=== PATIENT | female | born 1955 | race Caucasian/White ===

== ENCOUNTER 2019-03-09 08:28 | Outpatient (REF) | payer MEDICARE, SELFPAY ==
[2019-03-09 14:21] LABS: Cholesterol 261 mg/dL (50-200); HDL Cholesterol 56 mg/dL (40-60); LDL CHOLESTEROL 173 mg/dL (<100); Triglyceride 114 mg/dL (30-150)
== END 2019-03-09 08:48 ==
LOC: NCHCN 08:28
PROVIDERS: PCP Family Medicine; Visit Provider Family Medicine
DX: E78.5 Hyperlipidemia, unspecified (principal)
CPT/HCPCS: 80061; 83721

== ENCOUNTER 2020-07-20 14:07 | Outpatient (REF) | payer MEDICARE, SELFPAY ==
[2020-07-23 19:04] LABS: SARS-CoV-2 RNA Undetected (Undetected)
== END 2020-07-20 14:27 ==
LOC: NCHCN 14:07
PROVIDERS: PCP Family Medicine; Visit Provider Family Medicine
DX: Z20.828 Contact with and (suspected) exposure to other viral communicable diseases (principal)
CPT/HCPCS: U0003

== ENCOUNTER 2021-06-02 09:21 | Outpatient (CLI) | payer MEDICARE, SELFPAY ==
--- NOTE | 2021-06-02 09:00 | DI.RAD_ITS ---
Exam(s) XR HIP PELVIS ADULT BL EXAM: XR HIP PELVIS ADULT BL CLINICAL HISTORY: hip pain. TECHNIQUE: 2D digital imaging was performed. COMPARISON: No exams were available for comparison FINDINGS: BONES: No acute fracture is present. No bony destructive lesion is seen. JOINTS: No dislocation present. Mild to moderate inferomedial hip joint space narrowing. Acetabular spurring seen greatest inferiorly and medially. Adjacent subchondral cyst formation. SOFT TISSUE: Normal. IMPRESSION: Moderate degenerative changes of both hips. DATA REPOSITORY: RADIATION DOSE DELIVERED:
== END 2021-06-02 09:22 | disposition home or self-care (01) ==
LOC: DIORS 09:21
PROVIDERS: PCP Family Medicine; Referring Provider Family Medicine; Visit Provider Student in an Organized Health Care Education/Training Program
DX: M25.551 Pain in right hip (principal); M16.12 Unilateral primary osteoarthritis, left hip; M16.11 Unilateral primary osteoarthritis, right hip; M25.552 Pain in left hip
CPT/HCPCS: 73521; 99203

== ENCOUNTER 2021-06-29 01:41 | Outpatient (CLI) | payer MEDICARE, SELFPAY ==
--- NOTE | 2021-06-29 08:30 | DI.RAD_ITS ---
Exam(s) RF JOINT INJECTION FLUORO GUID EXAM: RF JOINT INJECTION FLUORO GUID CLINICAL HISTORY: R HIP INJ UNDER FLUORO,PRIMARY OA RT HIP, M16.12 TECHNIQUE: Fluoroscopy provided. Radiologist not present. CONTRAST MATERIAL: None COMPARISON: No exams were available for comparison FINDINGS: Fluoroscopy was provided for Dr. Desouza during right hip therapeutic injection. Submitted image(s) reveal needle placement via lateral approach at the junction of the femoral head a nd neck. Intra-articular contrast injected. Please refer to the procedure report for complete details. Cumulative Dose: dorene Mondragon=4.42 mGy IMPRESSION: RADIATION DOSE DELIVERED:
--- NOTE | 2021-06-29 08:30 | DI.RAD_ITS ---
Exam(s) RF JOINT INJECTION FLUORO GUID EXAM: RF JOINT INJECTION FLUORO GUID CLINICAL HISTORY: L HIP INJ UNDER FLUORO,PRIMARY OA LT HIP, M16.12 TECHNIQUE: Fluoroscopy provided. Radiologist not present. CONTRAST MATERIAL: None COMPARISON: No exams were available for comparison FINDINGS: Fluoroscopy was provided for Dr. Desouza during left hip therapeutic injection. Submitted image(s) reveal needle placement at the lateral aspect of the femoral head-neck junction an d injection of intra-articular contrast. Please refer to the procedure report for complete details. Cumulative Dose: dorene Mondragon=13.8 mGy IMPRESSION: RADIATION DOSE DELIVERED:
[2021-06-29] MEDS: Bupivacaine 0.5% Pres-Free 10 ML VIAL IJ (14:13)
[2021-06-29] MEDS: Omnipaque 300 MG/ML 10 ML BTL IJ (14:14)
[2021-06-29] MEDS: methylPREDNISolone ACETATE 80 MG/ML VIAL IM ×2 (14:14→14:15)
--- NOTE | 2021-06-30 07:40 | W.PROCNOTE ---
Date of service: 06/30/21 Time of Service: 07:40 Procedure Note Date of procedure: 06/30/21 Procedure: Bilateral Hip Injection with Fluoroscopic Guidance Surgeon/Proceduralist/Physician: Justin Desouza Procedure Diagnosis: Bilateral Hip Osteoarthritis, Hip Pain Procedure Indications: Brinda has had persistent pain of hip and groin of both sides. Noninvasive measures have been tried. To serve as both diagnostic and therapeutic, an injection under fluoroscopy was recommended. I had discussed the risks of the procedure and the patient elected to proceed. Procedure Description: Brinda was greeted in the flouroscopy room. The correct side was identified and the consent was reviewed with the patient and signed. The patient was then placed in the supine position on the fluoroscopy table. The RIGHT hip was then prepped with Chloraprep. The anterolateral injection starting point was identiifed by bony landmarks and fluoroscopy. The skin and soft tissue in the tract of the injection was anesthetized with 1% Lidocaine. A spinal needle was then inserted deep into the hip joint at the level of the lateral femoral neck under fluoroscopic guidance. A small amount of Omnipaque solution was injected to confirm intraarticular placement. Once confirmed, the hip was injected with 5cc of 0.5% Bupivicaine and 80mg of Depo-Medrol. A bandaid was placed on the injection site. Attention was then turned to the left hip. The LEFT hip was then prepped with Chloraprep. The anterolateral injection starting point was identiifed by bony landmarks and fluoroscopy. The skin and soft tissue in the tract of the injection was anesthetized with 1% Lidocaine. A spinal needle was then inserted deep into the hip joint at the level of the lateral femoral neck under fluoroscopic guidance. A small amount of Omnipaque solution was injected to confirm intraarticular placement. Once confirmed, the hip was injected with 5cc of 0.5% Bupivicaine and 80mg of Depo-Medrol. A bandaid was placed on the injection site. The patient tolerated the procedure well and noted improvement in pre-injection pain.
== END 2021-06-29 02:01 ==
PROVIDERS: PCP Family Medicine; Visit Provider Student in an Organized Health Care Education/Training Program
DX: M16.12 Unilateral primary osteoarthritis, left hip (principal); M16.11 Unilateral primary osteoarthritis, right hip; M25.551 Pain in right hip; M25.552 Pain in left hip; R10.31 Right lower quadrant pain; R10.32 Left lower quadrant pain
CPT/HCPCS: 20610; 77002; J1040

== ENCOUNTER 2021-08-04 04:05 | Outpatient (CLI) | payer MEDICARE, SELFPAY ==
--- NOTE | 2021-08-04 | DI.DEXA_ITS ---
Exam(s) XR DEXA BONE DENSITY W/WO RANDA EXAM: XR DEXA BONE DENSITY W/WO RANDA CLINICAL HISTORY: VIT D DEFICIENCY E55.9, MENOPAUSE Z78.0 TECHNIQUE: COMPARISON: No previous for comparison. FINDINGS: Lateral Spine Image: Unremarkable. No compression deformities identified. Left hip: Total T-Score: -1.5. Total Z-Score: -0.1 T- and Z-scores: Findings consistent with osteopenia. Lumbar Spine: Total T-Score: -1.7 Total Z-Score: 0.3 T- and Z-scores: Findings consistent with osteopenia. IMPRESSION: Osteopenia in the lumbar spine and left hip.
== END 2021-08-04 04:25 ==
PROVIDERS: PCP Family Medicine; Visit Provider Family Medicine
DX: Z78.0 Asymptomatic menopausal state (principal); E55.9 Vitamin D deficiency, unspecified; M85.89 Other specified disorders of bone density and structure, multiple sites
CPT/HCPCS: 77080

== ENCOUNTER 2021-09-04 10:51 | Outpatient (CLI) | payer MEDICARE, SELFPAY ==
--- NOTE | 2021-09-04 10:15 | DI.RAD_ITS ---
Exam(s) XR PELVIS AP EXAM: XR PELVIS AP CLINICAL HISTORY: OA BILATERAL HIPS TECHNIQUE: COMPARISON: CR XR HIP PELVIS ADULT BL from 06/02/2021 FINDINGS: Single AP view of the hips was obtained. The cartilaginous joint spaces of both hips may be mildly n arrowed. There are prominent marginal osteophytes seen involving the acetabula E and to a lesser deg ree the femoral heads bilaterally. Bilateral subchondral cyst formation appears to be present in the bones of the hips. IMPRESSION: moderate DJD both hips RADIATION DOSE DELIVERED: Total DLP
== END 2021-09-04 10:52 | disposition home or self-care (01) ==
LOC: DIORS 10:51
PROVIDERS: PCP Family Medicine; Referring Provider Family Medicine; Visit Provider Student in an Organized Health Care Education/Training Program
DX: M16.11 Unilateral primary osteoarthritis, right hip (principal); M16.12 Unilateral primary osteoarthritis, left hip
CPT/HCPCS: 99214; 72170

== ENCOUNTER 2021-09-15 14:57 | Outpatient (REF) | payer MEDICARE, SELFPAY ==
[2021-09-15 21:27] LABS: Abs Immature Grans 0.04 10^3/uL (0.0-0.06); Absolute Basophil Count 0.12 10^3/uL (0.0-0.2); Absolute Eosinophil Count 0.17 10^3/uL (0.0-0.7); Absolute Neutrophil Count 8.45 10^3/uL (1.2-6.7); Eosinophils % 1.4; HCT 45.7 % (36.0-46.0); HGB 14.8 g/dL (11.2-15.7); Immature Grans % 0.3; Lymphocytes % 17.2; MCH 29.1 pg (27.0-33.0); MCHC 32.4 % (32.0-36.0); MPV 11.7 fL (8.0-11.0); Monocytes % 10.7; Neutrophils % 69.4; Nucleated RBC 0 %; Platelet Count 303 10^3/uL (130-400); RBC 5.08 10^6/uL (3.93-5.22); RDW 12.2 % (11.7-14.6); RDW-SD 40.9 fL; WBC 12.18 10^3/uL (4.4-10.8)
[2021-09-15 21:31] LABS: Absolute Lymphocyte Count 2.09 10^3/uL (1.2-3.4)
[2021-09-15 21:37] LABS: ALT 34 U/L (14-59); AST 18 U/L (15-37); Albumin 3.9 g/dL (3.4-5.0); Alkaline Phosphatase 130 U/L (46-116); BUN 9 mg/dL (7-18); Bilirubin, Total 0.4 mg/dL (0.2-1.0); CREATININE 0.7 mg/dL (0.55-1.02); Calcium 9.1 mg/dL (8.5-10.1); Chloride 101 mmol/L (98-107); Glucose 91 mg/dL (74-106); Potassium 3.9 mmol/L (3.5-5.1); Sodium 139 mmol/L (136-145); Total Protein 7.3 g/dL (6.4-8.2)
== END 2021-09-15 14:58 | disposition home or self-care (01) ==
LOC: NCHCN 14:57
PROVIDERS: PCP Family Medicine; Visit Provider Nurse Practitioner Family
DX: M25.559 Pain in unspecified hip (principal)
CPT/HCPCS: 80053; 85025

== ENCOUNTER 2021-10-02 03:46 | Outpatient (CLI) | payer MEDICARE, SELFPAY ==
[2021-10-02 10:12] LABS: HCT 44.7 % (36.0-46.0); HGB 14.4 g/dL (11.2-15.7); MCH 28.4 pg (27.0-33.0); MCHC 32.2 % (32.0-36.0); MCV 88.2 fL (80-95); MPV 10.6 fL (8.0-11.0); Platelet Count 342 10^3/uL (130-400); RBC 5.07 10^6/uL (3.93-5.22); RDW 12.2 % (11.7-14.6); RDW-SD 39.2 fL; WBC 9.75 10^3/uL (4.4-10.8)
[2021-10-02 10:46] LABS: Anion Gap 6.9 mmol/L (3-11); BUN 10 mg/dL (7-18); CO2 33.1 mmol/L (21.0-32.0); CREATININE 0.6 mg/dL (0.55-1.02); Calcium 9.2 mg/dL (8.5-10.1); Chloride 100 mmol/L (98-107); Glucose 74 mg/dL (74-106); Potassium 4.1 mmol/L (3.5-5.1); Sodium 140 mmol/L (136-145)
[2021-10-02 11:41] LABS: Source Nasal/Nares
[2021-10-02 15:51] LABS: COVID-19 PCR Negative (Negative)
== END 2021-10-02 03:47 | disposition home or self-care (01) ==
LOC: LBO 03:46
PROVIDERS: PCP Family Medicine; Visit Provider Student in an Organized Health Care Education/Training Program
DX: Z20.822 Contact with and (suspected) exposure to COVID-19; Z01.818 Encounter for other preprocedural examination; M16.0 Bilateral primary osteoarthritis of hip
CPT/HCPCS: 36415; 80048; 85027; 86850; 86900; 86901; 87635

== ENCOUNTER 2021-10-04 06:51 | Observation (INO) | payer MEDICARE, SELFPAY ==
[2021-10-04] VITALS (9 sets, daily range): BP systolic 111–154; BP diastolic 57–87; PULSE 54–69; RESP 11–20; TEMP 36.2–36.6; O2SAT 64–98; BMI 28.3
--- NOTE | 2021-10-04 06:54 | W.PM.DSUDISC ---
Discharge Plan Disposition Patient Disposition: HOME Condition: Stable Discharge Details Reason For Visit: bilateral THAs Admit Provider: Justin Desouza Attending Provider: Justin Desouza Primary Care Provider: Leonora López Home Meds and New Rx's Prescriptions: No Action montelukast [Singulair] 10 mg tablet 10 mg PO QHS RF: 0 amlodipine 5 mg tablet 5 mg PO DAILY RF: 0 omeprazole 20 mg capsule,delayed release(DR/EC) 20 mg PO DAILY RF: 0 alprazolam [Xanax] 0.5 mg tablet 0.5 mg PO DAILY PRNRF: 0 amitriptyline 25 mg tablet 25 mg PO DAILY RF: 0 venlafaxine [Effexor XR] 37.5 mg capsule,extended release 24hr 75 mg PO DAILY RF: 0 propranolol 10 mg tablet 10 mg PO DAILY RF: 0 Discharge Instructions Additional Instructions: Total Hip Discharge Instructions Activity: The most important activity is to walk. You should try to take short walks a few times a day. You have no restrictions on movement or positioning, but do not try to force what you do. You will find some stiffness and weakness with hip flexion (lifting your knee). Do not try to strengthen this too early, continue to practice walking and stairs and this will come. - Outpatient physical therapy can be helpful to help return you to a normal gait and improve your flexibility and strength. This can start around 2 weeks. For some patients, it?s not necessary. Usually this is determined at the time of discharge or at the first post-operative visit. - You should wear the EMILIA hose on both legs for 2 weeks. Dressing: Keep the surgical dressing in place for at least one week. After the first week it may be removed and replace with light gauze and tape or nothing. It may get wet after 3 days but avoid soaking the dressing. If it gets wet, just lightly pat dry. It is important to always keep some gauze between skin folds, especially when you are sitting. Spend some time with the wound exposed when you are lying flat as the incision does wrinkle onto itself. Medications: - You should take Tylenol and an anti-inflammatory Celebrex as your primary pain control medications. If the Celebrex is too expensive or not covered, please call the office for another alternative (Advil/Ibuprofen or Naproxen/Aleve). - You have been prescribed a stronger pain medication Oxycodone for breakthrough pain, take as needed as prescribed. - You have also been prescribed a stomach acid reduction agent Pantoprozole to help reduce stomach acid and reflux. - You will be taking Aspirin 81mg twice a day for DVT prevention unless instructed otherwise. - If you have constipation you should take Colace or Miralax (both [id number]). It takes most people 3-4 days to have a bowel movement. Follow-up: 2 weeks If you have any acute concerns or questions, please do not hesitate to contact the office at [phone]. You may contact Dr. Desouza with any questions after hours through the hospital at [phone] or on his cell phone at [phone]. Referrals: Justin Desouza MD [ [facility] STAFF PHYSICIAN] - Activity:: Activity as Tolerated Equipment/Supplies:: Walker Diet:: As Tolerated DS: Diagnosis Discharge Diagnosis (1) Primary osteoarthritis of right hip: Status: Acute (2) Primary osteoarthritis of left hip: Status: Acute
[2021-10-04] MEDS: Celecoxib 200 MG CAP 400 MG PO (08:51)
[2021-10-04] MEDS: Acetaminophen 500 MG TAB 1000 MG PO ×3 (08:51→20:09)
[2021-10-04] MEDS: Lactated Ringers 1,000 ML 80 ML IV ×2 (09:00→16:39)
--- NOTE | 2021-10-04 09:05 | ANES.PREOP_ITS ---
General Info Date of Service Date Performed: 10/04/21 Height: 5 ft 2.5 in Weight: 71.4 kg Body Mass Index (BMI): 28.3 Surgical Procedure: Operation Date: 10/04/21 10:35 Proposed Procedures Side Surgeon p Bilateral Hip Total Hip Anterior Bilateral Justin Desouza MD Meds Allergies and Home Medications Allergies Allergy/AdvReac Type Severity Reaction Status Date / Time lisinopril Allergy Severe Verified 10/04/21 08:21 promethazine [From Phenergan] Allergy Severe ANAPHYLAXIS Verified 10/04/21 08:21 sulfite Allergy Intermediate Other (See Unverified 10/04/21 08:21 Comment) Barbiturates Allergy Verified 10/04/21 08:21 losartan Allergy Verified 10/04/21 08:21 erythromycin base AdvReac Intermediate GI UPSET Verified 10/04/21 08:21 MSG Allergy Severe Hives Uncoded 10/04/21 08:21 Home Medication Medication Instructions Recorded alprazolam 0.5 mg tablet 0.5 mg PO DAILY PRN 06/02/21 amitriptyline 25 mg tablet 25 mg PO DAILY 06/02/21 amlodipine 5 mg tablet 5 mg PO DAILY 06/02/21 montelukast 10 mg tablet 10 mg PO QHS 06/02/21 omeprazole 20 mg capsule,delayed 20 mg PO DAILY 06/02/21 release venlafaxine 37.5 mg 75 mg PO DAILY cap 09/04/21 capsule,extended release 24 hr propranolol 10 mg PO DAILY 10/03/21 Current Visit Medications: Current Medications Generic Name Dose Route Start Last Admin Trade Name Freq PRN Reason Stop Dose Admin Acetaminophen 1,000 mg 10/04/21 06:00 10/04/21 08:51 Acetaminophen 500 Mg Tab PO 10/04/21 16:00 1,000 mg PREOP KEVIN Administration Acetaminophen 1,000 mg 10/04/21 09:00 Acetaminophen 500 Mg Tab PO TID KEVIN Aspirin 81 mg 10/04/21 09:00 Aspirin E.C. 81 Mg Tabec PO BID KEVIN Celecoxib 400 mg 10/04/21 06:00 10/04/21 08:51 Celecoxib 200 Mg Cap PO 10/04/21 16:00 400 mg PREOP KEVIN Administration Celecoxib 200 mg 10/04/21 09:00 Celecoxib 200 Mg Cap PO BID COUNT INCLUDES THE [facility] Docusate Sodium 100 mg 10/04/21 06:53 Docusate Sodium 100 Mg Cap PO BID PRN PRN Constipation Hydromorphone HCl 0.5 mg 10/04/21 06:53 Hydromorphone 2 Mg/Ml Vial IVP Q2H PRN PRN Tranexamic Acid 1,000 mg/ 60 mls @ 360 mls/hr 10/04/21 06:00 Sodium Chloride IV PREOP KEVIN Tranexamic Acid 1,000 mg/ 60 mls @ 360 mls/hr 10/04/21 06:00 Sodium Chloride IV DIRECTED COUNT INCLUDES THE [facility] Ringer's Solution 1,000 mls @ 80 mls/hr 10/04/21 06:00 IV 10/24/21 23:59 INFUSION KEVIN Cefazolin Sodium 2,000 mg/ 100 mls @ 200 mls/hr 10/04/21 06:00 Sodium Chloride IVPB 10/04/21 16:00 PREOP KEVIN Cefazolin Sodium/Dextrose 1 gm in 50 mls @ 100 mls/hr 10/04/21 18:00 Ancef Duplex IVPB 10/05/21 10:29 Q8H COUNT INCLUDES THE [facility] IV Miscellaneous Supplies 1 each 10/04/21 06:00 Iv Access IV 10/24/21 23:59 DIRECTED KEVIN Ondansetron HCl 4 mg 10/04/21 06:53 Ondansetron 4 Mg/2 Ml Vial IVP Q6H PRN PRN Nausea Pantoprazole Sodium 40 mg 10/04/21 08:00 Pantoprazole 40 Mg Tabcr PO DAILY@0730 COUNT INCLUDES THE [facility] Sodium Chloride 0 ml 10/04/21 06:00 Normal Saline Flush 10 Ml Syr IV 10/24/21 23:59 PRN PRN Sodium Chloride 0 ml 10/04/21 06:00 Normal Saline 10 Ml Vial IJ 10/24/21 23:59 DIRECTED PRN Sterile Water 0 ml 10/04/21 06:00 Water,Injection,Sterile 10 Ml Vial IJ 10/24/21 23:59 DIRECTED PRN PFSH Active Problems Active Problems: Problem Status Onset Code Primary osteoarthritis of right hip M16.11 Primary osteoarthritis of left hip M16.12 Arthralgia M25.50 Medical History Medical History (Updated 10/03/21 @ 08:05 by Reddy Joseph) Actinic keratosis Arthritis Cataract, left eye Depression with anxiety Hyperlipidemia Hypertension IBS (irritable bowel syndrome) Mitral valve prolapse Per pt. states this was found when she was and hasn't been able to be detected recently Myalgia Neck pain Panic disorder PTSD (post-traumatic stress disorder) From Hysterectomy I was awake during it, I had a spinal but was awake. 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 so I'm very nervous Seasonal allergies Surgical History Surgical History (Updated 10/04/21 @ 08:20 by Courtney Harvey) [place] [facility] [place] History of right cataract surgery Previous section 1975, 1979 Tobacco Smoking/Tobacco Use Status: Never Alcohol Alcohol Intake: never Substance Use Substance use: Rarely Substance use type: marijuana Vital Signs and Lab Results Vital Signs Most Recent Vital Signs in EMR: Most Recent Vital Signs Temp Pulse Resp BP Pulse Ox 36.5 C 65 20 153/83 H 98 10/04/21 08:24 10/04/21 08:24 10/04/21 08:24 10/04/21 08:24 10/04/21 08:24 Lab Results Blood Type / Crossmatch: Patient ABO/Rh O Positive 10/02/21 09:59 10/02/21 Antibody Screen NEGATIVE 10/02/21 09:59 10/02/21 Complete Blood Count: White Blood Count 9.75 10^3/uL (4.4-10.8) 10/02/21 09:59 10/02/21 Red Blood Count 5.07 10^6/uL (3.93-5.22) 10/02/21 09:59 10/02/21 Hemoglobin 14.4 g/dL (11.2-15.7) 10/02/21 09:59 10/02/21 Hematocrit 44.7 % (36.0-46.0) 10/02/21 09:59 10/02/21 Platelet Count 342 10^3/uL (130-400) 10/02/21 09:59 10/02/21 Complete Metabolic Panel: Sodium Level 140 mmol/L (136-145) 10/02/21 09:59 10/02/21 Potassium Level 4.1 mmol/L (3.5-5.1) 10/02/21 09:59 10/02/21 Chloride Level 100 mmol/L (98-107) 10/02/21 09:59 10/02/21 Carbon Dioxide Level 33.1 mmol/L (21.0-32.0) H 10/02/21 09:59 10/02/21 Blood Urea Nitrogen 10 mg/dL (7-18) 10/02/21 09:59 10/02/21 Creatinine 0.6 mg/dL (0.55-1.02) 10/02/21 09:59 10/02/21 Estimated GFR/1.73 m2 >= 60.00 (mL/min/1.73m2) 10/02/21 09:59 10/02/21 Calcium Level 9.2 mg/dL (8.5-10.1) 10/02/21 09:59 10/02/21 Albumin 3.9 g/dL (3.4-5.0) 09/15/21 12:35 09/15/21 Glucose Level 74 mg/dL (74-106) 10/02/21 09:59 10/02/21 Liver Function Panel: Alanine Aminotransferase (ALT/SGPT) 34 U/L (14-59) 09/15/21 12:35 09/15/21 Aspartate Amino Transf (AST/SGOT) 18 U/L (15-37) 09/15/21 12:35 09/15/21 Coagulation Panel: No Data to Display Cardiac Panel: No Data to Display Arterial Blood Gas: No Data to Display Venous Blood Gas: No Data to Display Pancreas Panel: No Data to Display Thyroid Panel: No Data to Display Infectious Disease: Coronavirus (COVID-19)(PCR) Negative (Negative) 10/02/21 11:11 10/02/21 Coronavirus 2019 Source Nasal/Nares 10/02/21 11:11 10/02/21 Blood Cultures: No Data to Display Toxicology Panel: No Data to Display Imaging and Studies Imaging and Studies Stress Test Summary: Stress results: The rate-pressure product for the peak heart rate and blood pressure was 59076pf Hg/min. Stress ECG: TESTING ENDED At 9 MINS DUE TO PT FATIGUE. MAX HR 143, 91% OF TARGET. BLOOD PRESSURE RESPONSE: HYPOTENSIVE BLOOD PRESSURE RESPONSE METS:10.16 ECTOPY:NO ECTOPY NOTED. ANGINA: PT DENIED CHEST PAIN OR PRESSURE ISCHEMIA: NO ISCHEMIC CHANGES NOTED. FUNCTIONAL CAPACITY: ABOVE AVERAGE FUNCTIONAL CAPACITY. Myocardial perfusion: Imaging information: gated. No myocardial perfusion defects noted. Ventricular Function (Wall Motion): The calculated left ventricular ejection fraction after stress: 64%. 12/24/16 Anesthesia Assessment and Plan Anesthesia History Personal History: No History of Anesthesia Complications Family History: No Family History of Anesthesia Complications Exercise Tolerance Exercise Tolerance: Metabolic Equivalents>4 Pertinent Negatives Pertinent Negatives: No Symptoms of GERD (Well controlled with meds), No Major Cardiovascular Symptoms or Complaints, No Major Pulmonary Symptoms or Complaints and No History of CVA/TIA Cardiac & Pulmonary Exam Cardiac Exam: Normal S1/S2 Heart Sounds Pulmonary Exam: Clear Bilateral Breath Sounds Implantable Cardiac Device Does patient have a Pacemaker or an ICD?: No Airway Exam Known Difficult Airway: No Mallampati Class: 2 Mouth Opening: Narrow (< 3cm) Thyromental Distance: Less than 3 cm Neck Range of Motion: Limited ROM (Pain with any movent of head to the left, plan to position to comfort prior to deep sedation in OR) and Known Cervical Instability or radiculopathy Neck Circumference: Normal Teeth Condition: Normal Dentition ASA Classification ASA Score: ASA 2 Emergency Case?: No NPO Status NPO Status: NPO Clears >2 hours, Solids >8 hours Anesthesia Plan Resuscitation Status: Full Code Anesthesia Technique: Spinal Anesthesia Airway Planned: Natural Airway Monitors Used: Standard Monitors Preoperative Comments:: Severe anxiety. Plan preop sedation.
[2021-10-04] MEDS: ceFAZolin 2,000 MG in Normal Saline 100 ML 200 MG IVPB (10:29)
--- NOTE | 2021-10-04 11:33 | DI.RAD_ITS ---
Exam(s) XR HIP RT IN OR EXAM: XR HIP RT IN OR CLINICAL HISTORY: (1) Primary osteoarthritis of left hip:. TECHNIQUE: 2D digital imaging was performed. COMPARISON: No exams were available for comparison FINDINGS: Intraoperative fluoroscopy was provided during right hip arthroplasty Total fluoroscopy time 34 seconds Total clipped of dose 4.09mGy IMPRESSION: DATA REPOSITORY: RADIATION DOSE DELIVERED:
[2021-10-04] MEDS: Bupivacaine 0.25% Pres-Free 30 ML VIAL (12:45)
[2021-10-04] MEDS: Ketorolac 30 MG/ML VIAL (12:45)
--- NOTE | 2021-10-04 12:49 | DI.RAD_ITS ---
Exam(s) XR HIP LT IN OR EXAM: XR HIP LT IN OR CLINICAL HISTORY: (1) Primary osteoarthritis of left hip:. TECHNIQUE: 2D digital imaging was performed. COMPARISON: No exams were available for comparison FINDINGS: Intraoperative fluoroscopy was provided during left hip arthroplasty. Total fluoroscopy time 36.7 seconds Total cumulative dose 4.74mGy IMPRESSION: DATA REPOSITORY: RADIATION DOSE DELIVERED:
--- NOTE | 2021-10-04 13:30 | W.PM.OP ---
Date of service: 10/04/21 Time of Service: 13:10 Operative Note Operative Note DATE OF PROCEDURE: 10/04/21 PRE-OP DIAGNOSIS: Bilateral Hip Osteoarthritis POST-OP DIAGNOSIS: same PROCEDURE: Bilateral Anterior Total Hip Arthroplasty SURGEON: Justin Desouza AUDIO VISUAL FACILITIES ENGINEER: Andreina Vicente ANESTHESIA TYPE: Spinal Refer to Anesthesia Record ESTIMATED BLOOD LOSS: 200 PATHOLOGY: none sent TOURNIQUET TIME: 0 COMPLICATIONS: None Patient was transported to: PACU Patient's condition: stable Implants: RIGHT: 1. Depuy [place] Acetabular Component, 48mm 2. Depuy Acetabular Liner, [id number] 3. Depuy Corail Standard Collared 125 degrees Femoral Stem, Size 11 4. Depuy Altrx Ceramic Femoral Head, Size 32+1mm LEFT: 1. Depuy [place] Acetabular Component, 48mm 2. Depuy Acetabular Liner, [id number] 3. Depuy Corail Standard Collared 125 degree Femoral Stem, Size 11 4. Depuy Altrx Ceramic Femoral Head, Size 32+5mm Indications: I have seen Brinda in clinic for symptoms of hip arthritis, confirmed with radiographic findings. She has exhausted nonoperative methods and was having significant limitations in daily function and desired better function and less pain. I discussed the technical details of a hip replacement. I explained the risks of the procedure to include, but not limited to, bleeding, infection, pain, stiffness, fracture, damage to nerves and vessels, damage to muscles and tendons, loosening, instability, leg length inequality, need for repeat procedure, blood clot and cardiopulmonary demise. Despite these risks, Brinda elected to proceed. Findings: There was significant signs of arthritis throughout both hips. The right hip was the worst and had large neck osteophytes. Procedure Description: Brinda was greeted in the preoperative holding area where the correct side was identified and marked. The consent was reviewed with the patient and signed. The history and physical was updated. All questions were answered. She was taken back to the operating room. A spinal anesthestic was then administered. The patient was placed into the supine position on the [facility] operating table. Both feet were wrapped with Webrill cotton wrap along with Coban. The feet were placed in specialized boots for the [facility] table, well seated within the boot and secured. SCDs were applied. The patient was then slid down onto a peroneal post and the boots were secured in a neutral position. RIGHT Side A preoperative AP hip was obtained to serve as a reference for determining leg lengths. Prophylactic antibiotics in the form of Cefazolin were administered. 1g of Tranxemic Acid was given intravenously within 30 minutes of incision. The right leg was then prepped with Chloraprep and draped in a standard fashion. A second prep with Chloraprep was performed prior to placement of a shower-curtain type drape with Iodine impregnated skin protection. A timeout to confirm correct identity, side and site, procedure, allergies, anesthesia, and medical concerns was performed. An obliquely oriented incision was made starting lateral to the ASIS and running distal over the Tensor Fascia Kassidy (TFL) muscle belly toward the fibular head, approximately 10cm. The skin and soft tissue was dissected sharply, through Kartik?s fascia, and to the fascia of the TFL. With the fascia and superior border of the IT band identified, the fascia was incised with a new knife just above any perforators from the IT band. The TFL muscle belly was bluntly dissected away from the fascia and moved laterally. The fat between TFL and rectus was identified to ensure the dissection was not within the TFL. Blunt dissection created space between abductors and the capsule and retractor was placed over the lateral femoral neck. The fibers of the rectus femoris tendon were identified and these were freed from the anterior capsule. A second cobra retractor was placed around the medial femoral neck. The TFL was further retracted laterally to show the deep fascia. Careful dissection through this layer identified three main crossing vessels of the lateral femoral circumflex. These were cauterized in multiple locations and then cut without any noticeable bleeding. The TFL was further released bluntly from the deep fascia to expose anterior hip capsule and fat The Scott orthopaedic retractor was then placed beneath the TFL and against sartorius and medial soft tissues to protect and retract the soft tissues. A T-capsulotomy was then performed starting at the superior lateral acetabulum and moving distally to the intertrochanteric ridge. These capsular flaps were tagged with a No. 1 Ethibond and elevated from within. The capsular flaps were released to the shoulder of the lateral neck and to the lesser trochanter to give excellent visualization of the proximal femur. A neck osteotomy was performed using an oscillating saw based on preoperative templates. This cut started in the shoulder and of the lateral neck and exited medially. The saw was at all times directed medially to avoid injury to the greater trochanter. 6cm of traction was applied to the leg and the osteotomy opened. The femoral head was removed with a corkscrew, making sure to protect the TFL on its exit. This was measured on the back table to determing the starting reamer size. Portions of the rectus obscuring visualization were minimally elevated off the superior acetabulum. An anterior retractor was placed over the anterior wall between capsule and labrum and attached to the Gripper retraction system. A posterior retractor was placed similarly. This provided excellent visualization. The contents of the cotyloid fossa were removed with electrocautery and the labrum was removed with a knife. There was significant chondromalacia of the superior acetabulum. Acetabular reaming began with a 44mm reamer. This first reaming was directed anterior to posterior and medial to get down to the true floor. This was inspected and reamed until the true floor was reached. The anterior retractor was then released and entry and exit was provided by traction on the capsular flaps. I then reamed sequentially up to a 48mm reamer where good fit was obtained. The larger reamers were oriented based on anatomical reference of the anterior and lateral gore to ensure proper abduction and anteversion. Positioning and size was confirmed with the fluoroscopy. A 48mm Depuy [place] acetabular component was selected. The acetabulum was reamed around the periphery with the selected acetabular size to prevent a rim fit. The deep tissues were irrigated. The acetabular component was then impacted in a position of about 40-45 degrees of abduction and 15-20 degrees of anteversion, using the patient?s anatomy as the ultimate landmark. Fluoroscopy was used to confirm this. There was excellent overhead garage door hanger of the acetabular component and the inserting handle was removed. The acetabular liner, Depuy [id number] polyethylene liner, was inserted and lined up with the tines of the acetabular component. There was no soft tissue interposition. The liner was then impacted into position and confirmed to be well-seated. A portion of the osorio-articular cocktail was then injected around the acetabulum into the capsule and periosteum. This cocktail consisted of 50cc of 0.25% Bupivicaine and 20cc of Exparel, expanded to a total of 120cc. Traction was released from the femur. The leg was rotated to 120 degrees. Any remaining medial capsule was released until the lesser trochanter was easily palpable. A Glynn retractor was placed medially. The lateral capsule was further released into the shoulder to allow access to the greater trochanter. A Glynn retractor was placed over the greater trochanter which allowed the trochanter to flip in front of the capsule for excellent exposure. The leg was brought down into maximal extension and 20 degrees of adduction while ensuring there was no impingement on the acetabulum. Any remnant capsule within the trochanter was released. Piriformis and obturator externis were identified and protected. There was excellent access to the proximal femur. The lateral neck remnant was removed with a rongeur. A blunt canal probe was used to identify the canal and trajectory for later broaching. A box osteotome initiated the broach course. A small curved rasp and a curved curette were used to work laterally. Broaching then began with a size 8 Corail broach. This was inserted manually around the trochanter and into the canal before mallet blows. The broach was seated to a few millimeters below the cut level based on the neck cut and the preoperative template. Sequential broaching was continued with the GameWithse pneumatic broaching device until a tight fit was obtained with good rotational control of the femur. A trial standard 125 neck was inserted along with a +1 trial head. The leg was brought out of extension and adduction and then reduced with traction and internal rotation. The leg was stable anteriorly in a position of 30 degrees of extension and 90 degrees of external rotation. Fluoroscopy was used to ensure there was no fracture and the stem was seated well. Leg lengths were checked with an AP pelvis and pelvic reference points. LitRes navigation system was used to confirm appropriate positioning and leg length and offset. No changes were necessary. Once content with the desired offset and leg lengths, the leg was brought back into extension, external rotation and adduction. The periosteum and surrounding tissue was injected with remaining portion of the osorio-articular cocktail. The proximal femur was irrigated as well as the deep tissues. The Depuy [place] standard collared 125 deg stem, size 11, was then manually inserted into the proximal femur making sure to control rotation. It was then malleted into position with light blows, giving breaks to allow bone expansion and decrease risk of fracture. The selected Depuy Altrx Ceramic Head, size 32+1mm, was then placed onto the clean and dry trunnion and secured with impaction onto the tapered fit. The leg was brought back out of extension and adduction and reduced with traction and internal rotation. Stability was confirmed with no shuck at 90 degrees of external rotation and 30 degrees of extension. No impingement through range of motion arc. Final x-ray images were obtained with fluoroscopy to confirm adequate positioning and no intraoperative fracture. The deep tissues were thoroughly irrigated with Irrisept chlorhexadine solution. The capsule was then reapproximated with the previously placed Ethibond sutures. The TFL fascia was finally closed with a No. 2 Stratafix, barbed suture. Deep tissues were then reapproximated with 0 Vicryl and a running 2-0 Vicryl. The skin was closed with a running 4-0 Monocryl in a subcuticular fashion. This was reinforced with skin glue. A Mepilex silver dressing was applied. LEFT Side Keeping the back table sterile, the drapes were removed, light handles changed, and fluoroscopy switched rooms sides. The second dose of TXA 1g was administered intravenously. The left leg was then prepped with Chloraprep and draped in a standard fashion. A second prep with Chloraprep was performed prior to placement of a shower-curtain type drape with Iodine impregnated skin protection. A timeout was once again performed to ensure that there were no issues to proceed. An obliquely oriented incision was made starting lateral to the ASIS and running distal over the Tensor Fascia Kassidy (TFL) muscle belly toward the fibular head, approximately 10cm. The skin and soft tissue was dissected sharply, through Kartik?s fascia, and to the fascia of the TFL. With the fascia and superior border of the IT band identified, the fascia was incised with a new knife just above any perforators from the IT band. The TFL muscle belly was bluntly dissected away from the fascia and moved laterally. The fat between TFL and rectus was identified to ensure the dissection was not within the TFL. Blunt dissection created space between abductors and the capsule and retractor was placed over the lateral femoral neck. The fibers of the rectus femoris tendon were identified and these were freed from the anterior capsule. A second cobra retractor was placed around the medial femoral neck. The TFL was further retracted laterally to show the deep fascia. Careful dissection through this layer identified three main crossing vessels of the lateral femoral circumflex. These were cauterized in multiple locations and then cut without any noticeable bleeding. The TFL was further released bluntly from the deep fascia to expose anterior hip capsule and fat The Scott orthopaedic retractor was then placed beneath the TFL and against sartorius and medial soft tissues to protect and retract the soft tissues. A T-capsulotomy was then performed starting at the superior lateral acetabulum and moving distally to the intertrochanteric ridge. These capsular flaps were tagged with a No. 1 Ethibond and elevated from within. The capsular flaps were released to the shoulder of the lateral neck and to the lesser trochanter to give excellent visualization of the proximal femur. A neck osteotomy was performed using an oscillating saw based on preoperative templates. This cut started in the shoulder and of the lateral neck and exited medially. The saw was at all times directed medially to avoid injury to the greater trochanter. 6cm of traction was applied to the leg and the osteotomy opened. The femoral head was removed with a corkscrew, making sure to protect the TFL on its exit. This was measured on the back table to determing the starting reamer size. Portions of the rectus obscuring visualization were minimally elevated off the superior acetabulum. An anterior retractor was placed over the anterior wall between capsule and labrum and attached to the Gripper retraction system. A posterior retractor was placed similarly. This provided excellent visualization. The contents of the cotyloid fossa were removed with electrocautery and the labrum was removed with a knife. Acetabular reaming began with a 44mm reamer. This first reaming was directed anterior to posterior and medial to get down to the true floor. This was inspected and reamed until the true floor was reached. The anterior retractor was then released and entry and exit was provided by traction on the capsular flaps. I then reamed sequentially up to a 48mm reamer where good fit was obtained. The larger reamers were oriented based on anatomical reference of the anterior and lateral gore to ensure proper abduction and anteversion. Positioning and size was confirmed with the fluoroscopy. A 48mm Depuy [place] acetabular component was selected. The acetabulum was reamed around the periphery with the selected acetabular size to prevent a rim fit. The deep tissues were irrigated. The acetabular component was then impacted in a position of about 40-45 degrees of abduction and 15-20 degrees of anteversion, using the patient?s anatomy as the ultimate landmark. Fluoroscopy was used to confirm this. There was excellent overhead garage door hanger of the acetabular component and the inserting handle was removed. The acetabular liner, Depuy [id number] polyethylene liner, was inserted and lined up with the tines of the acetabular component. There was no soft tissue interposition. The liner was then impacted into position and confirmed to be well-seated. A portion of the osorio-articular cocktail was then injected around the acetabulum into the capsule and periosteum. This cocktail consisted of 50cc of 0.25% Bupivicaine and 20cc of Exparel, expanded to a total of 120cc. Traction was released from the femur. The leg was rotated to 120 degrees. Any remaining medial capsule was released until the lesser trochanter was easily palpable. A Glynn retractor was placed medially. The lateral capsule was further released into the shoulder to allow access to the greater trochanter. A Glynn retractor was placed over the greater trochanter which allowed the trochanter to flip in front of the capsule for excellent exposure. The leg was brought down into maximal extension and 20 degrees of adduction while ensuring there was no impingement on the acetabulum. Any remnant capsule within the trochanter was released. Piriformis and obturator externis were identified and protected. There was excellent access to the proximal femur. The lateral neck remnant was removed with a rongeur. A blunt canal probe was used to identify the canal and trajectory for later broaching. A box osteotome initiated the broach course. A small curved rasp and a curved curette were used to work laterally. Broaching then began with a size 8 Corail broach. This was inserted manually around the trochanter and into the canal before mallet blows. The broach was seated to a few millimeters below the cut level based on the neck cut and the preoperative template. Sequential broaching was continued with the Game[employer]se pneumatic broaching device until a tight fit was obtained with good rotational control of the femur. A trial standard 125 deg neck was inserted along with a +1 trial head. The leg was brought out of extension and adduction and then reduced with traction and internal rotation. The leg was stable anteriorly in a position of 30 degrees of extension and 90 degrees of external rotation. Fluoroscopy was used to ensure there was no fracture and the stem was seated well. Leg lengths were checked with an AP pelvis and pelvic reference points. LitRes navigation system was used to confirm appropriate positioning and leg length and offset. This showed that we had undercorrected the offset compared to what we did on the right side. However, this would be improved with a +5 head on the left and advancing the stem a few mm's. Once content with the desired offset and leg lengths, the leg was brought back into extension, external rotation and adduction. The periosteum and surrounding tissue was injected with remaining portion of the osorio-articular cocktail. The proximal femur was irrigated as well as the deep tissues. The Depuy [place] standard collared 125 deg stem, size 11, was then manually inserted into the proximal femur making sure to control rotation. It was then malleted into position with light blows, giving breaks to allow bone expansion and decrease risk of fracture. The selected Depuy Altrx Ceramic Head, size 32+5mm, was then placed onto the clean and dry trunnion and secured with impaction onto the tapered fit. The leg was brought back out of extension and adduction and reduced with traction and internal rotation. Stability was confirmed with no shuck at 90 degrees of external rotation and 30 degrees of extension. No impingement through range of motion arc. Final x-ray images were obtained with fluoroscopy to confirm adequate positioning and no intraoperative fracture. The deep tissues were thoroughly irrigated with Irrisept chlorhexadine solution. The capsule was then reapproximated with the previously placed Ethibond sutures. The TFL fascia was finally closed with a No. 2 Stratafix, barbed suture. Deep tissues were then reapproximated with 0 Vicryl and a running 2-0 Vicryl. The skin was closed with a running 4-0 Monocryl in a subcuticular fashion. This was reinforced with skin glue. A Mepilex silver dressing was applied. At the end of the case, all counts were correct. Brinda was transferred to the hospital bed without difficulty and suffering no apparent complication. Brinda has a good prognosis. Physical therapy will start today and without restrictions, weight-bearing as tolerated. Aspirin 81mg BID will be used for DVT prophylaxis.
--- NOTE | 2021-10-04 13:59 | IN_ITS ---
Date of service: 10/04/21 Time of Service: 13:59 PT Notes Visit Reasons: bilateral THAs Physical Therapy Inpatient Initial Evaluation Date: 10/04/2021 Referring Doctor: LADARIUS Ricardo PT Orders: PT CONSULT: S/P Ortho Surgery Precautions: Fall. Standard. WBAT on B LE with AD. Patient Profile/Admitting Diagnosis: Patient is a 66-year-old female with primary osteoarthritis of bilateral hips and S/P bilateral total hip arthroplasty on postoperative day 0. PMHX: Medical History (Updated 07/10/21 @ 12:15 by Justin Desouza MD) Actinic keratosis Arthritis Cataract, left eye Depression with anxiety Hyperlipidemia Hypertension IBS (irritable bowel syndrome) Mitral valve prolapse Myalgia Neck pain Panic disorder Seasonal allergies Surgical History (Updated 06/02/21 @ 09:17 by Jasmyne Romero RN) H/O colonoscopy 10/20/08 History of right cataract surgery Previous section 1975, 1979 Social History/Home Situation: Lives with in a private home with no steps to enter. 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 Independent with all aspects of ADLs without an AD. Equipment Owned/DME: None Subjective: Reports 8/10 on the left hip with weight bearing. Adds that there is a stinging sensation in B hips with the L more affected than the R. denies dizziness. Reports mild numbness in B feet. Agreeable to trying out getting out of bed to try to see how she will feel with walking. Objective: General Observation: Supine in bed. Mepilex Ag over surgical incision. TEDS in B legs. IV in R UE. cold pack in B hips. Mental Status: Alert and oriented as to person, place, time, and purpose. Able to pay attention, focus, and respond appropriately. Pain: 7-8/10 in L hip ROM: Right Upper Extremity: Shoulder Flexion WFL. Shoulder abduction WFL. Elbow fl exion WFL. Wrist flexion WFL. Functional opening and closing of hand WFL. Left Upper Extremity: Shoulder Flexion WFL. Shoulder abduction WFL. Elbow flexion WFL. Wrist flexion WFL. Functional opening and closing of hand WFL. Right Lower Extremity: Hip flexion WFL. Hip abduction WFL. Knee flexion WFL. Ankle dorsiflexion WFL. Ankle plantarflexion WFL. Left Lower Extremity: Hip flexion-only able to lift thigh up about 10 degrees from edge of bed due to pain. Hip abduction WFL. Knee flexion WFL. Ankle dorsiflexion WFL. Ankle plantarflexion WFL. Strength: Right Upper Extremity: Shoulder flexors 4/5. Shoulder abductors 4/5. Elbow flexors 4/5. Elbow extensors 4/5. Injection Molding Machine Operator strong. Left Upper Extremity: Shoulder flexors 4/5. Shoulder abductors 4/5. Elbow flexors 4/5. Elbow extensors 4/5. Injection Molding Machine Operator strong. Right Lower Extremity: Hip flexors 4/5. Hip abductors 4/5. Knee flexors 4/5. Knee extensors 4/5. Ankle dorsiflexors 5/5. Ankle plantarflexors 5/5. Left Lower Extremity: Hip flexors 3-/5. Hip abductors 4-/5. Knee flexors 4/5. Knee extensors 4/5. Ankle dorsiflexors 4/5. Ankle plantarflexors 4/5. Bed Mobility/Transfers: Supine to sit with supervision with HOB at 30 degrees Sit to supine with contact guard assist Sit to stand with contact guard assist Stand to sit with stand by assist Bed to reclining chair stand by assist Gait: Instructed patient with level surface ambulation of 250 feet requiring conatct guard assist. Avani decreased. Step height decreased on L. Step length decreased on L. 8/10 pain in L hip. Denies dizziness, chest pain, and headache. Balance: Static Sitting: Normal Dynamic Sitting: Normal Static Standing: Fair Dynamic Standing: Fair Special Tests: Mobility Limitations [facility] Basic Mobility Inpatient Short Form: Raw Score: 22 CMS Score: 21% deficit Informed Consent/Education: Patient was instructed in purpose of PT consult and plan of care. Agreeable to proceed with established PT POC to achieve personal goals. Assessment: Patient requires contact guard assist with all mobility ADLs using the FWW for safety. Pain significantly limits mobility ADL performance. Patient presents with clinical signs and symptoms consistent with current/admitting diagnoses that have resulted to mobility limitations, gait instability, generalized weakness, and overall ADL decline as demonstrated by the following impairment level findings: 1. Decreased strength to B hip major muscle groups 2. Impaired sitting/standing balance 3. Impaired activity tolerance 4. Limitation of joint range of motion in L hip Impairments are contributing to the following functional limitations: 1. Decline in bed mobility skills 2. Decline in transfer skills 3. Difficulty with ambulation without assistive device and physical assistance 4. Increased completion time for mobility ADL performance 5. Increased risk for falls Patient is assessed as a 86129 moderate complexity based on the following: History: 66-year-old female with past medical history as indicated above Examination: Demonstrable impairment in strength, balance, and mobility level with underlying impairments and functional limitations as exhibited above as well as deficit score of 21% utilizing the [facility] Mobility Inpatient Short Form Presentation: Evolving Decision Makin moderate complexity Goals: Goals X1 week 1. Supine-Sit independent 2. Sit-Supine independent 3. Sit-Stand independent 4. Stand-Sit independent with FWW 5. Bed-Chair independent with FWW 6. Chair-Bed independent with FWW 7. Independent gait on level surface with use of FWW for at least 300 feet without report of pain nor dyspnea 8. Independent with home exercise program 9. Good static and dynamic standing balance/tolerance Plan of Care/Treatment Plan: 1-2x/day, 7 days/week x 1 week. Plan of care has been reviewed with the PRISON GUARD SUPERVISOR providing the service under Physical Therapy direction. Initiate Physical Therapy intervention for pain management as needed, strengthening, bed mobility, transfers, gait, stairs, balance training, and use of assistive device. DISCHARGE RECOMMENDATIONS: [] Home with no services [] [] Home with services [specify] [X] Home with outpatient PT. Home when medically cleared by orthopedic surgeon. OP PT services in 2 weeks to facilitate return to independent community ambulation and vocational activities. [] SNF for continued rehabilitation [] [] Verification Clerk Care [] [] SNF versus LTC based on ability to participate and progress [] TREATMENT CODE/TIME: 33845 x 20 minutes, 35978 x 28 minutes beginning at 13:59 PM. Thank you for the opportunity to participate in the care of this patient. Nini Osman PT, DPT, CLT [facility] [place], [place]
[2021-10-04] MEDS: HYDROmorphone 2 MG/ML VIAL 0.5 MG IVP ×2 (14:29→18:47)
--- NOTE | 2021-10-04 15:10 | NUR.NOTE ---
Nursing Note: Pt arrived from PACU, A/O x4, pleasant, denies pain, tolerating PO intake, c/o Numbness and tingling on bilat legs, distal to surgical incisions. VSS, Ambulating in foster with PT.
--- NOTE | 2021-10-04 15:18 | W.ANESPOSTOP ---
Postoperative Evaluation Date, Time and Location Date Performed: 10/04/21 Time Performed: 15:19 Patient Location: Med/Surg Vital Signs Most Recent Imported Vital Signs: Most Recent Vital Signs Temp Pulse Resp BP Pulse Ox 36.2 C L 54 L 16 120/77 94 10/04/21 15:10 10/04/21 15:10 10/04/21 15:10 10/04/21 15:10 10/04/21 15:10 Pain Score Most Recent Pain Score: Most Recent Pain Score Pain Level 1 10/04/21 15:10 Assessment Mental Status: Awake (Alert & Oriented to Patient Baseline) Airway and Respiratory Function: Patent airway with normal (patient baseline) respiratory exam Cardiovascular Function: Hemodynamically Stable Hydration Status: Adequately Hydrated Nausea & Vomiting: No Nausea or Vomiting Pain: Pt. Denies Any Pain Peripheral Nerve Block: Patient did not receive a nerve block
[2021-10-04] MEDS: ceFAZolin 1 GM/50 ML BAG IVPB (18:43)
[2021-10-04] MEDS: Normal Saline Flush 10 ML SYR IV ×2 (18:48→19:36)
[2021-10-04] MEDS: Ondansetron 4 MG/2 ML VIAL IVP (19:35)
[2021-10-04] MEDS: ALPRAZolam 0.5 MG TAB PO (20:08)
[2021-10-04] MEDS: Celecoxib 200 MG CAP PO (20:09)
[2021-10-04] MEDS: Aspirin E.C. 81 MG TABEC PO (20:09)
[2021-10-04] MEDS: Amitriptyline 25 MG TAB PO (21:14)
[2021-10-05 00:20] VITALS: BP 121/75; PULSE 64; RESP 20; TEMP 36.4; O2SAT 96
[2021-10-05] MEDS: ceFAZolin 1 GM/50 ML BAG IVPB ×2 (02:12→09:16)
[2021-10-05 03:23] VITALS: BP 133/78; PULSE 60; RESP 17; TEMP 36.5; O2SAT 96
[2021-10-05] MEDS: Ondansetron 4 MG/2 ML VIAL IVP (03:30)
[2021-10-05] MEDS: Normal Saline Flush 10 ML SYR IV ×2 (03:30→09:18)
[2021-10-05] MEDS: HYDROmorphone 2 MG/ML VIAL 0.5 MG IVP (03:30)
[2021-10-05] MEDS: Lactated Ringers 1,000 ML 80 ML IV (05:48)
[2021-10-05] MEDS: Pantoprazole 40 MG TABCR PO (07:30)
[2021-10-05] MEDS: Acetaminophen 500 MG TAB 1000 MG PO (07:30)
--- NOTE | 2021-10-05 07:34 | W.PM.DS.N ---
Date of service: 10/05/21 Time of Service: 07:28 DS: Diagnosis Discharge Diagnosis (1) Primary osteoarthritis of right hip: Status: Acute (2) Primary osteoarthritis of left hip: Status: Acute Discharge Plan Disposition Patient Disposition: HOME Condition: Stable Discharge Details Reason For Visit: bilateral THAs Admit Date/Time: 10/04/21 06:51 Admit Provider: Justin Desouza Attending Provider: Justin Desouza Primary Care Provider: Leonora López Hospital Course Hospital Course: Patient was admitted to the medical/surgical floor following the procedure. The surgery was tolerated well without any notable medical, surgical, or anesthetic complications. Mobilization began postoperatively. She was voiding spontaneously. Vitals were stable. Physical therapy worked with the patient and was cleared for discharge home. No acute medical issues. Pain was controlled on oral regimen. Home Meds and New Rx's Prescriptions: New celecoxib [Celebrex] 200 mg capsule 200 mg PO BID Qty: 60 RF: 0 aspirin 81 mg tablet,delayed release (DR/EC) 81 mg PO BID Qty: 60 RF: 0 acetaminophen [Tylenol Extra Strength] 500 mg tablet 500 mg PO Q6H PRNQty: 90 RF: 0 oxycodone 5 mg tablet 5 mg PO Q4H PRNQty: 18 RF: 0 Continued montelukast [Singulair] 10 mg tablet 10 mg PO QHS RF: 0 amlodipine 5 mg tablet 5 mg PO DAILY RF: 0 omeprazole 20 mg capsule,delayed release(DR/EC) 20 mg PO DAILY RF: 0 alprazolam [Xanax] 0.5 mg tablet 0.5 mg PO DAILY PRNRF: 0 amitriptyline 25 mg tablet 25 mg PO DAILY RF: 0 venlafaxine [Effexor XR] 37.5 mg capsule,extended release 24hr 75 mg PO DAILY RF: 0 propranolol 10 mg tablet 10 mg PO DAILY RF: 0 Discharge Instructions Additional Instructions: Total Hip Discharge Instructions Activity: The most important activity is to walk. You should try to take short walks a few times a day. You have no restrictions on movement or positioning, but do not try to force what you do. You will find some stiffness and weakness with hip flexion (lifting your knee). Do not try to strengthen this too early, continue to practice walking and stairs and this will come. - Outpatient physical therapy can be helpful to help return you to a normal gait and improve your flexibility and strength. This can start around 2 weeks. For some patients, it?s not necessary. Usually this is determined at the time of discharge or at the first post-operative visit. - You should wear the EMILIA hose on both legs for 2 weeks. Dressing: Keep the surgical dressing in place for at least one week. After the first week it may be removed and replace with light gauze and tape or nothing. It may get wet after 3 days but avoid soaking the dressing. If it gets wet, just lightly pat dry. It is important to always keep some gauze between skin folds, especially when you are sitting. Spend some time with the wound exposed when you are lying flat as the incision does wrinkle onto itself. Medications: - You should take Tylenol and an anti-inflammatory Celebrex as your primary pain control medications. If the Celebrex is too expensive or not covered, please call the office for another alternative (Advil/Ibuprofen or Naproxen/Aleve). - You have been prescribed a stronger pain medication Oxycodone for breakthrough pain, take 1/2 - 1 tablet as needed. - Continue with your home omeprazole to help reduce stomach acid and reflux. - You will be taking Aspirin 81mg twice a day for DVT prevention unless instructed otherwise. - If you have constipation you should take Colace or Miralax (both [id number]). It takes most people 3-4 days to have a bowel movement. Follow-up: 2 weeks If you have any acute concerns or questions, please do not hesitate to contact the office at [phone]. You may contact Dr. Desouza with any questions after hours through the hospital at [phone] or on his cell phone at [phone]. Referrals: Justin Desouza MD [ [facility] STAFF PHYSICIAN] - Activity:: Activity as Tolerated Equipment/Supplies:: Walker Diet:: As Tolerated Discharge Orders Discharge Orders: Discharge Order (Routine); Ordered 10/05/21 Ordered By: Justin Desouza DS: Summary Time Spent with Patient providing and/or coordinating discharge services: Less than 30 minutes Status at Discharge Functional status at discharge: uses cane/walker Overall status at discharge: patient is progressing back to baseline Mental Status: mental status grossly normal Speech and Movement: speech and movement normal Mood: congruent mood Affect: normal affect Exam Psych Mental Status: mental status grossly normal Speech and Movement: speech and movement normal Mood: congruent mood Affect: normal affect DS: Data Vitals/I&O Vitals and I&O: Vital Signs Temperature 36.3 C L 10/04/21 13:18 Pulse 68 10/04/21 13:18 Pulse Rhythm Regular 10/04/21 08:24 Respiratory Rate 13 10/04/21 13:18 Respiratory Depth Normal 10/04/21 08:24 Blood Pressure 111/58 L 10/04/21 13:18 Pulse Oximetry 64 L 10/04/21 13:18 Respiratory End-tidal CO2 38 10/04/21 13:18 Oxygen Delivery Method Room Air 10/04/21 13:18 Oxygen Flow Rate 0 10/04/21 13:18 Pain Level 0 10/04/21 13:18 Comment 10/04/21 08:24 Intake & Output 10/03/21 10/04/21 10/04/21 23:59 11:59 23:59 Intake Total 220 / 1170 950 / 1170 Output Total 200 / 200 Balance 220 / 970 750 / 970 Weight 71.4 kg Intake: IV 220 / 920 700 / 920 Oral 250 / 250 Output: Estimated Blood Loss 200 / 200 Other: Emesis Description None [facility] Medical History Actinic keratosis Arthritis Cataract, left eye Depression with anxiety Hyperlipidemia Hypertension IBS (irritable bowel syndrome) Mitral valve prolapse Per pt. states this was found when she was and hasn't been able to be detected recently Myalgia Neck pain Panic disorder PTSD (post-traumatic stress disorder) From Hysterectomy I was awake during it, I had a spinal but was awake. 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
[2021-10-05 08:10] VITALS: BP 109/63; PULSE 67; RESP 16; TEMP 36.7; O2SAT 93
[2021-10-05] MEDS: amLODIPine 5 MG TAB PO (09:15)
[2021-10-05] MEDS: Venlafaxine 37.5 MG CAPCR 75 MG PO (09:15)
[2021-10-05] MEDS: Aspirin E.C. 81 MG TABEC PO (09:15)
[2021-10-05] MEDS: Propranolol 10 MG TAB PO (09:15)
[2021-10-05] MEDS: Celecoxib 200 MG CAP PO (09:16)
[2021-10-05] MEDS: Omeprazole 20 MG CAPCR PO (09:16)
[2021-10-05] MEDS: Montelukast 10 MG TAB PO (09:18)
--- NOTE | 2021-10-05 10:56 | PTTR_ITS ---
Date of service: 10/05/21 Time of Service: 07:27 PT Notes Visit Reasons: Bilateral THAs Inpatient Physical Therapy Treatment Note [facility] Date: 10/05/2021 PRECAUTIONS: Fall, WBAT B SUBJECTIVE: Brinda states that she would like to get up and walk. She reports feeling stiff this morning, and has been trying to truck dock material mover her legs while in bed. She states that she will be discharged to home later today. OBJECTIVE: PAIN: Patient c/o B hip pain R>L BED MOBILITY/TRANSFERS Rolling L/R: [] Supine-sit: I with HOB flat Sit-supine: [] Sit-stand: I Stand-sit: I Bed-Chair: S Chair-bed: S GAIT Assistive Device: FWW Weight bearing: WBAT B Assist: S Distance: 200' Deviation: Pain in R>L VITALS: [] THEREX: Patient was instructed in a supine LE strengthening and stabilization program, as per flow sheet. STAIRS: ASSESSMENT: Patient tolerated session well, although with minimal c/o B hip pain, R>L. She was able to demonstrates independence with bed mobility and transfers at this time. PLAN: Patient to discharge to home later today, per provider. Recommend follow up with OP PT versus HH PT upon discharge. TREATMENT CODE/TIME: 26 minutes; 05487, 32099 (07:28)
== END 2021-10-05 11:41 | disposition home or self-care (01) ==
LOC: PDS 09:45 → MS 13:57 → PDS 10-05 03:11
PROVIDERS: Admitting Provider Student in an Organized Health Care Education/Training Program; PCP Family Medicine; Visit Provider Student in an Organized Health Care Education/Training Program
PROC: (CPT 27130; principal; 2021-10-04 10:15)
DX: M16.0 Bilateral primary osteoarthritis of hip (principal); I10 Essential (primary) hypertension; E78.5 Hyperlipidemia, unspecified; K58.9 Irritable bowel syndrome, unspecified; F43.10 Post-traumatic stress disorder, unspecified; F41.0 Panic disorder [episodic paroxysmal anxiety]; F32.A Depression, unspecified; M79.10 Myalgia, unspecified site; M54.2 Cervicalgia
CPT/HCPCS: 27130; 20985; 97110; 97162; 97530; 73501; G0378; J0171; J0690; J1885; J2250; J2370; J2405

== ENCOUNTER → 2021-10-04 07:37 | Outpatient (BNVA) | payer MEDICARE, SELFPAY ==
--- NOTE | 2021-10-05 17:50 | PT.INDS ---
Date of service: 10/05/21 PT Notes Visit Reasons: SURGERY Physical Therapy Inpatient Discharge Summary Date: 10/05/2021 Dates of service: 10/04/2021 through 10/05/2020 This is a clinical summary of care provided for the duration of dates listed above. No charge was made in the completion of this documentation. Referring Doctor: LADARIUS Ricardo PT Orders: PT CONSULT: S/P Ortho Surgery Precautions: Fall. Standard. WBAT on B LE with AD. Patient Profile/Admitting Diagnosis: Patient is a 66-year-old female with primary osteoarthritis of bilateral hips and S/P bilateral total hip arthroplasty on postoperative day 0. PMHX: Medical History (Updated 07/10/21 @ 12:15 by Justin Desouza MD) Actinic keratosis Arthritis Cataract, left eye Depression with anxiety Hyperlipidemia Hypertension IBS (irritable bowel syndrome) Mitral valve prolapse Myalgia Neck pain Panic disorder Seasonal allergies Surgical History (Updated 06/02/21 @ 09:17 by Jasmyne Romero RN) H/O colonoscopy 10/20/08 History of right cataract surgery Previous section 1975, 1979 Social History/Home Situation: Lives with in a private home with no steps to enter. 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 Independent with all aspects of ADLs without an AD. Equipment Owned/DME: None Subjective: NT. See most recent TEA PLANTATION WORKER notes. Objective: General Observation: NT. See most recent TEA PLANTATION WORKER notes. Mental Status: NT. See most recent TEA PLANTATION WORKER notes. Pain: NT. See most recent TEA PLANTATION WORKER notes. ROM: Right Upper Extremity: Shoulder Flexion WFL. Shoulder abduction WFL. Elbow flexion WFL. Wrist flexion WFL. Functional opening and closing of hand WFL. Left Upper Extremity: Shoulder Flexion WFL. Shoulder abduction WFL. Elbow flexion WFL. Wrist flexion WFL. Functional opening and closing of hand WFL. Right Lower Extremity: Hip flexion WFL. Hip abduction WFL. Knee flexion WFL. Ankle dorsiflexion WFL. Ankle plantarflexion WFL. Left Lower Extremity: Hip flexion-only able to lift thigh up about 10 degrees from edge of bed due to pain. Hip abduction WFL. Knee flexion WFL. Ankle dorsiflexion WFL. Ankle plantarflexion WFL. Strength: Right Upper Extremity: Shoulder flexors 4/5. Shoulder abductors 4/5. Elbow flexors 4/5. Elbow extensors 4/5. Power Technician strong. Left Upper Extremity: Shoulder flexors 4/5. Shoulder abductors 4/5. Elbow flexors 4/5. Elbow extensors 4/5. Power Technician strong. Right Lower Extremity: Hip flexors 4/5. Hip abductors 4/5. Knee flexors 4/5. Knee extensors 4/5. Ankle dorsiflexors 5/5. Ankle plantarflexors 5/5. Left Lower Extremity: Hip flexors 3-/5. Hip abductors 4-/5. Knee flexors 4/5. Knee extensors 4/5. Ankle dorsiflexors 4/5. Ankle plantarflexors 4/5. Bed Mobility/Transfers: Supine to sit with independent Sit to supine with independent Sit to stand with independence Stand to sit with independent Bed to reclining chair independent Gait: Instructed patient with level surface ambulation of 200 feet requiring supervision. Avani decreased. Step height decreased on L. Step length decreased on L. 8/10 pain in L hip. Denies dizziness, chest pain, and headache. Balance: Static Sitting: Normal Dynamic Sitting: Normal Static Standing: Fair Dynamic Standing: Fair Assessment: Patient requires contact guard assist with all mobility ADLs using the FWW for safety. Pain significantly limits mobility ADL performance. Patient presents with clinical signs and symptoms consistent with current/admitting diagnoses that have resulted to mobility limitations, gait instability, generalized weakness, and overall ADL decline as demonstrated by the following impairment level findings: 1. Decreased strength to B hip major muscle groups 2. Impaired sitting/standing balance 3. Impaired activity tolerance 4. Limitation of joint range of motion in L hip Impairments are contributing to the following functional limitations: 1. Decline in bed mobility skills 2. Decline in transfer skills 3. Difficulty with ambulation without assistive device and physical assistance 4. Increased completion time for mobility ADL performance 5. Increased risk for falls Goals: Goals X1 week 1. Supine-Sit independent MET 2. Sit-Supine independent MET 3. Sit-Stand independent MET 4. Stand-Sit independent with FWW MET 5. Bed-Chair independent with FWW NOT MET 6. Chair-Bed independent with FWW NOT MET 7. Independent gait on level surface with use of FWW for at least 300 feet without report of pain nor dyspnea NOT MET 8. Independent with home exercise program NOT MET 9. Good static and dynamic standing balance/tolerance NOT MET DISCHARGE RECOMMENDATIONS: [] Home with no services [] [] Home with services [specify] [X] Home with outpatient PT. Home when medically cleared by orthopedic surgeon. OP PT services in 2 weeks to facilitate return to independent community ambulation and vocational activities. [] SNF for continued rehabilitation [] [] Craft Demonstrator Care [] [] SNF versus LTC based on ability to participate and progress [] TREATMENT CODE/TIME: NT. See most recent TEA PLANTATION WORKER notes. Thank you for the opportunity to participate in the care of this patient. Nini Osman PT, DPT, CLT [facility] [place], [place]
== END ==
PROVIDERS: PCP Family Medicine; Referring Provider Family Medicine; Visit Provider Student in an Organized Health Care Education/Training Program
DX: R69 Illness, unspecified (principal)

== ENCOUNTER 2021-10-16 14:20 | Outpatient (CLI) | payer MEDICARE, SELFPAY ==
--- NOTE | 2021-10-16 13:30 | DI.RAD_ITS ---
Exam(s) XR HIP PELVIS ADULT BL EXAM: XR HIP PELVIS ADULT BL INDICATION: 1st postop BILAT ARYA. COMPARISON: CR XR PELVIS AP from 09/04/2021 XR HIP LT IN OR from 10/04/2021 XR HIP RT IN OR from 10/04/2021 XR HIP LT IN OR from 10/04/2021 XR HIP RT IN OR from 10/04/2021 TECHNIQUE: 2D digital imaging was performed. FINDINGS: There has been no change in the bilateral total hip prostheses. No abnormal bony lucencies are seen. DATA REPOSITORY: RADIATION DOSE DELIVERED:
== END 2021-10-16 14:21 | disposition home or self-care (01) ==
LOC: DIORS 14:20
PROVIDERS: PCP Family Medicine; Referring Provider Family Medicine; Visit Provider Student in an Organized Health Care Education/Training Program
DX: Z96.643 Presence of artificial hip joint, bilateral (principal); Z47.1 Aftercare following joint replacement surgery
CPT/HCPCS: 73521

== ENCOUNTER → 2021-11-13 13:30 | Outpatient (BNVA) | payer MEDICARE, SELFPAY | PROVIDERS: PCP Family Medicine; Referring Provider Family Medicine; Visit Provider Student in an Organized Health Care Education/Training Program | DX: Z47.1 Aftercare following joint replacement surgery (principal); Z96.643 Presence of artificial hip joint, bilateral ==

== ENCOUNTER 2021-12-25 15:18 | Outpatient (CLI) | payer MEDICARE, SELFPAY ==
--- NOTE | 2021-12-25 15:17 | DI.RAD_ITS ---
Exam(s) XR CERVICAL SP RIOS TRAUMA 2-3V EXAM: XR CERVICAL SP RIOS TRAUMA 2-3V CLINICAL HISTORY: eval neck pain/crepitus. TECHNIQUE: 2D digital imaging was performed. COMPARISON: No exams were available for comparison FINDINGS: The exam is mildly limited by overlying clothing. There are degenerative changes at the articulation of the anterior arch of C1 with the dens. C2-3 and C3-4 disc spaces are well maintained. There are prominent facet joint degenerative changes at these levels. There are endplate osteophytes and mild to moderate disc space narrowing from C 4 5 through C6-7. There is some straightening of the normal cervical lordosis. Facet degenerative changes are also noted through at these levels. there are p rominent facet degenerative changes at C7-T1. There is no prevertebral soft tissue swelling. IMPRESSION: Multi degenerative disc changes and facet degenerative changes. DATA REPOSITORY: RADIATION DOSE DELIVERED:
== END 2021-12-25 15:19 | disposition home or self-care (01) ==
LOC: DIORS 15:19
PROVIDERS: PCP Family Medicine; Referring Provider Family Medicine; Visit Provider Student in an Organized Health Care Education/Training Program
DX: Z47.1 Aftercare following joint replacement surgery (principal); Z96.643 Presence of artificial hip joint, bilateral; M47.812 Spondylosis without myelopathy or radiculopathy, cervical region
CPT/HCPCS: 99213; 72040

== ENCOUNTER 2021-12-28 01:25 | Outpatient (CLI) | payer MEDICARE, SELFPAY ==
--- NOTE | 2021-12-28 06:45 | DI.MRI_ITS ---
Exam(s) MR CERVICAL SPINE WO EXAM: MR CERVICAL SPINE WO CLINICAL HISTORY: cervical spondylosis,pain,[id number]. TECHNIQUE: Multiplanar multisequence MRI was performed. COMPARISON: No exams were available for comparison FINDINGS: MR examination of the cervical spine was performed without contrast administration. Images obtained through the posterior fossa are unremarkable. The spinal cord shows normal diameter and normal signal throughout. No significant bony signal abnormality seen. There is a moderate cervical kyphosis most prominent at C4-5. there are multi level facet hypertrophic changes and endplate hypertrophic changes, most marke d at C4-5, C5-6, and C6-7. No significant findings at the C2-3 or C3-4 levels, no evidence of central canal spinal stenosis, dis c herniation, or neural foraminal stenosis. At C4-5, there is prominence of the disc osteophyte complex with localized marked osteophyte formatio n left paracentral which appears to impinge the anterior cord surface and cause mild cord deformity a nteriorly at this level. There may be slight left-sided neural foraminal narrowing at this level as well, also due to endplate and facet hypertrophic changes. No focal disc herniation seen. Unremarka ble appearance of right neural foramen. At C5-6, there is prominence of the disc osteophyte complex without focal disc herniation, central ca nal spinal stenosis, or neural foraminal stenosis. At C6-7, there is mild prominence of the disc osteophyte complex. No evidence of disc herniation, ce ntral canal spinal stenosis, or neural foraminal stenosis. IMPRESSION: Prominent left paracentral endplate osteophytes at C4-5 cause mild impingement on and deformity of th e anterior cord surface. No intra cord signal abnormality seen. Mild left-sided neural foraminal narrowing also noted at this level. DATA REPOSITORY:
== END 2021-12-28 01:45 ==
PROVIDERS: PCP Family Medicine; Visit Provider Student in an Organized Health Care Education/Training Program
DX: M54.2 Cervicalgia (principal); M47.812 Spondylosis without myelopathy or radiculopathy, cervical region; M25.78 Osteophyte, vertebrae
CPT/HCPCS: 72141

== ENCOUNTER → 2022-01-22 10:53 | Outpatient (BNVA) | payer MEDICARE, SELFPAY | PROVIDERS: PCP Family Medicine; Visit Provider Student in an Organized Health Care Education/Training Program | DX: M54.12 Radiculopathy, cervical region (principal); M47.812 Spondylosis without myelopathy or radiculopathy, cervical region; Z96.643 Presence of artificial hip joint, bilateral; M54.2 Cervicalgia | CPT/HCPCS: 99213 ==

== ENCOUNTER 2022-03-09 00:01 | Outpatient (CLI) | payer MEDICARE, SELFPAY ==
--- NOTE | 2022-03-09 | DI.MRI_ITS ---
Exam(s) MR LUMBAR SPINE WO EXAM: MR LUMBAR SPINE WO CLINICAL HISTORY: SPONDYLOLISTHESIS AT L5-S1 LEVEL, M43.17, NEW ONSET BACK AND RT LEG PAIN. TECHNIQUE: Multiplanar multisequence MRI of the Lumbar spine was performed. COMPARISON: No exams were available for comparison FINDINGS: Bones: The last intervertebral disc space is designated the L5/S1 level for the numbering purpose of this examination. The vertebral body heights are well maintained. There is grade 1 pseudo spondylol isthesis of L4 on L5. Mild degenerative endplate signal changes are present. Cord: The conus tip ends at the L1 level. It is of normal size and signal intensity. T12-L1: No disc herniations or bulges are present. No central spinal canal or neural foraminal stenos is. L1-2: No disc herniations or bulges are present. No central spinal canal or neural foraminal stenosis . L2-3: No disc herniations or bulges are present. No central spinal canal or neural foraminal stenosis . L3-4: No disc herniations or bulges are present. No central spinal canal or neural foraminal stenosis . L4-5: There is diffuse disc bulge. There are hypertrophic changes of the facets. The findings cause moderately severe central spinal canal stenosis. There is mild bilateral neural foraminal stenosis. L5-S1: No disc herniations or bulges are present. No central spinal canal or neural foraminal stenosi s.Facet arthropathy is present. Soft tissues: The visualized SI joints and sacrum are well maintained. The paraspinal soft tissues ar e unremarkable. Visualized abdominal organs: Unremarkable. IMPRESSION: At L4-5, there is a grade 1 pseudo spondylolisthesis with degenerative facet arthropathy and a diffus e disc bulge. These all contribute to cause moderately severe central spinal canal stenosis and mild bilateral neural foraminal stenosis. DATA REPOSITORY:
== END 2022-03-09 00:21 ==
PROVIDERS: PCP Family Medicine; Visit Provider Internal Medicine
DX: M43.16 Spondylolisthesis, lumbar region; M51.16 Intervertebral disc disorders with radiculopathy, lumbar region
CPT/HCPCS: 72148

== ENCOUNTER 2022-07-30 19:29 | Emergency (ER) | payer MEDICARE, SELFPAY ==
[2022-07-30 19:38] VITALS: BP 166/67; PULSE 111; RESP 18; TEMP 36.3; O2SAT 97
[2022-07-30 20:39] LABS: Abs Immature Grans 0.08 10^3/uL (0.0-0.06); Absolute Lymphocyte Count 1.52 10^3/uL (1.2-3.4); Absolute Monocyte Count 2.39 10^3/uL (0.1-0.8); Basophils % 0.3; Eosinophils % 0.3; HCT 42.5 % (36.0-46.0); HGB 14.6 g/dL (11.2-15.7); Immature Grans % 0.4; Lymphocytes % 7.7; MCH 29.4 pg (27.0-33.0); MCHC 34.4 % (32.0-36.0); MCV 86 fL (80-95); MPV 10.7 fL (8.0-11.0); Monocytes % 12.1; Neutrophils % 79.2; Platelet Count 300 10^3/uL (130-400); RBC 4.96 10^6/uL (3.93-5.22); RDW 11.5 % (11.7-14.6); RDW-SD 36.1 fL; WBC 19.79 10^3/uL (4.4-10.8)
[2022-07-30 20:43] LABS: Absolute Basophil Count 0.06 10^3/uL (0.0-0.2); Absolute Eosinophil Count 0.06 10^3/uL (0.0-0.7); Absolute Neutrophil Count 15.67 10^3/uL (1.2-6.7)
[2022-07-30 20:44] LABS: Diff Comment Agrees w/ Instrument; RBC Morphology Normal
[2022-07-30] MEDS: Normal Saline 1,000 ML 1000 ML IV (20:48)
[2022-07-30] MEDS: LORazepam 20 MG/10 ML VIAL IVP (20:48)
[2022-07-30] MEDS: Ondansetron 4 MG/2 ML VIAL IVP (20:50)
[2022-07-30] MEDS: Pantoprazole 40 MG VIAL IVP (20:51)
[2022-07-30 20:53] LABS: ALT 25 U/L (14-59); AST 13 U/L (15-37); Albumin 3.6 g/dL (3.4-5.0); Alkaline Phosphatase 101 U/L (46-116); BUN 9 mg/dL (7-18); Bilirubin, Total 0.8 mg/dL (0.2-1.0); CREATININE 0.7 mg/dL (0.55-1.02); Calcium 9.3 mg/dL (8.5-10.1); Chloride 93 mmol/L (98-107); Estimated GFR 93.56 (mL/min/1.73m2); Glucose 129 mg/dL (74-106); Lipase 46 U/L (73-393); Potassium 3.5 mmol/L (3.5-5.1); Sodium 131 mmol/L (136-145); Total Protein 7.7 g/dL (6.4-8.2)
--- NOTE | 2022-07-30 21:15 | RT.EKG_ITS ---
APPROVED REPORT Exam: Resting ECG Reason for Exam: chest pain Patient Location: E HR:67 bpm ECG Measurements Heart Rate 67 AXIS MA 163 P 68 QRSd 102 QRS 63 QT 467 T -26 QTc 492 Conclusion Sinus rhythm...normal P axis, V-rate 60- 99 Physician: Sinus rhythm, rate 67, no significant ST elevation or depression, inverted T waves in V1, what appears to be a U wave in V4, V5, V6. No evidence of STEMI.
[2022-07-30 21:39] LABS: Troponin I < 50 ng/L (<or=60)
[2022-07-30 21:52] LABS: Bilirubin Negative (Negative); Blood Small (Negative); Clarity Clear (Clear); Glucose Negative (Negative); Ketones Trace mg/dL (Negative); Leukocyte Esterase Negative (Negative); Nitrite Negative (Negative); Urobilinogen 0.2 EU/dL (Up TO 0.2)
[2022-07-30 22:00] LABS: Bacteria Rare HPF (Negative); C & S Indicated? No; Casts Negative LPF (Negative); Crystals Negative HPF (Negative); Epithelial Cells Rare HPF (Negative); Mucus Negative (Negative); WBC 0-2 HPF (0-5)
[2022-07-30] MEDS: POTASSIUM CHLORIDE 10 MEQ/100 ML BAG 100 MEQ IVPB (22:07)
--- NOTE | 2022-07-30 23:10 | ED.GENADUL_ITS ---
Discharge Plan Disposition Patient Disposition: HOME Condition: Good Discharge Details Clinical Impression: Abdominal pain, Acute hypokalemia, Acute electrocardiogram changes Primary Care Provider: Leonora López ED Provider: Harsh Cannon Home Meds and New Rx's Prescriptions: New sucralfate [Carafate] 1 gram tablet 1 g PO BID Qty: 60 0RF Continued amlodipine 5 mg tablet 5 mg PO DAILY omeprazole 20 mg capsule,delayed release(DR/EC) 20 mg PO DAILY alprazolam [Xanax] 0.5 mg tablet 0.5 mg PO DAILY PRN amitriptyline 25 mg tablet 25 mg PO DAILY venlafaxine [Effexor XR] 37.5 mg capsule,extended release 24hr 75 mg PO DAILY propranolol 10 mg tablet 10 mg PO DAILY Label Comments: TAKE ONE TABLET BY MOUTH TWICE A DAY Discharge Instructions Instructions: Hypokalemia (ED), Abdominal Pain (ED) Additional Instructions: At this time as we discussed together you do have an elevated white count, but per our discussion this seems to be more related to your stress responses. There is no clear evidence of infection clinically otherwise. Additionally your EKG shows some mild changes which appears suggestive of a low potassium level. We have supplemented your potassium here. As we discussed, please follow-up closely with your primary care provider within a week to have your labs and EKG rechecked. A prescription for Carafate has been sent to your pharmacy to help with your stomach acid. Please take this as directed. Please also take your omeprazole daily as directed. If you notice any worsening of your symptoms, or any new symptoms such as vomiting, diarrhea, fever, chills, shortness of breath, chest pain, numbness, weakness, or fainting , please return immediately to the emergency department for reevaluation. Please follow up with your primary care provider as soon as possible for reassessment and reevaluation. As always, it was a pleasure participating in your medical care today. Referrals: Leonora López [Primary Care Provider] - Medical Decision Making This is a 67-year-old female with a past medical history of irritable bowel syndrome, anxiety, hypertension, hysterectomy, appendectomy, who presents today for abdominal pain and bloating. Patient states that 10 days ago she had some pot roast, and after that developed mild diarrhea and bloating and flatus. That lasted 3 days, and then resolved, after which she then had some stuffed peppers a few days ago which again brought on all of her symptoms. Since then she has had a significant amount of heartburn, gas, and bloating. Patient states that whenever she has this she also gets extremely anxious and this worse ns her nurse. She denies any chest pain or shortness of breath. She has taken some antacids but these have not helped well. She denies any vomiting, hemoptysis, hematemesis or bloody diarrhea. She denies any other complaints at this time. Physical exam demonstrates well-appearing female. No abdominal pain or tenderness or bloating on exam. No chest wall tenderness, no chest pain. Symptoms appear consistent with mild irritable bowel syndrome, and probably also mild gastric irritation and GERD/gastric ulcer. Symptoms seem inconsistent with ACS, but because of her risk factors we will evaluate for cardiac etiology. No indication for CT imaging at this time as she has no reproducible abdominal pain whatsoever and no vomiting. We will evaluate for concerning etiologies, give GI cocktail, monitor closely and reassess. Additionally the patient is very concerned that an anxiety component is a large aspect of her symptoms currently. We will give her some anxiolytic to help as well. 11:26 Laboratory work-up is returned, patient does have an elevated white count at 19, no bandemia. Moderate left shift. Electrolytes stable, renal function good. Troponin normal, EKG demonstrates some but appears to be U waves in the lateral leads, but no evidence of STEMI, ischemia or ACS. Lipase normal. Urinalysis is negative for infection, lungs are clear, no clinical evidence of pneumonia. Patient is afebrile, no tachycardia whatsoever. On reassessment the patient states I feel completely better and would like to go home. She continues to demonstrate a benign appearing abdomen. She otherwise feels very well. Potassium is 3.5, and this may be a component for the changes on her EKG. No prior EKGs are noted for comparison. Chest we did give him milliequivalents of IV potassium for the patient here. Clinically she does not show evidence of an infection as to the cause of her white count. No evidence of a viral illness, no clinical evidence of cholecystitis, or diverticulitis. Patient states that she has a significant WBC mounted response whenever she has a a lot of stress, and she states that this is the most stress he has ever been right now due to social factors and other things going on in life. While this may be the case, I do feel that she still requires follow-up for reassessment. Although there is no evidence of infection now, I do feel that she would benefit from repeat blood work within the week with her PCP for reassessment for changes in her WBC count. With the resolution of her symptoms otherwise, I do feel that GERD and gastric irritation is likely cause of her achiness. Symptoms inconsistent with ACS. Will recommend that she takes her home omeprazole regularly, will give Carafate for home use, recommend close follow-up with PCP for reassessment. Discussed red flags which to return. I have extensively reviewed the treatment plan and discharge instructions with the patient and their family. I have addressed all patient concerns at this time. The patient and family was made aware of what symptoms to monitor for that would warrant a return to the emergency department. Discussed the plan with the patient and family, they demonstrate verbal understanding and agreement with our assessment and plan at this time. The documentation in this chart was dictated using [employer] dictation software. Please excuse any dictation errors. EKG 21: 28 Sinus rhythm, rate 67, no significant ST elevation or depression, inverted T waves in V1, what appears to be a U wave in V4, V5, V6. No evidence of STEMI. HPI General Date/Time Provider Initiated Documentation: 07/30/22 19:42 . HPI Narrative: This is a 67-year-old female with a past medical history of irritable bowel syndrome, anxiety, hypertension, hysterectomy, appendectomy, who presents today for abdominal pain and bloating. Patient states that 10 days ago she had some pot roast, and after that developed mild diarrhea and bloating and flatus. That lasted 3 days, and then resolved, after which she then had some stuffed peppers a few days ago which again brought on all of her symptoms. Since then she has had a significant amount of heartburn, gas, and bloating. Patient states that whenever she has this she also gets extremely anxious and this worsens her nurse. She denies any chest pain or shortness of breath. She has taken some antacids but these have not helped well. She denies any vomiting, hemoptysis, hematemesis or bloody diarrhea. She denies any other complaints at this time. Related Data Home Medications Medication Instructions Recorded Confirmed alprazolam 0.5 mg tablet (Xanax) 0.5 mg PO DAILY PRN 06/02/21 07/30/22 amitriptyline 25 mg tablet 25 mg PO DAILY 06/02/21 07/30/22 amlodipine 5 mg tablet 5 mg PO DAILY 06/02/21 07/30/22 omeprazole 20 mg capsule,delayed 20 mg PO DAILY 06/02/21 07/30/22 release venlafaxine 37.5 mg 75 mg PO DAILY 09/04/21 07/30/22 capsule,extended release 24 hr (Effexor XR) propranolol 10 mg tablet 10 mg PO DAILY 10/03/21 07/30/22 sucralfate 1 gram tablet (Carafate) 1 g PO BID #60 tabs 07/30/22 Previous Rx's Medication Instructions Recorded sucralfate 1 gram tablet (Carafate) 1 g PO BID #60 tabs 07/30/22 Allergies Allergy/AdvReac Type Severity Reaction Status Date / Time lisinopril Allergy Severe Verified 07/30/22 20:10 promethazine [From Phenergan] Allergy Severe ANAPHYLAXIS Verified 07/30/22 20:10 sulfite Allergy Intermediate Other (See Unverified 07/30/22 20:10 Comment) Barbiturates Allergy Verified 07/30/22 20:10 losartan Allergy Verified 07/30/22 20:10 erythromycin base AdvReac Intermediate GI UPSET Verified 07/30/22 20:10 MSG Allergy Severe Hives Uncoded 07/30/22 20:10 General Stated Complaint: Abd Prob JEROME: 3 Review of Systems All systems reviewed & are unremarkable except as noted in HPI and below PFSH All Active Problems Abdominal pain (Acute) Acute hypokalemia (Acute) Acute electrocardiogram changes (Acute) Cervical radiculopathy (Acute) Cervical spondylosis (Acute) 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 states this was found when she was and hasn't been able to be detected recently Myalgia Neck pain Panic disorder PTSD (post-traumatic stress disorder) From Hysterectomy I was awake during it, I had a spinal but was awake. 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 so I'm very nervous Seasonal allergies Surgical [place] [facility] [place] History of right cataract surgery Previous section 1975, 1979 Social History Smoking/Tobacco Use Status: Never Smoking risk assessment performed?: Yes Alcohol Intake: never Substance use type: does not use Do you feel safe at home: Yes Do you feel safe in your relationship?: Yes Exam Narrative Exam Narrative: 1.Const: Well-nourished, Well-developed, appearing stated age 2.Eyes: PERRL, no conjunctival injection, and symmetrical lids. 3.ENT: Atraumatic external nose and ears. Moist MM. Neck: Symmetric, trachea midline, No thyromegaly. 4.CVS: +S1/S2, No murmurs or gallops. Peripheral pulses 2+ and equal in all extremities. Brisk capillary refill in all extremities. 5.RESP: Unlabored respiratory effort. Clear to auscultation bilaterally. No wheezes rales or rhonchi 6.GI: Soft, Nontender/Nondistended, No hepatosplenomegaly. No guarding or rebound. No pain or McBurney's point, negative Saldaña sign 7.MSK: Normocephalic/Atraumatic, Extremities w/o deformity or ttp No cyanosis or clubbing, Normal movement of all extremities 8.Skin: Warm, Dry. No rashes or lesions. 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 Sensation grossly intact, no focal neurologic deficits. 10.Psych: (AAO) x3. Appropriate mood and affect Course Vital Signs Vital signs: Vital Signs Temperature 36.3 C L 07/30/22 19:38 Pulse 111 H 07/30/22 19:38 Respiratory Rate 18 09/05/22 19:38 Blood Pressure 166/67 H 07/30/22 19:38 Pulse Oximetry 97 07/30/22 19:38 Temperature 36.3 C L 07/30/22 19:38 Temperature Source Skin 07/30/22 19:38 Pulse 111 H 07/30/22 19:38 Respiratory Rate 18 07/30/22 19:38 Respiratory Effort 07/30/22 19:47 Blood Pressure 166/67 H 07/30/22 19:38 Blood Pressure Position Supine 07/30/22 19:38 Pulse Oximetry 97 07/30/22 19:38 Oxygen Delivery Method Room Air 07/30/22 19:38 Oxygen Flow Rate 0 07/30/22 19:38 Pain Level 7 07/30/22 19:38 Comment 07/30/22 19:38 Lab/Test Results Lab/Test Results: Laboratory Tests Range/Units 07/30/22 07/30/22 07/30/22 20:35 20:35 20:35 WBC (4.4-10.8) 10^3/uL 19.79 H RBC (3.93-5.22) 10^6/uL 4.96 Hgb (11.2-15.7) g/dL 14.6 Hct (36.0-46.0) % 42.5 MCV (80-95) fL 86 MCH (27.0-33.0) pg 29.4 MCHC (32.0-36.0) % 34.4 RDW (11.7-14.6) % 11.5 L Plt Count (130-400) 10^3/uL 300 MPV (8.0-11.0) fL 10.7 Immature Gran % 0.4 Neutrophils % 79.2 Lymphocytes % 7.7 Monocytes % 12.1 Eosinophils % 0.3 Basophils % 0.3 Nucleated RBC % (0.0-0.3) % 0.0 Absolute Neutrophils (1.2-6.7) 10^3/uL 15.67 H Absolute Lymphocytes (1.2-3.4) 10^3/uL 1.52 Absolute Monocytes (0.1-0.8) 10^3/uL 2.39 H Absolute Eosinophils (0.0-0.7) 10^3/uL 0.06 Absolute Basophils (0.0-0.2) 10^3/uL 0.06 RBC Morphology Normal Sodium (136-145) mmol/L 131 L Potassium (3.5-5.1) mmol/L 3.5 Chloride (98-107) mmol/L 93 L Carbon Dioxide (21.0-32.0) mmol/L 34.0 H Anion Gap (3-11) mmol/L 4.0 BUN (7-18) mg/dL 9 Creatinine (0.55-1.02) mg/dL 0.7 Est GFR (CKD-EPI 2020) (mL/min/1.73m2) 93.56 Glucose (74-106) mg/dL 129 H Calcium (8.5-10.1) mg/dL 9.3 Total Bilirubin (0.2-1.0) mg/dL 0.8 AST (15-37) U/L 13 L ALT (14-59) U/L 25 Alkaline Phosphatase (46-116) U/L 101 Troponin I (<or=60) ng/L < 50 Total Protein (6.4-8.2) g/dL 7.7 Albumin (3.4-5.0) g/dL 3.6 Lipase (73-393) U/L 46 Urine Color (Yellow) Urine Clarity (Clear) Urine pH (5-8) Ur Specific [place] (1.005-1.025) Urine Protein (Negative) mg/dL Urine Ketones (Negative) mg/dL Urine Blood (Negative) Urine Nitrite (Negative) Urine Bilirubin (Negative) Urine Urobilinogen (Up TO 0.2) EU/dL Ur Leukocyte Esterase (Negative) Urine RBC (0-2) HPF Urine WBC (0-5) HPF Ur Epithelial Cells (Negative) HPF Urine Crystals (Negative) HPF Urine Bacteria (Negative) HPF Urine Casts (Negative) LPF Urine Mucus (Negative) Ur Culture Indicated? Urine Glucose (Negative) mg/dL Range/Units 07/30/22 21:41 WBC (4.4-10.8) 10^3/uL RBC (3.93-5.22) 10^6/uL Hgb (11.2-15.7) g/dL Hct (36.0-46.0) % MCV (80-95) fL MCH (27.0-33.0) pg MCHC (32.0-36.0) % RDW (11.7-14.6) % Plt Count (130-400) 10^3/uL MPV (8.0-11.0) fL Immature Gran % Neutrophils % Lymphocytes % Monocytes % Eosinophils % Basophils % Nucleated RBC % (0.0-0.3) % Absolute Neutrophils (1.2-6.7) 10^3/uL Absolute Lymphocytes (1.2-3.4) 10^3/uL Absolute Monocytes (0.1-0.8) 10^3/uL Absolute Eosinophils (0.0-0.7) 10^3/uL Absolute Basophils (0.0-0.2) 10^3/uL RBC Morphology Sodium (136-145) mmol/L Potassium (3.5-5.1) mmol/L Chloride (98-107) mmol/L Carbon Dioxide (21.0-32.0) mmol/L Anion Gap (3-11) mmol/L BUN (7-18) mg/dL Creatinine (0.55-1.02) mg/dL Est GFR (CKD-EPI 2020) (mL/min/1.73m2) Glucose (74-106) mg/dL Calcium (8.5-10.1) mg/dL Total Bilirubin (0.2-1.0) mg/dL AST (15-37) U/L ALT (14-59) U/L Alkaline Phosphatase (46-116) U/L Troponin I (<or=60) ng/L Total Protein (6.4-8.2) g/dL Albumin (3.4-5.0) g/dL Lipase (73-393) U/L Urine Color (Yellow) Yellow Urine Clarity (Clear) Clear Urine pH (5-8) 7.0 Ur Specific [place] (1.005-1.025) 1.010 Urine Protein (Negative) mg/dL Negative Urine Ketones (Negative) mg/dL Trace H Urine Blood (Negative) Small H Urine Nitrite (Negative) Negative Urine Bilirubin (Negative) Negative Urine Urobilinogen (Up TO 0.2) EU/dL 0.2 Ur Leukocyte Esterase (Negative) Negative Urine RBC (0-2) HPF 3-5 H Urine WBC (0-5) HPF 0-2 Ur Epithelial Cells (Negative) HPF Rare Urine Crystals (Negative) HPF Negative Urine Bacteria (Negative) HPF Rare Urine Casts (Negative) LPF Negative Urine Mucus (Negative) Negative Ur Culture Indicated? No Urine Glucose (Negative) mg/dL Negative
[2022-07-30 23:23] VITALS: BP 140/70; PULSE 81; RESP 18; O2SAT 94
== END 2022-07-30 23:28 | disposition home or self-care (01) ==
PROVIDERS: Emergency Provider Student in an Organized Health Care Education/Training Program; PCP Family Medicine
DX: R10.9 Unspecified abdominal pain (principal); E87.6 Hypokalemia; R94.31 Abnormal electrocardiogram [ECG] [EKG]; D72.829 Elevated white blood cell count, unspecified; I10 Essential (primary) hypertension
CPT/HCPCS: 80053; 83690; 93005; 96361; 96365; 96375; 99284; 81003; 81015; 84484; 85025; 93010; J2405; J3480; J3490

== ENCOUNTER 2022-08-07 21:42 | Outpatient (REF) | payer MEDICARE, SELFPAY ==
[2022-08-07 18:24] LABS: Anion Gap 4.3 mmol/L (3-11); BUN 12 mg/dL (7-18); CO2 33.7 mmol/L (21.0-32.0); CREATININE 0.7 mg/dL (0.55-1.02); Calcium 9.4 mg/dL (8.5-10.1); Chloride 99 mmol/L (98-107); Estimated GFR 93.56 (mL/min/1.73m2); Glucose 99 mg/dL (74-106); Potassium 4.2 mmol/L (3.5-5.1); Sodium 137 mmol/L (136-145)
== END 2022-08-07 21:43 | disposition home or self-care (01) ==
LOC: NCHCN 21:42
PROVIDERS: PCP Family Medicine; Visit Provider Nurse Practitioner Family
DX: I10 Essential (primary) hypertension (principal)
CPT/HCPCS: 80048

== ENCOUNTER 2022-10-19 10:35 | Emergency (ER) | payer MEDICARE, SELFPAY ==
[2022-10-19 11:05] VITALS: BP 150/76; PULSE 52; RESP 16; TEMP 36.6; O2SAT 98
--- NOTE | 2022-10-19 11:26 | ED.GENADUL_ITS ---
Discharge Plan Disposition Patient Disposition: Home Discharge Details Clinical Impression: Otitis media Primary Care Provider: Dorothea Shannon ED Provider: Jerry Sears Home Meds and New Rx's Prescriptions: New amoxicillin 500 mg tablet 500 mg PO QID Qty: 30 0RF No Action amlodipine 5 mg tablet 5 mg PO DAILY omeprazole 20 mg capsule,delayed release(DR/EC) 20 mg PO DAILY alprazolam [Xanax] 0.5 mg tablet 0.5 mg PO DAILY PRN venlafaxine [Effexor XR] 37.5 mg capsule,extended release 24hr 75 mg PO DAILY propranolol 10 mg tablet 10 mg PO DAILY Label Comments: TAKE ONE TABLET BY MOUTH TWICE A DAY Discharge Instructions Instructions: Ear Infection (ED) Additional Instructions: Please take the antibiotics as prescribed. You may take Tylenol and or Motrin for the pain and inflammation. Keep yourself well-hydrated. Medical Decision Making Patient with left otitis media and left lymphadenopathy Will be placed on amoxicillin. Sign Out No HPI General Date/Time Provider Initiated Documentation: 10/19/22 11:26 . HPI Narrative: 67-year-old presents to the emergency department with a 3-day history of left ear pain. She states that she tried to go to one of the urgent care but the waiting time for over 3 hours therefore she decided come to the emergency department. Does not feel that no chills. No nausea no vomiting. This been associated with mouth sore throat. No cough no shortness of breath. Related Data Home Medications Medication Instructions Recorded Confirmed alprazolam 0.5 mg tablet (Xanax) 0.5 mg PO DAILY PRN 06/02/21 10/19/22 amlodipine 5 mg tablet 5 mg PO DAILY 06/02/21 07/30/22 omeprazole 20 mg capsule,delayed 20 mg PO DAILY 06/02/21 10/19/22 release venlafaxine 37.5 mg 75 mg PO DAILY 09/04/21 10/19/22 capsule,extended release 24 hr (Effexor XR) propranolol 10 mg tablet 10 mg PO DAILY 10/03/21 10/19/22 amoxicillin 500 mg tablet 500 mg PO QID #30 tabs 10/19/22 Previous Rx's Medication Instructions Recorded amoxicillin 500 mg tablet 500 mg PO QID #30 tabs 10/19/22 Allergies Allergy/AdvReac Type Severity Reaction Status Date / Time lisinopril Allergy Severe Verified 10/19/22 11:15 promethazine [From Phenergan] Allergy Severe ANAPHYLAXIS Verified 10/19/22 11:15 sulfite Allergy Intermediate Other (See Unverified 10/19/22 11:15 Comment) Barbiturates Allergy Verified 10/19/22 11:15 losartan Allergy Verified 10/19/22 11:15 erythromycin base AdvReac Intermediate GI UPSET Verified 10/19/22 11:15 sucralfate [From Carafate] AdvReac Mild Diarrhea Unverified 10/19/22 11:17 MSG Allergy Severe Hives Uncoded 10/19/22 11:15 General Stated Complaint: EarProblem JEROME: 4 Review of Systems Narrative: Constitutional is been negative for fever chills, negative for malaise, negative for fatigue. 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 states this was found when she was and hasn't been able to be detected recently Myalgia Neck pain Panic disorder PTSD (post-traumatic stress disorder) From Hysterectomy I was awake during it, I had a spinal but was awake. 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 so I'm very nervous Seasonal allergies Surgical History H/O colonoscopy 10[place]20/08, [facility] [place] History of right cataract surgery Previous section 1975, 1979 Social History Smoking/Tobacco Use Status: Never Smoking risk assessment performed?: Yes Alcohol Intake: never Substance use type: does not use Do you feel safe at home: Yes Do you feel safe in your relationship?: Yes Exam Narrative Exam Narrative: General: A,A Ox3, Calm, no apparent distress, well developed, pleasant and cooperative Head Size/Shape: normocephalic, atraumatic Eyes Pupils: PERRLA Extraocular Mobility: intact and symmetrical Conjunctiva: non-injected, anicteric, no discharge Ears, Nose, Throat -left TM fluid behind the TM Nares: patent bilaterally Oral Cavity: moist Neck: no masses, no crepitus Lymph Nodes: left cervical lymphadenopathy Respiratory Respiratory Effort: no dyspnea Auscultation: clear to auscultation bilaterally, normal breath sounds, no wheezing, no rales/crackles Cardiovascular Heart Auscultation: regular rate and rhythm, normal S1, normal S2, no murmurs, no rubs, no gallops Abdomen Inspection and Palpation: soft, non-tender, non-distended, no hepatosplenomegaly Musculoskeletal System Joints, Bones, and Muscles: no deformities Extremities: warm and well-perfused, no cyanosis, capillary refill <2 seconds Skin Skin Inspection: no rash, no lesions, no bruising Neurological Motor: normal tone, normal strength, moving all extremities equally Reflexes: no clonus Psychiatric: good insight, good judgement, normal mood and affect Course Vital Signs Vital signs: Vital Signs Temperature 36.6 C 10/19/22 11:05 Pulse 52 L 10/19/22 11:05 Respiratory Rate 16 10/19/22 11:05 Blood Pressure 150/76 H 10/19/22 11:05 Pulse Oximetry 98 10/19/22 11:05 Temperature 36.6 C 10/19/22 11:05 Temperature Source Skin 10/19/22 11:05 Pulse 52 L 10/19/22 11:05 Respiratory Rate 16 10/19/22 11:05 Respiratory Effort 10/19/22 11:17 Blood Pressure 150/76 H 10/19/22 11:05 Blood Pressure Position Sitting 10/19/22 11:05 Pulse Oximetry 98 10/19/22 11:05 Oxygen Delivery Method Room Air 10/19/22 11:05 Oxygen Flow Rate 0 10/19/22 11:05 Pain Level 7 10/19/22 11:18 Comment HR usually low 60's 10/19/22 11:05
--- NOTE | 2022-10-20 10:27 | NUR.NOTE ---
Nursing Note: Discharge instructions mailed to patient.
--- NOTE | 2022-10-25 10:02 | NUR.NOTE ---
Nursing Note: 09 patient called stating that her ear still hurt and that her glands were still swollen, still not feeling well. To take a trip tomorow, needs a letter for the airline. Medication runs out Saturday. What should she do? Call PCP to get appt, return to ED. Spoke with DR. Guillory and called patient back. Told her that she should be re-evaluated either by PCP, [facility] or return to ED. At that time she should ask about getting a letter for the airline.
== END 2022-10-19 11:48 | disposition home or self-care (01) ==
PROVIDERS: Emergency Provider Emergency Medicine; PCP Nurse Practitioner Family
DX: H66.92 Otitis media, unspecified, left ear (principal)
CPT/HCPCS: 99283

== ENCOUNTER 2022-10-25 11:40 | Emergency (ER) | payer MEDICARE, SELFPAY ==
[2022-10-25 11:44] VITALS: BP 190/70; PULSE 52; RESP 18; TEMP 36.4; O2SAT 98
--- NOTE | 2022-10-25 12:19 | W.ED.GENAD ---
Discharge Plan Disposition Patient Disposition: Home Condition: Stable Discharge Details Clinical Impression: Otalgia of left ear Primary Care Provider: Dorothea Shannon ED Provider: Mio Noel Home Meds and New Rx's Prescriptions: Continued amlodipine 5 mg tablet 5 mg PO DAILY omeprazole 20 mg capsule,delayed release(DR/EC) 20 mg PO DAILY alprazolam [Xanax] 0.5 mg tablet 0.5 mg PO DAILY PRN venlafaxine [Effexor XR] 37.5 mg capsule,extended release 24hr 75 mg PO DAILY amoxicillin 500 mg tablet 500 mg PO QID Qty: 30 0RF propranolol 10 mg tablet 10 mg PO DAILY Label Comments: TAKE ONE TABLET BY MOUTH TWICE A DAY Discharge Instructions Instructions: Earache (ED) Additional Instructions: At this time no worrisome findings were noted on exam. If you have any significant new or worsening symptoms feel free to return the emergency department or follow-up with local urgent care for reassessment. Please finish your antibiotic as prescribed and you may use [id number] pain medication as needed for discomfort. You may perform other pain relieving measures such as warm compresses and chewing gum to see if this helps your symptoms. If not improving in the next 1 to 2 weeks please follow-up with your primary care provider for reassessment. It was noted that your blood pressure was elevated on today's check-in. While I do not feel this has anything to do with your ear pain please continue to monitor your blood pressure and take your medications as prescribed. Referrals: Dorothea Shannon [Primary Care Provider] - 1 week (If not improving) Discharge Data Discharge Date/Time-TO BE ENTERED AT DEPARTURE: 10/25/22 12:32 Medical Decision Making Patient presenting to the emergency department for chief complaint of left ear pain recheck. She states she is getting ready to go on a flight and was concerned due to not full resolution of symptoms. She does state slight improvement of some of the pain and discomfort but still having some lymph node tenderness and ear pain. Patient denies any fever, dizziness, vertigo, or loss of hearing. Physical exam is unremarkable and left TM shows pearly church TM with no loss of landmarks, no bulging, no erythema, TM is intact with no canal findings either. Exam is otherwise unremarkable. Discussed with patient to continue use of antibiotics and potential for slight discomfort if she has serous otitis media that is subtle causing her pain. Informed her that antibiotics would not fully clear this up but that she would need to wait and follow-up with primary care provider in 1 to 2 weeks if still not improving. Encourage patient to use [id number] meds for discomfort and monitor symptoms. Patient was concerned about flying and offered patient letter due to her not feeling well but after further discussion she states that she feels reassured that she will be able to safely take the trip. After discussion of diagnosis and plan of care patient has no further needs, questions, or concerns and states clear understanding to return to the emergency department for any worsening symptoms. This documentation was generated using [employer] system, please disregard any oddities of phrase or misspellings. Sign Out No HPI General Mode of arrival: ambulatory. Date/Time Provider Initiated Documentation: 10/25/22 11:47. Limitations to Documentation: no limitations. Information obtained by: patient and RN notes reviewed. History of Present Illness 67 year old F presents to the emergency department with the chief complaint of Ear pain, described as moderate, Quality is described as aching, Patient started experiencing this week(s) (1) and it has been constant. No relieving factors improve symptom(s), No exacerbating factors reported . Patient notes no other symptoms.. Patient did receive the following treatments prior to arrival, other (Antibiotics) Related Data Home Medications Medication Instructions Recorded Confirmed alprazolam 0.5 mg tablet (Xanax) 0.5 mg PO DAILY PRN 06/02/21 10/25/22 amlodipine 5 mg tablet 5 mg PO DAILY 06/02/21 10/25/22 omeprazole 20 mg capsule,delayed 20 mg PO DAILY 06/02/21 10/25/22 release venlafaxine 37.5 mg 75 mg PO DAILY 09/04/21 10/25/22 capsule,extended release 24 hr (Effexor XR) propranolol 10 mg tablet 10 mg PO DAILY 10/03/21 10/25/22 amoxicillin 500 mg tablet 500 mg PO QID #30 tabs 10/19/22 10/25/22 Previous Rx's Medication Instructions Recorded amoxicillin 500 mg tablet 500 mg PO QID #30 tabs 10/19/22 Allergies Allergy/AdvReac Type Severity Reaction Status Date / Time lisinopril Allergy Severe Verified 10/25/22 11:47 promethazine [From Phenergan] Allergy Severe ANAPHYLAXIS Verified 10/25/22 11:47 sulfite Allergy Intermediate Other (See Unverified 10/25/22 11:47 Comment) Barbiturates Allergy Verified 10/25/22 11:47 losartan Allergy Verified 10/25/22 11:47 erythromycin base AdvReac Intermediate GI UPSET Verified 10/25/22 11:47 sucralfate [From Carafate] AdvReac Mild Diarrhea Unverified 10/25/22 11:47 MSG Allergy Severe Hives Uncoded 10/25/22 11:47 General Stated Complaint: Recheck JEROME: 4 Review of Systems Constitutional Constitutional: Denies chills, Denies fever(s) and Denies headache(s) ENT Ears, Nose, Mouth, and Throat: Denies vertigo, Denies dizziness, Denies ear discharge, Reports otalgia, Denies facial pain, Denies headache(s), Denies nasal congestion, Denies nasal discharge and Denies sore throat Cardiovascular Cardiovascular: Denies chest pain Respiratory Respiratory: Denies cough Gastrointestinal Gastrointestinal: Denies nausea and Denies vomiting Integumentary/Breasts Skin/Breast: Denies rash Neurologic Neurologic: Denies vertigo, Denies dizziness and Denies headache(s) PFSH All Active Problems (Updated 10/25/22 @ 12:22 by Mio Noel NP) Otitis media (Acute) Otalgia of left ear (Acute) Cervical radiculopathy (Acute) Cervical spondylosis (Acute) 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 states this was found when she was and hasn't been able to be detected recently Myalgia Neck pain Panic disorder PTSD (post-traumatic stress disorder) From Hysterectomy I was awake during it, I had a spinal but was awake. 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 so I'm very nervous Seasonal allergies Surgical History H/O colonoscopy 10/20/08, [facility] 2018 History of right cataract surgery Previous section 1975, 1979 Social History Smoking/Tobacco Use Status: Never Smoking risk assessment performed?: Yes Alcohol Intake: never Substance use type: does not use Do you feel safe at home: Yes Do you feel safe in your relationship?: Yes Exam Const General: cooperative, comfortable and no acute distress Orientation: alert and awake [facility] Head: normal to inspection, normocephalic and atraumatic Ears: hearing grossly normal bilaterally, TM's normal bilaterally, mastoids normal and no periauricular adenopathy General nose exam: external nose normal Face and sinus: no erythema Mouth: oral mucosae normal, no drooling, no muffled voice and no trismus Throat: posterior oropharynx normal Neck Neck: normal visual inspection, full ROM, no lymphadenopathy, no meningeal signs, trachea midline and supple Resp Effort & Inspection: normal respiratory effort and able to speak in complete sentences Auscultation: clear to auscultation bilaterally Cardio Rate: regular rate Rhythm: regular rhythm Heart Sounds: S1 normal and S2 normal Skin General skin exam: no rashes or lesions noted and dry skin (warm) Neuro General: patient alert, patient awake, patient oriented x3, gait normal and moves all extremities Cognition: normal cognition Speech: speech normal Course Vital Signs Vital signs: Vital Signs Temperature 36.4 C L 10/25/22 11:44 Pulse 52 L 10/25/22 11:44 Respiratory Rate 18 10/25/22 11:44 Blood Pressure 190/70 H 10/25/22 11:44 Pulse Oximetry 98 10/25/22 11:44 Temperature 36.4 C L 10/25/22 11:44 Temperature Source Temporal Artery Scan 10/25/22 11:44 Pulse 52 L 10/25/22 11:44 Respiratory Rate 18 10/25/22 11:44 Respiratory Effort Non-Labored 10/25/22 11:48 Blood Pressure 190/70 H 10/25/22 11:44 Blood Pressure Position Sitting 10/25/22 11:44 Pulse Oximetry 98 10/25/22 11:44 Oxygen Delivery Method Room Air 10/25/22 11:44 Oxygen Flow Rate 0 10/25/22 11:44
== END 2022-10-25 12:32 | disposition home or self-care (01) ==
PROVIDERS: Emergency Provider Nurse Practitioner Family; PCP Nurse Practitioner Family
DX: H92.02 Otalgia, left ear (principal); I10 Essential (primary) hypertension
CPT/HCPCS: 99282

== ENCOUNTER 2022-12-17 09:11 | Outpatient (REF) | payer MEDICARE, SELFPAY ==
[2022-12-17 16:28] LABS: Anion Gap 6.4 mmol/L (3-11); BUN 11 mg/dL (7-18); CO2 29.6 mmol/L (21.0-32.0); CREATININE 0.6 mg/dL (0.55-1.02); Calcium 9.3 mg/dL (8.5-10.1); Calculated LDL 172 mg/dL (<100); Chloride 99 mmol/L (98-107); Cholesterol 259 mg/dL (<200); Glucose 93 mg/dL (74-106); HDL Cholesterol 59 mg/dL (40-60); Magnesium 1.8 mg/dL (1.8-2.4); Potassium 4.2 mmol/L (3.5-5.1); Sodium 135 mmol/L (136-145); Triglyceride 140 mg/dL (<150); Vitamin B12 265 pg/mL (193-986)
[2022-12-17 17:15] LABS: Vitamin D 25 Total 39.4 ng/mL (30-100)
== END 2022-12-17 09:12 | disposition home or self-care (01) ==
LOC: NCHCN 09:11
PROVIDERS: PCP Nurse Practitioner Family; Visit Provider Nurse Practitioner Family
DX: E78.5 Hyperlipidemia, unspecified (principal); E55.9 Vitamin D deficiency, unspecified; I10 Essential (primary) hypertension; F41.8 Other specified anxiety disorders; K58.1 Irritable bowel syndrome with constipation; M85.88 Other specified disorders of bone density and structure, other site
CPT/HCPCS: 80048; 80061; 82306; 82607; 83735

== ENCOUNTER → 2023-12-25 00:22 | Outpatient (CLI) | payer MEDICARE, SELFPAY ==
--- NOTE | 2023-12-25 | DI.US_ITS ---
Exam(s) US RENAL EXAM: US RENAL CLINICAL HISTORY: ASYMPTOMATIC MICROSCOPIC HEMATURIA R31.21. TECHNIQUE: Worley scale, color and spectral Doppler were used. COMPARISON: No exams were available for comparison FINDINGS: Renal size in cm: Right: 10.6. Left: 10.1. Echogenicity: Normal. Hydronephrosis: No. Cyst or mass: No. Nephrolithiasis: No. Other findings: None. Bladder:Normal. Ureteral jets: Right: Visualized and unremarkable. Left: Visualized and unremarkable. Prevoid vol:61 cc Postvoid vol:9 cc Renal color flow: Symmetric and within normal limits. IMPRESSION: Unremarkable examination. DATA REPOSITORY:
== END ==
PROVIDERS: PCP Nurse Practitioner Family; Visit Provider Nurse Practitioner Family
DX: R31.21 Asymptomatic microscopic hematuria (principal)
CPT/HCPCS: 76770

== ENCOUNTER 2024-02-12 12:39 | Outpatient (REF) | payer MEDICARE, SELFPAY ==
[2024-02-12 14:28] LABS: HCT 46.1 % (36.0-46.0); HGB 15.3 g/dL (11.2-15.7); MCHC 33.2 % (32.0-36.0); MCV 87 fL (80-95); MPV 11.3 fL (8.0-11.0); Platelet Count 311 10^3/uL (130-400); RBC 5.28 10^6/uL (3.93-5.22); RDW 12.2 % (11.7-14.6); RDW-SD 39.3 fL; WBC 7.37 10^3/uL (4.4-10.8)
[2024-02-12 15:48] LABS: ALT 23 U/L (14-59); AST 16 U/L (15-37); Albumin 3.8 g/dL (3.4-5.0); Alkaline Phosphatase 133 U/L (46-116); Anion Gap 8.3 mmol/L (3-11); BUN 11 mg/dL (7-18); Bilirubin, Total 0.3 mg/dL (0.2-1.0); CO2 30.7 mmol/L (21.0-32.0); CREATININE 0.8 mg/dL (0.55-1.02); Calcium 9.1 mg/dL (8.5-10.1); Chloride 100 mmol/L (98-107); Estimated GFR 79.22 (mL/min/1.73m2); Glucose 95 mg/dL (74-106); NT-proBNP 91 pg/mL (<300); Potassium 4.2 mmol/L (3.5-5.1); Sodium 139 mmol/L (136-145); TSH (W/Ref FT4) 2.92 uIU/mL (0.36-3.74); Total Protein 7.3 g/dL (6.4-8.2)
[2024-02-12 15:51] LABS: Vitamin D 25 Total 42.9 ng/mL (30-100)
[2024-02-12 16:10] LABS: Calculated LDL 185 mg/dL (<100); Cholesterol 280 mg/dL (<200); HDL Cholesterol 76 mg/dL (40-60); Triglyceride 97 mg/dL (<150)
== END 2024-02-12 12:40 | disposition home or self-care (01) ==
LOC: NCHCN 12:39
PROVIDERS: PCP Nurse Practitioner Family; Visit Provider Nurse Practitioner Family
DX: E78.5 Hyperlipidemia, unspecified (principal); R06.00 Dyspnea, unspecified; E55.9 Vitamin D deficiency, unspecified
CPT/HCPCS: 80053; 80061; 82306; 85027; 83880; 84443

== ENCOUNTER → 2024-03-19 00:39 | Outpatient (CLI) | payer MEDICARE, SELFPAY ==
--- NOTE | 2024-03-19 | ETT_ITS ---
APPROVED REPORT Exam: Exercise Treadmill Patient Location: Out-Patient Room/Bed: Stress Nurse: Nancy Garcia RN Ordering Provider:SHIRA DUKE, Contact Number: [phone] BMI: 25.42 Baseline Rhythm: Sinus Bradycardia Comment: Occasional PAC's Indications: Dyspnea , Medical History Medical History: PTSD, anxiety, HLD, HTN, OA, non nuclear dyspnea, non-rheumatic mitral valve prolaps e Cardiac Medications: Amlodipine, propranolol, venlafaxine, alprazolam, amitriptyline, omeprazole, jc tolin PRN Allergies: Erythromycin, diclofenac, phenergan, lisinopril, losartan, barbiturates Cardiac Risk Factors: Family hx, HTN, HLD, asthma seasonal Previous Cardiac Procedures: None Pretest Chest Pain Characteristics: None Exercise History: Sedentary Physical Disabilities: None Lung Sounds: Clear to auscultation Heart Sounds: Regular Stress Test Details Test: Exercise stress testing was performed using a Aftab protocol. Rest Stress HR Resting HR Supine: 57 bpm Max Heart Rate (APMHR): 150 bpm Resting HR Standin bpm Target HR (85% APMHR): 128 bpm Max HR Achieved: 130 bpm % of APMHR: 87 Recovery HR: 74 bpm HR response to stress: Normal HR response to stress BP Resting BP Supine: 164/70 mmHg Resting BP Standin/78 mmHg Max BP: 184/68 mmHg Recovery BP: 160/72 mmHg BP response to stress: Normal blood pressure response to stress. ECG Resting ECG: Sinus Bradycardia Ectopy: Occasional PAC's Stress ECG: Sinus Tachycardia ST Change: No significant ST segment changes noted Arrhythmia: Occasional PAC's, occasional PVC's Recovery ECG: Sinus Bradycardia Recovery ST Change: No significant ST segment changes noted Recovery Arrhythmia: None Clinical Reason for Termination: Target HR Achieved, Fatigue Stress Symptoms: General Fatigue Exercise duration: 06 min50 sec Highest Stage Reached: Stage 3: 3.4 mph at 14% grade. Exercise capacity: 8.32 METs Angina Score: None Matos Treadmill Score: 6.5 Rate Pressure Product: [id number] Stress ECG Conclusion 1. Resting electrocardiogram was within normal limits 2. Patient exercised on the Aftab protocol and completed a workload of 8.32 METS, stopping due to fat igue 3. Normal heart rate and blood pressure response to exercise. The patient achieved 87% of predicted heart rate for age 4. There was no electrocardiographic evidence of myocardial ischemia 5. There were occasional atrial and ventricular ectopic beats noted Matos Treadmill Score is 6.5 which is Low risk. Stress Test Summary STAGE Time (mins) Speed (mph) Grade (%) HR BP SpO2 SYMPTOMS METS Supine 57 164/70 Standing 75 134/78 97 1 3 1.7 10 94 136/68 4.5 2 6 2.5 12 118 7 3 9 3.4 14 128 10 1 min recovery 126 132/68 3 min recovery 88 184/68 6 min recovery 87 174/80 9 min recovery 74 160/72
== END ==
PROVIDERS: PCP Nurse Practitioner Family; Visit Provider Nurse Practitioner Family
DX: R06.00 Dyspnea, unspecified (principal)
CPT/HCPCS: 93016; 93018; 93017

== ENCOUNTER 2024-10-26 15:39 | Outpatient (REF) | payer MEDICARE, SELFPAY ==
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
--- OUTSIDE RECORDS SUMMARY | 2024-10-26 15:41 | XMS_ITS | Encounter Summary ---
Author Organization [facility] Address [address] [place] [address] Care Team Providers Care President And Cmo Name Role Phone Leonora López MD Primary Care Provider [phone] Encounter Details Date Type Department Care Team ([facility] st Contact Info) Description 01/29/2020 Prep for Procedure [facility] OPHTHALMOLOGY [address], [place] [id number] Christiano Hubbard MD [address] [facility], [facility] [address] [place] [address] Social History Tobacco Use Types Packs/Day Years Used Date Smoking Tobacco: Never Smokeless Tobacco: Never Alcohol Use Standard Drinks/Week Comments Yes 0 (1 standard drink = 0.6 oz pur e alcohol) rare Comments No Sex and Gender Information Value Date Recorded Sex Assigned at Not on file Legal Sex Female 18:28 EST Gender Identity Female 12/15/2019 16:32 EST Sexual Orientation Not on file documented as of this encounter Plan of Treatment Not on file documented as of this encounter Visit Diagnoses Not on filedocumented in this encounter Orders Nursing Count Last Ordered Date First Orde red Date NURSING COMMUNICATION 1 01/29/2020 documented in this encounter Care Teams President And Cmo Relationship Specialty Start Date End Date Leonora López MD [address] [place] [address] PCP - General 09/17/19 documented as of this encounter
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
--- OUTSIDE RECORDS SUMMARY | 2024-10-26 15:41 | XMS_ITS | Encounter Summary ---
Author Organization Health system Address [address] [place] [address] Care Team Providers Care Roof Cement And Paint Maker Helper Name Role Phone Leonora López MD Primary Care Provider [phone] Reason for Visit * Reason Onset Date Comments Medication Management 01/14/2020 Encounter Details Date Type Department Care Team ([facility] st Contact Info) Description 01/14/2020 Refill [facility] Ophthalmology - [address] [id number] Christiano Hubbard MD [address] [place] [address], [address] [place] [address] Medication Management Social History Tobacco Use Types Packs/Day Years [...] on file documented as of this encounter Ordered Prescriptions Prescription Sig Dispense Quantity Refills Last Filled Start Date End Date ketOROLAC tromethamine (ACULAR LS) 0.4 % drops Place 1 Drop into the left eye 4 times daily for 34 days. Use for 3 days before surgery and for one month after surgery. 1 Drop 3 01/29/2020 0 prednisoLONE (PRED FORTE) 1 % ophthalmic suspension Place 1 Drop into the left eye 4 times daily for 31 days. Use for one month after surgery 1 Bottle 3 02/01/2020 0 moxifloxacin (VIGAMOX) 0.5 % ophthalmic solution Place 1 Drop into the left eye 4 times daily for 13 days. Use for 3 days before surgery and 10 days after surgery. 1 Bottle 3 01/29/2020 0 documented in this encounter Miscellaneous Notes * Telephone Encounter - Edmond Bowden, POPEYE - 01/14/[address] Deshpande is okay with 0.4% same directions. Called and spoke to Todd. Gave her a verbal for right eye end date on 01/21/2020. She will need drops ordered for the left eye surgery on 02/01/2020. Edmond Bowden RN 01/14/2020 15:41 * Telephone Encounter - Stefania Junior - 01/14/2020 1457 EST Todd is calling from [facility] stating that the ketorolac is currently on back order but the 0.4% is not and they have it in stock they would like to know if Dr. Deshpande would be okay with this documented in this encounter Plan of Treatment Not on file documented as of this encounter Visit Diagnoses Not on filedocumented in this encounter Discontinued Medications Medication Sig Discontinue Reason Start Date End Da te prednisoLONE (PRED FORTE) 1 % ophthalmic suspension Place 1 Drop into the left eye 4 times daily. 02/01/2020 01/14/2020 ketOROLAC (ACULAR) 0.5 % ophthalmic solution Place 1 Drop into the left eye 4 times daily. 01/29/2020 01/14/2020 documented as of this encounter Care Teams Roof Cement And Paint Maker Helper Relationship Specialty Start Date End Date Leonora López MD [address] [place] [address] PCP - General 09/17/19 documented as of this encounter
--- OUTSIDE RECORDS SUMMARY | 2024-10-26 15:41 | XMS_ITS | Encounter Summary ---
Author Organization [facility] Address [address] [place] [address] Care Team Providers Care Candy Cooker Helper Name Role Phone Leonora López MD Primary Care Provider [phone] Reason for Visit * Auth/Cert Specialty Diagnoses / [facility] Contact Diagnoses Combined forms of age-related cataract of left eye Combined forms of age-related cataract of left eye [H25.812] Procedures [place] XCAPSL CTRC RMVL INSJ IO LENS PROSTH W/O ECP Cataract Extraction w/Intraocular Lens Implant, Left Eye Referral ID Status Reason Start Date Expiration Date Visits Re quested Visits Authorized [id number] 1 1 Encounter Details Date Type Department Care Team (Late st Contact Info) Description 02/01/2020 10:25 EDT - 02/01/2020 11:10 EDT Surgery [facility] Operating Room [address] [place] [address] Christiano Hubbard MD [address] [facility], [address] [place] [address] Cataract Extraction w/Intraocular Lens Implant, Left Eye [26522 (CPT??)] Surgery Details Date/Time Status Location OR Service Patient Class Case Class Case Type Trauma Case? 02/01/2020 1025 Posted [facility] OR FOR [facility] Outpatient Surgery H - Elective Panel 1 Procedure LRB Anes Op Region Wound Class Comments Cataract Extraction w/Intraocular Lens Implant, Left Eye Left Monitored Anesthesia Care Class I/ Clean Surgeon Surgeon Role Service Panel Christiano Hubbard MD Primary Ophthalm ology 1 documented in this encounter Social History Tobacco [...] on file documented as of this encounter Last Filed Vital Signs Vital Sign Reading Time Taken Comments Blood Pressure 149/83 02/01/2020913 EDT Pulse - - Temperature 36.9 ??C (98.4 ??F) 02/01/2020913 EDT Respiratory Rate 16 02/01/2020913 EDT Oxygen Saturation 100% 02/01/2020913 EDT Inhaled Oxygen Concentration - - Weight - - Height - - Body Mass Index - - documented in this encounter Discharge Instructions * Discharge Instructions* Christiano Hubbard MD - 02/01/2020 11:18 EDT Post Cataract Surgery Discharge Instructions Christiano Hubbard MD Activity: ?? Keep your eye shield in place over your eye the day of surgery, except to place eye drops. Afterthe 1st day, you only need to wear the shield at night for one week following surgery. It is ok to sleep on the operated side. ?? For 2 weeks do not bend over so that your head is below the level of your heart. Do not lift more than 20 lbs for two weeks and 30 lbs for the following two weeks. ?? Avoid strenuous activity for two weeks. ?? Bathing and showering is ok, but avoid getting soap or shampoo in your eye. Eye Drops / Medications: ?? Use Tylenol or ibuprofen for mild discomfort, according to the package instructions. ?? Please use eye drops in the OPERATED eye as instructed ?? If your eye feels scratchy or irritated after surgery, you may use preservative free artificial tears as often as you need. Keep them cold in the refrigerator. ?? You may resume all medications you were taking prior to surgery, including blood thinners, and any eye drops you were using in the UN OPERATED eye. If you were using drops in the OPERATED eye prior to surgery, please discuss restarting these with your surgeon. General Instructions: ?? Please call our office if you experience fever, increased eye redness or pain, or nausea and vomiting. * A bandage contact lens was placed in your eye at the end of the surgical procedure. It is a lens which is soaked in antibiotics, which reduces the risk of infection. The lens normally dissolves after 12 hours. If it falls out of the eye after the surgery, this is normal and you should not try to place it back in the eye. Please continue to use your eyedrops as instructed. Christiano Hubbard MD documented in this encounter Medications at Time of Discharge albuterol (VENTOLIN HFA) 90 mcg/actuation inhaler Inhale 2 Puffs as directed every 6 hours as needed for Wheezing. ALPRAZolam (XANAX XR) 0.5 mg XR tablet Take by mouth daily as needed. AMITRIPTYLINE HCL (AMITRIPTYLINE ORAL) Take 25 mg by mouth. amLODIPine (NORVASC) 5 mg tablet Take 5 mg by mouth daily. ergocalciferol, vitamin D2, (VITAMIN D ORAL) Take 500 mg by mouth. montelukast (SINGULAIR) 10 mg tablet Take 10 mg by mouth daily. Multivitamins with Minerals tablet tablet Take 1 Tab by mouth daily. omeprazole (PRILOSEC) 20 mg capsule Take 20 mg by mouth daily. venlafaxine HCl (EFFEXOR XR ORAL) Take 74 mg by mouth. vitamin B complex/folic acid (B COMPLEX 100 ORAL) Take by mouth. ketOROLAC tromethamine (ACULAR LS) 0.4 % drops Place 1 Drop into the left eye 4 times daily for 34 days. Use for 3 days before surgery and for one month after surgery. 1 Drop 3 01/29/2020 0 moxifloxacin (VIGAMOX) 0.5 % ophthalmic solution Place 1 Drop into the left eye 4 times daily for 13 days. Use for 3 days before surgery and 10 days after surgery. 1 Bottle 3 01/29/2020 0 moxifloxacin (VIGAMOX) 0.5 % ophthalmic solution Place 1 Drop into the left eye 4 times daily. 01/29/2020 0 prednisoLONE (PRED FORTE) 1 % ophthalmic suspension Place 1 Drop into the left eye 4 times daily for 31 days. Use for one month after surgery 1 Bottle 3 02/01/2020 0 documented as of this encounter Discharge Disposition Disposition Code Departure Means Destination Home or Self Care Wheelchair Home documented in this encounter H&P Notes * Christiano Hubbard MD - 02/01/2020 1037 EDT The preoperative history and physical which was performed within 30 days of this procedure has been reviewed and the clinically appropriate elements of the physical examination have been repeated. There are no changes to the documented history and physical or if so such changes are documented below Christiano Hubbard MD 02/01/2020 10:37 documented in this encounter OR Notes * OR Surgeon - Christiano Hubbard MD - 02/01/2020 1118 EDT Operative Note Date of Surgery: 02/01/2020 Surgeon: Christiano Hubbard MD Assistants: SONIYA Moctezuma Pre-Op Diagnosis: Mixed, age-related cataract left eye Post-Op Diagnosis: Same Procedure(s): Cataract extraction by phacoemulsification with PC IOL left eye Findings: The patient was taken to the operating room and placed in a supine position. The patient's left eye was prepped and draped in sterile fashion and an operating microscope was maneuvered intoposition for a temporal approach cataract surgery of the left eye. A paracentesis site was created i nferotemporally and unpreserved lidocaine 1% was administered into the anterior chamber, followed by Viscoat and Healon. A 2.75 mm keratome was used to create a corneal incision superotemporally. A needle cystotome was used to initiate a continuous circular capsulorrhexis, which was completed usingcapsulorrhexis forceps. Balanced salt solution on a J cannula was used for hydrodissection, with anangled cannula also used for this purpose, with good mobility of the lens nucleus noted. A phaco tip was used to carve a groove in the anterior aspect of the lens nucleus, which was then cracked intotwo hemispheres. A groove was constructed in the anterior aspect of one of these nucleus hemispheres, which was then cracked into two quadrants, each of which was removed with phacoemulsification. A Austyn MicroFinger was used to chop the remaining nucleus hemisphere into smaller pieces, which were removed with phacoemulsification. Irrigation aspiration was used to remove cortex. Healon was administered into the capsular bag and the anterior chamber, and a Tecnis +21.0 diopter aspheric intraocular lens was injected into the capsular bag using a Eventtus injector. Viscoelastic was removed using irrigation aspiration. Stromal hydration was performed at the corneal incisions, which were found to be watertight upon testing with Weck-cecilia sponges. A 12-hour collagen shield, which had been soaked in Vigamox, was applied to the cornea. Drops of timolol 0.5% and Vigamox were applied, in addition to a plastic shield, and the patient was transported in stable condition to the recovery room. Unless otherwise noted, there were no complications, no blood loss, no cultures obtained, no specimens removed, and no drains retained. Anesthesia Type: topical with MAC Estimated Blood Loss: None Fluids: None Urine Output: None Specimens/Cultures: None Drains/Packs: None Complications: None Disposition and Condition: Sent to home in good condition. documented in this encounter Plan of Treatment Not on file documented as of this encounter Procedures Procedure Name Priority Date/Time Associated Diagnosis Comments IMPLANT RECORD - SCANNED 02/15/2020 11:24 EDT EXTRACTION, CATARACT, EXTRACAPSULAR, WITH IOL INSERTION 02/01/2020 10:46 EDT Combined forms of age-related cataract of left eye documented in this encounter Results * IMPLANT RECORD - SCANNED (02/15/2020 11:24 EDT) 02/15/2020 11:2 4 EDT us Scan 2 Relief Docking Master PROCEDURE/MINOR SURGICAL OR DERABLES Final Result documented in this encounter Visit Diagnoses Diagnosis Combined forms of age-related cataract of left eye- Primary Other and combined forms of senile cataract Combined forms of age-related cataract of left eye Other and combined forms of senile cataract documented in this encounter Admitting Diagnoses Diagnosis Combined forms of age-related cataract of left eye Other and combined forms of senile cataract documented in this encounter Administered Medications Inactive Administered Medications - up to 3 most recent administrations Medication Order MAR Action Action Date Dose Rate Site acetaminophen (TYLENOL) tablet 650 mg 650 mg, oral, EVERY 4 HOURS PRN, Starting on Sat02/01/20 at 1109, Until Sat02/01/20 at 1147, Pain, Routine, Recovery (only) Given 02/01/2020 11:25 EDT 650 mg balanced salt solution inrrigation solution (BSS PLUS) 500 mL, EPINEPHrine HCl (PF) (ADRENALIN) 0.5 mL irrigation As needed, Starting on Sat02/01/20 at 1043, Until Sat02/01/20 at 1042, Routine, Intraprocedure Given 02/01/2020 10:43 EDT 50 mL balanced salts (BSS) ophthalmic solution As needed, Starting on Sat02/01/20 at 1043, Until Sat02/01/20 at 1042, Routine, Intraprocedure Given 02/01/2020 10:43 EDT 15 mL cyclopentolate (CYCLOGYL) 2 % ophthalmic solution 1 Drop 1 Drop, left eye, PREOP LINKED EYE MEDS-SEE ADMIN INSTRUCTIONS, 3 doses, First dose on Sat02/01/20 at 0930, Last dose on Sat02/01/20 at 0940, Routine, Preprocedure Given 02/01/2020 9:07 EDT 1 Drop Given 02/01/2020 9:06 EDT 1 Drop Given 02/01/2020 9:05 EDT 1 Drop ketOROLAC tromethamine (ACULAR LS) 0.4 % ophthalmic solution 1 Drop 1 Drop, left eye, PREOP LINKED EYE MEDS-SEE ADMIN INSTRUCTIONS, 3 doses, First dose on Sat02/01/20 at 0930, Last dose on Sat02/01/20 at 0940, Routine, Preprocedure Given 02/01/2020 9:04 EDT 1 Drop Given 02/01/2020 9:03 EDT 1 Drop Given 02/01/2020 9:01 EDT 1 Drop lactated ringers (LR) infusion 30 mL/hr, intravenous, CONTINUOUS, Starting on Sat02/01/20 at 0930, Until Sat02/01/20 at 1351, Routine, Preprocedure New Bag 02/01/2020 9:24 EDT 30 mL/hr 30 mL/hr lactated ringers (LR) infusion at 75 mL/hr, intravenous, CONTINUOUS, Starting on Sat02/01/20 at 1130, Until Sat02/01/20 at 1351, Routine, Recovery (only) lidocaine (PF) 10 mg/mL (1 %) injection As needed, Starting on Sat02/01/20 at 1045, Until Sat02/01/20 at 1042, Routine, Intraprocedure Given 02/01/2020 10:45 EDT 0.5 mL lidocaine (PF) 3.5 % ophthalmic gel left eye, PRE-OP MULTIPLE, Starting on Sat02/01/20 at 0915, Until Sat02/01/20 at 1118, Pain, Preprocedure Given 02/01/2020 10:40 EDT Given 02/01/2020 10:15 EDT moxifloxacin (VIGAMOX) 0.5 % ophthalmic solution 1 Drop 1 Drop, left eye, PREOP LINKED EYE MEDS-SEE ADMIN INSTRUCTIONS, 3 doses, First dose on Sat02/01/20 at 0930, Last dose on Sat02/01/20 at 0940, Routine, Preprocedure Given 02/01/2020 9:01 EDT 1 Drop Given 02/01/2020 9:00 EDT 1 Drop Given 02/01/2020 8:59 EDT 1 Drop phenylephrine (MYDFRIN) 2.5 % ophthalmic solution 1 Drop 1 Drop, left eye, PREOP LINKED EYE MEDS-SEE ADMIN INSTRUCTIONS, 3 doses, First dose on Sat02/01/20 at 0930, Last dose on Sat02/01/20 at 0940, Routine, Preprocedure Given 02/01/2020 9:14 EDT 1 Drop Given 02/01/2020 9:13 EDT 1 Drop Given 02/01/2020 9:12 EDT 1 Drop proparacaine (ALCAINE) 0.5 % ophthalmic solution 1 Drop 1 Drop, left eye, PREOP LINKED EYE MEDS-SEE ADMIN INSTRUCTIONS, 1 dose, First dose on Sat02/01/20 at 0930, Routine, Preprocedure Given 02/01/2020 8:58 EDT 1 Drop tropicamide (MYDRIACYL) 1 % ophthalmic solution 1 Drop 1 Drop, left eye, PREOP LINKED EYE MEDS-SEE ADMIN INSTRUCTIONS, 3 doses, First dose on Sat02/01/20 at 0930, Last dose on Sat02/01/20 at 0940, Routine, Preprocedure Given 02/01/2020 9:11 EDT 1 Drop Given 02/01/2020 9:09 EDT 1 Drop Given 02/01/2020 9:08 EDT 1 Drop documented in this encounter Active and Recently Administered Medications Due to Daylight Saving Time, this section may contain times in both EST and EDT. Scheduled Medication Order 01/30/2020 01/31/2020 02/01/2020 cyclopentolate (CYCLOGYL) 2 % ophthalmic solution 1 Drop (COMPLETED) 1 Drop, left eye, PREOP LINKED EYE MEDS-SEE ADMIN INSTRUCTIONS, 3 doses, First dose on Sat02/01/20 at 0930, Last dose on Sat02/01/20 at 0940, Routine, Preprocedure 0905 (Given - Provid er: Shanika Nunez RN)0906 (Given - Provider: Shanika Nunez RN)0907 (Given - Provider: Shanika Nunez RN) ketOROLAC tromethamine (ACULAR LS) 0.4 % ophthalmic solution 1 Drop (COMPLETED) 1 Drop, left eye, PREOP LINKED EYE MEDS-SEE ADMIN INSTRUCTIONS, 3 doses, First dose on Sat02/01/20 at 0930, Last dose on Sat02/01/20 at 0940, Routine, Preprocedure 0901 (Given - Provid er: Shanika Nunez RN)0903 (Given - Provider: Shanika Nunez RN)0904 (Given - Provider: Shanika Nunez RN) moxifloxacin (VIGAMOX) 0.5 % ophthalmic solution 1 Drop (COMPLETED) 1 Drop, left eye, PREOP LINKED EYE MEDS-SEE ADMIN INSTRUCTIONS, 3 doses, First dose on Sat02/01/20 at 0930, Last dose on Sat02/01/20 at 0940, Routine, Preprocedure 0859 (Given - Provid er: Shanika Nunez RN)0900 (Given - Provider: Shanika Nunez RN)0901 (Given - Provider: Shanika Nunez RN) phenylephrine (MYDFRIN) 2.5 % ophthalmic solution 1 Drop (COMPLETED) 1 Drop, left eye, PREOP LINKED EYE MEDS-SEE ADMIN INSTRUCTIONS, 3 doses, First dose on Sat02/01/20 at 0930, Last dose on Sat02/01/20 at 0940, Routine, Preprocedure 0912 (Given - Provid er: Shanika Nunez RN)0913 (Given - Provider: Shanika Nunez RN)0914 (Given - Provider: Shanika Nunez RN) proparacaine (ALCAINE) 0.5 % ophthalmic solution 1 Drop (COMPLETED) 1 Drop, left eye, PREOP LINKED EYE MEDS-SEE ADMIN INSTRUCTIONS, 1 dose, First dose on Sat02/01/20 at 0930, Routine, Preprocedure 0858 (Given - Provid er: Shanika Nunez RN) tropicamide (MYDRIACYL) 1 % ophthalmic solution 1 Drop (COMPLETED) 1 Drop, left eye, PREOP LINKED EYE MEDS-SEE ADMIN INSTRUCTIONS, 3 doses, First dose on Sat02/01/20 at 0930, Last dose on Sat02/01/20 at 0940, Routine, Preprocedure 0908 (Given - Provid er: Shanika Nunez RN)0909 (Given - Provider: Shanika Nunez RN)0911 (Given - Provider: Shanika Nunez RN) Continuous Medication Order 01/30/2020 01/31/2020 02/01/2020 lactated ringers (LR) infusion 30 mL/hr, intravenous, CONTINUOUS, Starting on Sat02/01/20 at 0930, Until Sat02/01/20 at 1351, Routine, Preprocedure 0924 (New Bag - Prov ider: Ava Bear RN) lactated ringers (LR) infusion at 75 mL/hr, intravenous, CONTINUOUS, Starting on Sat02/01/20 at 1130, Until Sat02/01/20 at 1351, Routine, Recovery (only) 1130 (Canceled Entry - Provider: Batch Job User Admin - Comment: Automatically canceled at discontinue of medication order) PRN Medication Order 01/30/2020 01/31/2020 02/01/2020 acetaminophen (TYLENOL) tablet 650 mg (CANCELED) 650 mg, oral, EVERY 4 HOURS PRN, Starting on Sat02/01/20 at 1109, Until Sat02/01/20 at 1147, Pain, Routine, Recovery (only) 1125 (Given - Provid er: Fidencio Carver RN) balanced salt solution inrrigation solution (BSS PLUS) 500 mL, EPINEPHrine HCl (PF) (ADRENALIN) 0.5 mL irrigation (CANCELED) As needed, Starting on Sat02/01/20 at 1043, Until Sat02/01/20 at 1042, Routine, Intraprocedure 1043 (Given - Provid er: Christiano Hubbard MD - Comment: [id number], [id number]) balanced salts (BSS) ophthalmic solution (CANCELED) As needed, Starting on Sat02/01/20 at 1043, Until Sat02/01/20 at 1042, Routine, Intraprocedure 1043 (Given - Provid er: Christiano Hubbard MD) lidocaine (PF) 10 mg/mL (1 %) injection (CANCELED) As needed, Starting on Sat02/01/20 at 1045, Until Sat02/01/20 at 1042, Routine, Intraprocedure 1045 (Given - Provid er: Christiano Hubbard MD - Comment: [id number]) lidocaine (PF) 3.5 % ophthalmic gel (CANCELED) left eye, PRE-OP MULTIPLE, Starting on Sat02/01/20 at 0915, Until Sat02/01/20 at 1118, Pain, Preprocedure 1015 (Given - Provid er: Karolina Romero RN)1040 (Given - Provider: Karolina Romero RN) documented in this encounter Orders Medications Ordered That Fei ht Not Have Been Administered Count Last Ordered Date First Ordered Date atropine 0.1 mg/mL syringe 0.5 mg 1 020 cyclopentolate (CYCLOGYL) 2 % ophthalmic solution 1 Drop 1 02/01/2020 ketOROLAC tromethamine (ACUL AR LS) 0.4 % ophthalmic solution 1 Drop 1 02/01/2020 lactated ringers (LR) infusion 2 02/01/2020 lidocaine (PF) 10 mg/mL (1 % ) injection 2 mg 2 02/01/2020 lidocaine (PF) 3.5 % ophthalmic gel 1 01/31 moxifloxacin (VIGAMOX) 0.5 % ophthalmic solution 1 Drop 1 02/01/2020 naloxone (NARCAN) injection 0.2 mg 1 2019 phenylephrine (MYDFRIN) 2.5 % ophthalmic solution 1 Drop 1 02/01/2020 proparacaine (ALCAINE) 0.5 % ophthalmic solution 1 Drop 1 02/01/2020 tropicamide (MYDRIACYL) 1 % ophthalmic solution 1 Drop 1 02/01/2020 Nursing Count Last Ordered Date First Orde red Date INSERT PERIPHERAL IV 1 02/01/2020 Transfer Count Last Ordered Date First Orde red Date NON-TEACHING SERVICE 2 02/01/2020 Discharge Count Last Ordered Date First Orde red Date DISCHARGE PATIENT 1 02/01/2020 documented in this encounter Care Teams Candy Cooker Helper Relationship Specialty Start Date End Date Leonora López MD [address] [place] [id number] PCP - General 09/17/19 documented as of this encounter
--- OUTSIDE RECORDS SUMMARY | 2024-10-26 15:41 | XMS_ITS | Encounter Summary ---
Author Organization [facility] Address [address] [place] [address] Care Team Providers Care Cognos Bi Developer Name Role Phone Leonora López MD Primary Care Provider [phone] Reason for Visit * Reason Comments Post-OP Follow Up Encounter Details Date Type Department Care Team ([facility] st Contact Info) Description 02/02/2020 8:45 EDT Post-op Visit [facility] - [address] [id number] Christiano Hubbard MD [address] [facility], [address] [place] [address] Amblyopia of left eye (Primary Dx); Pseudophakia of both eyes Social History Tobacco Use Types Packs/Day Years [...] on file documented as of this encounter Progress Notes * Christiano Hubbard MD - 02/02/2020 0817 EDT Department of Ophthalmology / Cataract/Cornea Office Visit Note Referring physician: Christiano Fernandez* [facility] Institutional Research Coordinator: Family Physician (PCP): Leonora López Other Physician: History of Present Illness: This HPI section must be documented by the physician (or scribe upon the dictation of the physician). It should not be documented independently by the manufacturing production technician/scribe in the absence of the physician. Chief Complaint Patient presents with ??? Post-OP Follow Up HPI: S/P CE/PCIOL left eye 02/01/20, right eye 12/21/19. Comfortable night. Moxifloxacin -/4 Ketorolac -/4 Prednisolone acetate 1% -/4 Pain: 0 / 10 Both Eyes Flashes: No Floaters: No Controls: Diabetes :No Hypertension:Yes Tobacco:No EXAMINATION: Base Eye Exam Visual Acuity (Snellen - Linear) Right Left Dist sc 20/30 -2 20/60 Dist ph sc 20/30 +2 20/50 -1 Tonometry (Applanation, 9:20) Right Left Pressure 12 12 Neuro/Psych Oriented x3: Yes Mood/Affect: Normal Slit Lamp and Fundus Exam Slit Lamp Exam Right Left Lids/Lashes Normal Normal Conjunctiva/Sclera White and quiet White and quiet Cornea Clear pinpoint Epithelial defect, colby negative Anterior Chamber Deep and quiet 1+ Cell Iris Round and reactive Round and reactive Lens Posterior chamber intraocular lens Posterior chamber intraocular lens OPHTHALMOLOGY TESTING: [To insert test results, first enter the results in Doc Flowsheet and then use dot phrase .OPHTESTEXAM to choose the results module(s) to pull into this note] IMPRESSION / PLAN: Encounter Diagnoses Name Primary? Amblyopia of left eye Yes ??? Pseudophakia of both eyes 1 day s/p CE/IOL left eye, doing well. The procedure was done with topica anesthesia, with placement of a monofocal aspheric IOL in the capsular bag. Plan:F/u drop schedule per protocol Pred Forte QID for one month after surgery Vigamox QID for 10 days after surgery Acular/Ketorolac QID for one month after surgery F/u in 1 week with IOP check left eye Scribe Attestation: I am scribing for Christiano Hubbard MD while he is personally performing the service. Debbi Chaney COA (Scribe) Time spent: documented in this encounter Plan of Treatment Not on file documented as of this encounter Visit Diagnoses Diagnosis Amblyopia of left eye- Primary Amblyopia, unspecified Pseudophakia of both eyes Lens replaced by other means documented in this encounter Eye Exam Visual Acuity (Snellen - Linear) Right eye Left eye Dist sc 20/30 -2 20/60 Dist ph sc 20/30 +2 20/50 -1 Tonometry (Applanation, 9:20) Right eye Left eye Pressure 12 12 Neuro/Psych Oriented x3: Yes Mood/Affect: Normal Slit Lamp Exam Right eye Left eye Lids/Lashes Normal Normal Conjunctiva/Sclera White and quiet White and michael et Cornea Clear pinpoint Epithel ial defect, colby negative Anterior Chamber Deep and quiet 1+ Cell Iris Round and reactive Round and hi ctive Lens Posterior chamber in traocular lens Posterior chamber intraocular lens Care Teams Cognos Bi Developer Relationship Specialty Start Date End Date Leonora López MD [address] [place] [address] PCP - General 09/17/19 documented as of this encounter
--- OUTSIDE RECORDS SUMMARY | 2024-10-26 15:41 | XMS_ITS | Encounter Summary ---
Author Organization [facility] Address [address] [place] [address] Care Team Providers Care Cement Kiln Operator Name Role Phone Leonora López MD Primary Care Provider [phone] Reason for Visit * Reason Comments Eye Problem Encounter Details Date Type Department Care Team ([facility] Contact Info) Description 01/07/2020 8:00 EST Office Visit [facility] Ophthalmology - [address] [address] Christiano Hubbard MD [address] [facility], [address] 5 [place] [address] Social History Tobacco Use Types [...] Refills Last Filled Start Date End Date prednisoLONE (PRED FORTE) 1 % ophthalmic suspension Place 1 Drop into the right eye 4 times daily for 31 days. 1 Bottle 3 12/21/2019 01/21/2020 documented in this encounter Progress Notes * Christiano Hubbard MD - 01/07/2020 0800 EST Department of Ophthalmology / Cataract/Cornea Office Visit Note Referring physician: Christiano Fernandez* Local Eye Website Project Manager: Family Physician (PCP): Leonora López Other Physician: History of Present Illness: This HPI section must be documented by the physician (or scribe upon the dictation of the physician). It should not be documented independently by the emergency vehicle technician/scribe in the absence of the physician. Chief Complaint Patient presents with ??? Eye Problem HPI F/u s/p CE/IOL right eye 12/21/19. She was seen for her one-day postop appointment but missed her one-week postop check due to bad weather (she drives about two hours to get here). 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 She has no eye pain, no flashes of light or floaters, and is using Pred forte and ketorolac qid in her right eye Pain: 0 / 10 Both Eyes Flashes: No Floaters: No Controls: Diabetes :No Hypertension:Yes Tobacco:No EXAMINATION: Base Eye Exam Visual Acuity (Snellen - Linear) Right Left Dist sc 20/60 Dist ph sc 20/30 Tonometry (Tonopen, 8:08) Right Left Pressure 20 Neuro/Psych Oriented x3: Yes Mood/Affect: Normal Slit Lamp and Fundus Exam Slit Lamp Exam Right Left Lids/Lashes Normal Normal Conjunctiva/Sclera White and quiet White and quiet Cornea Eugene-negative, no epithelial defect, + stromal edema temporally, 1+ Punctate epithelial erosions Clear Anterior Chamber Trace Cell Deep and quiet Iris Round and reactive Round and reactive Lens Posterior chamber intraocular lens Cortical cataract, Nuclear sclerosis OPHTHALMOLOGY TESTING: [To insert test results, first enter the results in Doc Flowsheet and then use dot phrase .OPHTESTEXAM to choose the results module(s) to pull into this note] IMPRESSION / PLAN: Encounter Diagnoses Name Primary? Mixed type age-related cataract, left eye Yes ??? Amblyopia of left eye ??? Pseudophakia of right eye - doing well 2.5 weeks post cataract surgery for her right eye. Visual acuity without correction has improved, and may be limited by corneal edema and corneal astigmatism. - visually significant cataract is present in her left eye. New prescription eyeglasses would not improve visual acuity or quality of vision to an acceptable level, while cataract surgery would be likely to achieve this. Plan: Continue eyedrops per the cataract surgery protocol Offer CE/IOL left eye Discussed cataract surgery with risks and benefits including: infection, bleeding, retinal tears ordetachment, glaucoma, need for more surgery, increased IOP and film over lens. Informed consent wasobtained, and she wishes to proceed. Anticipate placement of a monofocal IOL with a plano refractive target. Scribe Attestation: I am scribing for Christiano Hubbard MD while he is personally performing the service. Debbi Chaney, SONIYA (Scribe) Time spent: documented in this encounter Plan of Treatment Not on file documented as of this encounter Visit Diagnoses Diagnosis Mixed type age-related cataract, left eye- Primary Amblyopia of left eye Amblyopia, unspecified Pseudophakia of right eye Lens replaced by other means documented in this encounter Discontinued Medications Medication Sig Discontinue Reason Start Date End Da te prednisoLONE (PRED FORTE) 1 % ophthalmic suspension Place 1 Drop into the right eye every 2 hours while awake. Order modification 12/22/2019 01/07/2020 documented as of this encounter Historical Medications * This list may reflect changes made after this encounter. prednisoLONE (PRED FORTE) 1 % ophthalmic suspension Place 1 Drop into the left eye 4 times daily. 02/01/2020 01/14/2020 ketOROLAC (ACULAR) 0.5 % ophthalmic solution Place 1 Drop into the left eye 4 times daily. 01/29/2020 01/14/2020 moxifloxacin (VIGAMOX) 0.5 % ophthalmic solution Place 1 Drop into the left eye 4 times daily. 01/29/2020 02/11/2020 added in this encounter Eye Exam Visual Acuity (Snellen - Linear) Right eye Left eye Dist sc 20/60 Dist ph sc 20/30 Tonometry (Tonopen, 8:08) Right eye Left eye Pressure 20 Neuro/Psych Oriented x3: Yes Mood/Affect: Normal Slit Lamp Exam Right eye Left eye Lids/Lashes Normal Normal Conjunctiva/Sclera White and quiet White and michael et Cornea Eugene-negative, no epithelial defect, + stromal edema temporally, 1+ Punctate epithelial erosions Clear Anterior Chamber Trace Cell Deep and quiet Iris Round and reactive Round and hi ctive Lens Posterior chamber intraocular le ns Cortical cataract, Nuclear sclerosis Care Teams Cement Kiln Operator Relationship Specialty Start Date End Date Leonora López MD [address] [place] [address] PCP - General 09/17/19 documented as of this encounter
--- OUTSIDE RECORDS SUMMARY | 2024-10-26 15:41 | XMS_ITS | Encounter Summary ---
Author Organization [facility] Address [address] [place] [address] Care Team Providers Care City Collector Name Role Phone Leonora López MD Primary Care Provider [phone] Reason for Visit * Auth/Cert Specialty Diagnoses / Procedures [facility] To Contact Diagnoses Combined forms of age-related cataract of left eye Combined forms of age-related cataract of left eye [H25.812] Procedures CA XCAPSL CTRC RMVL INSJ IO LENS PROSTH W/O ECP Cataract Extraction w/Intraocular Lens Implant, Left Eye Referral ID Status Reason Start Date Expiration Date Visits Re quested Visits Authorized [id number] 1 1 Encounter Details Date Type Department Care Team (Late st Contact Info) Description 02/01/2020 8:21 EDT - 02/01/2020 11:40 EDT Hospital Encounter [facility] Operating Room [address] [place] [address] Christiano Hubbard MD [address] [place] [address], [address] 5 [place] [address] Discharge Disposition: Home or Self Care Social History Tobacco Use Types Packs/Day Years [...] Blood Pressure 140/75 02/01/2020 1131 EDT Pulse - - Temperature 37 ??C (98.6 ??F) 02/01/2020 1131 [...] injected into the capsular bag using a [place] injector. Viscoelastic was removed using irrigation aspiration. [...] 02/15/2020 11:2 4 EDT us Scan 2 Brim Molder PROCEDURE/MINOR SURGICAL OR DERABLES Final Result documented [...] (only) Given 02/01/2020 11:25 EDT 650 mg cyclopentolate (CYCLOGYL) 2 % ophthalmic solution 1 [...] at 1351, Routine, Recovery (only) lidocaine (PF) 3.5 % ophthalmic gel left [...] ADMIN INSTRUCTIONS, 3 doses, First dose on 02/01/20 at 0930, Last dose on 02/01/20 at 0940, Routine, Preprocedure Given 02/01/2020 9:14 EDT 1 Drop Given 02/01/2020 9:13 EDT 1 Drop Given 02/01/2020 9:12 EDT 1 Drop proparacaine (ALCAINE) 0.5 % ophthalmic solution 1 Drop 1 Drop, left eye, PREOP LINKED EYE MEDS-SEE ADMIN INSTRUCTIONS, 1 dose, First dose on 02/01/20 at 0930, Routine, Preprocedure Given 02/01/2020 8:58 EDT 1 Drop tropicamide (MYDRIACYL) 1 % ophthalmic solution 1 Drop 1 Drop, left eye, PREOP LINKED EYE MEDS-SEE ADMIN INSTRUCTIONS, 3 doses, First dose on Sat02/01/20 at 0930, Last dose on 02/01/20 at 0940, Routine, Preprocedure Given 02/01/2020 9:11 [...] dose on Sat02/01/20 at 0940, Routine, Preprocedure 904 (Given - Provid er: Shanika Nunez RN)905 (Given - Provider: Shanika Nunez RN)906 (Given - Provider: Shanika Nunez RN) ketOROLAC [...] 0859 (Given - Provid er: Shanika Nunez RN)09 (Given - Provider: Shanika Nunez RN)09 (Given - Provider: Shanika Nunez RN) phenylephrine [...] Provid er: Christiano Hubbard MD - Comment: [id number]) balanced salts (BSS) ophthalmic solution (CANCELED) As needed, Starting on Sat02/01/20 at 1043, Until Sat02/01/20 at 1042, Routine, Intraprocedure 1043 (Given - Provid er: Christiano Hubbrad MD) lidocaine (PF) 10 mg/mL (1 %) injection (CANCELED) As needed, Starting on Sat02/01/20 at 1045, Until Sat02/01/20 at 1042, Routine, Intraprocedure 1045 (Given - Provid er: Christiano Hubbard MD - Comment: [id number]) lidocaine (PF) 3.5 % ophthalmic gel (CANCELED) [...] 0.1 mg/mL syringe 0.5 mg 1 020 balanced salt solution inrri gation solution (BSS PLUS) 500 mL, EPINEPHrine HCl (PF) (ADRENALIN) 0.5 mL irrigation 1 02/01/2020 balanced salts (BSS) ophthalmic solution 1 02/01/2020 cyclopentolate (CYCLOGYL) 2 % ophthalmic solution 1 Drop 1 02/01/2020 ketOROLAC tromethamine (ACUL AR LS) 0.4 % ophthalmic solution 1 Drop 1 02/01/2020 lactated ringers (LR) infusion 2 02/01/2020 lidocaine (PF) 10 mg/mL (1 %) injection 1 0 02/01/2020 lidocaine (PF) 10 mg/mL (1 % [...] 02/01/2020 documented in this encounter Care Teams City Collector Relationship Specialty Start Date End Date Leonora López MD [address] [place] [address] PCP - General 09/17/19 documented as of this encounter
--- OUTSIDE RECORDS SUMMARY | 2024-10-26 15:41 | XMS_ITS | Encounter Summary ---
Author Organization [facility] Address [address] [place] [address] Care Team Providers Care Tunnel Mucker Name Role Phone Leonora López MD Primary Care Provider [phone] Encounter Details Date Type Department Care Team ([facility] st Contact Info) Description 01/01/2020 Prep for Procedure [facility] OPHTHALMOLOGY [address] [place], [place] [phone] Christiaon Hubbard MD [address] [facility], [facility] [address] [place] [address] Social History Tobacco Use Types [...] Diagnoses Not on filedocumented in this encounter Care Teams Tunnel Mucker Relationship Specialty Start Date End Date Leonora López MD [address] [place] [address] PCP - General 09/17/19 documented as of this encounter
--- OUTSIDE RECORDS SUMMARY | 2024-10-26 15:41 | XMS_ITS | Encounter Summary ---
Author Organization [facility] Address [address] [place] [address] Care Team Providers Care Brazer Controlled Atmospheric Furnace Name Role Phone Leonora López MD Primary Care Provider [phone] Reason for Visit * Reason Onset Date Comments Appointment Related 02/10/2020 Encounter Details Date Type Department Care Team ([facility] Contact Info) Description 02/10/2020 Telephone [facility] Ophthalmology - [address] [phone] Christiano Hubbard MD [address] [place] [address], [address] [place] [address] Appointment Related Social History Tobacco Use Types Packs/Day Years [...] on file documented as of this encounter Miscellaneous Notes * Telephone Encounter - Black Pedroza - 02/11/2020 1144 EDT LMOM - To keep apt, able to move to an earlier time slot. So 830, 845 or 900. * Telephone Encounter - Ortega Armstrong COA - 02/11/[address] Hernandez, he would like patient to keep appt * Telephone Encounter - Jean Cardona - 02/10/2020 1613 EDT Patient is looking to cancell one week post op appointment due to P[place]co virus fears. Please adviseif patient should be seen documented in this encounter Plan of Treatment Not on file documented as of this encounter Visit Diagnoses Not on filedocumented in this encounter Care Teams Brazer Controlled Atmospheric Furnace Relationship Specialty Start Date End Date Leonora López MD [address] [place] [address] PCP - General 09/17/19 documented as of this encounter
--- OUTSIDE RECORDS SUMMARY | 2024-10-26 15:41 | XMS_ITS | Encounter Summary ---
Author Organization [facility] Address [address] [place] [address] Care Team Providers Care Signal Technician Name Role Phone Leonora López MD Primary Care Provider [phone] Reason for Visit * Reason Comments Post-OP Follow Up Encounter Details Date Type Department Care Team ([facility] st Contact Info) Description 12/22/2019 9:15 EST Post-op Visit [facility] Ophthalmology - [address] [phone] Christiano Hubbard MD [address] [facility], [address] [place] [address] Mixed type age-related cataract, left eye (Primary Dx); Pseudophakia of right eye Social History Tobacco Use Types Packs/Day Years [...] right eye every 2 hours while awake. 1 Bottle 3 12/22/2019 01/07/2020 documented in this encounter Progress Notes * Christiano Hubbard MD - 12/22/2019 0915 EST Department of Ophthalmology / Cataract/Cornea Office Visit Note Referring physician: Christiano Fernandez* Local Eye Screwhead Polisher: Family Physician (PCP): Leonora López Other Physician: History of Present Illness: This HPI section must be documented by the physician (or scribe upon the dictation of the physician). It should not be documented independently by the product development technician/scribe in the absence of the physician. Chief Complaint Patient presents with ??? Post-OP Follow Up HPI; 1 day s/p CE/IOL right eye. Both eyes are itching this morning, some fogginess to vision of right eye Pain: 0 / 10 Both Eyes Flashes: No Floaters: No Controls: Diabetes :No Hypertension:Yes Tobacco:No EXAMINATION: Base Eye Exam Visual Acuity (Snellen - Linear) Right Left Dist sc 20/150 +1 Dist ph sc 20/100 Tonometry (Applanation, 9:31) Right Left Pressure 16 Neuro/Psych Oriented x3: Yes Mood/Affect: Normal Slit Lamp and Fundus Exam Slit Lamp Exam Right Left Lids/Lashes Normal lidlesion TANJA with no madarosis Conjunctiva/Sclera White and quiet White and quiet Cornea colby negative, no epi defect, moderate stromal edema Clear Anterior Chamber 1+ Cell Deep and quiet Iris Round and reactive Round and reactive Lens Posterior chamber intraocular lens Cortical cataract, Nuclear sclerosis Refraction Wearing Rx Sphere Cylinder [place] Add Right -1.50 +1.50 180 +2.50 Left -2.00 +2.00 180 +2.50 OPHTHALMOLOGY TESTING: [To insert test results, first enter the results in Doc Flowsheet and then use dot phrase .OPHTESTEXAM to choose the results module(s) to pull into this note] IMPRESSION / PLAN: Encounter Diagnoses Name Primary? Mixed type age-related cataract, left eye Yes ??? Pseudophakia of right eye 1 day s/p CE/IOL right eye. VA is likely limited by corneal edema Plan: Discussed and recommended to increase Pred forte to q2 hours while awake, continue Vigamox and Acular qid right eye, add Preservative-free AT's few times daily F/u in 1 week with IOP check - she requests that her next postop appointment be next . Scribe Attestation: I am scribing for Christiano Hubbard MD while he is personally performing the service. Debbi Chaney, SONIYA (Scribe) Time spent: documented in this encounter Plan of Treatment Not on file documented as of this encounter Visit Diagnoses Diagnosis Mixed type age-related cataract, left eye- Primary Pseudophakia of right eye Lens replaced by other means documented in this encounter Discontinued Medications Medication Sig Discontinue Reason Start Date End Da te prednisoLONE (PRED FORTE) 1 % ophthalmic suspension Place 1 Drop into the right eye 4 times daily for 31 days. Use for one month after surgery. Order modification 12/21/2019 12/22/2019 documented as of this encounter Eye Exam Visual Acuity (Snellen - Linear) Right eye Left eye Dist sc 20/150 +1 Dist ph sc 20/100 Tonometry (Applanation, 9:31) Right eye Left eye Pressure 16 Neuro/Psych Oriented x3: Yes Mood/Affect: Normal Slit Lamp Exam Right eye Left eye Lids/Lashes Normal lidlesion TANJA wi th no madarosis Conjunctiva/Sclera White and quiet White and michael et Cornea colby negative, no epi defect, moderate stromal edema Clear Anterior Chamber 1+ Cell Deep and quiet Iris Round and reactive Round and hi ctive Lens Posterior chamber intraocular le ns Cortical cataract, Nuclear sclerosis Wearing Rx Sphere Cylinder [place] Add Right eye -1.50 +1.50 180 +2.50 Left eye -2.00 +2.00 180 +2.50 Care Teams Signal Technician Relationship Specialty Start Date End Date Leonora López MD [address] [place] [address] PCP - General 09/17/19 documented as of this encounter
--- OUTSIDE RECORDS SUMMARY | 2024-10-26 15:41 | XMS_ITS | Referral Summary ---
Author Organization [facility] Address [address] [place] [address] Care Team Providers Care Groundman Name Role Phone Leonora López MD Primary Care Provider [phone] Allergies Active Allergy Reactions Criticality Noted Date [...] (12/14/2019): Added automatically from request for surgery [id number] Combined forms of age-relate d cataract of left eye 12/14/2019 02/02/2020 Overview (12/14/2019): Added automatically from request for surgery [id number] Social History Tobacco Use Types Packs/Day Years [...] 16:32 EST Sexual Orientation Not on file Last Filed Vital Signs Vital Sign Reading [...] 26.52 01/25/2020 1116 EST Plan of Treatment Not on file Medical Devices Implanted Type Area Coal Washer Device Identifier Shelf Expiration Date Model / Serial / Lot Lens Intraocular Monfocl Ant Bicnvx Opt Foldable +20.0d Tecnis [id number] - [id number] - [id number] Implanted:Qty: 1 on 12/21/2019 by Christiano Hubbard MD at [facility] [place] Lens Right: Eye ShuttleCloud. [id number] 03/16/2023 [id number] / [id number] / Lens Intraocular Monfocl Ant Bicnvx Opt Foldable +21.0d Teciliana [id number] - [id number] - [id number] Implanted:Qty: 1 on 02/01/2020 by Christiano Hubbard MD at [facility] Lens Left: Eye Visto [id number] 08/17/2023 [id number] / [id number] / Insurance MEDICARE ACO [place] Advance Directives For more information, please contact: [phone] Documents on File Type Date Recorded Patient Nursing Teacher Expl anation Advance Directive 12/21/2019 11:36 * [...] the discussion? Not Discusse d Care Teams Groundman Relationship Specialty Start Date End Date eLonora López MD [address] [place] [address] PCP - General 09/17/19
--- OUTSIDE RECORDS SUMMARY | 2024-10-26 15:41 | XMS_ITS | Encounter Summary ---
Author Organization [facility] Address [address] [place] [address] Care Team Providers Care Manager Of Planning Name Role Phone Leonora López MD Primary Care Provider [phone] Reason for Visit * Reason Onset Date Comments Post-op Problem 01/20/2020 Encounter Details Date Type Department Care Team ([facility] st Contact Info) Description 01/20/2020 Telephone [facility] Ophthalmology - [address] [phone] Christiano Hubbard MD [address] [facility], [address] [place] [address] Post-op Problem Social History Tobacco Use Types Packs/Day Years [...] encounter Miscellaneous Notes * Telephone Encounter - Cara Sánchez RN - 01/20/[address] Deshpande who said that he recommends patient using preservative free viscous drops such as refresh celluvisc every one hour while awake and then an ointment at [facility]. If patient is having pain that the drops and ointment are not relieving the pain then he suggests she see someone there, otherwise he can see her next Saturday. Patient is going to try these things and will see someone there is she needs too and will call back to schedule an appt on Saturday if she still wants to see Dr. Charlee mead gets home. * Telephone Encounter - Amauri Moody - 01/20/2020 1052 EST Patient states she is in [place] hiking, very windy there. Has allergies RT eye is very irritated. Feels like boulder in there Using a lot of Saline drops , Using prednisolone until tomorrow per RX. Woke up this morning RT eye swollen and crusty. VA diminished RT eye and left is better, normally that is not the better eye. Left eye itchy due toallergies. Taking allergy medicine OTC + Asthma RX too. Could be available to be seen in clinic Sat, if necessary. documented in this encounter Plan of Treatment Not on file documented as of this encounter Visit Diagnoses Not on filedocumented in this encounter Care Teams Manager Of Planning Relationship Specialty Start Date End Date Leonora López MD [address] [place] [address] PCP - General 09/17/19 documented as of this encounter
--- OUTSIDE RECORDS SUMMARY | 2024-10-26 15:41 | XMS_ITS | Encounter Summary ---
Author Organization Health system Address [address] [place] [address] Care Team Providers Care Chef Broiler Or Fry Name Role Phone Leonora López MD Primary Care Provider [phone] Encounter Details Date Type Department Care Team ([facility] st Contact Info) Description 12/31/2019 Telephone [facility] Ophthalmology - [address] [phone] Christiano Hubbard MD [address] [place] [address], [address] [place] [address] Social History Tobacco Use Types [...] encounter Miscellaneous Notes * Telephone Encounter - Fiath Mittal - 12/31/2019 0737 EST PAS Message:Pt. Called to cancel nedra. Reason: weather. Please call her to reschedule, she has questions about Saturday nedra. [phone] documented in this encounter Plan of Treatment Not on file documented as of this encounter Visit Diagnoses Not on filedocumented in this encounter Care Teams Chef Broiler Or Fry Relationship Specialty Start Date End Date Leonora López MD [address] [place] [address] PCP - General 09/17/19 documented as of this encounter
--- OUTSIDE RECORDS SUMMARY | 2024-10-26 15:41 | XMS_ITS | Encounter Summary ---
Author Organization [facility] Address [address] [place] [address] Care Team Providers Care Sawmill Worker Name Role Phone Leonora López MD Primary Care Provider [phone] Reason for Visit * Reason Onset Date Comments Other 12/23/2019 Encounter Details Date Type Department Care Team ([facility] st Contact Info) Description 12/23/2019 Telephone [facility] Ophthalmology - [address] [phone] Christiano Hubbard MD [address] [place] [address], [address] [place] [address] Other Social History Tobacco Use Types Packs/Day Years [...] * Telephone Encounter - Black Pedroza - 12/23/2019 1432 EST Printed the AVS and popped it in the mial * Telephone Encounter - Lien Tyson - 12/23/2019 1409 EST At the time of check out yesterday, patient was handed the incorrect AVS. She has requested that hers be mailed to her. Her mailing address was confirmed. documented in this encounter Plan of Treatment Not on file documented as of this encounter Visit Diagnoses Not on filedocumented in this encounter Care Teams Sawmill Worker Relationship Specialty Start Date End Date Leonora López MD [address] [place] [address] PCP - General 09/17/19 documented as of this encounter
--- OUTSIDE RECORDS SUMMARY | 2024-10-26 15:42 | XMS_ITS | Encounter Summary ---
Author Organization [facility] [place] [address] Care Team Providers Care Inspector Electromechanical Name Role Phone Dorothea Shannon PRODUCT TESTER FIBERGLASS Primary Care Provider [phone] Encounter Details Date Type Department Care Team (Late Contact Info) Description 04/16/2022 Telephone [facility] [place] [address] Charlene Gan RN Social History Tobacco Use Types Packs/Day Years Used Date Smoking Tobacco: Never Smokeless Tobacco: Never Alcohol Use Standard Drinks/Week Comments No 0 (1 standard drink = 0.6 oz pur e alcohol) Sex and Gender Information Value Date Recorded Sex Assigned at Not on file Gender Identity Not on file Sexual Orientation Not on file documented as of this encounter Miscellaneous Notes * Telephone Encounter - Charlene Gan RN - 04/16/2022 10:36 AM EDT In coming message from Brinda wanting us to know that she wants noted in her chart that she can only sleep in one position or she will be in severe pain. I called her back and left the message that I will put a note in the chart about her pain in bed at night. documented in this encounter Plan of Treatment Upcoming Encounters Date Type Department Care Team ([facility] Contact Info) Description 12/02/2024 11:00 AM EST Office Visit Dermatology at [facility] [address] [place] [address] Abi Steen MD [facility] [address] [place] [address] documented as of this encounter Visit Diagnoses Not on filedocumented in this encounter Care Teams Inspector Electromechanical Relationship Specialty Start Date End Date Dorothea Shannon APRN [address] [place] [address] PCP - General Family Medicine 03/12/22 documented as of this encounter
--- OUTSIDE RECORDS SUMMARY | 2024-10-26 15:42 | XMS_ITS | Encounter Summary ---
Author Organization [facility] [place] [address] Care Team Providers Care Energy Analyst Name Role Phone Dorothea Shannon ALFIE Primary Care Provider [phone] Reason for Visit * Reason Onset Date Comments Medication Refill 05/07/2022 Encounter Details Date Type Department Care Team (Late st Contact Info) Description 05/07/2022 Refill [facility] [place] [address] Russel Solis PA [facility] [place] [address] Radiculopathy of cervical region; Cervical spondylosis; Radiculopathy of lumbar region Social History Tobacco Use Types Packs/Day Years Used Date Smoking Tobacco: Never Smokeless Tobacco: Never Alcohol Use Standard Drinks/Week Comments No 0 (1 standard drink = 0.6 oz pur e alcohol) Sex and Gender Information Value Date Recorded Sex Assigned at Not on file Gender Identity Not on file Sexual Orientation Not on file documented as of this encounter Plan of Treatment Upcoming Encounters Date Type Department Care Team (Late st Contact Info) Description 12/02/2024 11:00 AM EST Office Visit Dermatology at [facility] [address] [place] [address] Abi Steen MD [facility] [address] [place] [address] documented as of this encounter Visit Diagnoses Diagnosis Radiculopathy of cervical region Brachial neuritis or radiculitis nos Cervical spondylosis Cervical spondylosis without myelopathy Radiculopathy of lumbar region Thoracic or lumbosacral neuritis or radiculitis, unspecified documented in this encounter Care Teams Energy Analyst Relationship Specialty Start Date End Date Dorothea Shannon, RELOCATION COMMISSIONER [address] [place] [address] PCP - General Family Medicine 03/12/22 documented as of this encounter
--- OUTSIDE RECORDS SUMMARY | 2024-10-26 15:42 | XMS_ITS | Encounter Summary ---
Author Organization [facility] Address [facility] [place] [address] Care Team Providers Care Staying Machine Operator Name Role Phone Dorothea Shannon APRN Primary Care Provider [phone] Encounter Details Date Type Department Care Team (Latest Contact Info) Description 04/15/2023 Travel Social History Tobacco Use Types Packs/Day Years [...] 11:00 AM EST Office Visit Dermatology at [facility] [address] [place] [address] Abi Steen MD [facility] [address] [place] [address] documented as of this encounter Visit Diagnoses Not on filedocumented in this encounter Care Teams Staying Machine Operator Relationship Specialty Start Date End Date Dorothea Shannon APRN [address] [place] [address] PCP - General Family Medicine 03/12/22 documented as of this encounter
--- OUTSIDE RECORDS SUMMARY | 2024-10-26 15:42 | XMS_ITS | Encounter Summary ---
Author Organization [facility] [place] [address] Care Team Providers Care Industrial Relations Specialist Name Role Phone Dorothea Shannon APRN Primary Care Provider [phone] Reason for Referral * Consultation (Routine) - Closed Specialty Diagnoses / Procedures Referred By Geoffrey dill Referred To Contact Dermatology Diagnoses Skin lesion SKIN LESION Dorothea Shannon APRN [address] [place] [address] [facility] Dermatology [address] [place] [address] Referral ID Status Reason Start Date Expiration Date V isits Requested Visits Authorized [id number] Closed Consult, Test & Treat PCP Updated and/or Approved 07/28/2024 07/28/2025 1 1 Encounter Details Date Type Department Care Team ([facility] Contact Info) Description 08/16/2024 Transcribe Orders eDH Incoming Referrals [phone] Dorothea Shannon APRN [address] [place] [address] Skin lesion Social History Tobacco Use Types Packs/Day Years [...] 11:00 AM EST Office [facility] [address] [place] [address] Abi Steen MD [facility] [address] [place] [address] Scheduled Referrals Name Type Priority Associated Diagnoses Order Schedule Referral to Dermatology Outpatient Referral Routine Skin lesion Ordered: 08/16/2024 documented as of this encounter Visit Diagnoses Diagnosis Skin lesion Unspecified disorder of skin and subcutaneous tissue documented in this encounter Care Teams Industrial Relations Specialist Relationship Specialty Start Date End Date Dorothea Shannon APRN [address] [place] [address] PCP - General Family Medicine 03/12/22 documented as of this encounter
--- OUTSIDE RECORDS SUMMARY | 2024-10-26 15:42 | XMS_ITS | Encounter Summary ---
Author Organization [facility] [place] [address] Care Team Providers Care Campus Security Officer Name Role Phone Dorothea Shannon APRN Primary Care Provider [phone] Encounter Details Date Type Department Care Team (Latest Contact Info) Description 04/10/2022 10:38 AM EDT - 04/10/2022 11:39 AM EDT Hospital Encounter Pain Management [address] [address] [place] [address] Nuha Ryan MD [facility] [place] [address] Cervical spondylosis Discharge Disposition: Home Social History Tobacco Use Types Packs/Day Years [...] Sign Reading Time Taken Comments Blood Pressure 159/80 04/10/2022 11:30 AM EDT Pulse - - Temperature - - Respiratory Rate 18 04/10/2022 10:40 AM EDT Oxygen Saturation 100% 04/10/2022 11:30 AM EDT Inhaled Oxygen Concentration - - Weight 63 kg (139 lb) 04/10/2022 10:40 AM EDT Height 160 cm (5' 3) 04/10/2022 10:40 AM EDT Body Mass Index 24.62 04/10/2022 10:40 AM EDT documented in this encounter Discharge Instructions * Discharge Instructions* Carina Dumont - 04/10/2022 11:11 AM EDT Pain Management Center Discharge Instructions: You were seen today by Surgeon(s): Nuha Ryan MD The following was performed: Procedure(s) (LRB): INJECTION, FACET JOINT,W/FLUORO, CERVICAL, SECOND (WRVU 1.16) (Left) INJECTION, FACET JOINT,W/FLUORO, CERVICAL, SINGLE (WRVU 1.82) (Left) It is normal that the injection site will be sore for up to 48 hours. [x] You may also experience mild stiffness in the joint near the injection site. You may resume your normal activities: tomorrow. You may shower today. DO NOT tub bathe, use whirlpools, hot tubs or pool therapy for 2 days. RemoveBand-Aid(s) later today/tomorrow. Do not drive until tomorrow. Use caution walking/climbing stairs as you may be unsteady on your feet. You may use your usual medications, including pain medications, as directed, unless otherwise instructed. You may use an ice pack as needed for the first 24 hours, on for 20 minutes then off for 20 minutes. Do not apply heat today. Attempt to empty your bladder 4-6 hours after your procedure. [ ] If you have diabetes, monitor your blood sugars frequently. If your blood sugar increases and is of concern, contact your Primary Care Provider. You received the following medications: Medications Given During Procedure Date/Time Order Dose Route Action 04/10/2022 1132 lidocaine (pf) (Xylocaine) (20 mg/mL) 2% injection 1.5 mg Other Given During regular business hours, please phone the Pain Management Center at with any questions or if the following or other troubling symptoms develop: 1) Prolonged dizziness or weakness (more than 1 day). 2) Localized swelling, redness or drainage at the injection site(s). 3) Temperature of 101 degrees that lasts for more than 4 hours. After 5 PM or on weekends, call and ask for Pain Clinic provider on-call. If you are unable to reach the Pain Management Center and have a complication, please call your Primary Care Provider or proceed to your local emergency department. Carina Dumont Special instructions Pain Management Center Post -Procedure Pain Log Patient: Brinda Alfred [id number] It is important for you to keep track of your pain after your procedure that took place today. Thisinformation will help your Provider to determine how to help reduce your pain. Today you had a procedure for pain in your neck. Your pain level before the procedure in this area was 7/10. Your pain level immediately after your procedure was 1 /10. Time Pain Score # Comments % pain relief 1 hour 12:45 hrs 2 hours 1:45 hrs 3 hours 2:45 hrs 4 hours 3:45 hrs Please call the nurse in the Pain Management Center a day or two after your procedure and report the information above. She will assess your response to the procedure, and will recommend appropriate follow-up. documented in this encounter Medications at Time of Discharge Medication Sig Dispensed Refills Start Date End Date propranoloL (Inderal) 10 mg Tablet Take 10 mg by mouth 2 times daily. ALPRAZolam (XANAX) 0.5 mg Tablet nightly as needed. 0 03/29/2017 amitriptyline (ELAVIL) 25 mg Tablet take 1 to 2 tablets by mouth at bedtime 0 01/18/2017 amLODIPine (NORVASC) 5 mg Tablet take 1/2 tablet by mouth once daily 0 03/20/2017 omeprazole (PRILOSEC) 20 mg Capsule, Delayed Release(E.C.) take 1 capsule by mouth once daily 0 01/15/2017 venlafaxine (EFFEXOR-XR) 37.5 mg Capsule, Sust. Release 24 hr daily. 0 03/25/2017 gabapentin (Neurontin) 100 mg CapsuleIndications:Rad iculopathy of cervical region,Cervical spondylosis,Radiculopa thy of lumbar region Take 2 capsules by mouth 3 times daily. 180 capsule 1 03/01/2022 05/08/2022 documented as of this encounter H&P Notes * Nuha Ryan MD - 04/10/2022 11:09 AM EDT Patient Name: Brinda Alfred Patient Age: 67 y.o. Birthdate: 1955 Admit date: 04/10/2022 Attending Physician: Nuha Ryan MD PREPROCEDURE HISTORY AND PHYSICAL Date of Visit: April 10, 2022 Chief Complaint: Left sided neck pain HPI: Subjective Brinda Alfred is a 67 y.o. female who presents today for confirmatory CMBB, previous diagnostic CMBB provided 95% of pain relief. The history is obtained from the patient, and I have reviewed medical records provided by the referring physician and located in the electronic medical record to fill in gaps in the patient's recollection of events, treatments and outcomes. LOCATION: Left sided neck pain PAIN LEVEL AT REST 06/03 PAST MEDICAL HISTORY: No past medical history on file. PAST SURGICAL HISTORY: Past Surgical History: Procedure Laterality Date ??? PRO COLONOSCOPY, BIOPSY N/A 07/15/2017 COLONOSCOPY FLEXIBLE, WITH BX (WRVU 3.66) performed by Fidencio Drew MD at [facility] ENDOSCOPY ??? PRO INJ, DIAG/THERAPEUTIC AGENT, PARAVERTEBRAL FACET JT, CERVICAL/THORACIC, SINGLE Left 03/16/2022 INJECTION, FACET JOINT,W/FLUORO, CERVICAL, SINGLE (WRVU 1.82) performed by Nuha Ryan MD at [facility] PAIN MGMT MSO ??? PRO INJECTION PV FACET JOINT CERV/THORACIC SECOND LEVEL Left 03/16/2022 INJECTION, FACET JOINT,W/FLUORO, CERVICAL, SECOND (WRVU 1.16) performed by Nuha Ryan MD at [facility] PAIN MGMT MSO ALLERGIES: Phenergan dm [promethazine-dm], Celebrex [celecoxib], Mold, Sulfa (sulfonamide antibiotics), and Unable to find [unclassified drug] MEDICATIONS: No current facility-administered medications on file prior to encounter. Current Outpatient Medications on File Prior to Encounter Medication Sig Dispense Refill ??? gabapentin (Neurontin) 100 mg Capsule Take 2 capsules by mouth 3 times daily. 180 capsule 1 ??? propranoloL (Inderal) 10 mg Tablet Take 10 mg by mouth 2 times daily. ??? ALPRAZolam (XANAX) 0.5 mg Tablet nightly as needed. 0 ??? amitriptyline (ELAVIL) 25 mg Tablet take 1 to 2 tablets by mouth at bedtime 0 ??? amLODIPine (NORVASC) 5 mg Tablet take 1/2 tablet by mouth once daily 0 ??? omeprazole (PRILOSEC) 20 mg Capsule, Delayed Release(E.C.) take 1 capsule by mouth once daily 0 ??? venlafaxine (EFFEXOR-XR) 37.5 mg Capsule, Sust. Release 24 hr daily. 0 ??? [DISCONTINUED] montelukast (Singulair) 10 mg Tablet Take 10 mg by mouth nightly. ??? [DISCONTINUED] atorvastatin (LIPITOR) 10 mg Tablet 0 ??? [DISCONTINUED] dicyclomine (BENTYL) 10 mg Capsule Take 1 capsule by mouth 3 times daily. (Patient not taking: No sig reported) 90 capsule 3 FAMILY HISTORY: Family History Problem Relation Age of Onset ??? Heart Failure Mother ??? Back Pain Father ??? Esophageal Cancer Father ??? Multiple Sclerosis Daughter ??? Breast Cancer Neg Hx SOCIAL HISTORY: Social History Socioeconomic History ??? Marital status: Spouse name: Not on file ??? Number of children: Not on file ??? Years of education: Not on file ??? Highest education level: Not on file Occupational History ??? Not on file Tobacco Use ??? Smoking status: Never Smoker ??? Smokeless tobacco: Never Used Vaping Use ??? Vaping Use: Never used Substance and Sexual Activity ??? Alcohol use: No ??? Drug use: No ??? Sexual activity: Not on file Other Topics Concern ??? Not on file Social History Narrative ??? Not on file Social Determinants of Health Financial Resource Strain: Not on file Food Insecurity: Not on file Transportation Needs: Not on file Physical Activity: Not on file Housing Stability: Not on file ROS: Denies fever, chills, SOB, abdominal pain, leg weakness/numbnes, arm weakness/numbness, bowel or bladder incontinence, balance issues PHYSICAL EXAM: BP 128/82 Resp 18 Ht 160 cm (5' 3) Wt 63 kg (139 lb) SpO2 98% BMI 24.62 kg/m?? Physical Exam Vitals reviewed. HENT: Mouth/Throat: Mouth: Mucous membranes are moist. Pulmonary: Effort: Pulmonary effort is normal. Musculoskeletal: General: Tenderness present. Skin: General: Skin is warm and dry. Findings: No erythema. Neurological: Mental Status: She is alert. LABS/DX RESULTS: Last 3 wbc, hgb, hct plt No results for input(s): WBC, HGB, HCT, PLATELET in the last 7068 hours. Last 3 Lytes No results for input(s): NA, K, CL, CO2, BUN, CREATININE in the last 7068 hours. Last 3 LFTs No results for input(s): AST, ALT, ALKPHOS, BILITOT, BILIDIR in the last 7068 hours. Last 3 Coags No results for input(s): PT, INR, PTT in the last 168 hours. Last 3 HgbA1C No results for input(s): HA1C in the last 7068 hours. ASSESSMENT: Assessment 1. Cervical spondylosis PLAN: - proceed with confirmatory left C3, C4, C5 MBB Nuha Ryan MD Ciaio Lumite Injector of Anesthesiology [facility] [address] [address] / [facility] documented in this encounter Miscellaneous Notes * Op Note - Nuha Ryan MD - 04/10/2022 11:21 AM EDT Pain Management Operative Note Patient Name: Brinda Alfred : [id number] MR#: [id number] Case Date: 04/10/2022 Surgeon: Surgeon(s) and Role: * Nuha Ryan MD - Primary Present on Admission: ??? Cervical spondylosis Postoperative diagnosis: same as above Procedure(s) (LRB): INJECTION, FACET JOINT,W/FLUORO, CERVICAL, SECOND (WRVU 1.16) (Left) INJECTION, FACET JOINT,W/FLUORO, CERVICAL, SINGLE (WRVU 1.82) (Left) PROCEDURE NOTE CERVICAL MEDIAL BRANCH BLOCKS Date of Service: 03/20/2022 Patient: Brinda Alfred Provider: Nuha Ryan MD Brinda Alfred has been referred to the Pain Management Center for cervical medial branch blocks. Ms. Alfred was interviewed and the medical record were reviewed. There were no medical, pharmacologic, radiographic or other structural contraindications to attempting fluoroscopically guided localanesthetic cervical medial branch blocks. Risks and potential side effects were discussed. We also discussed the potential benefit(s) of the procedure with Ms. Alfred, and her voiced concerns were addressed. After she was completely informed about the procedure, the printed consent form was signed. A standard time-out procedure was performed. Ms. Alfred was placed in the prone position. Automated blood pressure cuff and pulse oximeter were applied. The skin entry points for approaching the anatomic target points of the segmental medial branches of Left C3, C4 and C5 were identified with fluoroscopy and marked. The skin at the target site area was thoroughly prepared with Chlorhexadine. The skin was then drapped. Next, a 25 gauge 3.5 spinal needle was placed under fluoroscopic guidance down on to the target point (the articular pillar) for each respective segmental medial branch. Position was confirmed in A/P and leteral views. Aspiration revealed no blood or clear fluid. Next, 0.25 ml of preservative-free 1% Lidocaine was injected at each level. Ms. Alfred's vital signs were stable throughout the procedure and were as recorded in the docflowsheet by the nursing staff. Provacative testing using the Modified Beltran's facet loading test Left side Directly before the block VAS (0-10) = 7 5 minutes after the block VAS (0-10) = 1 Percentage relief obtained with this diagnostic block 80% Any improved physical functioning directly after the blocks? To be determined Follow up plans and appointments were discussed with Ms. Alfred. Ms. Alfred was instructed to keep careful note of how the usual pain was modified by these injections. Specifically, the patient was asked to keep a pain diary for the next 24 hours using a numeric pain scale of 0-10 and report these results at the follow-up visit. Post procedure instruction was given as documented in the nursing documentation and having met discharge criteria, she was discharged from the Pain Management Center. Based on the medial branches blocked today, if they patient has adequate relief and we are able to proceed to radiofrequency ablation, the treatment should result in the denervation of the Left C3-4 and C4-5. We would expect to denervate a total of 2 facets during the radiofrequency ablation. COMMENTS: She will call back with her 0-4 hour post-procedure pain scores. I personally performed the entire procedure. Nuha Ryan MD ABPN-subspecialty board certification in Pain Medicine Attending Physician - Pain Management CC: Dorothea Shannon APRN [address] [place] [address] documented in this encounter Plan of Treatment Upcoming Encounters Date Type Department Care Team (Late st Contact Info) Description 12/02/2024 11:00 AM EST Office Visit Dermatology at [facility] [address] [place] [address] Abi Steen MD [facility] [address] [place] [address] documented as of this encounter Procedures Procedure Name Priority Date/Time Associated Diagnosis Comments Inj, Diag/Therapeutic Agent, Paravertebral Facet Jt, Cervical/Thoracic, Single (94712) 04/10/2022 11:14 AM EDT Cervical spondylosis Injection Pv Facet Joint Cerv/Thoracic Second Level (28591) 04/10/2022 11:14 AM EDT Cervical spondylosis INJECTION, FACET JOINT,W/FLUORO, CERVICAL,2ND LVL Routine 04/10/2022 10:43 AM EDT Cervical spondylosis INJECTION,FACET JOINT,W/FLUORO,CERVICAL,S BLADIMIR Routine 04/10/2022 10:43 AM EDT Cervical spondylosis documented in this encounter Visit Diagnoses Diagnosis Cervical spondylosis Cervical spondylosis without myelopathy documented in this encounter Active and Recently Administered Medications Times are shown in EDT. PRN Medication Order 04/08/2022 04/09/2022 04/10/2022 lidocaine (pf) (Xylocaine) (20 mg/mL) 2% injection (CANCELED) ONCE PRN, Starting on Sat04/10/22 at 1132, Until Sat04/10/22 at 1339, Intra-Operative (Intra-Procedure), Routine 1132 (Given - Provid er: Nuha Ryan MD) documented in this encounter Care Teams Campus Security Officer Relationship Specialty Start Date End Date Dorothea Shannon APRN [address] [place] [address] PCP - General Family Medicine 03/12/22 documented as of this encounter
--- OUTSIDE RECORDS SUMMARY | 2024-10-26 15:42 | XMS_ITS | Encounter Summary ---
Author Organization [facility] [place] [address] Care Team Providers Care Team Lead Name Role Phone Dorothea Shannon APRN Primary Care Provider [phone] Encounter Details Date Type Department Care Team (Latest Contact Info) Description 04/15/2023 7:52 AM EDT - 04/15/2023 11:59 PM EDT Hospital Encounter Mammography/[place] [id number] Dorothea Shannon APRN [address] [place], [place] [address] Screening mammogram for breast cancer Discharge Disposition: Home Social History Tobacco Use Types Packs/Day Years Used Date Smoking Tobacco: Never Smokeless Tobacco: Never Alcohol Use Standard Drinks/Week Comments No 0 (1 standard drink = 0.6 oz pur e alcohol) Sex and Gender Information Value Date Recorded Sex Assigned at Not on file Gender Identity Not on file Sexual Orientation Not on file documented as of this encounter Medications at Time of Discharge Medication Sig Dispensed Refills Start Date End Date diclofenac (Voltaren) 1 % Gel Apply 2 g topically 4 times daily as needed. 100 g 06/20/2022 multivitamin with minerals (One-A-Day) Tablet Take 1 tablet by mouth Daily. ibuprofen (Advil) 600 mg Tablet Take 600 mg by mouth as needed for Pain. acetaminophen (TYLENOL ARTHRITIS PAIN ORAL) Take by mouth as needed. propranoloL (Inderal) 10 mg Tablet Take 10 [...] Sust. Release 24 hr daily. 0 03/25/2017 documented as of this encounter Plan of Treatment Upcoming Encounters Date Type Department Care Team (Late st Contact Info) Description 12/02/2024 11:00 AM EST Office Visit Dermatology at [facility] [address] [place] [address] Abi Steen MD [facility] [address] [place] [address] documented as of this encounter Procedures Procedure Name Priority Date/Time Associated Diagnosis Comments MAMMO SCREENING CAD AND RONAL BILATERAL Routine 04/15/2023 8:30 AM EDT Screening mammogram for breast cancer documented in this encounter Results * Mammo Screening Cad and Ronal Bilateral (04/15/2023 8:30 AM EDT) Anatomical Region Laterality Modality Breast Bilateral Mammography Narrative 04/15/2023 10:18 AM EDT BILATERAL MAMMOGRAPHY REASON FOR EXAM: Screening TECHNIQUE: CC and MLO views were obtained of each breast using standard 2-D mammography as well as 3-D tomosynthesis. Computer aided detection was used. This is compared with prior images. FINDINGS: ??The breasts are heterogeneously dense, which may obscure small masses. There are no suspicious microcalcifications, masses, or areas of distortion. The pattern is stable. CONCLUSION: No mammographic evidence of malignancy. RECOMMENDATION: Regular screening mammograms starting between age 40 and 50 reduces the risk of from breast cancer. All screening tests have both risks and benefits. These risks and benefits should be assessed for each individual patient through discussion with their provider to determine their preferred breast cancer screening schedule. Women should report any breast changes to a health care provider right away. Some women, because of their family history, a genetic tendency, or other factors, should be screened with annual breast MRI as well as with mammograms. (The number of women who fall into this category is very small). Patients and health care providers should discuss each patient? s history to decide if earlier screening and/or breast MRI are appropriate. Screening should continue as long as a woman is in good health and is expected to live 10 years or longer. Screening mammography may not detect 10-15% of breast cancers. A result letter has been sent to this patient by the [facility]. BIRADS CATEGORY 1: NEGATIVE Electronically signed by: Josemanuel Garcia III, MD Dorothea Shannon APRN IMG MAMMO ORDERAB LES documented in this encounter Visit Diagnoses Diagnosis Screening mammogram for breast cancer documented in this encounter Care Teams Team Lead Relationship Specialty Start Date End Date Dorothea Shannon APRN [address] [place] [address] PCP - General Family Medicine 03/12/22 documented as of this encounter
--- OUTSIDE RECORDS SUMMARY | 2024-10-26 15:42 | XMS_ITS | Encounter Summary ---
Author Organization [facility] [place] [address] Care Team Providers Care Director Of Sales Name Role Phone Dorothea Shannon APRN Primary Care Provider [phone] [phone] Encounter Details Date Type Department Care Team (Late Contact Info) Description 04/13/2022 Orders Only [place] [address] Nuha Ryan MD [facility] [place] [address] Cervical spondylosis Social History Tobacco Use Types Packs/Day Years [...] Encounters Date Type Department Care Team (Late Contact Info) Description 12/02/2024 11:00 AM EST Office Visit Dermatology at [facility] [address] [place] [address] Abi Steen MD [facility] [address] [place] [address] documented as of this encounter Visit Diagnoses Diagnosis Cervical spondylosis Cervical spondylosis without myelopathy documented in this encounter Care Teams Director Of Sales Relationship Specialty Start Date End Date Dorothea Shannon APRN [address] [place], [place] [id number] PCP - General Family Medicine 03/12/22 documented as of this encounter
--- OUTSIDE RECORDS SUMMARY | 2024-10-26 15:42 | XMS_ITS | Encounter Summary ---
Author Organization [facility] [place] [address] Care Team Providers Care Post Office Markup Clerk Name Role Phone ShivaDorothea cruz ALFIE Primary Care Provider [phone] Encounter Details Date Type Department Care Team (Late Contact Info) Description 04/12/2022 Telephone [facility] [place] [address] Charlene Gan RN Social History Tobacco Use [...] Telephone Encounter - Charlene Gan RN - 04/12/2022 1:16 PM EDT Post-procedure phone call to patient to report their response to the cervical medial branch block procedure performed on 04/10/22 in the [facility] by Nuha Ryan MD. This is patient's: second left C3, C4, C5 medial branch block . 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 I gave Brinda my . documented in this encounter Plan of Treatment Upcoming Encounters Date Type Department Care Team (Late Contact Info) Description 12/02/2024 11:00 AM EST Office Visit Dermatology at [facility] [address] [place] [address] Abi Steen MD [facility] DR [address] [place] [address] documented as of this encounter Visit Diagnoses Not on filedocumented in this encounter Care Teams Post Office Markup Clerk Relationship Specialty Start Date End Date Dorothea Shannon APRN [address] [place] [address] PCP - General Family Medicine 03/12/22 documented as of this encounter
--- OUTSIDE RECORDS SUMMARY | 2024-10-26 15:42 | XMS_ITS | Encounter Summary ---
Author Organization [facility] [place] [address] Care Team Providers Care Awning Spreader Name Role Phone Stephanie Shannonyn Karyna JUDGE Primary Care Provider [phone] Encounter Details Date Type Department Care Team (Latest Contact Info) Description 12/14/2022 9:15 AM EST TH Visit (TeleHealth) [place] [address] Jv Quintero MD [facility] [place] [address] Myofascial pain; Occipital neuralgia of left side; Chronic pain syndrome; Cervical spondylosis Social History Tobacco Use Types [...] as of this encounter Progress Notes * Jv Quintero MD - 12/14/2022 9:15 AM EST [facility] follow-up visit note DOS: 12/14/22 : 1955 CC: Neck pain Interval history: Patient was last seen in the clinic on 11/02/2022. Since her last visit, patient reports: - Patient is currently undergoing physical therapy which provides temporary pain relief after the sessions. Physical therapist has trialed dry needling which flared up her neck pain. She still has more sessions scheduled. - Patient states that her overall neck pain problems are unchanged since last visit and continue nitin bothersome and impacts her quality of life.. - No other acute events or new medical problems since last visit HPI: Brinda Alfred is accompanied by her today. She report insidious onset of neck pain with intermittent radiation down left upper extremity about 5-6 years ago. She completed a course of PT withNic Webb in [facility] which resolved most of her left upper extremity symptoms. Her major symptom currently involves dull throb at the base of her skull that radiates to affect left temporal region, and also extend to affect her trapezius and shoulder blade area. She also got some back images done and wants to discuss this. Pain Description: Duration - constant with intermittent flare up Location -left more than right neck pain spreading to shoulder blade area- predominant neck pain Quality - ache pain, toothache Weakness - denies Numbness/Tingling - left arm tingling Pain score: Moderate to severe Alleviating factors: gabapentin improves her tingling down the left arm Aggravating factors: turning her neck, driving, painting Prior Treatments/Medications (Per prior notes and patient): Medications : Topicals - NSAIDs - celebrex caused severe nausea and diarrhea Acetaminophen - Antidepressants - Antieptileptics - Muscle Relaxants - tried it a couple of years ago, does not recall the name Opioids - Steroids - PT: completed PT about 6 years ago which resolved her initial symptoms of left arm pain, but left occipital headache recurs and has not improved with repeat PT Modalities: Surgery: bilateral hip replacement Injections: hip injections. Patient underwent left C3, C4 and C5 medial branch radiofrequency ablation procedures on 05/09/2022 which have provided her 80% pain relief. Chiropractic: denies Acupuncture: denies ROS: Constitutional: No unintentional weight loss or gain, fevers, chills. Occasional night sweats- negative [id number] care team. HENT: No recent hearing changes. No difficulty swallowing. Eyes: No recent vision changes. Respiratory: No cough or shortness of breath. Cardiovascular: No chest pain or syncope. GI: No diarrhea, nausea, vomiting, or constipation. : No dysuria, hesitancy, or urgency. No incontinence. Musculoskeletal: No muscle weakness. Neck pain Skin: No rashes or lesions. Neurologic: No numbness/tingling. No difficulty with balance. Psychiatric: Mood ok. No SI/HI. Heme/Lymph/Imm: No easy bleeding or brusing. PMH/PSH: Patient Active Problem List Diagnosis Code ??? Cervical spondylosis M47.812 No past medical history on file. Past Surgical History: Procedure Laterality Date ??? PRO COLONOSCOPY, BIOPSY N/A 07/15/2017 COLONOSCOPY FLEXIBLE, WITH BX (WRVU 3.66) performed by Fidencio Drew MD at [facility] ENDOSCOPY ??? PRO DSTR PARAVERTEBRAL FCT JNT NRVES CERVICAL OR THORACIC ADDL Left 05/09/2022 DESTRUCT BY LYTIC AGENT, FACET NERVE(S), W/IMAGING; CX OR THX, EA ADD (WRVU 1.32) performed by Nuha Ryan MD at [facility] PAIN MGMT MSO ??? PRO DSTR PARAVERTEBRAL FCT JNT NRVES CERVICAL OR THORACIC SINGLE Left 05/09/2022 DESTRUCT BY LYTIC AGNT, FACET JT NERVE(S), W/IMAGING; CX OR THX, SNGL (WRVU 3.84) performed by Nuha Ryan MD at [facility] PAIN MGMT MSO ??? PRO INJ, DIAG/THERAPEUTIC AGENT, PARAVERTEBRAL FACET JT, CERVICAL/THORACIC, SINGLE Left 03/16/2022 INJECTION, FACET JOINT,W/FLUORO, CERVICAL, SINGLE (WRVU 1.82) performed by Nuha Ryan MD at [facility] PAIN MGMT MSO ??? PRO INJ, DIAG/THERAPEUTIC AGENT, PARAVERTEBRAL FACET JT, CERVICAL/THORACIC, SINGLE Left 04/10/2022 INJECTION, FACET JOINT,W/FLUORO, CERVICAL, SINGLE (WRVU 1.82) performed by Nuha Ryan MD at [facility] PAIN MGMT MSO ??? PRO INJECTION PV FACET JOINT CERV/THORACIC SECOND LEVEL Left 03/16/2022 INJECTION, FACET JOINT,W/FLUORO, CERVICAL, SECOND (WRVU 1.16) performed by Nuha Ryan MD at [facility] PAIN MGMT MSO ??? PRO INJECTION PV FACET JOINT CERV/THORACIC SECOND LEVEL Left 04/10/2022 INJECTION, FACET JOINT,W/FLUORO, CERVICAL, SECOND (WRVU 1.16) performed by Nuha Ryan MD at [facility] PAIN MGMT MSO FAMILY HISTORY: Family History Problem Relation Age of Onset ??? Heart Failure Mother ??? Back Pain Father ??? Esophageal Cancer Father ??? Multiple Sclerosis Daughter ??? 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 diclofenac (Voltaren) 1 % Gel, Apply 2 g topically 4 times daily as needed., Disp: 100 g, Rfl: 0 ??? multivitamin with minerals (One-A-Day) Tablet, Take 1 tablet by mouth Daily., Disp: , Rfl: ??? ibuprofen (Advil) 600 mg Tablet, Take 600 mg by mouth as needed for Pain., Disp: , Rfl: ??? acetaminophen (TYLENOL ARTHRITIS PAIN ORAL), Take by mouth as needed., Disp: , Rfl: ??? gabapentin (Neurontin) 100 mg Capsule, Take 2 capsules by mouth 3 times daily. (Patient not taking: Reported on 06/20/2022), Disp: 180 capsule, Rfl: 2 ??? propranoloL (Inderal) 10 mg Tablet, Take 10 mg by mouth 2 times daily., Disp: , Rfl: ??? ALPRAZolam (XANAX) 0.5 mg Tablet, nightly as needed., Disp: , Rfl: 0 ??? amitriptyline (ELAVIL) 25 mg Tablet, take 1 to 2 tablets by mouth at bedtime, Disp: , Rfl: 0 ??? amLODIPine (NORVASC) 5 mg Tablet, take 1/2 tablet by mouth once daily, Disp: , Rfl: 0 ??? omeprazole (PRILOSEC) 20 mg Capsule, Delayed Release(E.C.), take 1 capsule by mouth once daily,Disp: , Rfl: 0 ??? venlafaxine (EFFEXOR-XR) 37.5 mg Capsule, Sust. Release 24 hr, daily., Disp: , Rfl: 0 ALLERGIES: Allergies Allergen Reactions ??? Phenergan Dm [Promethazine-Dm] Anaphylaxis ??? Celebrex [Celecoxib] Diarrhea and Nausea Only Caused depression also ??? Mold ??? Sulfa (Sulfonamide Antibiotics) ??? Unable To Find [Unclassified Drug] Flowering tree MSG PHYSICAL EXAM: Physical examination was suboptimal due to use of telehealth General: Patient is seated comfortably in NAD, well-groomed. HEENT: Head atraumatic, EOMI. Respiratory: Breathing comfortably on RA. Skin: No appreciable rashes or skin breakdown Psych: Appropriate affect, A&Ox3 , answers questions appropriately Musculoskeletal: Left cervical facet loading test positive Right cervical facet loading test negative Patient reports taut tender muscle bands in the left cervical paraspinal and trapezius area Neurologic: Patient denies any numbness or weakness TESTS/IMAGING: MRI of cervical spine without contrast on 12/28/2021 which showed prominent left paracentral endplateosteophytes at C4-C5 causing mild impingement and deformity of anterior cord surface. No cord signal change XR LUMBAR SPINE AP FLEXION AND EXTENSION ONLY 02/26/22 ?? CLINICAL HISTORY: lumbar spondylolisthesis at L4-5, r/o dynamic instabliity ? TECHNIQUE: Lumbar spine AP and lateral during flexion or extension ?? COMPARISON: February 12, 2022 ?? FINDINGS: There are five rcd-gsk-ihwznip lumbar-type vertebrae. ?? There is severe disc interspace narrowing at L4-L5. Approximately 8 mm of anterolisthesis of L4 on L5 is present and does not change significantly during flexion and extension. Also noted is facet arthropathy at L5-S1. ?? IMPRESSION Degenerative disc disease at L4-L5 with grade 1 anterolisthesis. No dynamic instability ASSESSMENT: #1 chronic left more than right neck and shoulder blade area predominantly axial pain, likely related to a combination of left cervical facet arthropathy and myofascial pain syndrome. Left-sided neckpain improved by 80% with left C3, C4 and C5 medial branch radiofrequency ablation procedures for the first 3 months followed by increased pain. Based on today's examination and presentation, cervical radiculopathy is less likely. Patient's current pain problem primarily seem to be related to left cervical myofascial pain syndrome with secondary left occipital neuralgia. Patient was educated about signs and symptoms of cervical myelopathy including new numbness, weakness, bladder bowel incontinence . Patient was instructed to call us or go to the emergency room if they experiences any of the symptoms. Patient verbalized understanding. #2 chronic pain syndrome Plan: Diagnosis reviewed, treatment option addressed, and risk/benefits discussed. Self-care instructionsgiven. I am recommending a multidisciplinary treatment plan to help this patient better manage her pain. 1. Physical Therapy: Continue ongoing external physical therapy. 2. Clinical Health Psychologist to address issues of relaxation, behavioral change, coping style, and other factors important to improvement: None at this point 3. Self Care Recommendations: Encouraged patient to be compliant to exercises taught by physical therapy. 4. Diagnostic Studies: None at this point 5. Medication Management: No new medications 6. Further procedures recommended: Patient will be scheduled for left occipital nerve block and trigger point injections under ultrasound guidance -Can consider repeat left C3, 4, 5 cervical medial branch radiofrequency ablation procedures versusSPR peripheral nerve stimulation therapy in future. 7. Referrals: None at this point 8. Release of information: Previous records reviewed. 9. Follow up: 4 weeks after the injections. Jv Quintero MD [employer] H[employer] [facility] [address] [facility] CONSENT FOR TELEHEALTH Telemedicine (Video) Appointment Although not required in [place], [place] has a telemedicine consent requirement. We are working on an automated process to obtain this I obtained the patient's consent to receiving health care services at [facility] through telemedicine. We discussed the opportunities and limitations of delivering health care services through telemedicine. I told the patient that the telemedicine service is being delivered over a secure connection, except in the event of emergency conditions when such requirements may be waived. Patient agreed to the participation of other individuals assisting with their care by telemedicine, if indicated. Patient informed that telemedicine informed consent form is available for patient's review in [facility]'s patient portal, [facility]. Opportunities include: improved access to medical care; limiting spread of COVID virus; increased patient convenience Limitations include: technical difficulties; need for a subsequent in-person visit due to transmission quality problems or need for physical examination not possible over video CC: Dorothea Shannon APRN [address] [place] [address] documented in this encounter Plan of Treatment Upcoming Encounters Date Type Department Care Team (Late st Contact Info) Description 12/02/2024 11:00 AM EST Office Visit Dermatology at [place] [address] [place] [address] Abi Steen MD [facility] [address] [place] [address] documented as of this encounter Visit Diagnoses Diagnosis Myofascial pain Mylagia and myositis, unspecified Occipital neuralgia of left side Chronic pain syndrome Cervical spondylosis Cervical spondylosis without myelopathy documented in this encounter Care Teams Awning Spreader Relationship Specialty Start Date End Date Dorothea Shannon APRN [address] [place] [address] PCP - General Family Medicine 03/12/22 documented as of this encounter
--- OUTSIDE RECORDS SUMMARY | 2024-10-26 15:42 | XMS_ITS | Encounter Summary ---
Author Organization [facility] [place] [address] Care Team Providers Care Sweetbread Trimmer Name Role Phone ShivaDorothea ALFIE Primary Care Provider [phone] Encounter Details Date Type Department Care Team ([facility] st Contact Info) Description 06/28/2022 Telephone [place] [address] Lisa Hawkins, RN Social History Tobacco Use Types Packs/Day [...] encounter Miscellaneous Notes * Telephone Encounter - Lisa Hawkins, RN - 06/28/2022 2:18 PM EDTSummary: PA for Diclofenac 1% Gel--APPROVED PA for Diclofenac 1% Gel sent to pharmacy through [employer]. Date: 06/28/2022 LEAH ZHUDOROTHY [address] [place] [id number] Member Name: LEAH DANIELS Member ID Number: [id number] Thank you for trusting your Medicare prescription drug coverage to [employer] As our member, we want to help you get the most value from your prescription drug coverage and help you understand how your coverage works. As a member of [employer]), we are pleased to inform you that, upon review of the information provided by you or your doctor, we have approved the requested coverage for the following prescription drug(s): DICLOFENAC SODIUM Gel Type of coverage approved: Prior Authorization This approval authorizes your coverage from 11/25/2021 - 06/28/2023, unless we notify you otherwise, and as long as the following conditions apply: you remain enrolled in our Medicare Part D prescription drug plan, your physician or other prescriber continues to prescribe the medication for you, and the medication continues to be safe for treating your condition. Depending upon the strength and/or formulation of the drug prescribed by your physician, different quantity limits or safety edits may apply. Pleaseconsult your Medicare Part D plan???s formulary for the specific quantity limit. If you have not already filled your prescription for this approved drug, you may do so at a participating network pharmacy. Thank you for allowing us to serve you. This letter is informational only. No further action is required by you at this time. If you have questions or need help, please talk to your doctor or pharmacist, or contact Customer Care at , 24 hours a day, 7 days a week. TTY users may call [phone]. Thank you, [employer]) The formulary and/or pharmacy network may change at any time. You will receive notice when necessary. documented in this encounter Plan of Treatment Upcoming Encounters Date Type Department Care Team (Late st Contact Info) Description 12/02/2024 11:00 AM EST Office Visit Dermatology at [facility] [address] [place] [address] Abi Steen MD [facility] [address] [place] [address] documented as of this encounter Visit Diagnoses Not on filedocumented in this encounter Care Teams Sweetbread Trimmer Relationship Specialty Start Date End Date Dorothea Shannon APRN [address] [place] [address] PCP - General Family Medicine 03/12/22 documented as of this encounter
--- OUTSIDE RECORDS SUMMARY | 2024-10-26 15:42 | XMS_ITS | Encounter Summary ---
Author Organization Formerly [place] [address] Care Team Providers Care Door Hanger Name Role Phone Dorothea Shannon ALFIE Primary Care Provider [phone] Encounter Details Date Type Department Care Team (Late Contact Info) Description 05/14/2022 Telephone [facility] [place] [id number] Charlene Gan RN Social History Tobacco Use [...] Telephone Encounter - Charlene Gan RN - 05/14/2022 9:48 AM EDT Out going call to brinda to find out how her Migraine H/A symptoms are after reading the message Paris sent. Brinda said the H/A symptoms have all gone away now. I told her I was happy to her that sheis feeling better. documented in this encounter Plan of Treatment Upcoming Encounters Date Type Department Care Team (Late Contact Info) Description 12/02/2024 11:00 AM EST Office Visit Dermatology at [facility] [address] [place] [address] Abi Steen MD [facility] [place] [address] [place] [address] documented as of this encounter Visit Diagnoses Not on filedocumented in this encounter Care Teams Door Hanger Relationship Specialty Start Date End Date Dorothea Shannon APRN [address] [place] [address] PCP - General Family Medicine 03/12/22 documented as of this encounter
--- OUTSIDE RECORDS SUMMARY | 2024-10-26 15:42 | XMS_ITS | Encounter Summary ---
Author Organization [facility] Address [facility] [place] [address] Care Team Providers Care Repairer [employer] Name Role Phone Dorothea Shannon APRN Primary Care Provider [phone] Encounter Details Date Type Department Care Team (Latest Contact Info) Description 11/02/2022 Travel Social History Tobacco Use Types Packs/Day [...] 11:00 AM EST Office Visit Dermatology at [facility] [address] [place] [address] Abi Steen MD [facility] [address] [address] documented as of this encounter Visit Diagnoses Not on filedocumented in this encounter Care Teams Repairer [employer]ding Systems [employer] Equipment Relationship Specialty Start Date End Date Dorothea Shannon APRN [address] [place] [address] PCP - General Family Medicine 03/12/22 documented as of this encounter
--- OUTSIDE RECORDS SUMMARY | 2024-10-26 15:42 | XMS_ITS | Encounter Summary ---
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 [H25.811] Procedures WA XCAPSL CTRC RMVL INSJ IO LENS PROSTH W/O ECP Cataract Extraction w/Intraocular Lens Implant, Right Eye Referral ID Status Reason Start Date Expiration Date Visits Re quested Visits Authorized [id number] 1 1 Encounter Details Date Type Department Care Team ([facility] st Contact Info) Description 12/21/2019 11:31 EST - 12/21/2019 17:02 EST Hospital Encounter [facility] [place] [address] [place] [id number] Christiano Hubbard MD [address] [place] [address], [address] [place] [address] Discharge Disposition: Home or Self [...] Sign Reading Time Taken Comments Blood Pressure 148/69 12/21/2019 1645 EST Pulse - - Temperature 36.8 ??C (98.2 ??F) 12/21/2019 1440 EST Respiratory Rate 15 12/21/2019 1645 EST Oxygen Saturation 95% 12/21/2019 1645 EST Inhaled Oxygen Concentration - - Weight 69.6 kg (153 lb 7 oz) 12/21/2019 1440 EST Height - - Body Mass Index 27.18 12/16/2019 1349 EST documented in this encounter Discharge Instructions * Discharge Instructions* Christiano Hubbard MD - 12/21/2019 16:38 EST Post Cataract Surgery Discharge Instructions Christiano Hubbard [...] COMPLEX 100 ORAL) Take by mouth. ketOROLAC (ACULAR) 0.5 % ophthalmic solution Place 1 Drop into the right eye 4 times daily for 34 days. Use for 3 days before surgery and one month after 1 Bottle 3 12/18/2019 01/21/2020 moxifloxacin (VIGAMOX) 0.5 % ophthalmic solution Place 1 Drop into the right eye 4 times daily for 13 days. Use for 3 days before surgery and 10 days after 1 Bottle 3 12/18/2019 12/31/2019 prednisoLONE (PRED FORTE) 1 % ophthalmic suspension Place 1 Drop into the right eye 4 times daily for 31 days. 1 Bottle 3 12/21/2019 01/21/2020 prednisoLONE (PRED FORTE) 1 % ophthalmic suspension Place 1 Drop into the right eye 4 times daily for 31 days. Use for one month after surgery. 1 Bottle 3 12/21/2019 12/22/2019 documented as of this encounter Discharge Disposition Disposition Code Departure Means Destination Comment s Home or Self Care Wheelchair Home with documented in this encounter H&P Notes * Christiano Hubbard MD - 12/21/2019 1544 EST The preoperative history and physical which was performed within 30 days of this procedure has been reviewed and the clinically appropriate elements of the physical examination have been repeated. There are no changes to the documented history and physical or if so such changes are documented below Christiano Hubbard MD 12/21/2019 15:44 documented in this encounter OR Notes * OR Surgeon - Christiano Hubbard MD - 12/21/2019 1637 EST Operative Note Date of Surgery: 12/21/2019 Surgeon: Christiano Hubbard MD Assistants: SONIYA Moctezuma Pre-Op Diagnosis: Mixed, age-related Cataract Right Eye Post-Op Diagnosis: Same Procedure(s): Phaco CE with PC IOL Right Eye Findings: The patient was taken to the operating room and placed in a supine position. The patient's right eye was prepped and draped in sterile fashion and an operating microscope was maneuvered into position for a temporal approach cataract surgery of the right eye. A paracentesis site was created superotemporally and unpreserved lidocaine 1% was administered into the anterior chamber, followedby Viscoat and Healon. A 2.75 mm keratome was used to create a corneal incision inferotemporally. Aneedle cystotome was used to initiate a continuous circular capsulorrhexis, which was completed using capsulorrhexis forceps. Balanced salt solution on a J cannula was used for hydrodissection, with an angled cannula also used for this purpose, with good mobility of the lens nucleus noted. A phaco tip was used to carve a groove in the anterior aspect of the lens nucleus, which was then cracked into two hemispheres. A groove was constructed in the anterior aspect of one of these nucleus hemispher es, which was then cracked into two quadrants, each of which was removed with phacoemulsification. A [employer] MicroFinger was used to chop the remaining nucleus hemisphere into smaller pieces, whichwere removed with phacoemulsification. Irrigation aspiration was used to remove cortex. Healon was administered into the capsular bag and the anterior chamber, and a Tecnis +20.0 diopter aspheric intraocular lens was injected into the capsular bag using a Houstonia injector. Viscoelastic was removed using irrigation aspiration. [...] Drains/Packs: None Complications: None Disposition and Condition: Was sent to Home in Good condition. documented in this encounter Plan of Treatment Not on file documented as of this encounter Procedures Procedure Name Priority Date/Time Associated Diagnosis Comments IMPLANT RECORD - SCANNED 12/28/2019 15:21 EST EXTRACTION, CATARACT, EXTRACAPSULAR, WITH IOL INSERTION 12/21/2019 15:57 EST Combined forms of age-related cataract of right eye documented in this encounter Results * IMPLANT RECORD - SCANNED (12/28/2019 15:21 EST) 12/28/2019 15:2 1 EST us Scan 2 Regional Program Manager PROCEDURE/MINOR SURGICAL OR DERABLES Final Result documented in this encounter Visit Diagnoses Diagnosis Combined forms of age-related cataract of right eye- Primary Other and combined forms of senile cataract documented in this encounter Admitting Diagnoses Diagnosis Combined forms of age-related cataract of right eye Other and combined forms of senile cataract documented in this encounter Administered Medications Inactive Administered Medications - up to 3 most recent administrations Medication Order MAR Action Action Date Dose Rate Site acetaminophen (TYLENOL) tablet 650 mg 650 mg, oral, EVERY 4 HOURS PRN, Starting on Sat12/21/19 at 1632, Until Sat12/21/19 at 1907, Pain, Routine, On Unit chondroitin-sodium hyaluronate (VISCOAT) 4-3 % (40-30 mg/mL) ophthalmic solution 1 dose, Starting on Sat12/21/19 at 1341, Until Sat12/21/19 at 1907 cyclopentolate (CYCLOGYL) 2 % ophthalmic solution 1 Drop 1 Drop, right eye, PREOP LINKED EYE MEDS-SEE ADMIN INSTRUCTIONS, 3 doses, First dose on Sat12/21/19 at 1500, Last dose on Sat12/21/19 at 1510, Routine, Preprocedure Given 12/21/2019 14:52 EST 1 Drop Given 12/21/2019 14:51 EST 1 Drop Given 12/21/2019 14:50 EST 1 Drop ketOROLAC tromethamine (ACULAR LS) 0.4 % ophthalmic solution 1 Drop 1 Drop, right eye, PREOP LINKED EYE MEDS-SEE ADMIN INSTRUCTIONS, 3 doses, First dose on Sat12/21/19 at 1500, Last dose on Sat12/21/19 at 1510, Routine, Preprocedure Given 12/21/2019 14:50 EST 1 Drop Given 12/21/2019 14:49 EST 1 Drop Given 12/21/2019 14:48 EST 1 Drop lactated ringers (LR) infusion 30 mL/hr, intravenous, CONTINUOUS, Starting on Sat12/21/19 at 1500, Until Sat12/21/19 at 1907, Routine, Preprocedure New Bag 12/21/2019 15:24 EST 30 mL/hr 30 mL/hr lactated ringers (LR) infusion at 75 mL/hr, intravenous, CONTINUOUS, Starting on Sat12/21/19 at 1700, Until Sat12/21/19 at 1907, Routine, Recovery (only) lidocaine (PF) 3.5 % ophthalmic gel right eye, PRE-OP MULTIPLE, Starting on Sat12/21/19 at 1444, Until Sat12/21/19 at 1637, Pain, Preprocedure Given 12/21/2019 15:54 EST 1 Strip Given 12/21/2019 15:26 EST 1 Strip moxifloxacin (VIGAMOX) 0.5 % ophthalmic solution 1 Drop 1 Drop, right eye, PREOP LINKED EYE MEDS-SEE ADMIN INSTRUCTIONS, 3 doses, First dose on Sat12/21/19 at 1500, Last dose on Sat12/21/19 at 1510, Routine, Preprocedure Given 12/21/2019 14:48 EST 1 Drop Given 12/21/2019 14:47 EST 1 Drop Given 12/21/2019 14:46 EST 1 Drop phenylephrine (MYDFRIN) 2.5 % ophthalmic solution 1 Drop 1 Drop, right eye, PREOP LINKED EYE MEDS-SEE ADMIN INSTRUCTIONS, 3 doses, First dose on Sat12/21/19 at 1500, Last dose on Sat12/21/19 at 1510, Routine, Preprocedure Given 12/21/2019 14:56 EST 1 Drop Given 12/21/2019 14:55 EST 1 Drop Given 12/21/2019 14:54 EST 1 Drop povidone-iodine 5 % ophthalmic solution As needed, Starting on Sat12/21/19 at 1620, Until Sat12/21/19 at 1907, Routine, Intraprocedure Given 12/21/2019 16:20 EST 20 Drops Right Eye proparacaine (ALCAINE) 0.5 % ophthalmic solution 1 Drop 1 Drop, right eye, PREOP LINKED EYE MEDS-SEE ADMIN INSTRUCTIONS, 1 dose, First dose on Sat12/21/19 at 1500, Routine, Preprocedure Given 12/21/2019 14:45 EST 1 Drop sodium hyaluronate (HEALON) 10 mg/mL ophthalmic injection 1 dose, Starting on Sat12/21/19 at 1341, Until Sat12/21/19 at 1907 tropicamide (MYDRIACYL) 1 % ophthalmic solution 1 Drop 1 Drop, right eye, PREOP LINKED EYE MEDS-SEE ADMIN INSTRUCTIONS, 3 doses, First dose on Sat12/21/19 at 1500, Last dose on Sat12/21/19 at 1510, Routine, Preprocedure Given 12/21/2019 14:54 EST 1 Drop Given 12/21/2019 14:53 EST 1 Drop Given 12/21/2019 14:52 EST 1 Drop documented in this encounter Discontinued Medications Medication Sig Discontinue Reason Start Date End Da te oxycodone-acetaminophen (PERCOCET) 5-325 mg per tablet Take 1 Tab by mouth every 4 hours as needed for Pain. 05/17/2010 12/21/2019 documented as of this encounter Historical Medications * This list may reflect changes made after this encounter. omeprazole (PRILOSEC) 20 mg capsule Take 20 mg by mouth daily. added in this encounter Active and Recently Administered Medications Times are shown in EST. Scheduled Medication Order 12/19/2019 12/20/2019 12/21/2019 cyclopentolate (CYCLOGYL) 2 % ophthalmic solution 1 Drop (COMPLETED) 1 Drop, right eye, PREOP LINKED EYE MEDS-SEE ADMIN INSTRUCTIONS, 3 doses, First dose on Sat12/21/19 at 1500, Last dose on Sat12/21/19 at 1510, Routine, Preprocedure 1450 (Given - Provid er: Karolina Romero RN)1451 (Given - Provider: Karolina Romero RN)1452 (Given - Provider: Karolina Romero RN) ketOROLAC tromethamine (ACULAR LS) 0.4 % ophthalmic solution 1 Drop (COMPLETED) 1 Drop, right eye, PREOP LINKED EYE MEDS-SEE ADMIN INSTRUCTIONS, 3 doses, First dose on Sat12/21/19 at 1500, Last dose on Sat12/21/19 at 1510, Routine, Preprocedure 1448 (Given - Provid er: Karolina Romero RN)1449 (Given - Provider: Karolina Romero RN)1450 (Given - Provider: Karolina Romero RN) moxifloxacin (VIGAMOX) 0.5 % ophthalmic solution 1 Drop (COMPLETED) 1 Drop, right eye, PREOP LINKED EYE MEDS-SEE ADMIN INSTRUCTIONS, 3 doses, First dose on Sat12/21/19 at 1500, Last dose on Sat12/21/19 at 1510, Routine, Preprocedure 1446 (Given - Provid er: Karolina Romero RN)1447 (Given - Provider: Karolina Romero RN)1448 (Given - Provider: Karolina Romero RN) phenylephrine (MYDFRIN) 2.5 % ophthalmic solution 1 Drop (COMPLETED) 1 Drop, right eye, PREOP LINKED EYE MEDS-SEE ADMIN INSTRUCTIONS, 3 doses, First dose on Sat12/21/19 at 1500, Last dose on Sat12/21/19 at 1510, Routine, Preprocedure 1454 (Given - Provid er: Karolina Romero RN)1455 (Given - Provider: Karolina Romero RN)1456 (Given - Provider: Karolina Romero RN) proparacaine (ALCAINE) 0.5 % ophthalmic solution 1 Drop (COMPLETED) 1 Drop, right eye, PREOP LINKED EYE MEDS-SEE ADMIN INSTRUCTIONS, 1 dose, First dose on Sat12/21/19 at 1500, Routine, Preprocedure 1445 (Given - Provid er: Karolina Romero RN) tropicamide (MYDRIACYL) 1 % ophthalmic solution 1 Drop (COMPLETED) 1 Drop, right eye, PREOP LINKED EYE MEDS-SEE ADMIN INSTRUCTIONS, 3 doses, First dose on Sat12/21/19 at 1500, Last dose on Sat12/21/19 at 1510, Routine, Preprocedure 1452 (Given - Provid er: Karolina Romero RN)1453 (Given - Provider: Karolina Romero RN)1454 (Given - Provider: Karolina Romero RN) Continuous Medication Order 12/19/2019 12/20/2019 12/21/2019 lactated ringers (LR) infusion 30 mL/hr, intravenous, CONTINUOUS, Starting on Sat12/21/19 at 1500, Until Sat12/21/19 at 1907, Routine, Preprocedure 1524 (New Bag - Prov ider: Karolina Romero RN)1640 (Anesthesia Volume Adjustment - Provider: Rose Bear APRN) lactated ringers (LR) infusion at 75 mL/hr, intravenous, CONTINUOUS, Starting on Sat12/21/19 at 1700, Until Sat12/21/19 at 1907, Routine, Recovery (only) 1700 (Canceled Entry - Provider: Batch Job User Admin - Comment: Automatically canceled at discontinue of medication order) PRN Medication Order 12/19/2019 12/20/2019 12/21/2019 acetaminophen (TYLENOL) tablet 650 mg 650 mg, oral, EVERY 4 HOURS PRN, Starting on Sat12/21/19 at 1632, Until Sat12/21/19 at 1907, Pain, Routine, On Unit balanced salt solution inrrigation solution (BSS PLUS) 500 mL, EPINEPHrine HCl (PF) (ADRENALIN) 0.5 mL irrigation (CANCELED) As needed, Starting on Sat12/21/19 at 1623, Until Sat12/21/19 at 1635, Routine, Intraprocedure 1623 (Given - Provid er: Christiano Hubbard MD - Comment: BSS Part 1 [id number] BSS Part 2 [id number] epinephrine 10493) chondroitin-sodium hyaluronate (VISCOAT) ophthalmic solution (CANCELED) As needed, Starting on Sat12/21/19 at 1622, Until Sat12/21/19 at 1635, Routine, Intraprocedure 1622 (Given - Provid er: Christiano Hubbard MD) lidocaine (PF) 10 mg/mL (1 %) injection (CANCELED) As needed, Starting on Sat12/21/19 at 1620, Until Sat12/21/19 at 1635, Routine, Intraprocedure 1620 (Given - Provid er: Christiano Hubbard MD - Comment: [id number]) lidocaine (PF) 3.5 % ophthalmic gel (CANCELED) right eye, PRE-OP MULTIPLE, Starting on Sat12/21/19 at 1444, Until Sat12/21/19 at 1637, Pain, Preprocedure 1526 (Given - Provid er: Karolina Romero RN)1554 (Given - Provider: Ava Martínez RN) povidone-iodine 5 % ophthalmic solution As needed, Starting on Sat12/21/19 at 1620, Until Sat12/21/19 at 1907, Routine, Intraprocedure 1620 (Given - Provid er: SONIYA Moctezuma) sodium hyaluronate (HEALON) ophthalmic injection (CANCELED) As needed, Starting on Sat12/21/19 at 1619, Until Sat12/21/19 at 1635, Routine, Intraprocedure 1619 (Given - Provid er: Christiano Hubbard MD - Comment: [id number]) No Frequency Medication Order 12/19/2019 12/20/2019 12/21/2019 chondroitin-sodium hyaluronate (VISCOAT) 4-3 % (40-30 mg/mL) ophthalmic solution 1 dose, Starting on Sat12/21/19 at 1341, Until Sat12/21/19 at 1907 sodium hyaluronate (HEALON) 10 mg/mL ophthalmic injection 1 dose, Starting on Sat12/21/19 at 1341, Until Sat12/21/19 at 1907 documented in this encounter Orders Medications Ordered That Fei ht Not Have Been Administered Count Last Ordered Date First Ordered Date acetaminophen (TYLENOL) tablet 1,000 mg 1 0 12/21/2019 acetaminophen (TYLENOL) tablet 650 mg 1 atropine 0.1 mg/mL syringe 0.5 mg 1 020 balanced salt solution inrri gation solution (BSS PLUS) 500 mL, EPINEPHrine HCl (PF) (ADRENALIN) 0.5 mL irrigation 1 12/21/2019 chondroitin-sodium hyalurona te (VISCOAT) 4-3 % (40-30 mg/mL) ophthalmic solution 1 12/21/2019 chondroitin-sodium hyalurona te (VISCOAT) ophthalmic solution 1 12/21/2019 diphenhydrAMINE (BENADRYL) i njection 12.5 mg 1 12/21/2019 fentaNYL citrate (PF) injection 25-50 mcg 1 12/21/2019 lactated ringers (LR) infusion 1 12/21/2019 lidocaine (PF) 10 mg/mL (1 %) injection 1 0 12/21/2019 lidocaine (PF) 10 mg/mL (1 % ) injection 2 mg 1 12/21/2019 naloxone (NARCAN) injection 0.2 mg 1 2019 ondansetron (PF) (ZOFRAN) injection 4 mg 1 12/21/2019 povidone-iodine 5 % ophthalmic solution 1 0 12/21/2019 sodium hyaluronate (HEALON) 10 mg/mL ophthalmic injection 1 12/21/2019 sodium hyaluronate (HEALON) ophthalmic injection 1 12/21/2019 Transfer Count Last Ordered Date First Orde red Date NON-TEACHING SERVICE 1 12/21/2019 Discharge Count Last Ordered Date First Orde red Date DISCHARGE PATIENT 1 12/21/2019 documented in this encounter Care Teams Digital Art Director Relationship Specialty Start Date End Date Leonora López MD [address] [place] [phone] PCP - General 09/17/19 documented as of this encounter
--- OUTSIDE RECORDS SUMMARY | 2024-10-26 15:42 | XMS_ITS | Encounter Summary ---
Author Organization [facility] [place] [address] Care Team Providers Care Marketing Database Consultant Name Role Phone Shiva Dorothea Troncoso ALFIE Primary Care Provider [phone] Reason for Visit * Reason Onset Date Comments Medication Refill 05/08/2022 Encounter Details Date Type Department Care Team (Late st Contact Info) Description 05/08/2022 Refill [facility] [place] [id number] Alejandrina Rojas RN Radiculopathy of cervical region; Cervical spondylosis; Radiculopathy [...] encounter Miscellaneous Notes * Telephone Encounter - Alejandrina Rojas RN - 05/08/2022 8:39 AM EDT Call placed to pt in response to incoming RX request for Gabapentin from [facility] in [facility]. Chart reviewed prior to call ing pt. Noted pt was referred to the PC for consideration of a CARIN. Radicular sxs were noted to have improved in Dr Ryan's office note- so plans were made for Cervical MBB; consideration of RF for axial pain. CMBB performed 04/10/22 with a good response. Plans for RF scheduled 05/09/[address] Ryan. Called pt to confirm she is still taking the Gabapentin 200 mg three times daily (using the 100 mg capsules). Inquired if she is taking it for radicular arm pain- explaining that I had noted in the chart her radicular pain was gone. Pt reports she continues to have radicular arm pain; Also reports she is still taking gabapentin 200 mg three times daily for her arm pain; that the med is effective and tolerated well- no side effects. Pt reports having a 2 day supply left. Informed pt that I would pend Gabapentin script to Russel DURAND to sign. That I would monitor that it was signed to allow pickling solution maker by tomorrow. Pt indicated that her Pharmacy will notify her when the script is prepared. Suggested to pt that she assure that Dr Ryan is aware of her radicular arm pain as there was reference to an alternate procedure were her arm pain to return. Pt indicated she would have this discussion. documented in this encounter Plan of Treatment Upcoming Encounters Date Type Department Care Team (Late st Contact Info) Description 12/02/2024 11:00 AM EST Office Visit Dermatology at [address] [place] [address] Abi Steen MD [facility] [address] [place] [address] documented as of this encounter Visit Diagnoses Diagnosis Radiculopathy of cervical region Brachial neuritis or radiculitis nos Cervical spondylosis Cervical spondylosis without myelopathy Radiculopathy of lumbar region Thoracic or lumbosacral neuritis or radiculitis, unspecified documented in this encounter Care Teams Marketing Database Consultant Relationship Specialty Start Date End Date Dorothea Shannon APRN [address] [place] [address] PCP - General Family Medicine 03/12/22 documented as of this encounter
--- OUTSIDE RECORDS SUMMARY | 2024-10-26 15:42 | XMS_ITS | Encounter Summary ---
Author Organization [facility] Address [address] [place] [address] Care Team Providers Care Delinquency Prevention Social Worker Name Role Phone Leonora López MD Primary Care Provider [phone] Reason for Visit * Reason Comments Cataract * Consult, Test and Treat (Routine) - Closed Specialty Diagnoses / Procedures Referred By Geoffrey dill Referred To Contact Ophthalmology Diagnoses Combined forms of age-related cataract, bilateral Regular astigmatism, bilateral Presbyopia Libra Wang S, OD Phone: tel: [address] [address] Phone: tel: fax: Referral ID Status Reason Start Date Expiration Date Visits Re quested Visits Authorized [id number] Closed 1 1 Encounter Details Date Type Department Care Team (Late st Contact Info) Description 12/09/2019 10:00 EST Office Visit [facility] Ophthalmology [address] [id number] Christiano Hubbard MD [address] [place] [address], [address] [place] [address] Social History Tobacco Use Types Packs/Day Years Used Date Smoking Tobacco: Never Alcohol Use Standard Drinks/Week Comments No 0 (1 standard drink = 0.6 oz pur e alcohol) Comments Unknown Sex and Gender Information Value Date Recorded Sex Assigned at Not on file Legal Sex Female 18:28 EST Gender Identity Female 12/15/2019 16:32 EST Sexual Orientation Not on file documented as of this encounter Ordered Prescriptions Prescription Sig Dispense Quantity Refills Last Filled Start Date End Date ketOROLAC (ACULAR) 0.5 % ophthalmic solution Place 1 Drop into the right eye 4 times daily. Use for 3 days before surgery and one month after 1 Bottle 3 12/13/2019 0 prednisoLONE (PRED FORTE) 1 % ophthalmic suspension Place 1 Drop into the right eye 4 times daily. Use for one month after surgery. 1 Bottle 3 12/13/2019 0 moxifloxacin (VIGAMOX) 0.5 % ophthalmic solution Place 1 Drop into the right eye 4 times daily. Use for 3 days before surgery and 10 days after 1 Bottle 3 12/13/2019 0 documented in this encounter Progress Notes * Christiano Hubbard MD - 12/09/2019 1000 EST Department of Ophthalmology / Cataract/Cornea Office Visit Note Referring physician: Libra Gardner Local Eye Owner Operator: Family Physician (PCP): Leonora López Other Physician: History of Present Illness: This HPI section must be documented by the physician (or scribe upon the dictation of the physician). It should not be documented independently by the windmill technician/scribe in the absence of the physician. Chief Complaint Patient presents with ??? Cataract Comments Here at the request of her city dispatcher, Dr. Libra Gardner, for cataract evaluation of both eyes. Pt c/o blurry vision, worse over the past year. She has stopped driving at night due to glare from oncoming headlights and inability to read road signs. This inability to drive at night is causing her significant problems with work and leisure activities. 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 She is also having difficulty reading font on her Genie. No new floaters or flashes. She uses Systane as needed for itchy, dry eyes. She has no history of eye surgery, disease or trauma. One month ago she fell onto her right side and had a bruise around her right eye. Her newest prescription eyeglasses broke, and when she went to see saw Dr. Gardner most recently she says she was told that new prescription eyeglasses would not improve her visual acuity to an acceptable level. She has a family history of cataracts, and has no other family history of eye disease. Pain: 0 / 10 Both Eyes Flashes: No Floaters: No Controls: Diabetes :No Hypertension:Yes Tobacco:No EXAMINATION: Base Eye Exam Visual Acuity (Snellen - Linear) Right Left Dist cc 20/40 20/60 +2 Dist ph cc NI 20/40 -1 Correction: Glasses Tonometry (Applanation, 10:31) Right Left Pressure 13 14 A/C moderate both eyes Pupils Dark Light Shape React APD Right 3.5 2.5 Round Brisk None Left 3.5 2.5 Round Brisk None Visual [place] (Counting fingers) Right Left Full Full Extraocular Movement Right Left Full, Ortho Full, Ortho Neuro/Psych Oriented x3: Yes Mood/Affect: Normal Dilation Both eyes: Phenylephrine 2.5%, Tropicamide 1% @ 10:32 Slit Lamp and Fundus Exam Slit Lamp Exam Right Left Lids/Lashes Normal lesion centrally 1.3 mm V by 1.1 H with no madarosis Conjunctiva/Sclera White and quiet White and quiet Cornea No guttata No guttata Anterior Chamber Deep and quiet Deep and quiet Iris 8.0 mm pupil post dilation 8.0 mm pupil post dilation Lens 2+ Cortical cataract, 4+ Nuclear sclerosis, no pseudoexfoliation 1+ Cortical cataract, 3+ Nuclear sclerosis, no pseudoexfoliation Vitreous Posterior vitreous detachment Posterior vitreous detachment Fundus Exam Right Left C/D Ratio 0.5 central 0.4 Macula Normal Normal Vessels Normal Normal Periphery Normal Normal Refraction Wearing Rx Sphere Cylinder [place] Add Right -1.50 +1.50 180 +2.50 Left -2.00 +2.00 180 +2.50 Manifest Refraction Sphere Cylinder [place] Dist VA Right -1.50 +1.50 180 20/40 Left -2.00 +2.00 180 20/[address] Gardner OD about three months ago OPHTHALMOLOGY TESTING: IMPRESSION / PLAN: Encounter Diagnoses Name Primary? Mixed type age-related cataract, both eyes Yes ??? Amblyopia of left eye ??? Posterior vitreous detachment, both eyes - visually significant cataract is present in her right eye to a greater extent than her left eye. New prescription eyeglasses would not improve visual acuity or quality of vision to an acceptable level, while cataract surgery would be likely to achieve this. She does have significant corneal astigmatism affecting her left eye. ?? Plan: Offer cataract surgery with placement of a posterior chamber intraocular lens (CE/IOL) right eye. Anticipate placement of a Tecnis monofocal aspheric intraocular lens with topical anesthesia. We discussed intraocular lens options including toric and pseudopresbyopic intraocular lenses, and the patient wishes to have a monofocal intraocular lens placed with a plano refractive target. She is aware that she will need to continue wearing prescription eyeglasses to see optimally, due to corneal astigmatism. An IOLMaster scan was obtained today, which is necessary for determination of the power of the intraocular lens to be placed at the time of cataract surgery. ?? Discussed cataract surgery with risks and benefits including: infection, bleeding, retinal detachment, glaucoma, need for more surgery, increased IOP, and film over the intraocular lens. The patient wishes to proceed with cataract surgery for the right eye, likely followed by the same procedure forher left eye. We will plan for the patient to use topical moxifloxacin (Vigamox) and ketorolac (Acular) before and after surgery, and prednisolone acetate 1% ophthalmic gtt after surgery. ?? I do not recommend that any anticoagulants be held perioperatively, as the risk of bleeding complications with cataract surgery done with topical anesthesia is very low, with or without anticoagulants. We will send today's note to Dr. Gardner, and I appreciate the opportunity to take part in the patient's care. Scribe Attestation: I am scribing for Christiano Hubbard MD while he is personally performing the service. HOWIE Dolan (Scribe) Time spent: documented in this encounter Plan of Treatment Not on file documented as of this encounter Procedures Procedure Name Priority Date/Time Associated Diagnosis Comments IOL MASTER/LENS STAR ONLY Routine 12/13/2019 20:07 EST Mixed type age-related cataract, both eyes documented in this encounter Results * IOL MASTER/LENS STAR ONLY (12/13/2019 20:07 EST) Narrative POINT OF CARE [facility] - 12/13/2019 20:07 EST See documentation us Christiano Hubbard MD OPHTH ULTRASOUND Final Result POINT OF CARE [facility] documented in this encounter Visit Diagnoses Diagnosis Mixed type age-related cataract, both eyes- Primary Amblyopia of left eye Amblyopia, unspecified Posterior vitreous detachment, both eyes Vitreous degeneration documented in this encounter Historical Medications * This list may reflect changes made after this encounter. vitamin B complex/folic acid (B COMPLEX 100 ORAL) Take by mouth. ergocalciferol, vitamin D2, (VITAMIN D ORAL) Take 500 mg by mouth. amLODIPine (NORVASC) 5 mg tablet Take 5 mg by mouth daily. albuterol (VENTOLIN HFA) 90 mcg/actuation inhaler Inhale 2 Puffs as directed every 6 hours as needed for Wheezing. montelukast (SINGULAIR) 10 mg tablet Take 10 mg by mouth daily. Multivitamins with Minerals tablet tablet Take 1 Tab by mouth daily. venlafaxine HCl (EFFEXOR XR ORAL) Take 74 mg by mouth. added in this encounter Orders Case Request Count Last Ordered Date First Orde red Date CASE REQUEST OPERATING ROOM 2 12/13/2019 documented in this encounter Eye Exam Visual Acuity (Snellen - Linear) Right eye Left eye Dist cc 20/40 20/60 +2 Dist ph cc NI 20/40 -1 Correction: Glasses Tonometry (Applanation, 10:31) Right eye Left eye Pressure 13 14 A/C moderate both eyes Pupils Dark Light Shape React APD Right eye 3.5 2.5 Round Brisk None Left eye 3.5 2.5 Round Brisk None Visual [place] (Counting fingers) Right eye Left eye Full Full Extraocular Movement Right eye Left eye Full, Ortho Full, Ortho Neuro/Psych Oriented x3: Yes Mood/Affect: Normal Dilation Both eyes: Phenylephrine 2.5 %, Tropicamide 1% @ 10:32 Slit Lamp Exam Right eye Left eye Lids/Lashes Normal lesion centrally 1.3 mm V by 1.1 H with no madarosis Conjunctiva/Sclera White and quiet White and michael et Cornea No guttata No guttata Anterior Chamber Deep and quiet Deep and quiet Iris 8.0 mm pupil post dilation 8.0 m m pupil post dilation Lens 2+ Cortical cataract , 4+ Nuclear sclerosis, no pseudoexfoliation 1+ Cortical cataract, 3+ Nuclear sclerosis, no pseudoexfoliation Vitreous Posterior vitreous detachment Po sterior vitreous detachment Fundus Exam Right eye Left eye C/D Ratio 0.5 central 0.4 Macula Normal Normal Vessels Normal Normal Periphery Normal Normal Wearing Rx Sphere Cylinder [place] Add Right eye -1.50 +1.50 180 +2.50 Left eye -2.00 +2.00 180 +2.50 Manifest Refraction Sphere Cylinder [place] Dist VA Right eye -1.50 +1.50 180 20/40 Left eye -2.00 +2.00 180 20/[address] Gardner OD about three months ago Care Teams Delinquency Prevention Social Worker Relationship Specialty Start Date End Date Leonora López MD [address] [place] [address] PCP - General 09/17/19 documented as of this encounter
--- OUTSIDE RECORDS SUMMARY | 2024-10-26 15:42 | XMS_ITS | Clinical Summary ---
Author Organization [facility] Address [facility] [place] [address] Care Team Providers Care Unitizer Name Role Phone Dorothea Shannon APRN Primary Care Provider [phone] Allergies Active Allergy Reactions Criticality Noted Date Comments Celecoxib Diarrhea,Nausea Only 02/12/2022 Caused depression also Mold 04/15/2017 Promethazine-Dm Anaphylaxis High 04/15/2017 Sulfa (Sulfonamide Antibiotics) 04/15/2017 Unclassified Drug 04/15/2017 Flowering tree MS Medications Medication Sig Dispensed Refills Start Date End Date Status ALPRAZolam (XANAX) 0.5 mg Tablet nightly as needed. 0 03/29/2017 Act petra amitriptyline (ELAVIL) 25 mg Tablet take 1 to 2 tablets by mouth at bedtime 0 01/18/2017 Active amLODIPine (NORVASC) 5 mg Tablet take 1/2 tablet by mouth once daily 0 03/20/2017 Active omeprazole (PRILOSEC) 20 mg Capsule, Delayed Release(E.C.) take 1 capsule by mouth once daily 0 01/15/2017 Active venlafaxine (EFFEXOR-XR) 37.5 mg Capsule, Sust. Release 24 hr daily. 0 03/25/2017 Active propranoloL (Inderal) 10 mg Tablet Take 10 mg by mouth 2 times daily. Active multivitamin with minerals (One-A-Day) Tablet Take 1 tablet by mouth Daily. Active ibuprofen (Advil) 600 mg Tablet Take 600 mg by mouth as needed for Pain. Active acetaminophen (TYLENOL ARTHRITIS PAIN ORAL) Take by mouth as needed. Active diclofenac (Voltaren) 1 % Gel Apply 2 g topically 4 times daily as needed. 100 g 06/20/2022 Active Active Problems Problem Noted Date Diagnosed Date Myofascial pain 01/01/2023 Occipital neuralgia of left side 01/01/2023 Cervical spondylosis 03/16/2022 Encounters Date Type Department Care Team Description 09/04/2024 3:20 PM EDT Office Visit Dermatology at [facility] [address] [place] [address] Abi Steen MD [place] (actinic keratosis); Inflamed seborrheic keratosis; Verrucous keratosis 09/04/2024 Travel 08/16/2024 Transcribe Orders eDH Incoming Referrals [phone] Dorothea Shannon, ALFIE Skin lesion from Last 3 Months Immunizations Name Administration Dates Next Due Covid-19 Monovalent (Moderna Spikevax) 12yrs+ ([id number]) 04/12/2022,09/19/2021,02/21/2021, 021 Family History Medical History Relation Comments Multiple Sclerosis Daughter Back Pain Father Esophageal Cancer Father Heart Failure Mother Breast Cancer Neg Hx Relation Status Comments Daughter Alive Father Mother Social History Tobacco Use Types Packs/Day Years Used Date Smoking Tobacco: Never Smokeless Tobacco: Never Alcohol Use Standard Drinks/Week Comments No 0 (1 standard drink = 0.6 oz pur e alcohol) Sex and Gender Information Value Date Recorded Sex Assigned at Not on file Gender Identity Not on file Sexual Orientation Not on file Last Filed Vital Signs Vital Sign Reading Time Taken Comments Blood Pressure 141/72 11/02/2022 12:35 PM EST Pulse 61 11/02/2022 12:35 PM EST Temperature 6 ??C (42.8 ??F) 03/16/2022 3:00 PM EDT Respiratory Rate 15 05/09/2022 11:10 AM EDT Oxygen Saturation 100% 11/02/2022 12:35 PM EST Inhaled Oxygen Concentration - - Weight 63 kg (139 lb) 06/20/2022 10:21 AM EDT Height 157.5 cm (5' 2) 06/20/2022 10:21 AM EDT Body Mass Index 25.42 06/20/2022 10:21 AM EDT Plan of Treatment Upcoming Encounters Date Type Department Care Team (Late st Contact Info) Description 12/02/2024 11:00 AM EST Office Visit Dermatology at [address] [place] [address] Abi Steen MD [facility] [address] [place] [address] Health Maintenance Due Date Last Done Comments CT Colonography 1955 FIT DNA 1955 FIT 1955 Sigmoidoscopy 1955 Hepatitis C Screening 1971 Tetanus/Diphtheria/Pertussis Vaccines (1 - Tdap) 1972 Breast Cancer Share Decision Needed 1993 Zoster vaccine (1 of 2) 2003 Advance Directive 2008 Bone Density Scan 2018 Pneumoccocal Vaccine: 65+ (1 of 1 - PCV) 2018 Covid-19 Vaccine (5 - 2023-2 5 season) 2024 04/12/2022, 09/19/2021, 02/21/2021, Additional history exists Influenza (Flu) vaccine (1 o f 1 - Influenza standard series) 07/26/2024 Breast Cancer screening 04/15/2025 04/15/20 23, 03/16/2022, 07/09/2017, Additional history exists Colonoscopy 07/15/2027 07/15/2017, 07/15/2017 Colorectal Cancer Screening 07/15/2027 Sigmoidoscopy (10 year) with FIT yearly 07/15/2027 07/15/2017, 07/15/2017 Procedures Procedure Name Priority Date/Time Associated Diagnosis Comments MAMMO SCREENING CAD AND RONAL BILATERAL Routine 04/15/2023 8:30 AM EDT Screening mammogram for breast cancer COLONOSCOPY Routine 07/15/2017 10:13 AM EDT from Last 3 Months or Most Recently Relevant to Health Maintenance Results * Mammo Screening Cad and Ronal [...] Josemanuel Garcia III, MD Dorothea Shannon APRN [facility] MAMMO ORDERAB LES * COLONOSCOPY (07/15/2017 10:13 AM EDT) COLONOSCOPY [facility] Endoscopy Procedure Date: 07/15/2017 10:13 AM ? Patient Name: Brinda Alfred ? Date of : 1955 ? Age: 62 ? Order #: [id number] ? Instrument Name: [id number] ? Procedure: ? Colonoscopy Indications: ? Chronic diarrhea, Hematochezia; ? stable weight; not anemic; no family ? history of CRC. Providers: ? Fidencio Drew MD, Ivonne Marquez, ? Afshan Mcconnell, Liner Installer Referring : ?Leonora López MD Requesting Provider: Roseanne Cho; ENGINEERING TECH Medicines: ? Monitored Anesthesia Care Complications: ? No immediate complications. Procedure: ? The procedure, indications, benefits, ? risks and alternatives were explained ? to the patient. Specifically ? discussed were potential ? complications including, but not ? limited to, bleeding, perforation, ? infection, missing a cancer, and ? adverse medication reactions. The ? patient was placed in the left ? lateral decubitus position, and a ? digital rectal exam was performed. ? The Colonoscope was inserted in the ? anus and under direct visualization, ? advanced to the terminal ileum. ? Careful inspection was made as the ? colonoscope was withdrawn. The ? colonoscopy was performed without ? difficulty. The patient tolerated the ? procedure well. The quality of the ? bowel preparation was evaluated using ? the BBPS ([place] Bowel Preparation ? Scale) with scores of: Right Colon = ? 2, Transverse Colon = 2 and Left ? Colon = 2. The total BBPS score ? equals 6. The quality of the bowel ? preparation was good. ? Findings: ? The terminal ileum appeared normal. ? The cecum appeared normal. ? The ascending colon appeared normal. Biopsies for ? histology were taken with a cold forceps from the ? ascending colon, transverse colon, descending colon ? and sigmoid colon for evaluation of microscopic ? colitis. ? The transverse colon appeared normal. ? The descending colon appeared normal. ? The sigmoid colon appeared normal. ? Non-bleeding external hemorrhoids were found during ? perianal exam. The hemorrhoids were mild. ? Moderate Sedation: ? sedation provided by anesthesia team Impression: ?- The examined portion of the ileum ? was normal. ? - The cecum is normal. ? - The ascending colon is normal. ? Biopsied. ? - The transverse colon is normal. ? - The descending colon is normal. ? - The sigmoid colon is normal. ? - Non-bleeding external hemorrhoids. Recommendation: ?- Await pathology results. ? - Repeat colonoscopy at appointment ? to be scheduled for surveillance ? based on pathology results. ? - Return to primary care physician as ? previously scheduled. ? Procedure Code(s): ?? --- Professional --- ? 22542, Colonoscopy, flexible; with ? biopsy, single or multiple CPT copyright 2016 [employer]. All rights reserved. The codes documented in this report are preliminary and upon railroad signal and switch operator review may be revised to meet current compliance requirements. Attending Participation: ? I personally performed the entire procedure. ? Fidencio Drew MD 07/15/2017 10:46:11 AM This report has been signed electronically. Number of Addenda: 0 Note Initiated On: 07/15/2017 10:13 AM PROVATION 07/15/2017 10:1 3 AM EDT Leonora López MD GENERAL SURGICAL ORD ERABLES PROVATION from Last 3 Months or Most Recently Relevant to Health Maintenance Care Teams Unitizer Relationship Specialty Start Date End Date Dorothea Shannon APRN [address] [place], [place] [id number] PCP - General Family Medicine 03/12/22
--- OUTSIDE RECORDS SUMMARY | 2024-10-26 15:42 | XMS_ITS | Encounter Summary ---
Author Organization [facility] Address [facility] [place] [address] Care Team Providers Care Bread Room Hand Name Role Phone ShivaDorothea ALFIE Primary Care Provider [phone] Encounter Details Date Type Department Care Team (Late st Contact Info) Description 05/09/2022 10:45 AM EDT - 05/09/2022 11:45 AM EDT Surgery Pain Management [facility] [address] [place] [phone] Nuha Ryan MD [facility] [place] [address] DESTRUCT BY LYTIC AGENT, FACET NERVE(S), W/IMAGING; CX OR THX, EA ADD (WRVU 1.32) Social History Tobacco Use Types Packs/Day Years [...] Sign Reading Time Taken Comments Blood Pressure 148/75 05/09/2022 11:30 AM EDT Pulse 53 05/09/2022 10:35 AM EDT Temperature - - Respiratory Rate 05/09/2022 11:10 AM EDT Oxygen Saturation 97% 05/09/2022 11:30 AM EDT Inhaled Oxygen Concentration - - Weight 63 kg (139 lb) 05/09/2022 10:35 AM EDT Height 160 cm (5' 3) 05/09/2022 10:35 AM EDT Body Mass Index 24.62 05/09/2022 10:35 AM EDT documented in this encounter Discharge Instructions * Discharge Instructions* Liam Cash - 05/09/2022 10:54 AM EDT Pain Management Center Discharge Instructions: You were seen today by Surgeon(s): Nuha Ryan MD The following was performed: Procedure(s) (LRB): DESTRUCT BY LYTIC AGENT, FACET NERVE(S), W/IMAGING; CX OR THX, EA ADD (WRVU 1.32) (Left) DESTRUCT BY LYTIC AGNT, FACET JT NERVE(S), W/IMAGING; CX OR THX, SNGL (WRVU 3.84) (Left) It is normal that the injection [...] 20 minutes. Do not apply heat today. {X} You received medication through an intravenous line to lessen the anxiety/pain of your procedure. DO NOT operate heavy or dangerous equipment/tools, or sign important papers today. Attempt to empty your bladder 4-6 hours after your procedure. [ ] If you have diabetes, monitor your blood sugars frequently. If your blood sugar increases and is of concern, contact your Primary Care Provider. You received the following medications: Medications Given During Procedure Date/Time Order Dose Route Action 05/09/2022 1138 BUpivacaine (pf) (Marcaine) (2.5 mg/mL) 0.25% injection 2 mL Other Given 05/09/2022 1138 dexAMETHasone (PF) (Decadron) (10 mg/mL) injection 10 mg Intra- articular Given 05/09/2022 1104 fentaNYL (PF) (50 mcg/mL) injection 25 mcg Intravenous Given 05/09/2022 1137 lidocaine (pf) (Xylocaine) (10 mg/mL) 1% injection 10 mL Subcutaneous Given 05/09/2022 1136 lidocaine (pf) (Xylocaine) (20 mg/mL) 2% injection 60 mg Other Given During regular business hours, [...] or proceed to your local emergency department. Liam Cash Special instructions documented in this encounter Medications at Time of Discharge Medication Sig Dispensed Refills Start Date End Date multivitamin with minerals (One-A-Day) Tablet Take 1 [...] by mouth 3 times daily. 180 capsule 2 05/08/2022 12/14/2022 documented as of this encounter H&P Notes * Nuha Ryan MD - 05/09/2022 10:42 AM EDT Patient Name: Brinda Alfred Patient Age: 67 y.o. Birthdate: 1955 Admit date: 05/09/2022 Attending Physician: Nuha Ryan MD PREPROCEDURE HISTORY AND PHYSICAL Date of Visit: May 09, 2022 Chief Complaint: Left sided neck pain and headache HPI: Subjective Brinda Alfred is a 67 y.o. female who presents today for cervical RFA. The history is obtained from the patient, and I have reviewed medical records provided by the referring physician and located in the electronic medical record to fill in gaps in the patient's recollection of events, treatments and outcomes. LOCATION: Left sided neck pain PAIN LEVEL AT REST 5/10 PAST MEDICAL HISTORY: No past medical history on file. PAST SURGICAL HISTORY: Past Surgical History: Procedure Laterality Date ??? PRO COLONOSCOPY, BIOPSY N/A 07/15/2017 COLONOSCOPY FLEXIBLE, WITH BX (WRVU 3.66) performed by Fidencio Drew MD at [facility] ENDOSCOPY ??? PRO INJ, DIAG/THERAPEUTIC AGENT, PARAVERTEBRAL FACET JT, CERVICAL/THORACIC, SINGLE Left 03/16/2022 INJECTION, FACET JOINT,W/FLUORO, CERVICAL, SINGLE (WRVU 1.82) performed by Nuha Ryan MD at [facility] PAIN MGMT MSO ??? PRO INJ, DIAG/THERAPEUTIC AGENT, PARAVERTEBRAL FACET JT, CERVICAL/THORACIC, SINGLE Left 04/10/2022 INJECTION, FACET JOINT,W/FLUORO, CERVICAL, SINGLE (WRVU 1.82) performed by Nuha Ryan MD at [facility] PAIN MGMT MSO ??? PRO INJECTION PV FACET JOINT CERV/THORACIC SECOND LEVEL Left 03/16/2022 INJECTION, FACET JOINT,W/FLUORO, CERVICAL, SECOND (WRVU 1.16) performed by Nuha Ryan MD at [facility] PAIN MGMT MSO ??? PRO INJECTION PV FACET JOINT CERV/THORACIC SECOND LEVEL Left 04/10/2022 INJECTION, FACET JOINT,W/FLUORO, CERVICAL, SECOND (WRVU 1.16) performed by Nuha Ryan MD at [facility] PAIN MGMT MSO ALLERGIES: Phenergan dm [promethazine-dm], Celebrex [celecoxib], Mold, Sulfa (sulfonamide antibiotics), and Unable to find [unclassified drug] MEDICATIONS: No current facility-administered medications on file prior to encounter. Current Outpatient Medications on File Prior to Encounter Medication Sig Dispense Refill ??? multivitamin with minerals (One-A-Day) Tablet Take 1 tablet by mouth Daily. ??? ibuprofen (Advil) 600 mg Tablet Take 600 mg by mouth as needed for Pain. ??? acetaminophen (TYLENOL ARTHRITIS PAIN ORAL) Take by mouth as needed. ??? propranoloL (Inderal) 10 mg Tablet Take [...] Capsule, Sust. Release 24 hr daily. 0 FAMILY HISTORY: Family History Problem Relation Age [...] bladder incontinence, balance issues PHYSICAL EXAM: BP 136/70 Pulse 53 Ht 160 cm (5' 3) Wt 63 kg (139 lb) SpO2 99% BMI 24.62 kg/m?? Physical Exam Vitals reviewed. HENT: Mouth/Throat: Mouth: Mucous membranes are moist. Pulmonary: Effort: Pulmonary effort is normal. Musculoskeletal: General: Tenderness (cervical facet tenderness ) present. Skin: General: Skin is warm and [...] 1. Cervical spondylosis PLAN: - proceed with left cervical RFA with IV anxiolysis Nuha Ryan MD [employer] [facility] [address] [address] / [facility] documented in this encounter Miscellaneous Notes * Op Note - Nuha Ryan MD - 05/09/2022 11:07 AM EDT Pain Management Operative Note Patient Name: Brinda Alfred : [id number] MR#: [id number] Case Date: 05/09/2022 Surgeon: Surgeon(s) and Role: * Nuha Ryan MD - Primary Present on Admission: ??? Cervical spondylosis Postoperative diagnosis: same as above Procedure(s) (LRB): DESTRUCT BY LYTIC AGENT, FACET NERVE(S), W/IMAGING; CX OR THX, EA ADD (WRVU 1.32) (Left) DESTRUCT BY LYTIC AGNT, FACET JT NERVE(S), W/IMAGING; CX OR THX, SNGL (WRVU 3.84) (Left) PROCEDURE NOTE CERVICAL MEDIAL BRANCH RADIOFREQUENCY Date of Service: 04/16/2022 Patient: Brinda Alfred Provider: Nuha Ryan MD Brinda Alfred has been referred to the Pain Management Center for radiofrequency treatment of chronic neck pain. Ms. Alfred has had long standing neck pain which is facet joint generated and which has been refractory to other therapies. Local anesthetic medial branch blocks resulted in Ms. Alfred reporting a significant reduction of the usual axial component of pain for at least the duration of the local anesthetic effect. COMMENTS: patient responded well to left sided cervical MBB Ms. Alfred was interviewed and the medical record reviewed. There were no medical, pharmacologic,radiographic or other structural contraindications to attempting fluoroscopically guided radiofrequency treatment. Risks and potential side effects as well as potential benefits of the procedure werereviewed with Ms. Alfred, and her voiced concerns were addressed. After we obtained informed consent, the printed consent form was signed. Standard time-out procedure was performed. Ms. Alfred was placed in the prone position on the fluoroscopy table and automated blood pressurecuff and pulse oximeter applied. The skin entry points for approaching the anatomic target points of the segmental medial branches of left C3, C4 and C5 were identified with fluoroscopy and marked. Following thorough Chlorhexadine preparation of the skin and draping and 1% lidocaine infiltration ofthe skin entry points and subcutaneous tissues, a single 10 cm 18 guage curved needle with a 10mm active tip radiofrequency cannula was placed under fluoroscopic guidance along or across the anatomiccourse of each respective segmental medial branch. Each placement was stimulated at 2Hz without anyevidence of distal myotomal stimulation. At each placement a continuous mode radiofrequency treatment was done at 80 degrees C for 90 secs and then rotated 180 degrees and then repeated. This radiofrequency treatment should result in the denervation of the left C3-4 and C4-5. A total of 2 facets were expected to be denervated from today's treatment. Ms. Alfred's vital signs were stable throughout the procedure and were as recorded in the docflowsheet by the nursing staff. If given, dosages of intravenous drugs for anxiolysis and analgesia weredocumented in the Medication Administration Record (MAR). Follow up plans and appointments were discussed with Brinda Alfred. Post procedure instruction was given as documented in the nursing documentation and having met discharge criteria, she was discharged from the Pain Management Center. COMMENTS: patient received 25mcg of IV Fentanyl. I personally performed the entire procedure. Nuha Ryan MD ABPN-subspecialty board certification in Pain Medicine Attending Physician-Pain Management CC: Leonora López MD [address] [place] [id number] documented in this encounter Plan of Treatment Upcoming Encounters Date Type Department Care Team (Late st Contact Info) Description 12/02/2024 11:00 AM EST Office Visit Dermatology at [address] [address] Abi Steen MD [facility] [address] [address] documented as of this encounter Procedures Procedure Name Priority Date/Time Associated Diagnosis Comments Dstr Paravertebral Fct Jnt Nrves Cervical or Thoracic Single 05/09/2022 10:55 AM EDT Cervical spondylosis Dstr Paravertebral Fct Jnt Nrves Cervical or Thoracic Addl 05/09/2022 10:55 AM EDT Cervical spondylosis DESTRUCT BY LYTIC AGENT, FACET NERVE(S), W/IMAGING; CX OR THX, EA ADD Routine 05/09/2022 10:25 AM EDT Cervical spondylosis DESTRUCT BY LYTIC AGNT, FACET JT NERVE(S), W/IMAGING; CX OR THX, SNGL Routine 05/09/2022 10:25 AM EDT Cervical spondylosis documented in this encounter Visit Diagnoses Diagnosis Cervical spondylosis Cervical spondylosis without myelopathy Cervical spondylosis Cervical spondylosis without myelopathy documented in this encounter Administered Medications Inactive Administered Medications - up to 3 most recent administrations Medication Order MAR Action Action Date Dose Rate Site BUpivacaine (pf) (Marcaine) (2.5 mg/mL) 0.25% injection ONCE PRN, Starting on Sat05/09/22 at 1138, Until Sat05/09/22 at 1346, Intra-Operative (Intra-Procedure), Routine Given 05/09/2022 11:38 AM EDT 2 mLs dexAMETHasone (PF) (Decadron) (10 mg/mL) injection ONCE PRN, Starting on Sat05/09/22 at 1138, Until Sat05/09/22 at 1346, Intra-Operative (Intra-Procedure), Routine Given 05/09/2022 11:38 AM EDT 10 mg fentaNYL (PF) (50 mcg/mL) injection ONCE PRN, Starting on Sat05/09/22 at 1104, Until Sat05/09/22 at 1346, Intra-Operative (Intra-Procedure), Routine Given 05/09/2022 11:04 AM EDT 25 mcg lidocaine (pf) (Xylocaine) (10 mg/mL) 1% injection ONCE PRN, Starting on Sat05/09/22 at 1137, Until Sat05/09/22 at 1346, Intra-Operative (Intra-Procedure), Routine Given 05/09/2022 11:37 AM EDT 10 mLs lidocaine (pf) (Xylocaine) (20 mg/mL) 2% injection ONCE PRN, Starting on Sat05/09/22 at 1136, Until Sat05/09/22 at 1346, Intra-Operative (Intra-Procedure), Routine Given 05/09/2022 11:36 AM EDT 60 mg documented in this encounter Active and Recently Administered Medications Times are shown in EDT. PRN Medication Order 05/07/2022 05/08/2022 05/09/2022 BUpivacaine (pf) (Marcaine) (2.5 mg/mL) 0.25% injection (CANCELED) ONCE PRN, Starting on Sat05/09/22 at 1138, Until Sat05/09/22 at 1346, Intra-Operative (Intra-Procedure), Routine 1138 (Given - Provid er: Nuha Ryan MD - Comment: C RFA) dexAMETHasone (PF) (Decadron) (10 mg/mL) injection (CANCELED) ONCE PRN, Starting on Sat05/09/22 at 1138, Until Sat05/09/22 at 1346, Intra-Operative (Intra-Procedure), Routine 1138 (Given - Provid er: Nuha Ryan MD - Comment: C RFA) fentaNYL (PF) (50 mcg/mL) injection (CANCELED) ONCE PRN, Starting on Sat05/09/22 at 1104, Until Sat05/09/22 at 1346, Intra-Operative (Intra-Procedure), Routine 1104 (Given - Provid er: Hien Rodriguez RN) lidocaine (pf) (Xylocaine) (10 mg/mL) 1% injection (CANCELED) ONCE PRN, Starting on Sat05/09/22 at 1137, Until Sat05/09/22 at 1346, Intra-Operative (Intra-Procedure), Routine 1137 (Given - Provid er: Nuha Ryan MD - Comment: C RFA) lidocaine (pf) (Xylocaine) (20 mg/mL) 2% injection (CANCELED) ONCE PRN, Starting on Sat05/09/22 at 1136, Until Sat05/09/22 at 1346, Intra-Operative (Intra-Procedure), Routine 1136 (Given - Provid er: Nuha Ryan MD - Comment: C RFA) documented in this encounter Care Teams Bread Room Hand Relationship Specialty Start Date End Date Dorothea Shannon APRN [address] [place] [address] PCP - General Family Medicine 03/12/22 documented as of this encounter
--- OUTSIDE RECORDS SUMMARY | 2024-10-26 15:42 | XMS_ITS | Encounter Summary ---
Author Organization [facility] [place] [address] Care Team Providers Care Nut Process Helper Name Role Phone Dorothea Shannon SUPERINTENDENT PRESSURE Primary Care Provider [phone] Encounter Details Date Type Department Care Team (Late Contact Info) Description 07/12/2022 Telephone [place] [phone] Lisa Hawkins, RN Social History Tobacco Use [...] Telephone Encounter - Lisa Hawkins, RN - 07/12/2022 3:24 PM EDTSummary: 06/28/22 PA approval for Volteran Gel PA approval for Volteran gel good for 11/25/21 to 06/28/23. documented in this encounter Plan of Treatment Upcoming Encounters Date Type Department Care Team (Late Contact Info) Description 12/02/2024 11:00 AM EST Office Visit Dermatology at [facility] [address] [place] [address] Abi Steen MD [facility] [address] [address] documented as of this encounter Visit Diagnoses Not on filedocumented in this encounter Care Teams Nut Process Helper Relationship Specialty Start Date End Date Dorothea Shannon APRN [address] [place] [address] PCP - General Family Medicine 03/12/22 documented as of this encounter
--- OUTSIDE RECORDS SUMMARY | 2024-10-26 15:42 | XMS_ITS | Encounter Summary ---
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 [H25.811] Procedures CA XCAPSL CTRC RMVL INSJ IO LENS PROSTH W/O ECP Cataract Extraction w/Intraocular Lens Implant, Right Eye Referral ID Status Reason Start Date Expiration Date Visits Re quested Visits Authorized [id number] 1 1 Encounter Details Date Type Department Care Team ([facility] st Contact Info) Description 12/21/2019 13:50 EST - 12/21/2019 14:40 EST Surgery [facility] OR [address], [place] [id number] Christiano Hubbard MD [address] [place] [address], [address] [place] [address] Cataract Extraction w/Intraocular Lens Implant, Right Eye [46051 (CPT??)] Surgery Details Date/Time Status Location OR Service Patient Class Case Cl ass Case Type Trauma Case? 12/21/2019 1350 Posted [facility] OR [facility] H - Elective Panel 1 Procedure LRB Anes Op Region Wound Class Comments Cataract Extraction w/Intraocular Lens Implant, Right Eye Right Monitored Anesthesia Care Eye Class I/ Clean Surgeon Surgeon Role Service [...] Sign Reading Time Taken Comments Blood Pressure 152/95 12/21/2019 1440 EST Pulse - - Temperature 36.8 ??C (98.2 ??F) 12/21/2019 1440 EST Respiratory Rate 16 12/21/2019 1440 EST Oxygen Saturation 96% 12/21/2019 1440 EST Inhaled Oxygen Concentration - - Weight [...] injected into the capsular bag using a Dalton injector. Viscoelastic was removed using irrigation aspiration. [...] 12/28/2019 15:2 1 EST us Scan 2 Launch Check Out PROCEDURE/MINOR SURGICAL OR DERABLES Final Result documented in this encounter Visit Diagnoses Diagnosis Combined forms of age-related cataract of right eye- Primary Other and combined forms of senile cataract Combined forms of age-related cataract of right [...] 0.5 mL irrigation As needed, Starting on Sat12/21/19 at 1623, Until Sat12/21/19 at 1635, Routine, Intraprocedure Given 12/21/2019 16:23 EST 500 mL chondroitin-sodium hyaluronate (VISCOAT) 4-3 % (40-30 mg/mL) ophthalmic solution 1 dose, Starting on Sat12/21/19 at 1341, Until Sat12/21/19 at 1907 chondroitin-sodium hyaluronate (VISCOAT) ophthalmic solution As needed, Starting on Sat12/21/19 at 1622, Until Sat12/21/19 at 1635, Routine, Intraprocedure Given 12/21/2019 16:22 EST 1 mL cyclopentolate (CYCLOGYL) 2 % ophthalmic solution [...] at 1907, Routine, Recovery (only) lidocaine (PF) 10 mg/mL (1 %) injection As needed, Starting on Sat12/21/19 at 1620, Until Sat12/21/19 at 1635, Routine, Intraprocedure Given 12/21/2019 16:20 EST 1 mL Right Eye lidocaine (PF) 3.5 % ophthalmic gel right [...] Until Sat12/21/19 at 1907 sodium hyaluronate (HEALON) ophthalmic injection As needed, Starting on Sat12/21/19 at 1619, Until Sat12/21/19 at 1635, Routine, Intraprocedure Given 12/21/2019 16:19 EST 10 mg tropicamide (MYDRIACYL) 1 % ophthalmic solution 1 [...] Hubbard MD - Comment: BSS Part 1 [id number] BSS Part 2 [id number] epinephrine [id number]) chondroitin-sodium hyaluronate (VISCOAT) ophthalmic solution (CANCELED) As needed, Starting on Sat12/21/19 at 1622, Until Sat12/21/19 at 1635, Routine, Intraprocedure 1622 (Given - Provid er: Christiano Hubbard MD) lidocaine (PF) 10 mg/mL (1 %) injection (CANCELED) As needed, Starting on Sat12/21/19 at 1620, Until Sat12/21/19 at 1635, Routine, Intraprocedure 1620 (Given - Provid er: Christiano Hubbard MD - Comment: [id number]) lidocaine (PF) 3.5 % ophthalmic gel (CANCELED) [...] Provid er: Christiano Hubbard MD - Comment: [id number]) No Frequency Medication Order 12/19/2019 12/20/2019 12/21/2019 [...] 0.1 mg/mL syringe 0.5 mg 1 020 chondroitin-sodium hyalurona te (VISCOAT) 4-3 % (40-30 mg/mL) ophthalmic solution 1 12/21/2019 diphenhydrAMINE (BENADRYL) i njection 12.5 mg 1 12/21/2019 fentaNYL citrate (PF) injection 25-50 mcg 1 12/21/2019 lactated ringers (LR) infusion 1 12/21/2019 lidocaine (PF) 10 mg/mL (1 % ) injection 2 mg 1 12/21/2019 naloxone (NARCAN) injection 0.2 mg 1 2019 ondansetron (PF) (ZOFRAN) injection 4 mg 1 12/21/2019 sodium hyaluronate (HEALON) 10 mg/mL ophthalmic injection 1 12/21/2019 Transfer Count Last Ordered Date First Orde red Date NON-TEACHING SERVICE 1 12/21/2019 Discharge Count Last Ordered Date First Orde red Date DISCHARGE PATIENT 1 12/21/2019 documented in this encounter Care Teams Wage And Hour Investigator Relationship Specialty Start Date End Date Leonora López MD [address] [place] [address] PCP - General 09/17/19 documented as of this encounter
--- OUTSIDE RECORDS SUMMARY | 2024-10-26 15:42 | XMS_ITS | Encounter Summary ---
Author Organization [facility] [place] [address] Care Team Providers Care Manager Beauty Name Role Phone Dorothea Shannon ALFIE Primary Care Provider [phone] Encounter Details Date Type Department Care Team (Late Contact Info) Description 04/10/2022 11:15 AM EDT Ancillary [place] [phone] Nuha Ryan MD [facility] [place] [address] Social History Tobacco Use Types Packs/Day Years [...] Upcoming Encounters Date Type Department Care Team ([facility] Contact Info) Description 12/02/2024 11:00 AM EST Office Visit Dermatology at [facility] [address] [place] [address] Abi Steen MD [facility] [address] [place] [address] documented as of this encounter Procedures Procedure Name Priority Date/Time Associated Diagnosis Comments FILM LIBRARY STORAGE ONLY PAIN CLINIC C ARM Routine 04/10/2022 2:44 PM EDT documented in this encounter Results * Film Library- Storage Only pain Clinic C-Arm (04/10/2022 2:44 PM EDT) Narrative RAD - 04/10/2022 2:44 PM EDT See PACS for result report. Nuha Ryan MD IMG FILM LIBRARY ORD ERABLES [facility] [place] documented in this encounter Visit Diagnoses Not on filedocumented in this encounter Care Teams Manager Beauty Relationship Specialty Start Date End Date Dorothea Shannon, TUBE WORKER [address] [place] [address] PCP - General Family Medicine 03/12/22 documented as of this encounter
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
--- OUTSIDE RECORDS SUMMARY | 2024-10-26 15:42 | XMS_ITS | Encounter Summary ---
Author Organization [facility] [place] [address] Care Team Providers Care Magento Developer Name Role Phone Dorothea Shannon ALFIE Primary Care Provider [phone] Encounter Details Date Type Department Care Team (Late Contact Info) Description 10/01/2022 Telephone [place] [phone] Hien Rodriguez RN Social History Tobacco Use Types Packs/Day [...] encounter Miscellaneous Notes * Telephone Encounter - Hien Rodriguez RN - 10/01/2022 1:33 PM EST Outgoing call to Brinda in response to left on manufacturing support engineer line stating that she is experiencing an increase in her pain symptoms. I was unable to reach Brinda at this time and a VM was left requesting patient to call back and also encouraged her to schedule a follow up visit with Dr. Quintero as she was last seen in office in May of 2022. Provided scheduling number in . documented in this encounter Plan of Treatment Upcoming Encounters Date Type Department Care Team (Late Contact Info) Description 12/02/2024 11:00 AM EST Office Visit Dermatology at [facility] [address] [place] [address] Abi Steen MD [facility] [address] [place] [address] documented as of this encounter Visit Diagnoses Not on filedocumented in this encounter Care Teams Magento Developer Relationship Specialty Start Date End Date Dorothea Shannon APRN [address] [place] [address] PCP - General Family Medicine 03/12/22 documented as of this encounter
--- OUTSIDE RECORDS SUMMARY | 2024-10-26 15:42 | XMS_ITS | Encounter Summary ---
Author Organization [facility] Address [place] [address] Care Team Providers Care Exec. Creative Director Name Role Phone Dorothea Shannon APRN Primary Care Provider [phone] Encounter Details Date Type Department Care Team (Latest Contact Info) Description 03/21/2022 12:48 PM EDT - 03/21/2022 11:59 PM EDT Hospital En[place] [address] Sophie Souza MD [facility] [place] [address] Abnormal finding on breast imaging Discharge Disposition: Home Social History Tobacco Use [...] times daily. 180 capsule 1 03/01/2022 05/08/2022 montelukast (Singulair) 10 mg Tablet Take 10 mg by mouth nightly. 04/10/2022 atorvastatin (LIPITOR) 10 mg Tablet 0 03/01/2017 04/10/2022 dicyclomine (BENTYL) 10 mg Capsule Take 1 capsule by mouth 3 times daily. 90 capsule 3 04/15/2017 04/10/2022 documented as of this encounter Plan of Treatment Upcoming Encounters Date Type Department Care Team (Late st Contact Info) Description 12/02/2024 11:00 AM EST Office Visit Dermatology at [facility] [address] [place] [address] Abi Steen MD [facility] [address] [place] [address] documented as of this encounter Procedures Procedure Name Priority Date/Time Associated Diagnosis Comments MAMMO CALL BACK DIAGNOSTIC RONAL WITHOUT CAD RIGHT Routine 03/21/2022 1:06 PM EDT Abnormal finding on breast imaging documented in this encounter Results * Mammo Call Back Diagnostic Ronal Without Cad Right (03/21/2022 1:06 PM EDT) Anatomical Region Laterality Modality Breast Right Mammography Impressions 03/21/2022 1:18 PM EDT No mammographic evidence of malignancy. Recommendation: Routine annual screening BI-RADS Category 1: Negative * ??Regular screening mammograms starting between age 40 and 50 reduces the risk of from breast cancer. * ??All screening tests have both risks and benefits. These risks and benefits should be assessed for each individual patient through discussion with their provider to determine their preferred breast cancer screening schedule. * ??Women should report any breast changes to a health care provider right away. * ??Some women, because of their family history, a genetic tendency, or other factors, should be screened with annual breast MRI as well as with mammograms. (The number of women who fall into this category is very small). Patients and health care providers should discuss each patients history to decide if earlier screening and/or breast MRI are appropriate. * ??Screening should continue as long as a woman is in good health and is expected to live 10 years or longer. * ??Screening mammography may not detect 10-15% of breast cancers. Rec Thank you for letting us participate in the care of this patient. ??If you are a health care provider and have any questions regarding this report, please contact the number below. ??For patients who have questions please contact the health animal caretaker supervisor that requested your imaging first. ? Electronically signed by: Yanira Jeffries MD, [facility] ([phone]), at 03/21/2022 1:18 PM Narrative 03/21/2022 1:18 PM EDT EXAMINATION: MAMMO CALL BACK DIAGNOSTIC RONAL WITHOUT CAD RIGHT CLINICAL HISTORY: Abnormal finding on breast imaging TECHNIQUE: True lateral, spot compression CC and spot compression MLO views were obtained of the right breast. 2-D direct digital capture, 3-D tomosynthesis and computer aided detection (CAD) were used.. COMPARISON: 03/16/2022 FINDINGS: There are no suspicious masses, suspicious microcalcifications, or areas of architectural distortion. Specifically the questioned asymmetry effaces consistent with normal overlapping fibroglandular elements. Sophie Souza MD IMG MAMMO ORD ERABLES documented in this encounter Visit Diagnoses Diagnosis Abnormal finding on breast imaging Other (abnormal) findings on radiological examination of breast documented in this encounter Care Teams Exec. Creative Director Relationship Specialty Start Date End Date Dorothea Shannon APRN [address] [place] [address] PCP - General Family Medicine 03/12/22 documented as of this encounter
--- OUTSIDE RECORDS SUMMARY | 2024-10-26 15:42 | XMS_ITS | Encounter Summary ---
Author Organization [facility] [place] [address] [place] [address] Care Team Providers Care Erp Consultant Name Role Phone Dorothea Shannon ALFIE Primary Care Provider [phone] Encounter Details Date Type Department Care Team (Late Contact Info) Description 05/09/2022 10:45 AM EDT Ancillary [place] [id number] Nuha Ryan MD [facility] [place] [address] Social History Tobacco Use Types Packs/Day Years [...] AM EST Office Visit Dermatology at [facility] [address] [place] [address] Abi Steen MD [facility] [address] [place] [address] documented as of this encounter Procedures Procedure Name Priority Date/Time Associated Diagnosis Comments FILM LIBRARY STORAGE ONLY PAIN CLINIC C ARM Routine 05/09/2022 2:31 PM EDT documented in this encounter Results * Film Library- Storage Only pain Clinic C-Arm (05/09/2022 2:31 PM EDT) Narrative RAD - 05/09/2022 2:31 PM EDT See PACS for result report. Nuha Ryan MD IMG FILM LIBRARY ORD ERABLES [place], [place] documented in this encounter Visit Diagnoses Not on filedocumented in this encounter Care Teams Erp Consultant Relationship Specialty Start Date End Date Dorothea Shannon, SCRAPE GATHERER [address] [place] [address] PCP - General Family Medicine 03/12/22 documented as of this encounter
--- OUTSIDE RECORDS SUMMARY | 2024-10-26 15:42 | XMS_ITS | Encounter Summary ---
Author Organization [facility] [place] [address] Care Team Providers Care Import Specialist Name Role Phone Stephanie Shannonyn Karyna JUDGE Primary Care Provider [phone] Encounter Details Date Type Department Care Team ([facility] st Contact Info) Description 05/04/2022 Telephone Pain and Spine Center at [facility] [place] [address] Erika Spencer, RN Social History Tobacco Use Types Packs/Day [...] encounter Miscellaneous Notes * Telephone Encounter - Erika Spencer, RN - 05/04/2022 9:22 AM EDT Contact made with patient or energy conservation representative as identified in contacts 1. Patient instructed to arrive at 10:15 on 05/09/22 with their set key driver for their cervical RFA procedure. Please plan to spend about 2 hours at the center. (3 hours for RFA) 2. Has pt started any new medications or supplements in the past two weeks? No 3. Have any of the following occurred within the two weeks before the procedure date? a. Patient is having a Covid vaccine or other vaccine No b. Patient has been exposed to anybody with a contagious illness such as Covid, flu, No c. Patient is taking antibiotics to treat an infection No d. Patient has any skin rashes, breakdown, blisters or open wounds No e. Patient has had any hospitalizations, ED visits, surgery, other procedure, dental procedure No f. Patient has taken oral steroids or had a steroid injection No g. Does patient have any of the following symptoms that are NEW and NOT explained by another healthcondition: fever or chills, cough, shortness of breath or difficulty breathing, fatigue, muscle or body aches, headache, new loss of taste or smell, sore throat, congestion or runny nose, nausea or vo miting, diarrhea. No If yes, the patient has been directed to the [employer] hotline for testing prior to their procedure. (route telephone note to: [facility] covid 19 nurse triage with routing comment stating pt needs covid test prior to procedure and give date of procedure, add name and MRN to tracking tool). h. Has the patient's pain resolved or significantly improved such as a rating of 3/10 or less? No 4. Was patient instructed to stop any medications? Yes if yes: a. Name of medication(s): IBU 05/08/22, MVI 05/02/22 b. Confirm date of last dose: 5. Is patient having a nerve block: No a. If yes instructed to not take any pain medication for 12 hours before your procedure. 6. Patient instructed to take any prescribed medications that they were not told to stop, especially blood pressure medication, because their procedure may be cancelled if their blood pressure is toohigh. 7. Was patient instructed to follow NPO guidelines: Yes if yes, the following instructions were reviewed: a. You may eat up to 6 hours before your procedure b. You may have clear liquids only up to 2 hours before your procedure: water, apple juice, spenser leatha, sprite, popsicles, broth, tea or coffee plain or with sweetener, absolutely no dairy products, no milk including soy, oat, almond. 8. IF RFA: Does patient have a pacemaker? No a. If yes, document that cardiology was called and notified. 9. Additional notes if applicable: Patient expressed understanding and agreement with instructions Yes Patient denies further questions Yes documented in this encounter Plan of Treatment Upcoming Encounters Date Type Department Care Team (Late st Contact Info) Description 12/02/2024 11:00 AM EST Office Visit Dermatology at [address] [place] [address] Abi Steen MD [facility] [address] [place] [address] documented as of this encounter Visit Diagnoses Not on filedocumented in this encounter Care Teams Import Specialist Relationship Specialty Start Date End Date Dorothea Shannon APRN [address] [place] [address] PCP - General Family Medicine 03/12/22 documented as of this encounter
--- OUTSIDE RECORDS SUMMARY | 2024-10-26 15:42 | XMS_ITS | Encounter Summary ---
Author Organization [facility] [place] [address] Care Team Providers Care Resource Paraprofessional Name Role Phone Dorothea Shannon APRN Primary Care Provider [phone] Encounter Details Date Type Department Care Team ([facility] st Contact Info) Description 04/05/2022 Telephone Pain and Spine Center at [facility] [place] [address] Robyn Bae, RN Social History Tobacco Use Types Packs/Day [...] encounter Miscellaneous Notes * Telephone Encounter - Robyn Bae, RN - 04/05/2022 1:15 PM EDT Contact made with patient or field sales representative as identified in contacts 1. Patient instructed to arrive at 1045 on 04/10/22 with their star route mail driver for their CMBB procedure. Please plan to spend about 2 [...] the patient has been directed to the [employer] hotline for testing prior to their procedure. (route telephone note to: [facility] covid 19 nurse triage with routing comment stating pt needs covid test prior to procedure and give date of procedure, add name and MRN to tracking tool). h. Has the patient's pain resolved or significantly improved such as a rating of 3/10 or less? No 4. Was patient instructed to stop any medications? No if yes: a. Name of medication(s): b. Confirm date of last dose: 5. Is patient having a nerve block: Yes a. If yes instructed to not take any pain medication for 12 hours before your procedure. 6. Patient instructed to take any prescribed medications that they were not told to stop, especially blood pressure medication, because their procedure may be cancelled if their blood pressure is toohigh. 7. Was patient instructed to follow NPO guidelines: No if yes, the following instructions were reviewed: [...] Visit Dermatology at [facility] [address] [place] [address] Abi Steen MD [facility] [address] [place] [address] documented as of this encounter Visit Diagnoses Not on filedocumented in this encounter Care Teams Resource Paraprofessional Relationship Specialty Start Date End Date Dorothea Shannon APRN [address] [place] [address] PCP - General Family Medicine 03/12/22 documented as of this encounter
--- OUTSIDE RECORDS SUMMARY | 2024-10-26 15:42 | XMS_ITS | Encounter Summary ---
Author Organization [facility] [place] [address] Care Team Providers Care Stripper Opaquer Name Role Phone Shiva Dorotheashira Troncoso APRN Primary Care Provider [phone] Encounter Details Date Type Department Care Team (Late st Contact Info) Description 04/10/2022 11:15 AM EDT - 04/10/2022 11:45 AM EDT Surgery Pain [place] [phone] Nuha Ryan MD [facility] [place] [address] INJECTION, FACET JOINT,W/FLUORO, CERVICAL, SECOND (WRVU 1.16) Social History Tobacco Use Types Packs/Day Years [...] Post -Procedure Pain Log Patient: Brinda Alfred [id number] It is important for you to keep [...] 3.66) performed by Fidencio Drew MD at [facility] ENDOSCOPY ??? PRO INJ, DIAG/THERAPEUTIC AGENT, PARAVERTEBRAL FACET JT, CERVICAL/THORACIC, SINGLE Left 03/16/2022 INJECTION, FACET JOINT,W/FLUORO, CERVICAL, SINGLE (WRVU 1.82) performed by Nuha Ryan MD at [facility] PAIN MGMT MSO ??? PRO INJECTION PV FACET JOINT CERV/THORACIC SECOND LEVEL Left 03/16/2022 INJECTION, FACET JOINT,W/FLUORO, CERVICAL, SECOND (WRVU 1.16) performed by Nuha Ryan MD at [facility] PAIN MGMT MSO ALLERGIES: Phenergan dm [...] C3, C4, C5 MBB Nuha Ryan MD Management Planner of Anesthesiology [facility] [address] [address] [facility] documented in this encounter Miscellaneous Notes * Op Note - Nuha Ryan MD - 04/10/2022 11:21 AM EDT Pain Management Operative Note Patient Name: Brinda Alfred : [id number] MR#: [id number] Case Date: 04/10/2022 Surgeon: Surgeon(s) and Role: [...] CC: Dorothea Shannon APRN [address] [place] [address] documented in this encounter Plan of Treatment Upcoming Encounters Date Type Department Care Team (Late st Contact Info) Description 12/02/2024 11:00 AM EST Office Visit Dermatology at [facility] [address] [place] [address] Abi Steen MD [facility] [place] [address] documented as of this encounter Procedures Procedure Name Priority Date/Time Associated Diagnosis Comments Inj, Diag/Therapeutic Agent, Paravertebral Facet Jt, Cervical/Thoracic, Single (21866) 04/10/2022 11:14 AM EDT Cervical spondylosis Injection Pv Facet Joint Cerv/Thoracic Second Level (27110) 04/10/2022 11:14 AM EDT Cervical spondylosis INJECTION, [...] MAR Action Action Date Dose Rate Site lidocaine (pf) (Xylocaine) (20 mg/mL) 2% injection ONCE PRN, Starting on Sat04/10/22 at 1132, Until Sat04/10/22 at 1339, Intra-Operative (Intra-Procedure), Routine Given 04/10/2022 11:32 AM EDT 1.5 mg documented in this encounter Active and Recently Administered Medications Times are shown in EDT. PRN Medication Order 04/08/2022 04/09/2022 04/10/2022 lidocaine (pf) (Xylocaine) (20 mg/mL) 2% injection (CANCELED) ONCE PRN, Starting on 04/10/22 at 1132, Until Sat04/10/22 at 1339, Intra-Operative (Intra-Procedure), Routine 1132 (Given - Provid er: Nuha Ryan MD) documented in this encounter Care Teams Stripper Opaquer Relationship Specialty Start Date End Date Dorothea Shannon APRN [address] [place] [address] PCP - General Family Medicine 03/12/22 documented as of this encounter
--- OUTSIDE RECORDS SUMMARY | 2024-10-26 15:42 | XMS_ITS | Encounter Summary ---
Author Organization [facility] Address [facility] [place] [address] Care Team Providers Care Board Machine Set Up Operator Name Role Phone Dorothea Shannon APRN Primary Care Provider [phone] Reason for Visit * Consultation (Routine) - Closed Specialty Diagnoses / Procedures Referred By Geoffrey dill Referred To Contact Dermatology Diagnoses Skin lesion SKIN LESION Dorothea Shannon APRN [address] [place] [address] [facility] Dermatology [address] [place] [address] Referral ID Status Reason Start Date Expiration Date V isits Requested Visits Authorized [id number] Closed Consult, Test & Treat PCP Updated and/or Approved 07/28/2024 07/28/2025 1 1 Encounter Details Date Type Department Care Team ([facility] Contact Info) Description 09/04/2024 3:20 PM EDT Office Visit Dermatology at [facility] [address] [place] [address] Abi Steen MD [facility] [address] [address] [place] (actinic keratosis); Inflamed seborrheic keratosis; Verrucous keratosis Social History Tobacco Use Types Packs/Day Years Used Date Smoking Tobacco: Never Smokeless Tobacco: Never Alcohol Use Standard Drinks/Week Comments No 0 (1 standard drink = 0.6 oz pur e alcohol) Sex and Gender Information Value Date Recorded Sex Assigned at Not on file Gender Identity Not on file Sexual Orientation Not on file documented as of this encounter Progress Notes * Abi Steen MD - 09/04/2024 3:20 PM EDT Images from the original note were not included. DEPARTMENT OF DERMATOLOGY Medical Dermatology Clinic Note Provider: [facility] Patient's preferred name Brinda Preferred contact method for results []Phone [x]myD-H []Letter Detailed phone message OK? Y Are there any other people with whom we may discuss your care? Connor Alfred (spouse) Past Medical History Date, location, treatment Melanoma N Dysplastic nevi N SCC N BCC N AKs ? 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 Patient is referred to the clinic at the request of Dorothea Shannon for lesion on the chest. She notes that it has been present for about a year. She notes that it is itchy. Review of Systems: General: Feeling well. Skin: No other skin concerns. Medications: Reviewed in eD-H Allergies: Reviewed in eD-H Skin Examination: Focused skin examination of the face and chest was normal with the exception of the findings below. Assessment/Plan #. Actinic Keratosis - Ill-defined gritty papule on the right nasal sidewall x1. - Explained premalignant potential of these lesions. - Discussed treatment with cryotherapy. Patient elects to proceed with cryotherapy today. - Instructed patient to return to clinic for re-evaluation if lesion(s) does not resolve as expected with this treatment. Procedure: Destruction of lesion(s) with cryotherapy (LN2). Location(s): As noted above. Number: 1 Discussed procedure and expectations, including risks and benefits. Verbal consent obtained. Treated with LN2. There were no complications; Patient tolerated the procedure well. Post-procedure expectations and wound care reviewed. .Inflamed Seborrheic Keratosis - Inflamed, stuck on, waxy papule on the chest. - Discussed benign nature of lesion(s) and provided reassurance. - Due to irritation present on today's exam and history of symptoms, discussed removal with cryotherapy. - Patient elects to proceed with cryotherapy today. Procedure: Destruction of lesion(s) with cryotherapy (LN2). Location(s): As noted above Number: 1 Discussed procedure and expectations including risks and benefits. Verbal consent obtained. Treatedwith LN2. There were no complications; Patient tolerated the procedure well. Post-procedure expectations and wound care were reviewed. #. Verrucous Keratosis - Verrucous, stuck-on papule on the chest. - Discussed that we can treat with cryotherapy at this time. Patient elects to proceed with cryotherapy today. Procedure: Destruction of lesion(s) with cryotherapy (LN2). Location(s): As noted above Number: 1 Discussed procedure and expectations including risks and benefits. Verbal consent obtained. Treatedwith LN2. There were no complications; Patient tolerated the procedure well. Post-procedure expectations and wound care were reviewed. Figure 1 Photo(s) taken and charted with patient's verbal consent. Other: N/A RTC: Scheduled for full skin exam []Note routed to certified legal secretary specialist []Recall placed in scheduling system []Appointment scheduled at checkout Scribe attestation: Abi Steen MD has performed the documentation for this encounter in the presence of and acting as a scribe for Abi Steen MD. I performed the above scribed service and agree with the accuracy of the documentation in this encounter. Reviewed and signed by: [facility] Dermatology [facility] Patient seen and evaluated with staff broadcast supervisor: Fidencio Mauricio MD Department of Dermatology [facility] * Fidencio Mauricio MD - 09/04/2024 3:20 PM EDT I directly supervised Abi tSeen MD in the care of this Dermatology patient in person. I saw and evaluated this patient with Abi Steen MD. Abi Steen MD presented the history and physical exam details to me, then we saw the patient together, and I confirmed these findings. I agree with details as written. My physical examination confirms Abi Steen MD's findings. The assessment and plan were formulated in discussion with me at the time of visit, and I agree with them as documented. Fidencio Mauricio MD Staff Principal Security Architect Department of Dermatology [facility] documented in this encounter Plan of Treatment Upcoming Encounters Date Type Department Care Team (Late st Contact Info) Description 12/02/2024 11:00 AM EST Office Visit Dermatology at [place] [address] [place] [address] Abi Steen MD [facility] [address] Scheduled Referrals Name Type Priority Associated Diagnoses Order Schedule Referral to Dermatology Outpatient Referral Routine Skin lesion Ordered: 08/16/2024 documented as of this encounter Visit Diagnoses Diagnosis AK (actinic keratosis) Actinic keratosis Inflamed seborrheic keratosis Verrucous keratosis Other specified dermatoses documented in this encounter Care Teams Board Machine Set Up Operator Relationship Specialty Start Date End Date Dorothea Shannon APRN [address] [place] [address] PCP - General Family Medicine 03/12/22 documented as of this encounter
--- OUTSIDE RECORDS SUMMARY | 2024-10-26 15:42 | XMS_ITS | Encounter Summary ---
Author Organization [facility] Address [address] [place] [address] Care Team Providers Care Chief Service Dispatcher Name Role Phone Leonora López MD Primary Care Provider [phone] Reason for Visit * Reason Onset Date Comments Medications Refill 12/14/2019 Encounter Details Date Type Department Care Team ([facility] st Contact Info) Description 12/14/2019 Refill [facility] Ophthalmology - [address] [phone] Christiano Hubbard MD [address] [place] [address], [address] [place] [address] Medications Refill Social History Tobacco Use Types Packs/Day Years [...] month after surgery. 1 Bottle 3 12/21/2019 0 moxifloxacin (VIGAMOX) 0.5 % ophthalmic solution Place 1 Drop into the right eye 4 times daily for 13 days. Use for 3 days before surgery and 10 days after 1 Bottle 3 12/18/2019 0 ketOROLAC (ACULAR) 0.5 % ophthalmic solution Place 1 Drop into the right eye 4 times daily for 34 days. Use for 3 days before surgery and one month after 1 Bottle 3 12/18/2019 0 documented in this encounter Miscellaneous Notes * Telephone Encounter - RupeshJoni daileyl - 12/14/2019 1003 EST CEIOL with SMP. Right - 1.27.20, Left 2.10.20. Patient has printed rx's in the chart however she needs to start taking Rx drops this Saturday and may not receive the scripts in time. Please send to [facility] in [facility]. No DM. documented in this encounter Plan of Treatment Not on file documented as of this encounter Visit Diagnoses Not on filedocumented in this encounter Discontinued Medications Medication Sig Discontinue Reason Start Date End Da te ketOROLAC (ACULAR) 0.5 % ophthalmic solution Place 1 Drop into the right eye 4 times daily. Use for 3 days before surgery and one month after Reorder 12/13/2019 12/14/2019 moxifloxacin (VIGAMOX) 0.5 % ophthalmic solution Place 1 Drop into the right eye 4 times daily. Use for 3 days before surgery and 10 days after Reorder 12/13/2019 12/14/2019 prednisoLONE (PRED FORTE) 1 % ophthalmic suspension Place 1 Drop into the right eye 4 times daily. Use for one month after surgery. Reorder 12/13/2019 12/14/2019 documented as of this encounter Care Teams Chief Service Dispatcher Relationship Specialty Start Date End Date Leonora López MD [address] [place] [address] PCP - General 09/17/19 documented as of this encounter
--- OUTSIDE RECORDS SUMMARY | 2024-10-26 15:42 | XMS_ITS | Encounter Summary ---
Author Organization [facility] Address [facility] [place] [address] Care Team Providers Care Vaccinator Name Role Phone Dorothea Shannon APRN Primary Care Provider [phone] Encounter Details Date Type Department Care Team (Latest Contact Info) Description 09/04/2024 Travel Social History Tobacco Use Types Packs/Day [...] 11:00 AM EST Office Visit Dermatology at [facility] [address] [place] [address] Abi Steen MD [facility] [address] [address] documented as of this encounter Visit Diagnoses Not on filedocumented in this encounter Care Teams Vaccinator Relationship Specialty Start Date End Date Dorothea Shannon APRN [address] [place] [address] PCP - General Family Medicine 03/12/22 documented as of this encounter
--- OUTSIDE RECORDS SUMMARY | 2024-10-26 15:42 | XMS_ITS | Encounter Summary ---
Author Organization [facility] Address [address] [place] [address] Care Team Providers Care Software Client Architect Name Role Phone Unavailable Primary Care Provider Unavailabl e Encounter Details Date Type Department Care Team ([facility] st Contact Info) Description 12/08/2001 Results Only [facility] [address] [place] [address] Easton Cristina FNP [address] [place] [address] Social History Tobacco Use Types Packs/Day Years Used Date Smoking Tobacco: Never Assessed Comments Unknown Sex and Gender Information Value Date Recorded Sex Assigned at Not on file Legal Sex Female 18:28 EST Gender Identity Female 12/15/2019 16:32 EST Sexual Orientation Not on file documented as of this encounter Plan of Treatment Not on file documented as of this encounter Procedures Procedure Name Priority Date/Time Associated Diagnosis Comments CYTOPATHOLOGY Routine 12/08/2001 0:00 EST documented in this encounter Results * CYTOPATHOLOGY (12/08/2001 0:00 EST) Pathology Report: CYTOPATHOLOGY REPORT Reports generated via electronic interface contain original data; however they are lacking the format of the original report. Caution should be taken when reading/interpreti ng unformatted reports. Name: ? BRINDA DANIELS ? Accession #: ? [id number] : ? 1955 (Age: 46) ??F ?Collect Date: ? 12/08/2001 Location: ? [facility] ? Receive Date: ? 12/11/2001 Provider: ?EASTON CRISTINA CHECK OUT CASHIER Copy to: ? Specimen/Source: ?Conventional Pap Test, Vagina Last Menstrual Period: ? Many years ago. Treatment History: ? Hysterectomy: secondary fibroids ? SPECIMEN ADEQUACY ? Satisfactory for Evaluation - transformation zone component present - scant squamous epithelial component GENERAL CATEGORIZATION ? Negative for Intraepithelial Lesion or Malignancy ? Document reviewed and electronically signed by: ? Aviva Tripp, SCT(ASCP) ? Report Date: ??12/11/2001 15:27 End of Report CHELSEY WADE 12/08/2001 12/11/2001 us Easton Cristina CHECK OUT CASHIER PATHOLOGY ORDERABLES Final Resul t CHELSEY WADE [address] [place] [address] documented in this encounter Visit Diagnoses Not on filedocumented in this encounter
--- OUTSIDE RECORDS SUMMARY | 2024-10-26 15:42 | XMS_ITS | Encounter Summary ---
Author Organization [facility] [place] [address] Care Team Providers Care Credit Operations Processor Name Role Phone Dorothea Shannon APRN Primary Care Provider [phone] Encounter Details Date Type Department Care Team (Late Contact Info) Description 03/19/2022 Orders Only [facility] [place] [address] Nuha Ryan MD [facility] [place] [address] Cervical spondylosis (Primary Dx) Social History Tobacco Use Types Packs/Day Years [...] AM EST Office Visit Dermatology at [facility] [address] [place] [address] Abi Steen MD [facility] [address] [place] [address] documented as of this encounter Visit Diagnoses Diagnosis Cervical spondylosis- Primary Cervical spondylosis without myelopathy documented in this encounter Care Teams Credit Operations Processor Relationship Specialty Start Date End Date Dorothea Shannon APRN [address] [place] [address] PCP - General Family Medicine 03/12/22 documented as of this encounter
--- OUTSIDE RECORDS SUMMARY | 2024-10-26 15:42 | XMS_ITS | Encounter Summary ---
Author Organization [facility] [place] [address] Care Team Providers Care Furs Salesperson Name Role Phone Shiva Dorothea Troncoso ALFIE Primary Care Provider [phone] Encounter Details Date Type Department Care Team (Late st Contact Info) Description 04/25/2022 Telephone [facility] [place] [address] Mare Melendrez RN Social History Tobacco Use Types Packs/Day [...] encounter Miscellaneous Notes * Telephone Encounter - Mare Melendrez, RN - 04/25/2022 9:17 AM EDT Incoming call from Brinda wanting to know if she needs to keep her f/u office with Dr. Ryan on 04/30/22 when she has an RFA scheduled for 05/09/22. If I don't have to have it I would really like to cancel it rather than drive all the way there. 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 I want to be available. If I do have to see her, is there any way to change it to a phone call. I let Brinda know I wasn't sure why she was scheduled for an office visit on 04/30/22 to f/u her CMBB, when the CRFA is already booked. I informed her I would send a message to Dr. Ryan to see if the 04/30/[address] and if so can it be done via telephone. I told Brinda I would william her back as soon as I heard from Dr. Ryan. Brinda verbalized understanding and thanks. Shakira, RN documented in this encounter Plan of Treatment Upcoming Encounters Date Type Department Care Team (Late st Contact Info) Description 12/02/2024 11:00 AM EST Office Visit Dermatology at [facility] [address] [place] [address] Abi Steen MD [facility] [address] [place] [address] documented as of this encounter Visit Diagnoses Not on filedocumented in this encounter Care Teams Furs Salesperson Relationship Specialty Start Date End Date Dorothea Shannon, CHIEF OF PEDIATRIC UROLOGY [address] [place] [address] PCP - General Family Medicine 03/12/22 documented as of this encounter
--- OUTSIDE RECORDS SUMMARY | 2024-10-26 15:42 | XMS_ITS | Encounter Summary ---
Author Organization [facility] Address [facility] [place] [address] Care Team Providers Care Banjo Repairer Name Role Phone Dorothea Shannon APRN Primary Care Provider [phone] Reason for Referral * Physical Therapy (Routine) - Closed Specialty Diagnoses / Procedures Referred By Geoffrey dill Referred To Contact Diagnoses Myofascial pain Cervical spondylosis Jv Quintero MD [facility] [place] [address] Unknown None Referral ID Status Reason Start Date Expiration Date V isits Requested Visits Authorized [id number] Closed Evaluate and Treat 06/20/2022 12/17/2022 12 12 Reason for Visit * Reason Comments Follow-up S/P RFA Encounter Details Date Type Department Care Team (Late st Contact Info) Description 06/20/2022 10:30 AM EDT Office Visit [place] [address] Jv Quintero MD [facility] [place] [address] Chronic pain syndrome; Myofascial pain; Cervical spondylosis Social History Tobacco Use Types [...] Sign Reading Time Taken Comments Blood Pressure 152/68 06/20/2022 10:21 AM EDT Pulse 53 06/20/2022 10:21 AM EDT Temperature - - Respiratory Rate - - Oxygen Saturation 100% 06/20/2022 10:21 AM EDT Inhaled Oxygen Concentration - - Weight 63 kg (139 lb) 06/20/2022 10:21 AM EDT Height 157.5 cm (5' 2) 06/20/2022 10:21 AM EDT Body Mass Index 25.42 06/20/2022 10:21 AM EDT documented in this encounter Progress Notes * Jv Quintero MD - 06/20/2022 10:30 AM EDT [facility] consultation note DOS: 06/19/22 : 1955 Brinda Alfred is a 67 y.o. year old female with a PMH including hypertension, anxiety/depression, status post bilateral hip replacement, chronic migraine, irritable bowel syndrome, chronic neck pain,and new onset back pain with RLE pain who returns to clinic to discuss neck injection and discuss her back pain CC: Neck pain Interval history: Patient was last seen in the clinic by Dr. Ryan on 02/26/2022. Since her last visit, patient reports: -She is here to establish care with me today. - Patient states that her neck pain problems started insidiously 10 years ago and worsened gradually. - Patient underwent left C3, C4 and C5 medial branch radiofrequency ablation procedures on 05/09/2022 which have provided her 80% pain relief. - Patient states that her neck pain problems are manageable at this point. - Patient states that she has noticed some right neck and shoulder blade pain problems which are not bothersome since her left-sided pain has improved now. - She last trialed physical therapy in August 2021 which was beneficial. - stopped gabapentin due to side effect of dizziness - No other acute events or new medical problems since last visit HPI: Brinda Alfred is accompanied by her today. She report insidious onset of neck pain with intermittent radiation down left upper extremity about 5-6 years ago. She completed a course of PT withNic Webb in [facility] which resolved most of her left upper [...] Numbness/Tingling - left arm tingling Pain score: 0/10 Alleviating factors: gabapentin improves her tingling down the left arm Aggravating factors: turning her neck, driving, painting Current pain regimen: Tylenol arthritis Ibuprofen Prior Treatments/Medications (Per prior notes and patient): [...] Modalities: Surgery: bilateral hip replacement Injections: hip injections Chiropractic: denies Acupuncture: denies ROS: Constitutional: No unintentional weight loss or gain, fevers, chills, or night sweats. HENT: No recent hearing changes. No difficulty [...] 3.66) performed by Fidencio Drew MD at [facility] ENDOSCOPY ??? PRO DSTR PARAVERTEBRAL FCT JNT NRVES CERVICAL OR THORACIC ADDL Left 05/09/2022 DESTRUCT BY LYTIC AGENT, FACET NERVE(S), W/IMAGING; CX OR THX, EA ADD (WRVU 1.32) performed by Nuha Ryan MD at [facility] PAIN MGMT MSO ??? PRO DSTR PARAVERTEBRAL FCT JNT NRVES CERVICAL OR THORACIC SINGLE Left 05/09/2022 DESTRUCT BY LYTIC AGNT, FACET JT NERVE(S), W/IMAGING; CX OR THX, SNGL (WRVU 3.84) performed by Nuha Ryan MD at [facility] PAIN MGMT MSO ??? PRO INJ, DIAG/THERAPEUTIC AGENT, PARAVERTEBRAL FACET JT, CERVICAL/THORACIC, SINGLE Left 03/16/2022 INJECTION, FACET JOINT,W/FLUORO, CERVICAL, SINGLE (WRVU 1.82) performed by Nuha Ryan MD at [facility] PAIN MGMT MSO ??? PRO INJ, DIAG/THERAPEUTIC AGENT, PARAVERTEBRAL FACET JT, CERVICAL/THORACIC, SINGLE Left 04/10/2022 INJECTION, FACET JOINT,W/FLUORO, CERVICAL, SINGLE (WRVU 1.82) performed by Nuha Ryan MD at [facility] PAIN MGMT MSO ??? PRO INJECTION PV FACET JOINT CERV/THORACIC SECOND LEVEL Left 03/16/2022 INJECTION, FACET JOINT,W/FLUORO, CERVICAL, SECOND (WRVU 1.16) performed by Nuha Ryan MD at [facility] PAIN MGMT MSO ??? PRO INJECTION PV FACET JOINT CERV/THORACIC SECOND LEVEL Left 04/10/2022 INJECTION, FACET JOINT,W/FLUORO, CERVICAL, SECOND (WRVU 1.16) performed by Nuha Ryan MD at [facility] PAIN MGMT MSO FAMILY HISTORY: Family History [...] lives with MEDICATIONS: Current Outpatient Medications: ??? multivitamin with minerals (One-A-Day) Tablet, Take 1 tablet by mouth Daily., Disp: , Rfl: ??? ibuprofen (Advil) 600 mg Tablet, Take 600 mg by mouth as needed for Pain., Disp: , Rfl: ??? acetaminophen (TYLENOL ARTHRITIS PAIN ORAL), Take by mouth as needed., Disp: , Rfl: ??? gabapentin (Neurontin) 100 mg Capsule, Take 2 capsules by mouth 3 times daily., Disp: 180 capsule, Rfl: 2 ??? propranoloL [...] 24 hr, daily., Disp: , Rfl: 0 PDMP report checked and no inconsistencies are noted. ALLERGIES: Allergies Allergen Reactions ??? Phenergan Dm [Promethazine-Dm] Anaphylaxis ??? Celebrex [Celecoxib] Diarrhea and Nausea Only Caused depression also ??? Mold ??? Sulfa (Sulfonamide Antibiotics) ??? Unable To Find [Unclassified Drug] Flowering tree MSG PHYSICAL EXAM: General: Patient is seated comfortably in NAD, well-groomed. HEENT: Head atraumatic, EOMI. Respiratory: Breathing comfortably on RA. Cardiovascular: 2+ peripheral pulses, no swelling Abdominal: non-distended, non-tender to palpation Skin: No appreciable rashes or skin breakdown Psych: Appropriate affect, A&Ox3 , answers questions appropriately Musculoskeletal: Inspection - No gross appendicular or axial deformities Bilateral taut, nontender cervical paraspinal and trapezius muscle bands Bilateral cervical facet loading test negative Bilateral Spurling's test negative Neurologic: circular saw edge fuser - grossly intact Reflexes - 1+ and symmetric in bilateral biceps, triceps, brachioradiali, patellae, and Achilles. Motor - 5/5 in all planes of motion in all four extremities. Sensation - Intact to light touch throughout all four extremities Gait/Station: Transitions from exam room chair to table without difficulty. TESTS/IMAGING: MRI of cervical spine without contrast [...] 12, 2022 ?? FINDINGS: There are five mum-csy-rvrgsay lumbar-type vertebrae. ?? There is severe disc [...] arthropathy and myofascial pain syndrome. Left-sided neckpain has improved by 80% with left C3, C4 and C5 medial branch radiofrequency ablation procedures. Based on today's examination and presentation, cervical radiculopathy is less likely. Patient was educated about signs and symptoms [...] better manage her pain. 1. Physical Therapy: Ordered external physical therapy refresher course. 2. Clinical Health Psychologist to address issues of relaxation, behavioral change, coping style, and other factors important to improvement: None at this point 3. Self Care Recommendations: Encouraged patient to be compliant to exercises taught by physical therapy. 4. Diagnostic Studies: None at this point 5. Medication Management: Start a trial of topical Voltaren gel 6. Further procedures recommended: None at this point -Can consider repeat left cervical medial branch radiofrequency ablation procedures in future basedon duration of pain relief. 7. Referrals: None at this point 8. Release of information: Previous records reviewed. 9. Follow up: As needed in future based on response to physical therapy. Jv Quintero MD [employer] [facility] [place] [address] CC: Dorothea Shannon APRN [address] [place] [address] documented in this encounter Plan of Treatment Upcoming Encounters Date Type Department Care Team (Late st Contact Info) Description 12/02/2024 11:00 AM EST Office Visit Dermatology at [address] [address] Abi Steen MD [facility] [address] [place] [address] Scheduled Referrals Name Type Priority Associated Diagnoses Orde r Schedule Referral to Physical Therapy Outpatient Referral Routine Myofascial pain Cervical spondylosis Ordered: 06/20/2022 documented as of this encounter Visit Diagnoses Diagnosis Chronic pain syndrome Myofascial pain Mylagia and myositis, unspecified Cervical spondylosis Cervical spondylosis without myelopathy documented in this encounter Care Teams Banjo Repairer Relationship Specialty Start Date End Date Dorothea Shannon APRN [address] [place] [address] PCP - General Family Medicine 03/12/22 documented as of this encounter
--- OUTSIDE RECORDS SUMMARY | 2024-10-26 15:42 | XMS_ITS | Encounter Summary ---
Author Organization [facility] [place] [address] Care Team Providers Care Tag Marker Name Role Phone Stephanie Shannonyn Karyna JUGDE Primary Care Provider [phone] Encounter Details Date Type Department Care Team (Latest Contact Info) Description 05/09/2022 9:54 AM EDT - 05/09/2022 11:46 AM EDT Hospital Encounter Pain Management [facility] [place] [phone] Nuha Ryan MD [facility] [address] Cervical spondylosis Discharge Disposition: Home Social History [...] AM EDT Temperature - - Respiratory Rate 15 05/09/2022 11:10 AM EDT Oxygen Saturation 97% [...] as of this encounter H&P Notes * Ge, Guannan, MD - 05/09/2022 10:42 AM EDT Patient [...] 3.66) performed by Fidencio Drew MD at [facility] ENDOSCOPY ??? PRO INJ, DIAG/THERAPEUTIC AGENT, PARAVERTEBRAL FACET JT, CERVICAL/THORACIC, SINGLE Left 03/16/2022 INJECTION, FACET JOINT,W/FLUORO, CERVICAL, SINGLE (WRVU 1.82) performed by Nuha Ryan MD at [facility] PAIN MGMT MSO ??? PRO INJ, DIAG/THERAPEUTIC AGENT, PARAVERTEBRAL FACET JT, CERVICAL/THORACIC, SINGLE Left 04/10/2022 INJECTION, FACET JOINT,W/FLUORO, CERVICAL, SINGLE (WRVU 1.82) performed by Nuha Ryan MD at [facility] PAIN MGMT MSO ??? PRO INJECTION PV FACET JOINT CERV/THORACIC SECOND LEVEL Left 03/16/2022 INJECTION, FACET JOINT,W/FLUORO, CERVICAL, SECOND (WRVU 1.16) performed by Nuha Ryan MD at [facility] PAIN MGMT MSO ??? PRO INJECTION PV FACET JOINT CERV/THORACIC SECOND LEVEL Left 04/10/2022 INJECTION, FACET JOINT,W/FLUORO, CERVICAL, SECOND (WRVU 1.16) performed by Nuha Ryan MD at [facility] PAIN MGMT MSO ALLERGIES: Phenergan dm [...] RFA with IV anxiolysis Nuha Ryan MD [facility] Anesthes[facility] [address] [address] / [facility] documented in this encounter Miscellaneous Notes * Op Note - Nuha Ryan MD - 05/09/2022 11:07 AM EDT Pain Management Operative Note Patient Name: Brinda Alfred : [id number] MR#: [id number] Case Date: 05/09/2022 Surgeon: Surgeon(s) and Role: [...] to be denervated from today's treatment. Ms. Chicago's vital signs were stable throughout the procedure [...] Management CC: Leonora López MD [address] [place] [address] documented in this encounter Plan of Treatment Upcoming Encounters Date Type Department Care Team (Late st Contact Info) Description 12/02/2024 11:00 AM EST Office Visit Dermatology at [address] [place] [address] Abi Steen MD [facility] [address] [place] [address] documented as of this encounter Procedures Procedure [...] Until Sat05/09/22 at 1346, Intra-Operative (Intra-Procedure), Routine 113 (Given - Provid er: Nuha Ryan MD - Comment: C RFA) fentaNYL (PF) (50 mcg/mL) injection (CANCELED) ONCE PRN, Starting on Sat05/09/22 at 1104, Until Sat05/09/22 at 1346, Intra-Operative (Intra-Procedure), Routine 1104 (Given - Provid er: Hien Rodriguez RN) lidocaine (pf) (Xylocaine) (10 mg/mL) 1% injection (CANCELED) ONCE PRN, Starting on Sat05/09/22 at 1137, Until Sat05/09/22 at 1346, Intra-Operative (Intra-Procedure), Routine 113 (Given - Provid er: Nuha Ryan MD - Comment: C RFA) lidocaine (pf) (Xylocaine) (20 mg/mL) 2% injection (CANCELED) ONCE PRN, Starting on Sat05/09/22 at 1136, Until Sat05/09/22 at 1346, Intra-Operative (Intra-Procedure), Routine 113 (Given - Provid er: Nuha Ryan MD - Comment: C RFA) documented in this encounter Care Teams Tag Marker Relationship Specialty Start Date End Date Dorothea Shannon APRN [address] [place] [address] PCP - General Family Medicine 03/12/22 documented as of this encounter
--- OUTSIDE RECORDS SUMMARY | 2024-10-26 15:42 | XMS_ITS | Encounter Summary ---
Author Organization [facility] [place] [address] Care Team Providers Care Consulting Software Engineer Name Role Phone Dorothea Shannon ALFIE Primary Care Provider [phone] Encounter Details Date Type Department Care Team (Late st Contact Info) Description 04/04/2022 Telephone [facility] [place] [address] Hien Rodriguez RN Social History Tobacco Use [...] Telephone Encounter - Hien Rodriguez RN - 04/04/2022 11:56 AM EDT Outgoing call to Brinda in response to left on epidemiologist line regarding her receiving a voicemail from registration. I informed Brinda that the registration call does not come directly from our department and she should expect a phone call from our procedure nurse by the end of the week. She voiced understanding and was thankful for the call back. documented in this encounter Plan of Treatment Upcoming Encounters Date Type Department Care Team (Late st Contact Info) Description 12/02/2024 11:00 AM EST Office Visit Dermatology at [facility] [address] [place] [phone] Abi Steen MD [facility] [address] [place] [address] documented as of this encounter Visit Diagnoses Not on filedocumented in this encounter Care Teams Consulting Software Engineer Relationship Specialty Start Date End Date Dorothea Shannon APRN [address] [place] [address] PCP - General Family Medicine 03/12/22 documented as of this encounter
--- OUTSIDE RECORDS SUMMARY | 2024-10-26 15:42 | XMS_ITS | Encounter Summary ---
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 [H25.811] Procedures LA XCAPSL CTRC RMVL INSJ IO LENS PROSTH W/O ECP Cataract Extraction w/Intraocular Lens Implant, Right Eye Referral ID Status Reason Start Date Expiration Date Visits Re quested Visits Authorized [id number] 1 1 Encounter Details Date Type Department Care Team ([facility] st Contact Info) Description 12/21/2019 16:01 EST Anesthesia Event [facility] [address] [place], [place] [id number] Fidencio Sahni MD [address] [place] [phone] Rose Bear CRNA [address] [place] [phone] Anesthesia Record Procedure Summary Procedure Name Responsible Anesthesiologist Anesthesia Start Time Anesthesia Stop Time Cataract Extraction w/Intraocular Lens Implant, Right Eye (Right: Eye) Fidencio Sahni MD 12/21/19 1601 12/21/19 1640 Events Date Time Event Comment 12/21/2019 1601 An Start The patient was re-evaluated immediately before moderate or deep sedation use, before anesthesia induction, or before the anesthesia procedure. 1602 An Start Data 1607 Anesthesia Ready 1630 an stop data 1640 Handoff to RN I completed my handoff to the receiving nurse during which we: 1. Identified the patient 2. Identified the responsible provider 3. Reviewed the pertinent medical history 4. Discussed the surgical course 5. Reviewed intra-op anesthesia management and issues during anesthesia 6. Set expectations for post-procedure period 7. Allowed opportunity for questions and acknowledgement of understanding. 1640 An Stop Meds Name Total fentanyl citrate (PF) injection 50 mcg midazolam (VERSED) injection 1 mg/mL 2 m g lactated ringers (LR) infusion 500 mL * Agents Name N2O Air Aux O2 flow * Blood No blood administrations on file. Lines, Drains, and Airways Type Details Placement Removal Wound 12/21/19; 1625; Inci jacques; Right; Eye 12/21/19 1625 by Cuco Waller RN Peripheral IV 12/21/19; 1522; Left , Dorsal; Hand; Inserted by RN; 2; None; 3.15% Chlorhexidine with IPA; 12/21/19; 1701; Therapy completed; No complications, Catheter intact, Dressing applied 12/21/19 1522 by Karolina Romero RN 12/21/19 1701 by Nova Hollins RN documented in this encounter Social History Tobacco [...] OR Notes * Anesthesia Postprocedure Evaluation - Rose Bear APRN - 12/21/2019 1640 EST Patient: Brinda Anderson Vitals Vital signs were reviewed with the recovery nurse and are available in the Epic flowsheets. Relevant recent vitals: see [employer] flow sheet Last Pain Score - Numeric Pain Level (Scale 1-10): 0 Type of Anesthesia - MAC Anesthesia Post Evaluation Post-procedure vitals reviewed and are stable. Level of consciousness: alert and oriented Temperature status: normothermia Respiratory status: airway patent and room air Cardiovascular status: acceptable Hydration status: adequate Nausea/Vomiting: none Pain management: adequate Post-Op Assessment: patient tolerated procedure well with no complications Patient participation: able to participate Disposition: outpatient/home Anesthesia Complications: No apparent anesthesia complications * Anesthesia Preprocedure Evaluation - Rose Bear APRN - 12/21/2019 1502 EST Anesthesia Preprocedure Evaluation Patient Medical History, including Anesthesia History reviewed. Chart and Nursing Notes reviewed, including NPO status and Medication History. Additional ROS/History Findings: Allergies Allergen Reactions ??? Barbiturates Itching ??? Erythromycin Diarrhea ??? Lisinopril coughing ??? Losartan coughing ??? Monosodium Glutamate hives ??? Phenergan [Promethazine] Anaphylaxis ??? Unable To Assess Sulfites like you find in wine (striping and numbness of mouth Review of Systems Constitutional: Negative. HENT: Negative. Eyes: Negative. Respiratory: Negative. Cardiovascular: Negative. Gastrointestinal: Negative for heartburn. Genitourinary: Negative. Musculoskeletal: Negative. Skin: Negative. Neurological: Negative. Endo/Heme/Allergies: Negative. Psychiatric/Behavioral: Positive for depression. Past Medical History: Diagnosis Date ??? Anxiety ??? Arthritis 12/16/2019 mostl;y hips and elbows ??? Asthma 12/16/2019 allergy induced or cold has inhalers ??? Cataract 12/16/2019 bilateral ??? Depression ??? GERD (gastroesophageal reflux disease) 12/16/2019 managed [...] relevant active problems Physical Exam Airway Mallampati: IV TM distance: <3 FB Neck ROM: full Cardiovascular Rhythm: regular Rate: normal Dental Pulmonary - normal exam Abdominal - normal exam Other findings: NPO 18:00, sips with meds 6am effexor, amlodipine, singulair, omeprazole Anesthesia Plan ASA 3 Anesthesia Type - MAC Anesthesia plan and risks discussed. Informed consent obtained from patient. Specific risks discussed were dental injury (PONV, aspiration). PAT Note (Notes from 11/21/19 through 12/21/19) No notes of this type exist for this encounter. documented in this encounter Plan of Treatment Not on file documented as of this encounter Visit Diagnoses Not on filedocumented in this encounter Administered Medications Inactive Administered Medications - up to 3 most recent administrations Medication Order MAR Action Action Date Dose Rate Site fentaNYL citrate (PF) injection intravenous, PRN, Starting on Sat12/21/19 at 1607, Until Sat12/21/19 at 1640, Routine, Anesthesia Intraprocedure Given 12/21/2019 16:07 EST 50 mcg midazolam (PF) (VERSED) injection intravenous, PRN, Starting on Sat12/21/19 at 1604, Until Sat12/21/19 at 1640, Routine, Anesthesia Intraprocedure Given 12/21/2019 16:13 EST 0.5 mg Given 12/21/2019 16:10 EST 0.5 mg Given 12/21/2019 16:04 EST 1 mg documented in this encounter Care Teams Academic Adviser Relationship Specialty Start Date End Date Leonora López MD [address] [place] [phone] PCP - General 09/17/19 documented as of this encounter
--- OUTSIDE RECORDS SUMMARY | 2024-10-26 15:42 | XMS_ITS | Encounter Summary ---
Author Organization [facility] [place] [address] Care Team Providers Care Confidential Secretary Name Role Phone Stephanie Shannonvel Troncoso ALFIE Primary Care Provider [phone] Encounter Details Date Type Department Care Team ([facility] st Contact Info) Description 04/13/2022 Telephone [facility] Sp[facility] at [facility] [place] [phone] Hien Rodriguez RN Social History Tobacco Use [...] Telephone Encounter - Hien Rodriguez RN - 04/13/2022 4:24 PM EDT Post-procedure phone call from patient to report their response to the lumbar medial branch block procedure performed on 04/10/22 [facility] the [facility] by Nuha Ryan MD. This is patient's: second medial branch block Patient reports that after the procedure they experienced: _x_ Patient reported post-block numeric pain scale: 0 /10 (average pain since procedure) _x_ Post-procedure pain has been reduced by 95%. (> 80% Medicare/MVP/Medicaid) _x_ Pain relief: complete If pain is reduced, it lasted: No less than 4 hours Yes 4 hours or greater No 24 hours or greater What is current pain score on a scale of 0-10? 6/10 Does patient's pain make activities of daily living difficult? If yes, please describe what activity and level of difficulty. Driving is very difficult, can't turn her head from side to side which makes her not comfortable with driving. Unable to garden, if she is trying to garden she will be very sore afterwards. She has difficulty showering, she has tried to wash her hair in the sink but that was much more difficult. She is also unable to exercise currently due to pain-- even walking for distance is painful for her. Pertinent recent trauma or surgery? no If yes; consult w referring provider If No, proceed Review of Pertinent Medical History for changes since last MBB: - h/o Thrombocytopenia/bleeding tendency/platelet dysfunction: no - h/o Liver disease; abnormal liver function: no - h/o Chronic kidney disease (CKD); abnormal kidney function: no - Patient on dialysis? no -Patient has pacemaker/defibrillator: no Is patient taking an anticoagulant? None Is patient taking any NSAIDS/supplements? Ibuprofen (Advil, Motrin, Midol) Multivitamin Is patient taking aspirin? no If yes, is it prescribed? no If yes, what reason is it prescribed? Is patient taking Antibiotics? No Has patient been on greater than 40mg of steroid 14 days or longer? No Has patient had any steroid injections anywhere in his/her body within the last two weeks? No Does patient request sedation? yes Does patient need NPO guidelines? yes Does patient have allergies to contrast/local anesthetic/steroid? No Any changes? no Based on the information provided above and after discussion with the patient, the following actions will be taken: _x_ Patient meets criteria for radiofrequency treatment: note will be routed to Dr. Ryan to place order for RFA. And to schedulers. Patient denies further questions at this time and expressed understanding of plan. Encouraged patient to call pain clinic RN for future questions or concerns. documented in this encounter Plan of Treatment Upcoming Encounters Date Type Department Care Team (Late st Contact Info) Description 12/02/2024 11:00 AM EST Office Visit Dermatology at [facility] [address] [place] [address] Abi Steen MD [facility] [address] [address] documented as of this encounter Visit Diagnoses Not on filedocumented in this encounter Care Teams Confidential Secretary Relationship Specialty Start Date End Date Dorothea Shannon APRN [address] [place] [address] PCP - General Family Medicine 03/12/22 documented as of this encounter
--- OUTSIDE RECORDS SUMMARY | 2024-10-26 15:42 | XMS_ITS | Encounter Summary ---
Author Organization [facility] Address [address] [place] [address] Care Team Providers Care Cupola Repairer Name Role Phone Leonora López MD Primary Care Provider [phone] Encounter Details Date Type Department Care Team ([facility] st Contact Info) Description 12/20/2019 Prep for Procedure [facility] OPHTHALMOLOG[facility] [address], [place] [id number] Christiano Hubbard MD [address] [facility], [facility] [address] [place] [phone] Social History Tobacco Use Types Packs/Day Years [...] on filedocumented in this encounter Care Teams Cupola Repairer Relationship Specialty Start Date End Date Leonora López MD [address] [place] [phone] PCP - General 09/17/19 documented as of this encounter
--- OUTSIDE RECORDS SUMMARY | 2024-10-26 15:42 | XMS_ITS | Encounter Summary ---
Author Organization [facility] Address [facility] [place] [address] Care Team Providers Care Database Engineer Name Role Phone Stephanie Shannonyn Karyna JUDGE Primary Care Provider [phone] Reason for Referral * Physical Therapy (Routine) - Closed Specialty Diagnoses / Procedures Referred By Geoffrey dill Referred To Contact Diagnoses Myofascial pain Cervical spondylosis Jv Quintero MD [facility] [place] [address] Unknown None Referral ID Status Reason Start Date Expiration Date V isits Requested Visits Authorized [id number] Closed Evaluate and Treat 11/02/2022 05/01/2023 12 12 Reason for Visit * Reason Comments Follow-up Encounter Details Date Type Department Care Team (Late st Contact Info) Description 11/02/2022 1:00 PM EST Office Visit [place] [address] Jv Quintero MD [facility] [place] [address] Chronic pain syndrome; Myofascial pain; Cervical spondylosis [...] Pulse 61 11/02/2022 12:35 PM EST Temperature - - Respiratory Rate - - Oxygen Saturation 100% 11/02/2022 12:35 PM EST Inhaled Oxygen Concentration - - Weight - - Height - - Body Mass Index - - documented in this encounter Progress Notes * Jv Quintero MD - 11/02/2022 1:00 PM EST [facility] follow-up visit note DOS: 11/02/22 : 1955 CC: Neck pain Interval history: Patient was last seen in the clinic on 06/20/2022. Since her last visit, patient reports: - Patient states that she has been noticing worsening neck pain over the last 2 months. Patient states that she still experiences at least 60% pain improvement in the daytime but nighttime still bothersome. - External physical therapy was ordered on last visit but patient has not done physical therapy so far. -She reports experiencing occasional night sweats since her last cervical radiofrequency ablation procedure and blood work ordered by primary care team has so far been negative. - No other acute events or new medical problems since last visit HPI: Brinda Alfred is accompanied by her today. She report insidious onset of neck pain with intermittent radiation down left upper extremity about 5-6 years ago. She completed a course of PT withNic [facility] in [facility] which resolved most of her left upper [...] Numbness/Tingling - left arm tingling Pain score: 3/10 Alleviating factors: gabapentin improves her tingling down [...] gain, fevers, chills. Occasional night sweats- negative [id number] care team. HENT: No recent hearing changes. [...] 3.66) performed by Fidencio Drew MD at [facility] ENDOSCOPY ??? PRO DSTR PARAVERTEBRAL FCT JNT NRVES CERVICAL OR THORACIC ADDL Left 05/09/2022 DESTRUCT BY LYTIC AGENT, FACET NERVE(S), W/IMAGING; CX OR THX, EA ADD (WRVU 1.32) performed by Nuha Ryan MD at [facility] PAIN MGMT MSO ??? PRO DSTR PARAVERTEBRAL FCT JNT NRVES CERVICAL OR THORACIC SINGLE Left 05/09/2022 DESTRUCT BY LYTIC AGNT, FACET JT NERVE(S), W/IMAGING; CX OR THX, SNGL (WRVU 3.84) performed by Nuha Ryan MD at [facility] PAIN MGMT MSO ??? PRO INJ, DIAG/THERAPEUTIC AGENT, PARAVERTEBRAL FACET JT, CERVICAL/THORACIC, SINGLE Left 03/16/2022 INJECTION, FACET JOINT,W/FLUORO, CERVICAL, SINGLE (WRVU 1.82) performed by Nuha Ryan MD at [facility] PAIN MGMT MSO ??? PRO INJ, DIAG/THERAPEUTIC AGENT, PARAVERTEBRAL FACET JT, CERVICAL/THORACIC, SINGLE Left 04/10/2022 INJECTION, FACET JOINT,W/FLUORO, CERVICAL, SINGLE (WRVU 1.82) performed by Nuha Ryan MD at [facility] PAIN MGMT MSO ??? PRO INJECTION PV FACET JOINT CERV/THORACIC SECOND LEVEL Left 03/16/2022 INJECTION, FACET JOINT,W/FLUORO, CERVICAL, SECOND (WRVU 1.16) performed by Nuha Ryan MD at [facility] PAIN MGMT MSO ??? PRO INJECTION PV FACET JOINT CERV/THORACIC SECOND LEVEL Left 04/10/2022 INJECTION, FACET JOINT,W/FLUORO, CERVICAL, SECOND (WRVU 1.16) performed by Nuha Ryan MD at [facility] PAIN MGMT MSO FAMILY HISTORY: [...] - No gross appendicular or axial deformities Left taut tender cervical paraspinal, trapezius and levator scapulae muscle bands. Right taut, nontender cervical paraspinal muscle bands Left cervical facet loading test mild positive Bilateral Spurling's test negative Tenderness over left greater occipital nerve area Neurologic: financial investigator - grossly intact Reflexes - 1+ and [...] LUMBAR SPINE AP FLEXION AND EXTENSION ONLY 4/4/22 ?? CLINICAL HISTORY: lumbar spondylolisthesis at L4-5, r/o dynamic instabliity ? TECHNIQUE: Lumbar spine AP and lateral during flexion or extension ?? COMPARISON: February 12, 2022 ?? FINDINGS: There are five cyv-esq-jqhzyry lumbar-type vertebrae. ?? There is severe disc [...] presentation, cervical radiculopathy is less likely. Patient has noticed worsening neck pain over the last 2 months which seems to be predominantly related to myofascial pain. Patient was educated about signs and symptoms [...] better manage her pain. 1. Physical Therapy: Reordered external physical therapy referral. I gave her the book Treat your own neck by Edmond Stinson PT. This is a book designed to teach patients proper home exercise. These exercises are designed to reduce pain and improve function. Thisbook has numerous pictures and is written in laymen's terms. She was happy to receive this book andstates that she will use it to develop a good home exercise program for her neck. She will let me kn ow if she has any questions. 2. Clinical Health Psychologist to address issues of relaxation, behavioral change, coping style, and other factors important to improvement: None at this point 3. Self Care Recommendations: Encouraged patient to be compliant to exercises taught by physical therapy. 4. Diagnostic Studies: None at this point 5. Medication Management: No new medications 6. Further procedures recommended: None at this point -Can consider repeat left cervical medial branch radiofrequency ablation procedures versus trigger point injection plus left occipital nerve block in future based on response to physical therapy 7. Referrals: None at this point 8. Release of information: Previous records reviewed. 9. Follow up: In 6 weeks after completion of physical therapy. Jv Quintero MD Tower Helper [facility] [address] CC: Dorothea Shannon APRN [address] [place] [address] documented in this encounter Plan of Treatment Upcoming Encounters Date Type Department Care Team (Late st Contact Info) Description 12/02/2024 11:00 AM EST Office Visit Dermatology at [address] [address] Abi Steen MD [facility] DR [address] -DERMATOLOGY [place] [phone] Scheduled Referrals Name Type Priority Associated Diagnoses Orde r Schedule Referral to Physical Therapy Outpatient Referral Routine Myofascial pain Cervical spondylosis Ordered: 11/02/2022 documented as of this encounter Visit Diagnoses Diagnosis Chronic pain syndrome Myofascial pain Mylagia and myositis, unspecified Cervical spondylosis Cervical spondylosis without myelopathy documented in this encounter Care Teams Database Engineer Relationship Specialty Start Date End Date Dorothea Shannon APRN [address] [place] [address] PCP - General Family Medicine 03/12/22 documented as of this encounter
--- OUTSIDE RECORDS SUMMARY | 2024-10-26 15:42 | XMS_ITS | Encounter Summary ---
Author Organization [facility] Address [facility] [place] [address] Care Team Providers Care Clinical Care Coordinator Name Role Phone Dorothea Shannon APRN Primary Care Provider [phone] Encounter Details Date Type Department Care Team (Latest Contact Info) Description 04/09/2023 Travel Social History Tobacco Use Types Packs/Day [...] 11:00 AM EST Office Visit Dermatology at [facility] [address] [place] [address] Abi Steen MD [facility] [address] [place] [address] documented as of this encounter Visit Diagnoses Not on filedocumented in this encounter Care Teams Clinical Care Coordinator Relationship Specialty Start Date End Date Dorothea Shannon APRN [address] [place] [address] PCP - General Family Medicine 03/12/22 documented as of this encounter
--- OUTSIDE RECORDS SUMMARY | 2024-10-26 15:42 | XMS_ITS | Encounter Summary ---
Author Organization [facility] [place] [address] Care Team Providers Care Project Manager Retail Name Role Phone Dorothea Shannon ALFIE Primary Care Provider [phone] Encounter Details Date Type Department Care Team (Late st Contact Info) Description 04/25/2022 Telephone [place] [address] Mare Melendrez RN Social History Tobacco Use [...] Miscellaneous Notes * Telephone Encounter - Mare Melendrez RN - 04/25/2022 3:21 PM EDT Outgoing call to Brinda to let her know that per Dr. Ryan she does not need to have the f/u appointmenton 04/30/22. She can go right to the RFA already scheduled on 05/09/22. Brinda verbalized understanding and was very happy to get that information. POPEYE Rosenberg Secretaries notified. documented in this encounter Plan of Treatment Upcoming Encounters Date Type Department Care Team (Late Contact Info) Description 12/02/2024 11:00 AM EST Office Visit Dermatology at [facility] [address] [place] [phone] Abi Steen MD [facility] [address] [place] [address] documented as of this encounter Visit Diagnoses Not on filedocumented in this encounter Care Teams Project Manager Retail Relationship Specialty Start Date End Date Dorothea Shannon APRN [address] [place] [address] PCP - General Family Medicine 03/12/22 documented as of this encounter
--- OUTSIDE RECORDS SUMMARY | 2024-10-26 15:43 | XMS_ITS | Encounter Summary ---
Author Organization [facility] [place] [address] Care Team Providers Care Digital Media Representative Name Role Phone Leonora López MD Primary Care Provider [phone] Encounter Details Date Type Department Care Team (Late Contact Info) Description 12/25/2021 Ancillary Procedure Radiology Library at [facility] [place] [address] Leonora López MD [address] [place], [place] [id number] Social History Tobacco Use Types Packs/Day Years [...] at [facility] [address] [place] [address] Abi Steen MD [facility] [address] [place] [address] documented as of this encounter Procedures Procedure Name Priority Date/Time Associated Diagnosis Comments FILM LIBRARY STORAGE ONLY DX SPINE Routine 12/25/2021 12:00 AM EST documented in this encounter Results * Film Library- Storage Only DX Spine (12/25/2021 12:00 AM EST) Narrative LAVELL GARCIA - 01/23/2022 2:04 PM EST This exam is auto-finalizing. It's purpose is for storage only. Leonora López MD IMG FILM LIBRARY ORD ERABLES Performing Organization Address City/State/[place] Co de Phone Number [place], [place] documented in this encounter Visit Diagnoses Not on filedocumented in this encounter Care Teams Digital Media Representative Relationship Specialty Start Date End Date Leonora López MD [address] [place] [address] PCP - General Family Medicine 03/13/17 03/11/22 documented as of this encounter
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
--- OUTSIDE RECORDS SUMMARY | 2024-10-26 15:43 | XMS_ITS | Encounter Summary ---
Author Organization [facility] [place] [address] Care Team Providers Care Plywood Patcher Name Role Phone Leonora López MD Primary Care Provider [phone] Encounter Details Date Type Department Care Team (Late Contact Info) Description 01/28/2020 Telephone [place] [address] Etelvina Shipley RN Social History Tobacco Use Types Packs/Day [...] encounter Miscellaneous Notes * Telephone Encounter - Etelvina Shipley RN - 01/28/2020 12:37 PM EST Patient calls the office leaving a message on the RN voicemail stating that she would like to cancel her appointment with Roseanne Cho APRN as she does not feel this appointment is necessary right now. Forwarding to Roseanne Mclain APRN and senior php developer pool documented in this encounter Plan of Treatment Upcoming Encounters Date Type Department Care Team (Late Contact Info) Description 12/02/2024 11:00 AM EST Office Visit Dermatology at [facility] [address] [place] [address] Abi Steen MD [facility] [place] [address] documented as of this encounter Visit Diagnoses Not on filedocumented in this encounter Care Teams Plywood Patcher Relationship Specialty Start Date End Date Leonora López MD [address] [place] [address] PCP - General Family Medicine 03/13/17 03/11/22 documented as of this encounter
--- OUTSIDE RECORDS SUMMARY | 2024-10-26 15:43 | XMS_ITS | Encounter Summary ---
Author Organization [facility] Address [facility] [place] [address] Care Team Providers Care Wad Printing Machine Operator Name Role Phone Shiva Dorothea Karyna JUDGE Primary Care Provider [phone] Encounter Details Date Type Department Care Team (Late st Contact Info) Description 03/16/2022 3:30 PM EDT - 03/16/2022 4:00 PM EDT Surgery Pain Management [facility] [place] [id number] Nuha Ryan MD [facility] [place] [address] INJECTION, FACET JOINT,W/FLUORO, CERVICAL, SINGLE (WRVU 1.82) Social History Tobacco Use Types Packs/Day Years [...] Sign Reading Time Taken Comments Blood Pressure 155/76 03/16/2022 3:50 PM EDT Pulse 66 03/16/2022 3:40 PM EDT Temperature 6 ??C (42.8 ??F) 03/16/2022 3:00 PM EDT Respiratory Rate - - Oxygen Saturation 100% 03/16/2022 3:50 PM EDT Inhaled Oxygen Concentration - - Weight 63 kg (139 lb) 03/16/2022 3:00 PM EDT Height 160 cm (5' 3) 03/16/2022 3:00 PM EDT Body Mass Index 24.62 03/16/2022 3:00 PM EDT documented in this encounter Discharge Instructions * Discharge Instructions* Carina Dumont - 03/16/2022 3:06 PM EDT Pain Management Center Discharge Instructions: You were seen today by Surgeon(s): Nuha Ryan MD The following was performed: Procedure(s) (LRB): INJECTION, FACET JOINT,W/FLUORO, CERVICAL, SINGLE (WRVU 1.82) (Left) It is normal that the injection site will be sore for up to 48 hours. [x] You may also experience mild stiffness in the joint near the injection site. You may resume your normal activities: today. You may shower today. DO NOT tub [...] your bladder 4-6 hours after your procedure. If you have diabetes, monitor your blood sugars frequently. If your blood sugar increases and is ofconcern, contact your Primary Care Provider. You received the following medications: Medications Given During Procedure Date/Time Order Dose Route Action 03/16/2022 1547 BUpivacaine (pf) (Marcaine) (5 mg/mL) 0.5% injection 1.5 mL Intra-articular Given 03/16/2022 1547 iohexoL (Omnipaque) (240 mg/mL) solution 2 mL Intra-articular Given During regular business hours, please phone [...] Post -Procedure Pain Log Patient: Brinda Alfred [id number] It is important for you to keep track of your pain after your procedure that took place 03/16/22. This information will help your Provider determine the next steps for how to help reduce your pain. Today you had a procedure for pain in your neck. Your pain level before the procedure in this area was 6/10. Your pain level immediately after your procedure was 3 /10. Time Pain Score # Comments: % of pain relief 1 hour 5:00 pm 2 hours 6:00 pm 3 hours 7:00 pm 4 hours 8:00 pm [facility] Journeyman Power Plant Operator Nurse will call you within a week of your procedure to ask about your response to the procedure and help with the next steps. If you need to reach the Journeyman Power Plant Operator you can call: [phone]. documented in this encounter Medications at Time [...] 04/15/2017 04/10/2022 documented as of this encounter H&P Notes * Nuha Ryan MD - 03/16/2022 4:01 PM EDT Patient Name: Brinda Alfred Patient Age: 66 y.o. Birthdate: 1955 Admit date: 03/16/2022 Attending Physician: Nuha Ryan MD PREPROCEDURE HISTORY AND PHYSICAL Date of Visit: March 16, 2022 Chief Complaint: Left sided neck pain with radiation to base of her skull and down to left trapezius HPI: Subjective Brinda Alfred is a 66 y.o. female who presents today for left cervical MBB The history is obtained from the patient, and I have reviewed medical records provided by the referring physician and located in the electronic medical record to fill in gaps in the patient's recollection of events, treatments and outcomes. LOCATION: Left sided neck pain PAIN LEVEL AT REST 6/10 PAST MEDICAL HISTORY: No past medical history on file. PAST SURGICAL HISTORY: Past Surgical History: Procedure Laterality Date ??? PRO COLONOSCOPY, BIOPSY N/A 07/15/2017 COLONOSCOPY FLEXIBLE, WITH BX (WRVU 3.66) performed by Fidencio Drew MD at [facility] ENDOSCOPY ALLERGIES: Phenergan dm [promethazine-dm], Celebrex [celecoxib], Mold, Sulfa (sulfonamide antibiotics), and Unable to find [unclassified drug] MEDICATIONS: No current facility-administered medications on file prior to encounter. Current Outpatient Medications on File Prior to Encounter Medication Sig Dispense Refill ??? montelukast (Singulair) 10 mg Tablet Take 10 mg by mouth nightly. ??? propranoloL (Inderal) 10 mg Tablet Take 10 mg by mouth 2 times daily. ??? ALPRAZolam (XANAX) 0.5 mg Tablet nightly as needed. 0 ??? amitriptyline (ELAVIL) 25 mg Tablet take 1 to 2 tablets by mouth at bedtime 0 ??? amLODIPine (NORVASC) 5 mg Tablet take 1/2 tablet by mouth once daily 0 ??? atorvastatin (LIPITOR) 10 mg Tablet 0 ??? omeprazole (PRILOSEC) 20 mg Capsule, Delayed Release(E.C.) take 1 capsule by mouth once daily 0 ??? venlafaxine (EFFEXOR-XR) 37.5 mg Capsule, Sust. Release 24 hr daily. 0 ??? dicyclomine (BENTYL) 10 mg Capsule Take 1 [...] bladder incontinence, balance issues PHYSICAL EXAM: BP 155/76 Pulse 66 Temp (!) 6 ??C (42.8 ??F) Ht 160 cm (5' 3) Wt 63 kg (139 lb) SpO2 100% BMI 24.62 kg/m?? Physical Exam Vitals reviewed. [...] Cervical spondylosis PLAN: - proceed with left C3, C4, C5 MBB Nuha Ryan MD Verification Manager of Anesthesiology [facility] [address] [address] / [facility] documented in this encounter Miscellaneous Notes * Op Note - Nuha Ryan MD - 03/16/2022 3:45 PM EDT Pain Management Operative Note Patient Name: Brinda Alfred : [id number] MR#: [id number] Case Date: 03/16/2022 Surgeon: Surgeon(s) and Role: * Nuha Ryan MD - Primary Present on Admission: ??? Cervical spondylosis Postoperative diagnosis: same as above Procedure(s) (LRB): INJECTION, FACET JOINT,W/FLUORO, CERVICAL, SINGLE (WRVU 1.82) (Left) INJECTION, FACET JOINT,W/FLUORO, CERVICAL, SECOND (WRVU 1.16) (Left) PROCEDURE NOTE CERVICAL MEDIAL BRANCH BLOCKS Date of Service: 02/26/2022 Patient: Brinda Alfred Provider: Nuha Ryan MD [...] Alfred was placed in the prone position Automated blood pressure cuff and pulse oximeter wereapplied. The skin entry points for approaching the anatomic target points of the segmental medial branches of Left C3, C4, C5 were identified with fluoroscopy and marked. [...] revealed no blood or clear fluid. Next, 0.25ml of omnipaque 240 was injected at each level. No contrast following a vascular or neural pattern was visualized under continuous fluoroscopy. Next,0.25 ml of preservative-free 0.5% bupivicaine was injected at each level. Ms. Alfred's vital signs were stable throughout the procedure and were as recorded in the docflowsheet by the nursing staff. Provacative testing using the Modified Beltran's facet loading test Left side Directly before the block VAS (0-10) = 6 5 minutes after the block VAS (0-10) = 3 Percentage relief obtained with this diagnostic block 50% Any improved physical functioning directly after the blocks? to be determined Follow up plans and appointments [...] CC: Dorothea Shannon APRN [address] [place] [address] documented in this encounter Plan of Treatment Upcoming Encounters Date Type Department Care Team (Late st Contact Info) Description 12/02/2024 11:00 AM EST Office Visit Dermatology at [address] [address] Abi Steen MD [facility] [address] [address] documented as of this encounter Procedures Procedure Name Priority Date/Time Associated Diagnosis Comments INJECTION, FACET JOINT,W/FLUORO, CERVICAL,2ND LVL Routine 03/16/2022 4:29 PM EDT Cervical spondylosis Injection Pv Facet Joint Cerv/Thoracic Second Level (81446) 03/16/2022 3:39 PM EDT Cervical spondylosis Inj, Diag/Therapeutic Agent, Paravertebral Facet Jt, Cervical/Thoracic, Single ([id number]) 03/16/2022 3:39 PM EDT Cervical spondylosis INJECTION,FACET JOINT,W/FLUORO,CERVICAL,S BLADIMIR Routine 03/16/2022 2:58 PM EDT Cervical spondylosis documented in this encounter Visit Diagnoses Diagnosis Cervical spondylosis Cervical spondylosis without myelopathy Cervical spondylosis Cervical spondylosis without myelopathy documented in this encounter Administered Medications Inactive Administered Medications - up to 3 most recent administrations Medication Order MAR Action Action Date Dose Rate Site BUpivacaine (pf) (Marcaine) (5 mg/mL) 0.5% injection ONCE PRN, Starting on Sat03/16/22 at 1547, Until Sat03/16/22 at 1802, Intra-Operative (Intra-Procedure), Routine Given 03/16/2022 3:47 PM EDT 1.5 mLs iohexoL (Omnipaque) (240 mg/mL) solution ONCE PRN, Starting on Sat03/16/22 at 1547, Until Sat03/16/22 at 1802, Intra-Operative (Intra-Procedure), Routine Given 03/16/2022 3:47 PM EDT 2 mLs documented in this encounter Active and Recently Administered Medications Times are shown in EDT. PRN Medication Order 03/14/2022 03/15/2022 03/16/2022 BUpivacaine (pf) (Marcaine) (5 mg/mL) 0.5% injection (CANCELED) ONCE PRN, Starting on Sat03/16/22 at 1547, Until Sat03/16/22 at 1802, Intra-Operative (Intra-Procedure), Routine 1547 (Given - Provid er: Nuha Ryan MD) iohexoL (Omnipaque) (240 mg/mL) solution (CANCELED) ONCE PRN, Starting on Sat03/16/22 at 1547, Until Sat03/16/22 at 1802, Intra-Operative (Intra-Procedure), Routine 1547 (Given - Provid er: Nuha Ryan MD) documented in this encounter Care Teams Wad Printing Machine Operator Relationship Specialty Start Date End Date Dorothea Shannon, PEN TESTER [address] [place] [address] PCP - General Family Medicine 03/12/22 documented as of this encounter
--- OUTSIDE RECORDS SUMMARY | 2024-10-26 15:43 | XMS_ITS | Encounter Summary ---
Author Organization Formerly [facility] Address [facility] [place] [address] Care Team Providers Care Hay Rake Operator Name Role Phone Leonora López MD Primary Care Provider [phone] Encounter Details Date Type Department Care Team (Latest Contact Info) Description 02/12/2022 9:00 AM EDT - 02/12/2022 11:59 PM EDT Hospital Encounter XRay at [address] [place] [address] Richard Alfredo MD [facility] [place] [address] Radiculopathy of cervical region; Cervical spondylosis; Radiculopathy of lumbar region Discharge Disposition: Home Social History Tobacco Use [...] Sust. Release 24 hr daily. 0 03/25/2017 montelukast (Singulair) 10 mg Tablet Take 10 mg by mouth nightly. 04/10/2022 gabapentin (Neurontin) 100 mg CapsuleIndications:Radi culopathy of cervical region,Cervical spondylosis,Radiculopat hy of lumbar region Take 1 capsule by mouth 3 times daily. 90 capsule 12 02/12/2022 03/01/2022 atorvastatin (LIPITOR) 10 mg Tablet 0 03/01/2017 04/10/2022 dicyclomine (BENTYL) 10 mg Capsule Take 1 capsule by mouth 3 times daily. 90 capsule 3 04/15/2017 04/10/2022 documented as of this encounter Plan of Treatment Upcoming Encounters Date Type Department Care Team (Late st Contact Info) Description 12/02/2024 11:00 AM EST Office Visit Dermatology at [facility] [address] [place] [address] Abi Steen MD [facility] [address] [place] [address] documented as of this encounter Procedures Procedure Name Priority Date/Time Associated Diagnosis Comments XR LUMBAR SPINE 2 OR 3 VIEWS Routine 02/12/2022 9:11 AM EDT Radiculopathy of cervical region Cervical spondylosis Radiculopathy of lumbar region documented in this encounter Results * XR Lumbar Spine 2 Or 3 Views (Generic) (02/12/2022 9:11 AM EDT) Anatomical Region Laterality Modality L-spine N/A Digital Radiogra phy Impressions 02/12/2022 9:49 AM EDT Degenerative disc disease is seen prominently at L4-L5 with associated grade 1 anterolisthesis. Thank you for letting us participate in the care of this patient. ??If you are a health care provider and have any questions regarding this report, please contact the number below. ??For patients who have questions please contact the health care nurse rn that requested your imaging first. ? Electronically signed by: Denzel Valles MD, [facility] ([phone]), at 02/12/2022 9:49 AM Narrative 02/12/2022 9:49 AM EDT EXAMINATION: XR LUMBAR SPINE 2 OR 3 VIEWS (GENERIC) CLINICAL HISTORY: low back pain radiating into left >right extremity TECHNIQUE: Lumbar spine AP and lateral COMPARISON: None FINDINGS: The osseous structures are diffusely demineralized. There are five lrv-rbu-snynkkb lumbar-type vertebrae. Disc interspace narrowing is noted prominently at L4-L5. Grade 1 anterolisthesis of L4 on L5 is present. No fracture or other acute osseous pathology is present. Procedure Note Denzel Valles MD - 02/12/2022 EXAMINATION: XR LUMBAR SPINE 2 OR 3 VIEWS (GENERIC) CLINICAL HISTORY: low back pain radiating into left >right extremity TECHNIQUE: Lumbar spine AP and lateral COMPARISON: None FINDINGS: The osseous structures are diffusely demineralized. There are five xqm-sfi-auovopk lumbar-type vertebrae. Disc interspace narrowing isnoted prominently at L4-L5. Grade 1 anterolisthesis of L4 on L5 is present. No fracture or other acute osseous pathology is present. IMPRESSION Degenerative disc disease is seen prominently at L4-L5 with associatedgrade 1 anterolisthesis. Thank you for letting us participate in the care of this patient. If youare a health care provider and have any questions regarding this report,please contact the number below. For patients who have questions please contactthe health care nurse rn that requested your imaging first. Electronically signed by: Denzel Valles MD, [facility]([phone]), at 02/12/2022 9:49 AM Richard Alfredo MD IMG DX ORDERABLES documented in this encounter Visit Diagnoses Diagnosis Radiculopathy of cervical region Brachial neuritis or radiculitis nos Cervical spondylosis Cervical spondylosis without myelopathy Radiculopathy of lumbar region Thoracic or lumbosacral neuritis or radiculitis, unspecified documented in this encounter Care Teams Hay Rake Operator Relationship Specialty Start Date End Date Leonora López MD [address] [place] [address] PCP - General Family Medicine 03/13/17 03/11/22 documented as of this encounter
--- OUTSIDE RECORDS SUMMARY | 2024-10-26 15:43 | XMS_ITS | Encounter Summary ---
Author Organization [facility] [place] [address] Care Team Providers Care Grain Oilseed Or Pasture Farm Manager Name Role Phone Leonora López MD Primary Care Provider [phone] Encounter Details Date Type Department Care Team ([facility] st Contact Info) Description 07/15/2017 10:30 AM EDT - 07/15/2017 11:15 AM EDT Surgery [place] [address] Fidencio Drew MD [facility] DR [place] [address] COLONOSCOPY FLEXIBLE, WITH BX (WRVU 3.56) Social History Tobacco Use Types Packs/Day Years [...] Sign Reading Time Taken Comments Blood Pressure 133/71 07/15/2017 11:04 AM EDT Pulse 61 07/15/2017 11:04 AM EDT Temperature - - Respiratory Rate 16 07/15/2017 11:04 AM EDT Oxygen Saturation 96% 07/15/2017 11:04 AM EDT Inhaled Oxygen Concentration - - Weight - - Height - - Body Mass Index - - documented in this encounter Discharge Instructions * Discharge Instructions* Gertrudis Ferreira RN - 07/15/2017 10:48 AM EDT Colonoscopy with biopsies What to expect after the procedure You may feel a little more gassy or bloated than usual. This is normal. You should expect the return of normal bowel function in the 2 to 3 days. Activity Because of the sedation that you received your judgement and reaction time are effected ?? Go home and rest quietly for the remainder of the day. You may resume your normal activities tomorrow. ?? Change from one position to the next slowly. You may lose your balance unexpectedly ?? Be careful on stairs, as you may be unsteady on your feet FOR THE NEXT 24 HRS ?? DO NOT DRIVE OR OPERATE ANY MACHINERY ?? DO NOT DRINK ALCOHOLIC BEVERAGES ?? DO NOT SIGN LEGAL DOCUMENTS ?? If you are a smoker: DO NOT SMOKE WHILE YOU ARE ALONE Diet ?? Start by eating small portions of foods that ordinarily will not upset your stomach . Avoid gas producing foods for the next few days ?? Be gentle with what you choose to start with ?? Drink plenty of fluids ( unless your doctor has told you not to). IV SITE-- slight redness, or tenderness is normal. You can use warm compresses if you become concerned. If the tenderness +/or redness increases or foul drainage and a red streak occurs, please contact your PCP immediately When shoud you call for help? Call 911 anytime you think you may need emergency care. For example If you pass out ( loss of consciousness) If you pass maroon or bloody stools If you have severe belly pain Call your doctor now or seek immediate medical care If your stools are black and tarlike If your stools have streaks of blood, but you did not have a biopsy or any polyps removed If you have belly pain, or your belly is swollen and firm If you vomit If you have a fever If you are very dizzy Watch closely for changes in your health, and be sure to contact your doctor if you have any problems Your doctor will let you know when you will need your next colonoscopy. The results of your test and your risk for colorectal cancer will help your doctor decide how often you need to be checked. Saturday-Saturday Same Day Endo [phone] 7a-8p Otherwise contact [phone] and ask to speak to the timber mill worker weatherization field technician Follow up care is a gonzalez part of your treatment and safety. Be sure to make and go to all appointments, and call your doctor if you are having problems. Discharge instructions reviewed with patient who expresses understanding * Patient Instructions* Fidencio Drew MD - 07/15/2017 10:41 AM EDT Please see Recommendations in the Provation procedure report which is documented in the procedural note in E-[facility]. documented in this encounter Medications at Time of Discharge Medication Sig Dispensed Refills Start Date End Date ALPRAZolam (XANAX) 0.5 mg Tablet nightly as [...] Sust. Release 24 hr daily. 0 03/25/2017 atorvastatin (LIPITOR) 10 mg Tablet 0 03/01/2017 04/10/2022 dicyclomine (BENTYL) 10 mg Capsule Take 1 capsule by mouth 3 times daily. 90 capsule 3 04/15/2017 04/10/2022 documented as of this encounter H&P Notes * Fidencio Drew MD - 07/15/2017 9:38 AM EDT See recent GI consult note; no interval change; consent signed; risks explained; needs anesthesia due to severe nausea and vomiting in the past. documented in this encounter Plan of Treatment Upcoming Encounters Date Type Department Care Team (Late st Contact Info) Description 12/02/2024 11:00 AM EST Office Visit Dermatology at [facility] [address] [place] [address] Abi Steen MD [facility] DR [address] [place] [address] documented as of this encounter Procedures Procedure Name Priority Date/Time Associated Diagnosis Comments SURGICAL PATHOLOGY REPORT Routine 07/15/2017 10:45 AM EDT SPECIMEN TO PATHOLOGY Routine 07/15/2017 10:45 AM EDT COLONOSCOPY FLEXIBLE, WITH BX (WRVU 3.56) 07/15/2017 10:17 AM EDT Irritable bowel syndrome with diarrhea COLONOSCOPY Routine 07/15/2017 10:13 AM EDT documented in this encounter Results * Surgical Pathology Report (07/15/2017 10:45 AM EDT) Final Diagnosis [id number] ? Location: 4T; EA11; A The signing pathologist has (i) examined the relevant preparation(s) for the specimen(s) and (ii) rendered or confirmed the diagnosis(es). . ?Surgical Pathology DIAGNOSIS Colon, random, ??biopsy: Colonic mucosa within normal limits. CR-PX Electronically signed by: ??Myrna LANGLEY PhD, Sorin Rob Verified: ??07/17/2017 ?Pathologist CLINICAL INFORMATION Specimen Submitted: A - Random colon biopsies Clinical History: Chronic diarrhea Clinical Diagnosis: ? microscopic colitis SPECIMEN PROCESSING A - Labeled/Fixativ e: Random colon biopsies, formalin. Quantity/Size: Ten, 0.2-0.3 cm. Tissue Description: Soft pink-gaspar tissue. Sections/Proces sing: (T2) ??ellen 07/17/2017 3:10 PM EDT [facility] GI Biopsy 07/15/2017 10:4 5 AM EDT 07/15/2017 10:45 AM EDT Fidencio Drew MD PATHOLOGY/CYTOLOGY O CHERIE Performing Organization Address [facility] [address] [facility] [place] [address] * Specimen to Pathology (surgical or derm) (07/15/2017 10:45 AM EDT) AP Specimen 07/15/2017 10:4 5 AM EDT 07/15/2017 10:45 AM EDT Narrative [facility] - 07/15/2017 10:45 AM EDT Specimen requisition ordered. ??Separate Pathology report to follow Fidencio Drew MD PATHOLOGY/CYTOLOGY O CHERIE Performing Organization Address [facility] [address]/[facility] [place] [address] * COLONOSCOPY (07/15/2017 10:13 AM EDT) COLONOSCOPY [facility] Endoscopy Procedure Date: 07/15/2017 10:13 AM ? Patient Name: Brinda Alfred ? N: [id number] ? Date of : 1955 ? Age: 62 ? Order #: [id number] ? Instrument Name: [id number] ? Procedure: ? Colonoscopy Indications: ? Chronic diarrhea, Hematochezia; ? stable weight; not anemic; no family ? history of CRC. Providers: ? Fidencio Drew MD, Ivonne Marquez, ? Afshan Mcconnell, Student Union Consultant Referring : ?Leonora López MD Requesting Provider: Roseanne Cho; SPORT SHOE SPIKE ASSEMBLER Medicines: ? Monitored Anesthesia Care Complications: ? [...] preparation was evaluated using ? the BBPS ([place] Bowel Preparation ? Scale) with scores of: [...] Procedure Code(s): ?? --- Professional --- ? 19450, Colonoscopy, flexible; with ? biopsy, single or multiple CPT copyright 2016 [employer]. All rights reserved. The codes documented in this report are preliminary and upon pattern finisher review may be revised to meet current compliance requirements. Attending Participation: ? I personally performed the entire procedure. ? Fidencio Drew MD 07/15/2017 10:46:11 AM This report has been signed electronically. Number of Addenda: 0 Note Initiated On: 07/15/2017 10:13 AM PROVATION 07/15/2017 10:1 3 AM EDT Leonora López MD GENERAL SURGICAL ORD ERABLES PROVATION documented in this encounter Visit Diagnoses Diagnosis Irritable bowel syndrome with diarrhea Irritable bowel syndrome documented in this encounter Administered Medications Inactive Administered Medications - up to 3 most recent administrations Medication Order MAR Action Action Date Dose Rate Site lactated Ringers infusion 100 mL/hr, Intravenous, CONTINUOUS, Starting on Sat07/15/17 at 1015, Until Sat07/15/17 at 1109, Endoscopy (Day of Procedure) New Bag 07/15/2017 10:11 AM EDT New Bag 07/15/2017 9:52 AM EDT 100 mL/hr 100 mL/hr documented in this encounter Active and Recently Administered Medications Times are shown in EDT. Continuous Medication Order 07/13/2017 07/14/2017 07/15/2017 lactated Ringers infusion (CANCELED) 100 mL/hr, Intravenous, CONTINUOUS, Starting on Sat07/15/17 at 1015, Until Sat07/15/17 at 1109, Endoscopy (Day of Procedure) 0952 (New Bag - Prov ider: Manuel Gama RN)1011 (New Bag - Provider: Scot Meek CRNA) documented in this encounter Care Teams Grain Oilseed Or Pasture Farm Manager Relationship Specialty Start Date End Date Leonora López MD [address] [place] [address] PCP - General Family Medicine 03/13/17 03/11/22 documented as of this encounter
--- OUTSIDE RECORDS SUMMARY | 2024-10-26 15:43 | XMS_ITS | Encounter Summary ---
[place] [address] Care Team Providers Care System Support Analyst Name Role Phone Leonora López MD Primary Care Provider [phone] Reason for Referral * Consultation (Routine) - Closed Specialty Diagnoses / Procedures Referred By Geoffrey dill Referred To Contact [facility] Diagnoses Radiculopathy of cervical region Cervical spondylosis Cervical disc osteophyte complex/ left arm pain/ MRI 12/28/21 & XR 12/25/21 in e[facility] Justin Desouza MD [address] [place] [address] [facility] [place] [address] Referral ID Status Reason Start Date Expiration Date V isits Requested Visits Authorized [id number] Closed Evaluate and Treat 01/29/2022 01/29/2023 3 3 Scheduling Instructions Referral received through onbase and scanned to chart. Encounter Details Date Type Department Care Team (Latest Contact Info) Description 01/29/2022 Transcribe Orders [facility] [place] [address] Justin Desouza MD [address] [place], [place] [id number] Radiculopathy of cervical region; Cervical spondylosis Social History Tobacco Use Types [...] AM EST Office Visit Dermatology at [facility] [address] [place] [address] Abi Steen MD [facility] [address] [place] [address] Scheduled Referrals Name Type Priority Associated Diagnoses Orde r Schedule Referral to [facility] (Internal only) Outpatient Referral Routine Radiculopathy of cervical region Cervical spondylosis Ordered: 01/29/2022 documented as of this encounter Visit Diagnoses Diagnosis Radiculopathy of cervical region Brachial neuritis or radiculitis nos Cervical spondylosis Cervical spondylosis without myelopathy documented in this encounter Care Teams System Support Analyst Relationship Specialty Start Date End Date Leonora López MD [address] [place] [address] PCP - General Family Medicine 03/13/17 03/11/22 documented as of this encounter
--- OUTSIDE RECORDS SUMMARY | 2024-10-26 15:43 | XMS_ITS | Encounter Summary ---
Author Organization [facility] Address [facility] [place] [address] Care Team Providers Care Uptwist Spinner Name Role Phone Stephanie Shannonyn Karyna JUDGE Primary Care Provider [phone] Encounter Details Date Type Department Care Team (Latest Contact Info) Description 03/16/2022 2:56 PM EDT - 03/16/2022 4:01 PM EDT Hospital Encounter Pain Management [address] [place] [place] [phone] Nuha Ryan MD [facility] [place] [address] Cervical spondylosis Discharge Disposition: Home Social History [...] Post -Procedure Pain Log Patient: Brinda Alfred [id number] It is important for you to keep [...] 4 hours 8:00 pm [facility] Social Contact Worker Nurse will call you within a week of your procedure to ask about your response to the procedure and help with the next steps. If you need to reach the Social Contact Worker you can call: [phone]. documented in this encounter Medications at Time [...] 3.66) performed by Fidencio Drew MD at [facility] ENDOSCOPY ALLERGIES: Phenergan dm [promethazine-dm], Celebrex [celecoxib], [...] C3, C4, C5 MBB Nuha Ryan MD Timekeeper Supervisor of Anesthesiology [facility] [address] [address] / [facility] documented in this encounter Miscellaneous Notes * Op Note - Nuha Ryan MD - 03/16/2022 3:45 PM EDT Pain Management Operative Note Patient Name: Brinda Alfred : [id number] MR#: [id number] Case Date: 03/16/2022 Surgeon: Surgeon(s) and Role: [...] appointments were discussed with Ms. Alfred. Ms. Alfrde was instructed to keep careful note of [...] CC: Dorothea Shannon APRN [address] [place] [address] documented in this encounter Plan of Treatment Upcoming Encounters Date Type Department Care Team (Late st Contact Info) Description 12/02/2024 11:00 AM EST Office Visit Dermatology at [address] [address] Abi Steen MD [facility] [address] [place] [address] documented as of this encounter Procedures Procedure Name Priority Date/Time Associated Diagnosis Comments INJECTION, FACET JOINT,W/FLUORO, CERVICAL,2ND LVL Routine 03/16/2022 4:29 PM EDT Cervical spondylosis Injection Pv Facet Joint Cerv/Thoracic Second Level (20295) 03/16/2022 3:39 PM EDT Cervical spondylosis Inj, Diag/Therapeutic Agent, Paravertebral Facet Jt, Cervical/Thoracic, Single (19327) 03/16/2022 3:39 PM EDT Cervical spondylosis INJECTION,FACET [...] PRN, Starting on Sat03/16/22 at 1547, Until 03/16/22 at 1802, Intra-Operative (Intra-Procedure), Routine 1547 (Given - Provid er: Nuha Ryan MD) documented in this encounter Care Teams Uptwist Spinner Relationship Specialty Start Date End Date Dorothea Shannon APRN [address] [place] [address] PCP - General Family Medicine 03/12/22 documented as of this encounter
--- OUTSIDE RECORDS SUMMARY | 2024-10-26 15:43 | XMS_ITS | Encounter Summary ---
[place] [address] Care Team Providers Care Sack Cleaner Name Role Phone Leonora López MD Primary Care Provider [phone] Reason for Referral * Consultation (Routine) - Closed Specialty Diagnoses / Procedures Referred By Contac t Referred To Contact [facility] Diagnoses Radiculopathy of cervical region Cervical spondylosis Radiculopathy of lumbar region Russel Solis PA [facility] [place] [address] [facility] [place] [address] Referral ID Status Reason Start Date Expiration Date V isits Requested Visits Authorized [id number] Closed Consult, Test & Treat 02/12/2022 02/12/2023 3 3 Reason for Visit * Reason Comments Neck Pain * Consultation (Routine) - Closed Specialty Diagnoses / Procedures Referred By Contac t Referred To Contact [facility] Diagnoses Radiculopathy of cervical region Cervical spondylosis Cervical disc osteophyte complex/ left arm pain/ MRI 12/28/21 & XR 12/25/21 in eD Justin Desouza MD [address] [place] [address] [facility] [place] [address] Referral ID Status Reason Start Date Expiration Date V isits Requested Visits Authorized [id number] Closed Evaluate and Treat 01/29/2022 01/29/2023 3 3 Encounter Details Date Type Department Care Team (Latest Contact Info) Description 02/12/2022 8:00 AM EDT Office Visit [facility] at [facility] [place] [address] Russel Solis PA [facility] [place] [address] Radiculopathy of cervical region; Cervical spondylosis; Radiculopathy [...] Sign Reading Time Taken Comments Blood Pressure 155/87 02/12/2022 7:56 AM EDT Pulse 78 02/12/2022 7:56 AM EDT Temperature - - Respiratory Rate - - Oxygen Saturation - - Inhaled Oxygen Concentration - - Weight 65.3 kg (144 lb) 02/12/2022 7:56 AM EDT Height 160 cm (5' 3) 02/12/2022 7:56 AM EDT Body Mass Index 25.51 02/12/2022 7:56 AM EDT documented in this encounter Progress Notes * Russel Solis PA - 02/12/2022 8:00 AM EDT Images from the original note were not included. [facility] Russel Solis PA-C Dear Colleagues, I had the pleasure of seeing this patient at the [facility] for evaluation. Brief summary and plan: Diagnosis: 1) Cervical spondylosis with left sided radiculopathy 2) Chronic low back pain with bilateral lower extremity radiculopathy Brinda is a 66 year old female who presents to clinic for evaluation of neck pain and left sided radiculopathy with findings of multilevel left sided foraminal stenosis. Pain travels into posterior nelson into the hand and affects all digits, with minimal reports of numbness tingling or weakness. She has done extensive PT and OTC medications without significant relief. She also complains of chronic low back pain that radiates into left > right lower extremity withprimary complaints of pain. She has not had any work up of this up to the point. She has no red flag symptoms and is neuro intact. We discussed her cervical imaging and its implications. Treatment options regarding this discussed included gabapentin, injection, or surgical intervention. She would like to pursue injection prior to surgical discussion. She would also like to start gabapentin. 1) XR lumbar spine 2) Referral for CARIN 3) Gabapentin 4) Follow up with surgeon after CARIN if symptoms persist Chief complaint: Neck pain, left arm pain, low back pain, left>right lower extremity pain HPI: Brinda is a 66 y.o. old female who presents to clinic for evaluation of neck pain with radiation intoleft upper extremity and low back pain that radiates into left>right lower extremity. Her neck pain has been quite bothersome for her for the past 6 years, however reports significant worsening over the past two which now radiates down into left shoulder, posterior left arm radial forearm and into the hand. Symptoms are always present but with worsening during activity. She does notendorse any numbness, tingling or weakness. No hand dysfunction or gait disturbances. Treatments have included OTC medications and extensive physical therapy without significant relief. She also complains of low back pain and left leg worse than right leg pain. She has a history of bilateral ARYA in September for which she has been doing quite well. These symptoms have gradually developed since and is now affecting sleep. She does not have any numbness, tingling, or weakness of the legs. No constitutional symptoms, saddle anesthesia, hand dysfunction, gait disturbances, weakness, or red flag symptoms. Treatments have included: NSAIDs, Tylenol and physical therapy Current Outpatient Medications Medication Instructions ??? ALPRAZolam (XANAX) 0.5 mg Tablet NIGHTLY PRN ??? amitriptyline (ELAVIL) 25 mg Tablet take 1 to 2 tablets by mouth at bedtime ??? amLODIPine (NORVASC) 5 mg Tablet take 1/2 tablet by mouth once daily ??? atorvastatin (LIPITOR) 10 mg Tablet No dose, route, or frequency recorded. ??? dicyclomine (BENTYL) 10 mg, Oral, 3 TIMES DAILY ??? gabapentin (NEURONTIN) 100 mg, Oral, 3 TIMES DAILY ??? montelukast (SINGULAIR) 10 mg, Oral, NIGHTLY ??? omeprazole (PRILOSEC) 20 mg Capsule, Delayed Release(E.C.) take 1 capsule by mouth once daily ??? propranoloL (INDERAL) 10 mg, Oral, 2 TIMES DAILY ??? venlafaxine (EFFEXOR-XR) 37.5 mg Capsule, Sust. Release 24 hr No dose, route, or frequency recorded. 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 Able to ambulate without assistive device. Able to toe, heel, tandem gait. Severe limitations of cervical spine in all planes limited by pain and shooting pains into left upper extremity. She has normal sensation in bilateral upper and lower extremities. She has 5/5 in bilateral upper and lower extremities. 2+ biceps, triceps, brachioradialis reflexes bilaterally. 1+ Patella and achilles bilaterally. Negative petty. Imaging: Reviewed Imaging of cervical spine. XR of cervical spine obtained 12/25/21 shows a globally degenerative cervical spine with reversal oftypical cervical lordosis. There is spondylotic changes most notable from the C4 to the C7 level evidence by disc height loss, and osteophyte formation. There is listhesis of C4 on C5. MRI of cervical spine obtained 12/28/21 shows similar findings as XR with further evidence of facet arthropathy and discosteophyte complexes most notable at the C4-7 levels with left sided foraminal stenosis. There is moderate central narrowing most notable at the C4-5 level, but also present at C5-6and C6-7 levels. No cord signal changes noted. Assessment/plan: Brinda is a 66 year old female who presents to clinic for evaluation of neck pain and left sided radiculopathy with findings of multilevel left sided foraminal stenosis. Pain travels into posterior nelson into the hand and affects all digits, with minimal reports of numbness tingling or weakness. She has done extensive PT and OTC medications without significant relief. She also complains of chronic low back pain that radiates into left > right lower extremity withprimary complaints of pain. She has not had any work up of this up to the point. She has no red flag symptoms and is neuro intact. We discussed her cervical imaging and its implications. Treatment options regarding this discussed included gabapentin, injection, or surgical intervention. She would like to pursue injection prior to surgical discussion. She would also like to start gabapentin. 1) XR lumbar spine 2) Referral for CARIN 3) Gabapentin 4) Follow up with surgeon after CARIN Thank you for letting me participate in this patient's care. Sincerely, Russel Solis PA-C [facility] documented in this encounter Plan of Treatment Upcoming Encounters Date Type Department Care Team (Late st Contact Info) Description 12/02/2024 11:00 AM EST Office Visit Dermatology at [address] [place] [address] Abi Steen MD [facility] [address] [place] [address] Scheduled Referrals Name Type Priority Associated Diagnoses Orde r Schedule Referral to Pain and Spine Center (Internal only) Outpatient Referral Routine Radiculopathy of cervical region Cervical spondylosis Radiculopathy of lumbar region Ordered: 02/12/2022 documented as of this encounter Results * XR Lumbar Spine [...] who have questions please contact the health director of medicare that requested your imaging first. ? Narrative 02/12/2022 9:49 AM EDT EXAMINATION: XR LUMBAR SPINE 2 OR 3 VIEWS (GENERIC) CLINICAL HISTORY: low back pain radiating into left >right extremity TECHNIQUE: Lumbar spine AP and lateral COMPARISON: None FINDINGS: The osseous structures are diffusely demineralized. There are five [id number] lumbar-type vertebrae. Disc interspace narrowing is noted [...] structures are diffusely demineralized. There are five zlb-[id number]-[id number] lumbar-type vertebrae. Disc interspace narrowing isnoted prominently [...] patients who have questions please contactthe health director of medicare that requested your imaging first. Richard Alfredo MD IMG DX ORDERABLES documented in this encounter Visit Diagnoses Diagnosis Radiculopathy of cervical region Brachial neuritis or radiculitis nos Cervical spondylosis Cervical spondylosis without myelopathy Radiculopathy of lumbar region Thoracic or lumbosacral neuritis or radiculitis, unspecified Radiculopathy of cervical region Brachial neuritis or radiculitis nos Cervical spondylosis Cervical spondylosis without myelopathy Radiculopathy of lumbar region Thoracic or lumbosacral neuritis or radiculitis, unspecified documented in this encounter Care Teams Sack Cleaner Relationship Specialty Start Date End Date Leonora López MD [address] [place] [address] PCP - General Family Medicine 03/13/17 03/11/22 documented as of this encounter
--- OUTSIDE RECORDS SUMMARY | 2024-10-26 15:43 | XMS_ITS | Encounter Summary ---
Author Organization [facility] [place] [address] Care Team Providers Care Food Service Steward Name Role Phone Leonora López MD Primary Care Provider [phone] Encounter Details Date Type Department Care Team (Late Contact Info) Description 03/09/2022 4:00 PM EDT Ancillary Procedure Radiology Library [place] [facility] [place] [address] Leonora López MD [address] [place], [place] [id number] Social History Tobacco Use Types Packs/Day Years [...] Upcoming Encounters Date Type Department Care Team ([facility] Contact Info) Description 12/02/2024 11:00 AM EST Office Visit Dermatology at [facility] [address] [place] [address] Abi Steen MD [facility] [address] [place] [address] documented as of this encounter Procedures Procedure Name Priority Date/Time Associated Diagnosis Comments FILM LIBRARY STORAGE ONLY MR SPINE Routine 03/09/2022 3:57 PM EDT documented in this encounter Results * Film Library- Storage Only MR Spine (03/09/2022 3:57 PM EDT) Narrative RAD - 03/09/2022 3:57 PM EDT This exam is auto-finalizing. It's purpose is for storage only. Leonora López MD IM FILM LIBRARY ORD ERABLES [place], [place] documented in this encounter Visit Diagnoses Not on filedocumented in this encounter Care Teams Food Service Steward Relationship Specialty Start Date End Date Leonora López MD [address] [place] [address] PCP - General Family Medicine 03/13/17 03/11/22 documented as of this encounter
--- OUTSIDE RECORDS SUMMARY | 2024-10-26 15:43 | XMS_ITS | Encounter Summary ---
Author Organization [facility] Address [facility] [place] [address] Care Team Providers Care Blow Mold Operator Name Role Phone Leonora López MD Primary Care Provider [phone] Encounter Details Date Type Department Care Team (Latest Contact Info) Description 02/12/2022 Travel Social History Tobacco Use Types Packs/Day [...] 11:00 AM EST Office Visit Dermatology at [facility] [address] [place] [address] Abi Steen MD [facility] [address] [place] [address] documented as of this encounter Visit Diagnoses Not on filedocumented in this encounter Care Teams Blow Mold Operator Relationship Specialty Start Date End Date Leonora López MD [address] [place] [address] PCP - General Family Medicine 03/13/17 03/11/22 documented as of this encounter
--- OUTSIDE RECORDS SUMMARY | 2024-10-26 15:43 | XMS_ITS | Encounter Summary ---
[place] [address] Care Team Providers Care Credit Card Clerk Name Role Phone Leonora López MD Primary Care Provider [phone] Reason for Visit * Reason Comments Follow-up Encounter Details Date Type Department Care Team ([facility] st Contact Info) Description 08/05/2017 10:30 AM EDT Office [place] [id number] Roseanne Cho, [employer] [address] [place] [address] Diarrhea, unspecified type; Bloating; Abdominal cramping Social History Tobacco Use Types Packs/Day Years [...] Sign Reading Time Taken Comments Blood Pressure 161/71 08/05/2017 10:15 AM EDT Pulse 68 08/05/2017 10:15 AM EDT Temperature - - Respiratory Rate - - Oxygen Saturation - - Inhaled Oxygen Concentration - - Weight 64.9 kg (143 lb) 08/05/2017 10:15 AM EDT Height 157.5 cm (5' 2) 08/05/2017 10:15 AM EDT Body Mass Index 26.16 08/05/2017 10:15 AM EDT documented in this encounter Patient Instructions * Patient Instructions* Roseanne Cho APRN - 08/05/2017 10:30 AM EDT - Peppermint tea or oil may be helpful as they have been shown to relax the gut. If peppermint gives you heartburn symptoms, take an enteric coated peppermint capsule like IBGard . May take up to four times daily on an empty stomach as needed. -Light box for depression. You can order this online. -Medical MJ. -Consider investigating paleo/specific carbohydrate diet. -Lifeway kefir 1/2-1 cup per day. May use a probiotic if preferred. -Saccharomyces species (probiotic) actually make it to the colon. -Follow up as needed documented in this encounter Progress Notes * Roseanne Cho APRN - 08/05/2017 10:30 AM EDT Help Desk Engineer: Roseanne Cho APRN PCP: Leonora López MD Requesting Provider: REASON FOR VISIT This is a 62 y.o. female who returns to me today in follow up. She GI PROBLEM LIST 1. IBS-Diarrhea predominance --Colonoscopy 2007 ([facility]); unremarkable --Colonoscopy with anesthesia 07/15/17; The examined portion of the ileum was normal. The cecum is normal. The ascending colon is normal. Biopsied. The transverse colon is normal. The descending colonis normal. The sigmoid colon is normal. Non-bleeding external hemorrhoids. Recommendation: Await pathology results. Pathology; normal. --Medication trials; dicyclomine Time Spent With Patient 25 minutes of this 26 minute visit were spent in [id number] discussion and counseling the patientas detailed per below. INTERVAL HISTORY- 08/05/17 Has been following low-FODMAP diet. This has helped. Triggers include onions. Cream. Fatty foods. Anxiety seems to make symptoms worse. Has been able to get a prescription for xanax. This helps a bit. Is interested in obtaining medical MJ. Denies diarrhea. I pretty much feel back to normal. Is now having difficulty passing stool. Straining at times. No blood or mucus in stool. No bloating, cramping, urgency except for when she eats trigger foods. Dicyclomine is helpful. Was recently celebrating daughter's wedding. Wasn't as compliant with diet and avoidance of trigger foods. Continues with omeprazole 20mg once daily and taking medication appropriately. Reflux symptoms were worse when she was celebrating her daughter's wedding. Otherwise reflux is stable and managed with current dose. No anal or rectal pain. Colonoscopy in June 2017 was normal. Pathology was normal. HPI Patient reports IBS with diarrhea since [...] Denies anorexia, fever, or unintended weight change PSYCH: Anxiety and depression. Allergies Allergies Allergen Reactions ??? Phenergan Dm [Promethazine-Dm] Anaphylaxis ??? Mold ??? Sulfa (Sulfonamide Antibiotics) ??? Unable To Find [Unclassified Drug] Flowering tree MSG Current Medications Medications reviewed and reconciled in e-DH Medical History 1. Hyperlipidemia 2. Hypertension 3. Anxiety 4. Depression Surgical History 1. section x 2 2. 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 Has 2 kids; boy and girl HABITS Denies tobacco use. Occasional alcohol use. Denies using other substances. Family History Mom is , age: 87 (heart failure-CHF) Dad is , age: 87 (esophageal cancer- was smoker) No GI etiologies Physical Exam: Vitals: 08/05/17 1015 BP: 161/71 Pulse: 68 Height: 5'1 Weight: 143lb Body mass index is 26.16 kg/(m^2). GENERAL: Healthy-appearing in no acute distress. Appears stated age. Appropriate weight for height. SKIN: No lesions, rashes, lumps, or angiomas on exposed skin. NEURO: Alert and oriented to person, place, time, and situation. Cranial nerves II-XII intact. PSYCH: Mood appropriate. Good eye contact. Normal interaction. Answers all questions appropriately. Labs: Impression This is a very lynne 62 year old woman with a history of anxiety and depression who returns to me today in follow up for IBS. 1. DIARRHEA Does not currently meet SUDHA IV criteria for IBS. Managing her symptoms with dietary changes. Has benefited from low-FODMAP diet and dicyclomine. We discussed the pathophysiology of diarrhea including central/visceral hypersensitivity, gut dysbiosis, diet, and immune function. Lifestyle and diet recommendations include Lifeway kefir/probiotic and peppermint. Recommendations 1. May use enteric coated peppermint oil such as IB Howard on an empty stomach as needed for cramping. May also use peppermint tea. 2. Lifeway kefir 1/2-1 cup per day. May use a probiotic if preferred. 3. Follow up with PCP regarding anxiety 4. Continue dicyclomine as needed. 5. GIF as needed. I have provided her with my contact information. She has been encouraged to contact me with any questions or concerns. Signed, Roseanne Cho APRN 08/05/17 2:04 PM Section of Gastroenterology & Hepatology [facility] ?? documented in this encounter Plan of Treatment Upcoming Encounters Date Type Department Care Team (Late st Contact Info) Description 12/02/2024 11:00 AM EST Office Visit Dermatology at [facility] [address] [place] [address] Abi Steen MD [facility] [place] [address] documented as of this encounter Visit Diagnoses Diagnosis Diarrhea, unspecified type Bloating Flatulence, eructation, and gas pain Abdominal cramping Abdominal pain, unspecified site documented in this encounter Care Teams Credit Card Clerk Relationship Specialty Start Date End Date Leonora López MD [address] [place] [address] PCP - General Family Medicine 03/13/17 03/11/22 documented as of this encounter
--- OUTSIDE RECORDS SUMMARY | 2024-10-26 15:43 | XMS_ITS | Encounter Summary ---
Author Organization [facility] [place] [address] Care Team Providers Care Chemical Analyst Name Role Phone Dorothea Shannon ALFIE Primary Care Provider [phone] Encounter Details Date Type Department Care Team (Late Contact Info) Description 03/16/2022 3:30 PM EDT Ancillary Procedure [place] [phone] Nuha Ryan MD [facility] [place] [address] Social History Tobacco Use Types Packs/Day Years [...] 11:00 AM EST Office Visit Dermatology at [facility] [address] [place] [address] Abi Steen MD [facility] [address] [place] [address] documented as of this encounter Procedures Procedure Name Priority Date/Time Associated Diagnosis Comments FILM LIBRARY STORAGE ONLY PAIN CLINIC C ARM Routine 03/16/2022 4:03 PM EDT documented in this encounter Results * Film Library- Storage Only pain Clinic C-Arm (03/16/2022 4:03 PM EDT) Narrative [facility] RAD - 03/16/2022 4:03 PM EDT See PACS for result report. Nuha Ryan MD IMG FILM LIBRARY ORD ERABLES [place], [place] documented in this encounter Visit Diagnoses Not on filedocumented in this encounter Care Teams Chemical Analyst Relationship Specialty Start Date End Date Dorothea Shannon, TELEGRAPHIC TYPEWRITER OPERATOR CHIEF [address] [place] [address] PCP - General Family Medicine 03/12/22 documented as of this encounter
--- OUTSIDE RECORDS SUMMARY | 2024-10-26 15:43 | XMS_ITS | Encounter Summary ---
Author Organization [facility] Address [facility] [place] [address] Care Team Providers Care Saturator Name Role Phone Leonora López MD Primary Care Provider [phone] Encounter Details Date Type Department Care Team (Latest Contact Info) Description 07/15/2017 9:16 AM EDT - 07/15/2017 11:22 AM EDT Hospital [place] [address] Fidencio Drew MD [facility] [address] GASTROENTER[place] [address] Discharge Disposition: Home Social History Tobacco Use [...] encounter Discharge Instructions * Discharge Instructions* Gertrudis Ferreira, POPEYE - 07/15/2017 10:48 AM EDT Colonoscopy with [...] to be checked. Saturday-Saturday Same Day Endo [phone] Otherwise contact [phone] and ask to speak to the client support analyst workers' compensation hearings officer Follow up care is a gonzalez part [...] 11:00 AM EST Office Visit Dermatology at [facility] [address] [place] [address] Abi Steen MD [facility] [place] [address] documented as of this encounter Procedures Procedure [...] Report (07/15/2017 10:45 AM EDT) Final Diagnosis [id number] ? Location: 4T; EA11; A The signing [...] sing: (T2) ??ellen 07/17/2017 3:10 PM EDT [facility] GI Biopsy 07/15/2017 10:4 5 AM EDT 07/15/2017 10:45 AM EDT Fidencio Drew MD PATHOLOGY/CYTOLOGY O CHERIE Performing Organization Address [facility] [place] [address] * Specimen to Pathology (surgical or derm) (07/15/2017 10:45 AM EDT) AP Specimen 07/15/2017 10:4 5 AM EDT 07/15/2017 10:45 AM EDT Narrative [facility] - 07/15/2017 10:45 AM EDT Specimen requisition ordered. ??Separate Pathology report to follow Fidencio Drew MD PATHOLOGY/CYTOLOGY O CHERIE Performing Organization Address [facility] [place] [address] * COLONOSCOPY (07/15/2017 10:13 AM EDT) COLONOSCOPY [facility] Endoscopy Procedure Date: 07/15/2017 10:13 AM ? Patient Name: Brinda Alfred ? [facility]: [id number] ? Date of : 1955 ? Age: 62 ? Order #: [id number] ? Instrument Name: [id number] ? Procedure: ? Colonoscopy Indications: ? Chronic diarrhea, Hematochezia; ? stable weight; not anemic; no family ? history of CRC. Providers: ? Fidencio Drew MD, Ivonne Marquez, ? Afshan Mcconnell, Plant Machinist Referring MD: ?Leonora López MD Requesting Provider: Roseanne Cho; SOIL SORT WORKER Medicines: ? Monitored Anesthesia Care Complications: ? [...] preparation was evaluated using ? the BBPS ([place] Bowel Preparation ? Scale) with scores of: [...] Procedure Code(s): ?? --- Professional --- ? 26788, Colonoscopy, flexible; with ? biopsy, single or multiple CPT copyright 2016 [employer]. All rights reserved. The codes documented in this report are preliminary and upon senior procurement specialist review may be revised to meet current compliance requirements. Attending Participation: ? I personally performed the entire procedure. ? Fidencio Drew MD 07/15/2017 10:46:11 AM This report has been signed electronically. Number of Addenda: 0 Note Initiated On: 07/15/2017 10:13 AM PROVATION 07/15/2017 10:1 3 AM EDT Leonora López MD GENERAL SURGICAL ORD ERABLES PROVATION documented in this encounter Visit Diagnoses Not [...] CRNA) documented in this encounter Care Teams Saturator Relationship Specialty Start Date End Date Leonora López MD [address] [place] [address] PCP - General Family Medicine 03/13/17 03/11/22 documented as of this encounter
--- OUTSIDE RECORDS SUMMARY | 2024-10-26 15:43 | XMS_ITS | Encounter Summary ---
Author Organization [facility] [place] [address] Care Team Providers Care Reinforcing Steel Worker Wire Mesh Name Role Phone Leonora López MD Primary Care Provider [phone] Encounter Details Date Type Department Care Team (Late Contact Info) Description 12/28/2021 Ancillary Procedure Radiology Library [place] [facility] [place] [address] Leonora López MD [address] [place], [place] [id number] Social History Tobacco Use Types Packs/Day Years [...] 11:00 AM EST Office Visit Dermatology at [facility] [address] [place] [address] Abi Seten MD [facility] [address] [place] [address] documented as of this encounter Procedures Procedure Name Priority Date/Time Associated Diagnosis Comments FILM LIBRARY STORAGE ONLY MR SPINE Routine 12/28/2021 12:00 AM EST documented in this encounter Results * Film Library- Storage Only MR Spine (12/28/2021 12:00 AM EST) Narrative LAVELL GARCIA - 01/23/2022 2:04 PM EST This exam is auto-finalizing. It's purpose is for storage only. Leonora López MD IMG FILM LIBRARY ORD ERABLES Performing Organization Address City/State/[facility] Co de Phone Number [place], [place] documented in this encounter Visit Diagnoses Not on filedocumented in this encounter Care Teams Reinforcing Steel Worker Wire Mesh Relationship Specialty Start Date End Date Leonora López MD [address] [place] [address] PCP - General Family Medicine 03/13/17 03/11/22 documented as of this encounter
--- OUTSIDE RECORDS SUMMARY | 2024-10-26 15:43 | XMS_ITS | Encounter Summary ---
Author Organization [facility] Address [facility] [place] [address] Care Team Providers Care Manager Psychology Name Role Phone Leonora López MD Primary Care Provider [phone] Encounter Details Date Type Department Care Team (Latest Contact Info) Description 02/26/2022 3:13 PM EDT - 02/26/2022 11:59 PM EDT Hospital Encounter XRay at [address] [place] [address] Nuha Ryan MD [facility] [place] [address] Lumbar adjacent segment disease with spondylolisthesis Discharge Disposition: Home Social History Tobacco Use [...] EST Office Visit Dermatology at [facility] [address] [place] [address] Abi Steen MD [facility] [address] [address] documented as of this encounter Procedures Procedure Name Priority Date/Time Associated Diagnosis Comments XR LUMBAR SPINE AP FLEXION AND EXTENSION ONLY Routine 02/26/2022 3:28 PM EDT Lumbar adjacent segment disease with spondylolisthesis documented in this encounter Results * XR Lumbar Spine AP Flexion and Extension Only (02/26/2022 3:28 PM EDT) Anatomical Region Laterality Modality L-spine N/A Digital Radiogra phy Impressions 02/26/2022 3:39 PM EDT Degenerative disc disease at L4-L5 with grade 1 anterolisthesis. No dynamic instability. Thank you for letting us participate in the care of this patient. ??If you are a health care provider and have any questions regarding this report, please contact the number below. ??For patients who have questions please contact the health patient care secretary that requested your imaging first. ? Electronically signed by: Denzel Valles MD, [facility] ([phone]), at 02/26/2022 3:39 PM Narrative 02/26/2022 3:39 PM EDT EXAMINATION: XR LUMBAR SPINE AP FLEXION AND EXTENSION ONLY CLINICAL HISTORY: lumbar spondylolisthesis at L4-5, r/o dynamic instabliity TECHNIQUE: Lumbar spine AP and lateral during flexion or extension COMPARISON: February 12, 2022 FINDINGS: There are five [id number]-[id number] lumbar-type vertebrae. There is severe disc interspace narrowing at L4-L5. Approximately 8 mm of anterolisthesis of L4 on L5 is present and does not change significantly during flexion and extension. Also noted is facet arthropathy at L5-S1. Procedure Note Denzel Valles MD - 02/26/2022 EXAMINATION: XR LUMBAR SPINE AP FLEXION AND EXTENSION ONLY CLINICAL HISTORY: lumbar spondylolisthesis at L4-5, r/o dynamicinstabliity TECHNIQUE: Lumbar spine AP and lateral during flexion or extension COMPARISON: February 12, 2022 FINDINGS: There are five qxf-hcc-[id number] lumbar-type vertebrae. There is severe disc interspace narrowing at L4-L5. Approximately 8 mmof anterolisthesis of L4 on L5 is present and does not change significantlyduring flexion and extension. Also noted is facet arthropathy at L5-S1. IMPRESSION Degenerative disc disease at L4-L5 with grade 1 anterolisthesis. No dynamic instability. Thank you for letting us participate in the care of this patient. If youare a health care provider and have any questions regarding this report,please contact the number below. For patients who have questions please contactthe health patient care secretary that requested your imaging first. Electronically signed by: Denzel Valles MD, [facility]([phone]), at 02/26/2022 3:39 PM Nuha Ryan MD IMG DX ORDERABLES documented in this encounter Visit Diagnoses Diagnosis Lumbar adjacent segment disease with spondylolisthesis documented in this encounter Care Teams Manager Psychology Relationship Specialty Start Date End Date Leonora López MD [address] [place] [address] PCP - General Family Medicine 03/13/17 03/11/22 documented as of this encounter
--- OUTSIDE RECORDS SUMMARY | 2024-10-26 15:43 | XMS_ITS | Encounter Summary ---
Author Organization [facility] [place] [address] Care Team Providers Care Branch Service Associate Name Role Phone Stephanie Shannonyn Karyna JUDGE Primary Care Provider [phone] Encounter Details Date Type Department Care Team (Late st Contact Info) Description 03/19/2022 Telephone [facility] [place] [address] Charlene Gan RN Social History Tobacco Use [...] Miscellaneous Notes * Telephone Encounter - Charlene Gan, RN - 03/19/2022 11:30 AM EDT Post-procedure phone call from patient to report their response to the cervical medial branch blockprocedure performed on 03/16/22 in the [facility] by Nuha Ryan MD. This is patient's: first medial branch block Patient reports that after the procedure they experienced: _x_ Patient reported post-block numeric pain scale: 0 /10 (average pain since procedure) _x_ Post-procedure pain has been reduced by 95%. (> 80% Medicare/MVP/Medicaid) _x_ If relief > 80% with ability to perform painful maneuvers; schedule 2nd MBB: yes _x_ Post-procedure pain has been reduced by 95%. (> 50% all other insurers) __x Pain relief: complete If pain is reduced, it lasted: Yes 4 hours or greater Changes in functional status post procedure: Able to lift head and headache went away . Pertinent recent trauma or surgery? no If [...] taking any NSAIDS/supplements? Ibuprofen (Advil, Motrin, Midol) and Multivitamin Is patient taking aspirin? no If yes, is it prescribed? no If yes, what reason is it prescribed? Is patient taking Antibiotics? No Has patient been on greater than 40mg of steroid 14 days or longer? No Has patient had any steroid injections anywhere in his/her body within the last two weeks? No Does patient request sedation? no Does patient need NPO guidelines? no Does patient have allergies to contrast/local anesthetic/steroid? No Any changes? no Based on the information provided above and after discussion with the patient, the following actions will be taken: _x_ Patient meets criteria to proceed to second Left at C4, C5, C6 and C7 cervical medial branch block, order will be pended to Dr. Ryan. Patient denies further questions at this time and expressed understanding of plan. Encouraged patient to call pain clinic RN for future questions or concerns. documented in this encounter Plan of Treatment Upcoming Encounters Date Type Department Care Team (Late st Contact Info) Description 12/02/2024 11:00 AM EST Office Visit Dermatology at [facility] [address] [place] [address] Abi Steen MD [facility] [address] [place] [address] documented as of this encounter Visit Diagnoses Not on filedocumented in this encounter Care Teams Branch Service Associate Relationship Specialty Start Date End Date Dorothea Shannon APRN [address] [place] [address] PCP - General Family Medicine 03/12/22 documented as of this encounter
--- OUTSIDE RECORDS SUMMARY | 2024-10-26 15:43 | XMS_ITS | Encounter Summary ---
Author Organization [facility] [place] [address] Care Team Providers Care Boiler Riveter Name Role Phone Leonora López MD Primary Care Provider [phone] Reason for Visit * Reason Comments Left Leg Pain Back Pain Neck Pain * Consultation (Routine) - Closed Specialty Diagnoses / Procedures Referred By Geoffrey dill Referred To Contact Pain and Spine Center Diagnoses Radiculopathy of cervical region Cervical spondylosis Radiculopathy of lumbar region Russel Solis PA [facility] [address] [facility] [place] [address] Referral ID Status Reason Start Date Expiration Date V isits Requested Visits Authorized [id number] Closed Consult, Test & Treat 02/12/2022 02/12/2023 3 3 Encounter Details Date Type Department Care Team ([facility] Contact Info) Description 02/19/2022 10:00 AM EDT Office Visit [place] [address] Nuha Ryan MD [facility] [place] [address] Cervical spondylosis Social History Tobacco Use Types [...] Sign Reading Time Taken Comments Blood Pressure 157/86 02/19/2022 9:52 AM EDT Pulse 56 02/19/2022 9:52 AM EDT Temperature - - Respiratory Rate - - Oxygen Saturation 97% 02/19/2022 9:52 AM EDT Inhaled Oxygen Concentration - - Weight 64.4 kg (142 lb) 02/19/2022 9:52 AM EDT Height 160 cm (5' 3) 02/19/2022 9:52 AM EDT Body Mass Index 25.15 02/19/2022 9:52 AM EDT documented in this encounter Progress Notes * Nuha Ryan MD - 02/19/2022 10:00 AM EDT [facility] Initial Consultation Note DOS: 02/19/22 : 1955 Brinda Alfred is a 66 y.o. year old female with a PMH including hypertension, anxiety/depression, status post bilateral hip replacement, chronic migraine, irritable bowel syndrome who presents to thepain clinic today at the referral of Russel Solis PA [facility] [address] [address] for consultation regarding neck pain, left sided occipital headache, as well as back pain. CC: Chief Complaint Patient presents with ??? Left Leg Pain ??? Back Pain ??? Neck Pain HPI: Brinda Alfred is accompanied by her today. She report insidious onset of neck pain with intermittent radiation down left upper extremity about 5-6 years ago. She completed a course of PT withNic [facility] in [facility] which resolved most of her left upper extremity symptoms. Her major symptom currently involves dull throb at the base of her skull that radiates to affect left temporal region, and also extend to affect her trapezius and shoulder blade area. She also got some back images done and wants to discuss this. Pain Description: Duration - constant with intermittent flare up Location - neck and left shoulder, left breast bone, left sided occipital headache, lower back pain Quality - ache pain, toothache Weakness - denies Numbness/Tingling - left arm tingling Pain score: 6/10 today, 8-9/10 at worst, 3/10 at best, 6-7/10 on average (all in past week) Alleviating factors: gabapentin improves her tingling down the left arm Aggravating factors: turning her neck, driving, painting Current pain regimen: Gabapentin 200mg TID Tylenol arthritis Ibuprofen Prior Treatments/Medications (Per prior [...] urgency. No incontinence. Musculoskeletal: No muscle weakness. Skin: No rashes or lesions. Neurologic: No numbness/tingling. No difficulty with balance. Psychiatric: Mood ok. No SI/HI. Sleep is good. Heme/Lymph/Imm: No easy bleeding or brusing. PMH/PSH: There is no problem list on file for this patient. No past medical history on file. Past Surgical History: Procedure Laterality Date ??? PRO COLONOSCOPY, BIOPSY N/A 07/15/2017 COLONOSCOPY FLEXIBLE, WITH BX (WRVU 3.66) performed by Fidencio Drew MD at [facility] ENDOSCOPY FAMILY HISTORY: Family History Problem Relation Age of Onset ??? Heart Failure Mother ??? Back Pain Father ??? Esophageal Cancer Father ??? 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 propranoloL (Inderal) 10 mg Tablet, Take 10 mg by mouth 2 times daily., Disp: , Rfl: ??? gabapentin (Neurontin) 100 mg Capsule, Take 1 capsule by mouth 3 times daily. (Patient taking differently: Take 100 mg by mouth 3 times daily. 2 capsules, 3 times daily), Disp: 90 capsule, Rfl: 12 ??? ALPRAZolam (XANAX) 0.5 mg Tablet, nightly [...] 24 hr, daily., Disp: , Rfl: 0 ??? montelukast (Singulair) 10 mg Tablet, Take 10 mg by mouth nightly., Disp: , Rfl: ??? atorvastatin (LIPITOR) 10 mg Tablet, , Disp: , Rfl: 0 ??? dicyclomine (BENTYL) 10 mg Capsule, Take 1 capsule by mouth 3 times daily. (Patient not taking:No sig reported), Disp: 90 capsule, Rfl: 3 PDMP report checked and no inconsistencies are [...] - No gross appendicular or axial deformities Palpation - Tenderness to left occipital notch ROM - cervical extension and lateral rotation restricted Special tests - Spurling's maneuver - negative Facet joint loading - positive on left side Neurologic: professional development manager - grossly intact Reflexes - 2+ and symmetric in bilateral biceps, triceps, brachioradiali, patellae, and Achilles. Motor - 5/5 in all planes of motion in all four extremities. Sensation - Intact to light touch throughout all four extremities Gait/Station: Normal gait. No loss of balance noted. Transitions from exam room chair to table without difficulty. TESTS/IMAGING: MRI C spine reviewed ASSESSMENT: Patient is a 66 yo female with left sided occipital temporal headache as well as neck pain with radiation to left trapezius and per-scapular region. MRI C spine shows multi-level degenerative changeswith osteophytes seen at C4-C7. Patient had initial cervical radicular symptoms involving the left upper extremity which has now resolved after course of PT. She continues to have facet mediated pain affecting the left cervical medial branch nerve distribution of C3, C4, C5 and C6. We discussed treatment options including diagnostic CMBB/RFA, if her cervical radicular symptoms recurs, then CARIN maybe more beneficial. She will review these informations (patient information brochure given to Shivanid her to review). We will schedule FUV to discuss her axial back pain at the next visit. She will also let me know how she would like to proceed with her neck injection at the next clinic visit. PLAN: Medication: None Diagnostic images: None Interventional procedures: - CMBB/RFA vs CARIN depending on patient's symptoms Referral: - none Follow up: - 30 minute FUV (discuss back pain and neck injection) Nuha Ryan MD [employer]ment [employer] Cutter [employer] [facility] [place] [address] CC: Russel Solis PA [facility] [address] [address] documented in this encounter Plan of Treatment Upcoming Encounters Date Type Department Care Team (Late st Contact Info) Description 12/02/2024 11:00 AM EST Office Visit Dermatology at [facility] [address] [place] [address] Abi Steen MD [facility] [address] [address] Scheduled Referrals Name Type Priority Associated Diagnoses Orde r Schedule Referral to Pain and Spine Center (Internal only) Outpatient Referral Routine Radiculopathy of cervical region Cervical spondylosis Radiculopathy of lumbar region Ordered: 02/12/2022 documented as of this encounter Visit Diagnoses Diagnosis Cervical spondylosis Cervical spondylosis without myelopathy documented in this encounter Care Teams Boiler Riveter Relationship Specialty Start Date End Date Leonora López MD [address] [place] [id number] PCP - General Family Medicine 03/13/17 03/11/22 documented as of this encounter
--- OUTSIDE RECORDS SUMMARY | 2024-10-26 15:43 | XMS_ITS | Encounter Summary ---
Author Organization [facility] [place] [address] Care Team Providers Care Systems Engineering Manager Name Role Phone Leonora López MD Primary Care Provider [phone] Encounter Details Date Type Department Care Team ([facility] st Contact Info) Description 03/09/2022 Telephone Pain and Spine Center at [facility] [place] [address] Hien Rodriguez, RN Social History Tobacco Use Types Packs/Day [...] Miscellaneous Notes * Telephone Encounter - Hien Rodriguez, RN - 03/09/2022 3:48 PM EDT Contact made with patient or medical field representative as identified in contacts 1. Patient instructed to arrive at 1500 on 03/16/22 with their otr flatbed company truck driver for their CMBB procedure. Please plan [...] the patient has been directed to the [facility] hotline for testing prior to their procedure. ([facility] with routing [...] 11:00 AM EST Office Visit Dermatology at [facility] [address] [place] [address] Abi Steen MD [facility] [address] [address] documented as of this encounter Visit Diagnoses Not on filedocumented in this encounter Care Teams Systems Engineering Manager Relationship Specialty Start Date End Date Leonora López MD [address] [place] [address] PCP - General Family Medicine 03/13/17 03/11/22 documented as of this encounter
--- OUTSIDE RECORDS SUMMARY | 2024-10-26 15:43 | XMS_ITS | Encounter Summary ---
Author Organization [facility] Address [facility] [place] [address] Care Team Providers Care Committee Member Name Role Phone Leonora López MD Primary Care Provider [phone] Reason for Visit * Reason Comments Follow-up F/U to Xray and disc uss future injections Encounter Details Date Type Department Care Team (Late st Contact Info) Description 02/26/2022 2:30 PM EDT Office Visit [place] [phone] Nuha Ryan MD [facility] [address] Cervical spondylosis; Lumbar adjacent segment disease with spondylolisthesis; Spondylolisthesis at L5-S1 level Social History Tobacco Use Types Packs/Day Years [...] Sign Reading Time Taken Comments Blood Pressure 148/71 02/26/2022 2:21 PM EDT Pulse 56 02/26/2022 2:21 PM EDT Temperature - - Respiratory Rate - - Oxygen Saturation 98% 02/26/2022 2:21 PM EDT Inhaled Oxygen Concentration - - Weight 63.5 kg (140 lb) 02/26/2022 2:21 PM EDT Height 160 cm (5' 3) 02/26/2022 2:21 PM EDT Body Mass Index 24.8 02/26/2022 2:21 PM EDT documented in this encounter Progress Notes * Nuha Ryan MD - 02/26/2022 2:30 PM EDT [facility] Follow Up Visit Note DOS: 02/26/22 : 1955 Brinda Alfred is a 66 y.o. year old female with a PMH including hypertension, anxiety/depression, status post bilateral hip replacement, chronic migraine, irritable bowel syndrome, chronic neck pain,and new onset back pain with RLE pain who returns to clinic to discuss neck injection and discuss her back pain CC: Dr Ag at [facility] is worried about a disc herniation in my neck that is pushing on the fluids around my spinal cord. I also have a couple spots of painful areas in my lower back and buttock and there is pain down the right leg Interval history: [] reviewed brochures on CMBB/RFA and CARIN [] LUE pain has not recurred, pain is localized to left side of her neck, base of her skull, radiates to trapezius, restricting her ability to turn her neck [] lower back pain with radiation down right lateral thigh, sometimes anterior thigh, to right ankle, worse with prolonged standing and walking [] has few episodes of dizzy spells and unsteady balance, but denies near falls or actual falls HPI: Brinda Alfred is accompanied by her today. She report insidious onset of neck pain with intermittent radiation down left upper extremity about 5-6 years ago. She completed a course of PT withNic Webb in [facility] which resolved most of her left [...] 3.66) performed by Fidencio Drew MD at [facility] FAMILY HISTORY: Family History Problem [...] 100 mg by mouth 3 times daily. *taking two tablets three times a day*), Disp: 90 capsule, Rfl: 12 ??? ALPRAZolam [...] loading - positive on left side Neurologic: turbine subassembler - grossly intact Reflexes - 2+ and [...] distribution of C3, C4, C5 and C6. Patient also reports axial back pain with intermittent right leg radiation involving the right anterior-lateral thigh. X-ray L spine shows degenerative lumbar spondylolisthesis at L4-5, which is likely the pain generator for her symptoms. She is tolerating GBP 200mg TID which is controlling her neck and UE pain, it's not adequate for her lower extremity pain. PLAN: Medication: Continue GBP 200mg TID Diagnostic images: X-ray L spine ap/flex/ext to r/o dynamic instability MRI L spine to r/o nerve root impingement Interventional procedures: - schedule CMBB Referral: - none Nuha Ryan MD Diabetologist [facility] [place] [address] CC: Leonora López MD [address] [place] [id number] documented in this encounter Plan of Treatment Upcoming Encounters Date Type Department Care Team (Late st Contact Info) Description 12/02/2024 11:00 AM EST Office Visit Dermatology at [facility] [address] [place] [address] Abi Steen MD [facility] [address] [place] [address] documented as of this encounter Results * [...] who have questions please contact the health transitional care liaison that requested your imaging first. ? Electronically signed by: Denzel Valles MD, [facility] ([phone]), at 02/26/2022 3:39 PM Narrative 02/26/2022 3:39 PM EDT EXAMINATION: XR LUMBAR SPINE AP FLEXION AND EXTENSION ONLY CLINICAL HISTORY: lumbar spondylolisthesis at L4-5, r/o dynamic instabliity TECHNIQUE: Lumbar spine AP and lateral during flexion or extension COMPARISON: February 12, 2022 FINDINGS: There are five aia-ghu-wrnqors lumbar-type vertebrae. There is severe disc interspace [...] February 12, 2022 FINDINGS: There are five [id number]-vml-zjptxrw lumbar-type vertebrae. There is severe disc interspace [...] patients who have questions please contactthe health transitional care liaison that requested your imaging first. Electronically signed by: Denzel Valles MD, 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
--- OUTSIDE RECORDS SUMMARY | 2024-10-26 15:43 | XMS_ITS | Encounter Summary ---
Author Organization [facility] Address [facility] [address] Care Team Providers Care Rocket Engine Mechanic Name Role Phone Leonora López MD Primary Care Provider [phone] Encounter Details Date Type Department Care Team (Latest Contact Info) Description 07/09/2017 10:47 AM EDT - 07/09/2017 11:59 PM EDT Hospital [place] [phone] Leonora López MD [address] [place], [place] [id number] Encounter for screening mammogram for breast cancer Discharge Disposition: Home [...] 11:00 AM EST Office Visit Dermatology at [facility] [address] [place] [address] Abi Steen MD [facility] [address] [address] documented as of this encounter Procedures Procedure Name Priority Date/Time Associated Diagnosis Comments MAMMO SCREENING CAD AND RAMILA BILATERAL Routine 07/09/2017 11:03 AM EDT Encounter for screening mammogram for breast cancer documented in this encounter Results * Mammo Screen CAD and Ramila Bilat (Generic) (07/09/2017 11:03 AM EDT) Anatomical Region Laterality Modality Breast Bilateral Mammography Narrative 07/09/2017 11:51 AM EDT BILATERAL MAMMOGRAPHY REASON FOR EXAM: [...] CONCLUSION: No mammographic evidence of malignancy. RECOMMENDATION: The [employer] and The Society of Breast Imaging recommend annual screening beginning at age 40 for the general female population. Screening should continue as long as a woman is in good health and is expected to live 10 more years or longer. All women should be familiar with the known benefits, limitations, and potential harms linked to breast cancer screening. They should also know how their breasts normally look and feel and report any breast changes to a health care provider right away. Some women - because of their family history, a genetic tendency, or certain other factors - should be screened with MRIs along with mammograms. (The number of women who fall into this category is very small.) The patient and health care provider should discuss the patient history and decide if earlier screening and breast MRI are appropriate. A result letter has been sent to this patient by the [facility] Imaging Center. BIRADS CATEGORY 1: NEGATIVE Leonora López MD IMG MAMMO ORDERABLES documented in this encounter Visit Diagnoses Diagnosis Encounter for screening mammogram for breast cancer documented in this encounter Care Teams Rocket Engine Mechanic Relationship Specialty Start Date End Date Leonora López MD [address] [place] [address] PCP - General Family Medicine 03/13/17 03/11/22 documented as of this encounter
--- OUTSIDE RECORDS SUMMARY | 2024-10-26 15:43 | XMS_ITS | Encounter Summary ---
Author Organization [facility] [place] [address] Care Team Providers Care Clinical Immunologist Name Role Phone Leonora López MD Primary Care Provider [phone] Reason for Visit * Reason Onset Date Comments Bumped Appointment 09/14/2019 Encounter Details Date Type Department Care Team ([facility] st Contact Info) Description 09/14/2019 [place]phone [place] [phone] Robert Brantley MD [facility] [place] [address] Bumped Appointment Social History Tobacco Use Types Packs/Day Years [...] encounter Miscellaneous Notes * Telephone Encounter - Faye Mcclure - 09/14/2019 11:18 AM EDT Patient scheduled * Telephone Encounter - Mary Vick - 09/14/2019 11:09 AM EDT Left message for pt to call back to reschedule bumped appointment - pt bumped on 12/08/19 cat eval Please schedule next available and add to wait list documented in this encounter Plan of Treatment Upcoming Encounters Date Type Department Care Team (Late st Contact Info) Description 12/02/2024 11:00 AM EST Office Visit Dermatology at [facility] [address] [place] [address] Abi Steen MD [facility] [address] [address] documented as of this encounter Visit Diagnoses Not on filedocumented in this encounter Care Teams Clinical Immunologist Relationship Specialty Start Date End Date Leonora López MD [address] [place] [address] PCP - General Family Medicine 03/13/17 03/11/22 documented as of this encounter
--- OUTSIDE RECORDS SUMMARY | 2024-10-26 15:43 | XMS_ITS | Encounter Summary ---
Author Organization [facility] [place] [address] Care Team Providers Care Painting Manager Name Role Phone Leonora López MD Primary Care Provider [phone] Reason for Visit * Reason Onset Date Comments Medication Refill 03/01/2022 Encounter Details Date Type Department Care Team ([facility] st Contact Info) Description 03/01/2022 Refill [facility] [place] [phone] Estella Campos RN Radiculopathy of cervical region; Cervical spondylosis; [...] encounter Miscellaneous Notes * Telephone Encounter - Estella Campos RN - 03/01/2022 4:47 PM EDT Received call from patient reporting that she is now taking 200 mg of Gabapentin 3 times daily, sheis tolerating this dose and it is helping her symptoms. She plans to stay at this dose. She has 5 tabs left and is requesting refill. Above discussed with LADARIUS Smith, he authorized refill for gabapentin 100 mg, 2 tabs 3 times daily# 180 with 1 refill. Patient contacted and informed that refill was completed. documented in this encounter Plan of Treatment Upcoming Encounters Date Type Department Care Team (Late st Contact Info) Description 12/02/2024 11:00 AM EST Office Visit Dermatology at [facility] [address] [place] [address] Abi Steen MD [facility] [address] [place] [address] documented as of this encounter Visit Diagnoses Diagnosis Radiculopathy of cervical region Brachial neuritis or radiculitis nos Cervical spondylosis Cervical spondylosis without myelopathy Radiculopathy of lumbar region Thoracic or lumbosacral neuritis or radiculitis, unspecified documented in this encounter Care Teams Painting Manager Relationship Specialty Start Date End Date Leonora López MD [address] [place] [address] PCP - General Family Medicine 03/13/17 03/11/22 documented as of this encounter
--- OUTSIDE RECORDS SUMMARY | 2024-10-26 15:43 | XMS_ITS | Encounter Summary ---
[place] [address] Care Team Providers Care Blood Bank Laboratory Professional Name Role Phone Dorothea Shannon APRN Primary Care Provider [phone] Encounter Details Date Type Department Care Team (Latest Contact Info) Description 03/16/2022 2:04 PM EDT - 03/16/2022 2:55 PM EDT Hospital Encounter Mammography/[place] [phone] Dorothea Shannon APRN [address] [place], [place] [address] Visit for screening mammogram Discharge Disposition: Home Social History Tobacco Use [...] 11:00 AM EST Office Visit Dermatology at [facility] [address] [place] [address] Abi Steen MD [facility] DR [address] [place] [address] documented as of this encounter Procedures Procedure Name Priority Date/Time Associated Diagnosis Comments MAMMO SCREENING CAD AND RONAL BILATERAL Routine 03/16/2022 2:23 PM EDT Visit for screening mammogram documented in this encounter Results * Mammo Screening Cad and Ronal Bilateral (03/16/2022 2:23 PM EDT) Anatomical Region Laterality Modality Breast Bilateral Mammography Impressions 03/18/2022 6:06 PM EDT The right breast demonstrates a focal asymmetry in the upper-outer quadrant at 10:00, 6 cm from the nipple, for which additional imaging is recommended. The Breast Imaging Division will contact the patient to coordinate this follow-up. BI-RADS Category 0: Incomplete-Need Additional Imaging Evaluation and/or Prior Mammograms for Comparison * ??Regular screening mammograms starting between age [...] Patients and health care providers should discuss the history of each patient to decide if earlier screening and/or breast MRI are appropriate. * ??Screening should continue as long as a woman is in good health and is expected to live 10 years or longer. * ??Screening mammography may not detect 10-15% of breast cancers. Thank you for letting us participate in the care of this patient. ??If you are a health care provider and have any questions regarding this report, please contact the number below. ??For patients who have questions please contact the health child care director that requested your imaging first. ? Electronically signed by: Sophie Souza MD, [facility] ([phone]), at 03/18/2022 6:06 PM Narrative 03/18/2022 6:06 PM EDT EXAMINATION: MAMMO SCREENING CAD AND RONAL BILATERAL CLINICAL HISTORY: ROUTINE MAMMO; LAST MAMMO 07/09/17. TECHNIQUE: CC and MLO views were obtained of each breast. 2-D and 3- D tomosynthesis images were obtained. Computer aided detection was used. COMPARISON: This is compared to prior images. FINDINGS: Breast density: The breasts are heterogeneously dense, which may obscure small masses. The left ??breast is normal. The right breast demonstrates a focal asymmetry in the upper-outer quadrant at 10:00, 6 cm from the nipple. Dorothea Shannon APRN IMG MAMMO ORDERAB LES documented in this encounter Visit Diagnoses Diagnosis Visit for screening mammogram Other screening mammogram documented in this encounter Care Teams Blood Bank Laboratory Professional Relationship Specialty Start Date End Date Dorothea Shannon, CATHODE BUILDER [address] [place] [address] PCP - General Family Medicine 03/12/22 documented as of this encounter
--- OUTSIDE RECORDS SUMMARY | 2024-10-26 15:43 | XMS_ITS | Encounter Summary ---
Author Organization [facility] Address [facility] [place] [address] Care Team Providers Care Lead Relay Tester Name Role Phone Leonora López MD Primary Care Provider [phone] Encounter Details Date Type Department Care Team ([facility] st Contact Info) Description 07/15/2017 10:14 AM EDT Anesthesia [place] [address] Elisha Martinez MD [facility] [place] [address] Anesthesia Record Procedure Summary Procedure Name Responsible Anesthesiologist Anesthesia Start Time Anesthesia Stop Time COLONOSCOPY FLEXIBLE, WITH BX (WRVU 3.56) Elisha Martinez MD 07/15/17 1014 07/15/17 1041 Events Date Time Event Comment 07/15/2017 0955 1014 Start 1017 AN Verify 1017 An Start Data 1041 an stop data 1041 Recovery or ICU Handoff Chloe ent care was transferred to the destination unit staff after review of the patient's medical history, current anesthetic/surgical status and plan, according to the Provider Handoff Checklist. 1041 Stop Meds Name Total Propofol 50 mg Propofol INF 208 mg lactated Ringers infusion 0 mL * Agents Name O2 * Blood No blood administrations on file. Lines, Drains, and Airways Type Details Placement Removal (RETIRED) Peripheral IV Line - Single Lumen 07/15/17; 0951; median cubital vein (antecubital fossa), right; [id number]-[id number] catheter system; 20 gauge; Cuong Gama RN; distraction, tolerated well, appears comfortable; no longer indicated, removed per policy/procedure; 07/15/17; 1108 08/21/17 0951 by Manuel Gama RN 07/15/17 1108 by Gertrudis Ferreira documented in this encounter Social History Tobacco [...] OR Notes * Anesthesia Postprocedure Evaluation - Elisha Martinez MD - 07/15/2017 11:23 AM EDT [facility] Department of Anesthesiology Post-procedure Note Patient: Brinda Alfred Procedure Summary Date Anesthesia Start Anesthesia Stop Room / Location 07/15/17 1014 1041 [facility] 7 / [facility] Procedure Diagnosis Surgeon Responsible Provider COLONOSCOPY FLEXIBLE, WITH BX (WRVU 3.66) (N/A ) Irritable bowel syndrome with diarrhea (colorectal cancer screening. Family hx. Worsening IBS sx with blood in stool.; (consult)) Fidencio Drew MD Welch, Marnie B, MD All Anesthesia Providers: Anesthesiologist: Elisha Martinez MD SUPERVISOR VACUUM METALIZING: Scot Meek CRNA Last (1hr) Vitals: BP 133/71 (07/15/17 1104) Temp Pulse 61 (07/15/17 1104) Resp 16 (07/15/17 1104) SpO2 96 % (07/15/17 1104) Patient Location: PACU/[facility] Level of Consciousness: Awake and Alert Pain Management: Satisfactory Analgesia PONV: None Cardiovascular Status: At Baseline and Hemodynamically Stable Respiratory Status: At Baseline and Room Air Postoperative Fluid Status: Intravascular EUvolemia Possible Anesthetic Complications: NONE apparent at time of evaluation Final Primary Anesthesia Type: MAC (The anesthetic type performed was the same as planned.) Comments: ELISHA MARTINEZ MD * Anesthesia Preprocedure Evaluation - Elisha Martinez MD - 07/15/2017 7:56 AM EDT Pre-Anesthesia Evaluation for: Brinda montesinos 62 y.o. female. Procedure(s): COLONOSCOPY, DIAGNOSTIC There are no active problems to display for this patient. No past medical history on file. No past surgical history on file. Social History Substance Use Topics ??? Smoking status: Never Smoker ??? Smokeless tobacco: Never Used ??? Alcohol use Not on file History Drug Use Not on file Allergies Allergen Reactions ??? Phenergan Dm [Promethazine-Dm] Anaphylaxis ??? Mold ??? Sulfa (Sulfonamide Antibiotics) ??? Unable To Find [Unclassified Drug] Flowering tree MSG Medications: MAR and/or home medications have been reviewed. Physical Exam: There were no vitals filed for this visit. There is no height or weight on file to calculate BMI. Airway Assessment: Mallampati: III TM distance: >3 FB Neck ROM: full Cardiovascular Assessment: Rhythm: regular Pulmonary Assessment: breath sounds clear to auscultation Dental Assessment: Misc Assessment: IV access: Peripheral line Other exam findings: Poor denition, nothing overtly loose or broken Anesthesia Plan: ASA 2 MAC, with a(n) intravenous induction 62 y/o here for colonoscopy for IBS w/ diarrhea, blood in stool PMH: anxiety, depression, IBS, HLD, GERD, HTN no treatment currently - weaned off drugs PSH: colonoscopy 2008, hysterectomy, C/S, no issues with 2008 scope, very anxious about having an allergy, dad had anaphylaxis and respiratory arrest Plan : deep sedation The patient was informed of the risks of anesthesia, and consent was obtained. These risks include,but are not limited to, PONV, pain, intraop awareness (expected), conversion to general anesthesia,and other rare but serious complications such as major organ damage, allergies, blood transfusions,and dental/lip trauma. Region - Other Informed Consent: Anesthetic plan and risks discussed with patient. Plan discussed with SUPERVISOR VACUUM METALIZING. PAT Staff Note documented in this encounter Plan of Treatment Upcoming Encounters Date Type Department Care Team (Late st Contact Info) Description 12/02/2024 11:00 AM EST Office Visit Dermatology at [facility] [address] [place] [phone] Abi Steen MD [facility] [address] [place] [address] documented as of this encounter Visit Diagnoses [...] 9:52 AM EDT 100 mL/hr 100 mL/hr propofol (DIPRIVAN) 10 mg/mL bolus injection (Anesthesia) PRN, Starting on Sat07/15/17 at 1017, Until Sat07/15/17 at 1041, Anesthesia Intra-op Given 07/15/2017 10:17 AM EDT 50 mg propofol (DIPRIVAN) infusion CONTINUOUS PRN, Starting on Sat07/15/17 at 1017, Until Sat07/15/17 at 1041, Anesthesia Intra-op, Routine Rate/Dose Change 07/15/2017 10:24 AM EDT 150 mcg/kg/min 58.5 mL/hr New Bag 07/15/2017 10:17 AM EDT 200 mcg/kg/min 78 mL/hr documented in this encounter Care Teams Lead Relay Tester Relationship Specialty Start Date End Date Leonora López MD [address] [place] [address] PCP - General Family Medicine 03/13/17 03/11/22 documented as of this encounter
--- OUTSIDE RECORDS SUMMARY | 2024-10-26 15:43 | XMS_ITS | Encounter Summary ---
Author Organization [facility] [place] [address] [place] [address] Care Team Providers Care Client Engagement Specialist Name Role Phone Mindi Cristina ALFIE Primary Care Provider [phone] Encounter Details Date Type Department Care Team (Latest Contact Info) Description 11/20/2013 7:50 AM EST - 11/20/2013 11:59 PM EST Hospital [place] [id number] CLINIC, Mikey Jasso MD [address] [place] [id number] Discharge Disposition: Home Social History Tobacco Use Types Packs/Day Years Used Date Smoking Tobacco: Never Assessed Sex and Gender Information Value Date Recorded Sex Assigned at Not on file Gender Identity Not on file Sexual Orientation Not on file documented as of this encounter Plan of Treatment Upcoming Encounters Date Type Department Care Team (Late st Contact Info) Description 12/02/2024 11:00 AM EST Office Visit Dermatology at [facility] [address] [place] [address] Abi Steen MD [facility] [address] [place] [address] documented as of this encounter Procedures Procedure Name Priority Date/Time Associated Diagnosis Comments MAMMO SCREENING CAD BILATERAL Routine 11/20/2013 8:08 AM EST documented in this encounter Results * Mammo digital bilateral Screening with CAD (11/20/2013 8:08 AM EST) Anatomical Region Laterality Modality Breast Bilateral Mammography 11/20/2013 8:08 AM EST Narrative 11/23/2013 10:10 AM EST Reason for Exam: Screening ?? Technique: Craniocaudal (CC) and Medio-lateral Oblique (MLO) views of both breasts obtained with direct digital capture. ?? The exam was evaluated by CAD version 8.3.17. ?? Findings: ?? This is a negative mammogram (ACR Category 1). There is a stable fibroglandular pattern without significant change from prior studies. There is no mammographic evidence of cancer. The breasts are heterogeneously dense which limits mammographic sensitivity for the detection of malignancy. ?? CONCLUSION: This is a NEGATIVE mammogram (ACR Category 1). ? Routine screening mammography is recommended with the frequency dependent upon the patients age and breast cancer risk factors. ?? A letter has been sent to this patient by the breast imaging center. Procedure Note Latanya Greene MD - 11/23/2013 Reason for Exam: Screening Technique: Craniocaudal (CC) and Medio-lateral Oblique (MLO) views of both breasts obtained with direct digital capture. The exam was evaluated by CAD version 8.3.17. Findings: This is a negative mammogram (ACR Category 1). There is a stablefibroglandular pattern without significant change from prior studies. There is no mammographic evidence of cancer. The breasts areheterogeneously dense which limits mammographic sensitivity for the detection ofmalignancy. CONCLUSION: This is a NEGATIVE mammogram (ACR Category 1). Routine screening mammography is recommended with the frequency dependentupon the patients age and breast cancer risk factors. A letter has been sent to this patient by the breast imaging center. Mindi ABDALLA MAMMO ORDERABLES documented in this encounter Visit Diagnoses Not on filedocumented in this encounter Care Teams Client Engagement Specialist Relationship Specialty Start Date End Date Mindi Cristina APRN [address] [place] [address] PCP - General 10/12/13 03/12/17 documented as of this encounter
--- OUTSIDE RECORDS SUMMARY | 2024-10-26 15:43 | XMS_ITS | Encounter Summary ---
Author Organization [facility] [place] [address] [place] [address] Care Team Providers Care Data Report Analyst Name Role Phone Leonora López MD Primary Care Provider [phone] Encounter Details Date Type Department Care Team (Late Contact Info) Description 03/08/2022 Telephone [facility] [place] [address] Charlene Gan RN Social History Tobacco Use [...] Telephone Encounter - Charlene Gan RN - 03/08/2022 12:17 PM EDT In coming via covermymeds prior authorization for the Gabapentin has been denied. documented in this encounter Plan of Treatment Upcoming Encounters Date Type Department Care Team (Late st Contact Info) Description 12/02/2024 11:00 AM EST Office Visit Dermatology at [facility] [address] [place] [address] Abi Steen MD [facility] [address] [place] [address] documented as of this encounter Visit Diagnoses Not on filedocumented in this encounter Care Teams Data Report Analyst Relationship Specialty Start Date End Date Leonora López MD [address] [place] [address] PCP - General Family Medicine 03/13/17 03/11/22 documented as of this encounter
== END 2024-10-26 15:40 | disposition home or self-care (01) ==
LOC: NCHCN 15:39
PROVIDERS: PCP Nurse Practitioner Family; Visit Provider Nurse Practitioner Family
DX: N76.0 Acute vaginitis (principal)
CPT/HCPCS: 87480; 87510; 87660

== ENCOUNTER 2025-01-25 15:52 | Outpatient (CLI) | payer MEDICARE, SELFPAY ==
--- NOTE | 2025-01-25 15:13 | DI.RAD_ITS ---
Exam(s) XR KNEE LT 4V AP,LAT,FABIENNE,PAT EXAM: XR KNEE LT 4V AP,LAT,FABIENNE,PAT CLINICAL HISTORY: eval L knee pain, likely OA. TECHNIQUE: 2D digital imaging was performed. Three views. COMPARISON: No exams were available for comparison FINDINGS: BONES: No acute fracture is present. No bony destructive lesion is seen. JOINTS: There is severe narrowing of the lateral patellofemoral joint, with a [id number] appearance . There is prominent periarticular spurring. The femoral tibial joint spaces are maintained. There is mild periarticular spurring. A small joint effusion is seen. SOFT TISSUE: 2 small bony densities are noted posteromedially IMPRESSION: Severe degenerative changes of the patellofemoral joint. DATA REPOSITORY: RADIATION DOSE DELIVERED:
== END 2025-01-25 15:53 | disposition home or self-care (01) ==
LOC: DIORS 15:52
PROVIDERS: PCP Nurse Practitioner Family; Referring Provider Nurse Practitioner Family; Visit Provider Student in an Organized Health Care Education/Training Program
DX: M17.12 Unilateral primary osteoarthritis, left knee (principal)
CPT/HCPCS: 20610; 99214; J1010; 73564

== ENCOUNTER 2025-01-29 21:48 | Outpatient (REF) | payer MEDICARE, SELFPAY ==
[2025-01-29 22:05] LABS: HCT 46.7 % (36.0-46.0); HGB 15.5 g/dL (11.2-15.7); MCH 29.3 pg (27.0-33.0); MCHC 33.2 % (32.0-36.0); MCV 88 fL (80-95); MPV 11.5 fL (8.0-11.0); Platelet Count 290 10^3/uL (130-400); RBC 5.29 10^6/uL (3.93-5.22); RDW 12.8 % (11.7-14.6); RDW-SD 41.7 fL; WBC 11.48 10^3/uL (4.4-10.8)
[2025-01-29 23:36] LABS: Anion Gap 9.3 mmol/L (3-11); BUN 12 mg/dL (7-18); CO2 32.7 mmol/L (21.0-32.0); CREATININE 0.8 mg/dL (0.55-1.02); Calcium 9.3 mg/dL (8.5-10.1); Calculated LDL 201 mg/dL (<100); Chloride 100 mmol/L (98-107); Cholesterol 309 mg/dL (<200); Estimated GFR 78.72 (mL/min/1.73m2); Glucose 96 mg/dL (74-106); HDL Cholesterol 82 mg/dL (>or=50); Potassium 3.8 mmol/L (3.5-5.1); Sodium 142 mmol/L (136-145); Triglyceride 133 mg/dL (<150); Vitamin B12 197 pg/mL (193-986); Vitamin D 25 Total 30 ng/mL (30-100)
== END 2025-01-29 21:49 | disposition home or self-care (01) ==
LOC: NCHCN 21:48
PROVIDERS: PCP Nurse Practitioner Family; Visit Provider Nurse Practitioner Family
DX: I10 Essential (primary) hypertension (principal); M85.89 Other specified disorders of bone density and structure, multiple sites
CPT/HCPCS: 80048; 80061; 82306; 85027; 82607; 83735

== ENCOUNTER 2025-02-04 10:44 | Outpatient (REF) | payer MEDICARE, SELFPAY ==
[2025-02-04 15:34] LABS: ALT 39 U/L (14-59); AST 17 U/L (15-37); Albumin 3.7 g/dL (3.4-5.0); Alkaline Phosphatase 123 U/L (46-116); Bilirubin, Direct 0.1 mg/dL (0.0-0.2); Bilirubin, Total 0.3 mg/dL (0.2-1.0); Total Protein 7.2 g/dL (6.4-8.2)
== END 2025-02-04 10:45 | disposition home or self-care (01) ==
LOC: NCHCN 10:44
PROVIDERS: PCP Nurse Practitioner Family; Visit Provider Nurse Practitioner Family
DX: E78.5 Hyperlipidemia, unspecified (principal)
CPT/HCPCS: 80076

== ENCOUNTER 2025-04-06 15:58 | Outpatient (REF) | payer MEDICARE, SELFPAY ==
[2025-04-06 22:08] LABS: ALT 30 U/L (14-59); AST 20 U/L (15-37); Albumin 3.7 g/dL (3.4-5.0); Alkaline Phosphatase 128 U/L (46-116); Anion Gap 3.1 mmol/L (3-11); BUN 12 mg/dL (7-18); Bilirubin, Total 0.3 mg/dL (0.2-1.0); CO2 35.9 mmol/L (21.0-32.0); CREATININE 0.8 mg/dL (0.55-1.02); Calcium 9.3 mg/dL (8.5-10.1); Calculated LDL 118 mg/dL (<100); Chloride 101 mmol/L (98-107); Cholesterol 207 mg/dL (<200); Estimated GFR 78.24 (mL/min/1.73m2); Glucose 92 mg/dL (74-106); HDL Cholesterol 69 mg/dL (>or=50); Potassium 4.1 mmol/L (3.5-5.1); Sodium 140 mmol/L (136-145); Total Protein 7.3 g/dL (6.4-8.2); Triglyceride 103 mg/dL (<150)
== END 2025-04-06 15:59 | disposition home or self-care (01) ==
LOC: NCHCN 15:58
PROVIDERS: PCP Nurse Practitioner Family; Visit Provider Nurse Practitioner Family
DX: E78.5 Hyperlipidemia, unspecified (principal)
CPT/HCPCS: 80053; 80061

== ENCOUNTER 2025-05-10 00:13 | Outpatient (CLI) | payer MEDICARE, SELFPAY ==
--- NOTE | 2025-05-10 | DI.DEXA_ITS ---
Exam(s) XR DEXA BONE DENSITY W/WO RANDA EXAM: XR DEXA BONE DENSITY W/WO RANDA CLINICAL HISTORY: OSTEOPENIA MULTIPLE SITES,M85.89 TECHNIQUE: COMPARISON: CR XR DEXA BONE DENSITY W/WO RANDA from 08/04/2021 FINDINGS: Lateral Spine Image: Unremarkable. No compression deformities identified. There is grade 1 anterolisthesis of L4 on L5. Left forearm: Total T-Score: -3.4. This compares to -2.8 on the prior examination. Total Z-Score: -1.2 T- and Z-scores: Findings are consistent with osteoporosis. Lumbar Spine: Total T-Score: -2.2. This compares to -1.7 on the prior examination. Total Z-Score: 0.0 T- and Z-scores: Findings are consistent with osteopenia. IMPRESSION: Osteoporosis is seen in the left forearm.
== END 2025-05-10 00:33 ==
LOC: DI 00:14
PROVIDERS: PCP Nurse Practitioner Family; Visit Provider Nurse Practitioner Family
DX: M85.89 Other specified disorders of bone density and structure, multiple sites (principal)
CPT/HCPCS: 77080

== ENCOUNTER 2025-07-02 20:09 | Emergency (ER) | payer MEDICARE, SELFPAY ==
[2025-07-02 20:21] VITALS: BP 138/82; PULSE 18; RESP 20; TEMP 36.3; O2SAT 94
--- NOTE | 2025-07-02 21:35 | ED.GENADUL_ITS ---
Discharge Plan Disposition Patient Disposition: Home Condition: Stable Discharge Details Clinical Impression: Leg cramp Primary Care Provider: Dorothea Shannon ED Provider: Meghana Arreguin Home Meds and New Rx's Prescriptions: New methocarbamol 500 mg tablet 500 mg PO Q8H Qty: 20 0RF Rx Instructions: Take 1-2 tabs by mouth every 8 hours as needed for muscle spasms No Action amlodipine 5 mg tablet 5 mg PO DAILY omeprazole 20 mg capsule,delayed release(DR/EC) 20 mg PO DAILY alprazolam [Xanax] 0.5 mg tablet 0.5 mg PO DAILY PRN venlafaxine [Effexor XR] 37.5 mg capsule,extended release 24hr 75 mg PO DAILY prednisone 5 mg tablet 5 mg PO DAILY Qty: 30 0RF Rx Instructions: Take 2 pills (1omg) for 10 days and then 1 pill (5mg) for 10 days. Discharge Instructions Additional Instructions: Please follow-up with interventional radiology on Saturday to schedule a follow-up appointment. Recommend that you call them over the weekend if you have any questions or concerns about your procedure. I encourage you to use heat/ice, muscle rubs, and resting flat. Continue using ibuprofen 600 mg every 8 hours for discomfort [id number]. For severe pain you may use the limited number of oxycodone tablets provided. Turn to emergency care if develop new leg coolness, numbness, weakness, fever/chills, or if you are very worried and need to be rechecked again immediately Referrals: Dorothea Shannon [Primary Care Provider, Medicine] HPI General Date/Time Provider Initiated Documentation: 07/02/25 20:13 . HPI Narrative: Brinda is a 70-year-old female presents to the emergency department today for evaluation of cramping leg pain after genicular artery embolization performed today. She reports that she started having spasms from her lower leg moving up to her hip while in recovery from the procedure, described as a charley horse. She applied heat and ice, as well as Tylenol and ibuprofen and was able to ambulate to the restroom, so was discharged home. The cramping has intensified since returning home, she took a gabapentin and has been using Tylenol/ibuprofen without any improvement of symptoms. Denies fever/chills, distal numbness/tingling, nausea/vomiting, abdominal pain, or other associated symptoms.. She called her surgeon, was told that she should come to the emergency department to receive pain medications. Related Data Home Medications ?Medication ?Instructions ?Recorded ?Confirmed alprazolam 0.5 mg tablet (Xanax) 0.5 mg PO DAILY PRN 0 06/02/21 01/29/25 amlodipine 5 mg tablet 5 mg PO DAILY 06/02/2101/29 omeprazole 20 mg capsule,delayed 20 mg PO DAILY 01/29/25 release venlafaxine 37.5 mg 75 mg PO DAILY 09/04/2106/18 capsule,extended release 24 hr (Effexor XR) prednisone 5 mg tablet 5 mg PO DAILY #30 tabs 01/2901/29/25 methocarbamol 500 mg tablet 500 mg PO Q8H #20 tabs 08/19 Previous Rx's ?Medication ?Instructions ?Recorded prednisone 5 mg tablet 5 mg PO DAILY #30 tabs 01/29 methocarbamol 500 mg tablet 500 mg PO Q8H #20 tabs 08/19 Allergies Allergy/AdvReac Type Severity Reaction Status Date / Time lisinopril Allergy Severe Unknown Verified 07/02/25 20:27 promethazine (From Phenergan) Allergy Severe ANAPHYLAXIS Verified 07/02/25 20:27 sulfite Allergy Intermediate Other (See Unverified 07/02/25 20:27 Comment) Barbiturates Allergy Unknown Verified 07/02/25 20:27 losartan Allergy Unknown Verified 07/02/25 20:27 erythromycin base AdvReac Intermediate GI UPSET Verified 07/02/25 20:27 sucralfate (From Carafate) AdvReac Mild Diarrhea Unverified 07/02/25 20:27 celecoxib (From Celebrex) AdvReac Other (See Verified 07/02/25 20:27 Comment) MSG Allergy Severe Hives Uncoded 07/02/25 20:27 General Stated Complaint: Vascular JEROME: 3 Exam Const General: cooperative, healthy appearing and anxious Nutritional Appearance: average body habitus Resp Effort & Inspection: normal respiratory effort and able to speak in complete sentences Cardio Pulses: posterior tibial pulses present and dorsalis pedis present GI Inspection: normal to inspection Palpation: not firm, no guarding and nontender Skin Other: Extensive ecchymosis to left leg Neuro General: tone normal and moves all extremities Motor: muscle tone normal throughout and strength 5/5 throughout Sensory Exam: no sensory deficits noted Extrem Right lower extremity: normal to inspection and hip/thigh (Surgical dressing in place at right femoral area, no drainage) Left lower extremity: hip/thigh Details: ecchymosis, knee Details: normal ROM and lower leg Details: ecchymosis; no unusual warmth Other: no color change or temperature change to L leg Course Vital Signs Vital signs: Vital Signs Temperature 36.3 C L 07/02/25 20:21 Pulse 18 L 07/02/25 20:21 Respiratory Rate 20 07/02/25 20:21 Blood Pressure 138/82 07/02/25 20:21 Pulse Oximetry 94 07/02/25 20:21 Temperature 36.3 C L 07/02/25 20:21 Temperature Source Oral 07/02/25 20:21 Pulse 18 L 07/02/25 20:21 Respiratory Rate 20 07/02/25 20:21 Blood Pressure 138/82 07/02/25 20:21 Blood Pressure Position Sitting 07/02/25 20:21 Pulse Oximetry 94 07/02/25 20:21 Oxygen Delivery Method Room Air 07/02/25 20:21 Oxygen Flow Rate 0 07/02/25 20:21 Medical Decision Making Initial Assessment: 70-year-old female with left leg pain post-ventricular artery embolization. Reports spasms and cramping pain from foot to knee. No numbness, fever, or chills. Pain described as charley horse. History and presentation concerning for postprocedural complications. I did discuss patient's presentation with interventional secretary to the vice president Mike, who consulted with attending physician. As patient has intact distal pulses, warm extremities, and no signs of infection at this time, no red flags concerning for vascular compromise requiring diagnostic imaging or labs at this time. They recommend optimizing pain control with NSAID use, muscle relaxers, and opioids as needed. ED Course: - Pain management with Tylenol, ibuprofen, gabapentin. - Consultation with [facility] team, presentation not consistent with acute postprocedural complications such as infection or vascular compromise - Recommended use of ice and heat packs. Final Assessment: Left leg pain likely due to recent genicular artery embolization. Pain described as charley horse. No numbness, fever, or chills. Pain management with limited number of oxycodone, Tylenol, ibuprofen, Robaxin. Patient reported good improvement of discomfort after medications. A limited number of oxycodone was sent home with patient. Clinical Impression: - Post-procedural pain and muscle spasms Disposition: - Discharge: Home. Consultation with [facility] team. Reviewed discharge instruction of the patient, including importance of follow-up with IR for any questions/concerns, use of opioid pain medication, NSAID use, and symptomatic management. Educated on red flags indicate need for return to emergency care. Return if pain worsens or new symptoms develop. - Follow-Up: Consultation with [facility] team with close f/u for post operative management. Pain management. Patient Education: Continue using ice and heat packs. Pain management with Tylenol, ibuprofen, gabapentin. Return precautions discussed. MDM Components Evaluation: - Number of Differential Diagnoses or Management Options: Post-procedural pain, Muscle spasms. - Amount and Complexity of Data Reviewed: Consultation with [facility] team. - Risk of Complication and Morbidity or Mortality: Low risk based on current symptoms and treatment plan. 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 states this was found when she was and hasn't been able to be detected recently Hypertension Neck pain IBS (irritable bowel syndrome) Panic disorder Seasonal allergies Actinic keratosis Hyperlipidemia Myalgia Cataract, left eye Surgical History Previous section 1975, 1979 H/O colonoscopy 10/20/08, [facility] [place] History of right cataract surgery Social History Smoking/Tobacco Use Status: Never Smoking risk assessment performed?: Yes Alcohol Intake: never Substance use type: does not use Do you feel safe at home: Yes Do you feel safe in your relationship?: Yes
[2025-07-02 23:21] VITALS: RESP 16
[2025-07-02] MEDS: oxyCODONE 5 MG TAB PO (23:21)
[2025-07-02] MEDS: Methocarbamol 500 MG TAB (23:22)
[2025-07-03 00:42] VITALS: BP 134/67; PULSE 71; RESP 20; TEMP 36.8; O2SAT 93
[2025-07-03] MEDS: Ibuprofen 600 MG TAB PO (00:48)
== END 2025-07-03 00:49 | disposition home or self-care (01) ==
PROVIDERS: Emergency Provider Nurse Practitioner Family; PCP Nurse Practitioner Family
DX: M79.605 Pain in left leg (principal); R25.2 Cramp and spasm
CPT/HCPCS: 99283 ×2